=== PATIENT | male | born 1965 | race African-American/Black ===

== ENCOUNTER 2016-08-19 11:49 | Inpatient (IN) | payer OTHER ==
[2016-08-19 11:56] VITALS: BMI 21.7
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
[2016-08-19] MEDS ORDERED: hydrOXYzine PAMOATE 50 MG CAPSULE (FP) PO PRN (13:46)
[2016-08-19] MEDS ORDERED: guaiFENesin/D-METHORPHAN HB 10 ML UNIT-DOSE CUPS PO PRN (13:46)
[2016-08-19] MEDS ORDERED: chlordiazePOXIDE HCL 25 MG CAPSULE PO PRN (13:46)
[2016-08-19] MEDS ORDERED: MAGNESIUM HYDROX 2400MG/30ML ORAL SUSPENSION 30 ML CUP PO PRN (13:46)
[2016-08-19] MEDS ORDERED: MENTHOL/PHENOL 1 EACH UD MM PRN (13:46)
[2016-08-19] MEDS ORDERED: LOPERAMIDE HCL 2 MG CAPSULE PO PRN (13:46)
[2016-08-19] MEDS ORDERED: MAG HYDROX/AL HYDROX/SIMETH 30 ML UNIT-DOSE CUP PO PRN (13:46)
[2016-08-19] MEDS ORDERED: MAGNESIUM CITRATE 300 ML BOTTLE PO PRN (13:46)
[2016-08-19] MEDS ORDERED: ACETAMINOPHEN 325 MG TABLET (FP) PO PRN (13:46)
[2016-08-19] MEDS ORDERED: P-EPHED 60MG/TRIPROLIDI 2.5MG TABLET PO PRN (13:46)
[2016-08-19] MEDS ORDERED: chlordiazePOXIDE HCL 25 MG CAPSULE PO ONE (14:08)
[2016-08-19] MEDS: chlordiazePOXIDE HCL 25 MG CAPSULE PO SCH ×2 (17:09→22:03)
[2016-08-19 19:03] LABS: URINE APPEARANCE CLEAR; URINE BILIRUBIN NEGATIVE (NEGATIVE); URINE BLOOD NEGATIVE (NEGATIVE); URINE COLOR YELLOW; URINE GLUCOSE (UA) NEGATIVE (NEGATIVE); URINE KETONE NEGATIVE (NEGATIVE); URINE NITRITE NEGATIVE (NEGATIVE); URINE PROTEIN NEGATIVE (NEGATIVE); URINE UROBILINOGEN NEGATIVE E.U./dl (0.2-1.0)
[2016-08-19 19:39] LABS: URINE LEUK ESTERASE 3+ (NEGATIVE)
[2016-08-19 20:44] LABS: URINE MUCUS RARE; URINE RBC 2 /hpf (0-3); URINE WBC 17 /hpf (3-5)
[2016-08-19] MEDS: THIAMINE HCL 100 MG TABLET (FP) PO SCH (22:02)
[2016-08-19] MEDS: diphenhydrAMINE HCL 50 MG CAPSULE PO PRN (22:03)
[2016-08-20] MEDS: chlordiazePOXIDE HCL 25 MG CAPSULE PO SCH ×4 (05:59→22:04)
[2016-08-20 10:38] LABS: MCH 29.3 pg (25.7-33.7); MCHC 33.2 g/dl (32.0-35.9); MEAN CELL VOLUME 88.4 fl (80-96); MEAN PLT VOLUME 7.9 fl (7.5-11.1); PLATELET COUNT 320 K/MM3 (134-434); RDW 14.8 % (11.9-15.9); WHITE BLOOD COUNT 4.9 K/mm3 (4.0-10.0)
[2016-08-20] MEDS: PRENATAL VITAMINS W/ FOLIC ACID TABLET (FP) PO SCH (10:55)
[2016-08-20] MEDS: NICOTINE 21 MG/24 HOURS TOPICAL PATCH TD SCH (10:55)
[2016-08-20 11:27] LABS: ALBUMIN 3.8 g/dl (3.4-5.0); ALK PHOS 103 U/L (45-117); ANION GAP 10 (8-16); BILIRUBIN,TOTAL 0.9 mg/dL (0.2-1.0); CALCIUM 8.3 mg/dL (8.5-10.1); CO2 28 mmol/L (21-32); GLUCOSE,RANDOM 132 mg/dL (74-106); SGOT/AST 21 U/L (15-37); SGPT/ALT 20 U/L (12-78); TOT PROT 6.9 g/dl (6.4-8.2)
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
--- NOTE | 2016-08-20 15:35 | EKG ---
Test Reason : Blood Pressure : / mmHG Vent. Rate : 079 BPM Atrial Rate : 079 BPM P-R Int : 170 ms QRS Dur : 082 ms QT Int : 384 ms P-R-T Axes : 065 010 023 degrees QTc Int : 440 ms NORMAL SINUS RHYTHM POSSIBLE LEFT ATRIAL ENLARGEMENT LEFT VENTRICULAR HYPERTROPHY CANNOT RULE OUT SEPTAL INFARCT , AGE UNDETERMINED ABNORMAL ECG NO PREVIOUS ECGS AVAILABLE Confirmed by ERNESTO BUTLER MD ([id number]) on 08/20/2016 3:35:09 PM Referred By: Juliocesar Marin Confirmed By:ERNESTO BUTLER MD
--- NOTE | 2016-08-20 16:13 | PN ---
S CIWA - CIWA Score Nausea/Vomitin Muscle Tremors: 4-Moderate,w/Arms Extend Anxiety: 4-Mod. Anxious/Guarded Agitation: 4-Moderately Restless Paroxysmal Sweats: 3 Orientation: 0-Oriented Tacttile Disturbances: 1-Very Mild Itch/Numbness Auditory Disturbances: 0-None Visual Disturbances: 0-None Headache: 1-Very Mild CIWA-Ar Total Score: 20 BHS Progress Note (SOAP) Subjective: nausea, sweats, interrupted sleep, anxeity, tremors Objective: 08/20/16 16:12 Vital Signs - 8 hr 08/20/16 08/20/16 09:39 13:37 Temperature 96.7 F L 96.5 F L Pulse Rate 84 87 Respiratory 18 18 Rate Blood Pressure 111/72 105/78 Laboratory Tests 08/19/16 08/20/16 08/20/16 14:00 06:15 06:15 WBC 4.9 RBC 5.03 Hgb 14.7 Hct 44.5 MCV 88.4 MCHC 33.2 RDW 14.8 Plt Count 320 MPV 7.9 Sodium 137 Potassium 3.9 Chloride 99 Carbon Dioxide 28 Anion Gap 10 BUN 9 Creatinine 1.0 Creat Clearance w eGFR > 60 Random Glucose 132 H Calcium 8.3 L Total Bilirubin 0.9 AST 21 ALT 20 Alkaline Phosphatase 103 Total Protein 6.9 Albumin 3.8 Urine Color Yellow Urine Appearance Clear Urine pH 6.0 D Ur Specific [place] 1.011 Urine Protein Negative Urine Glucose (UA) Negative Urine Ketones Negative Urine Blood Negative Urine Nitrite Negative Urine Bilirubin Negative Urine Urobilinogen Negative Ur Leukocyte Esterase 3+ H Urine RBC 2 Urine WBC 17 Ur Epithelial Cells Rare Urine Mucus Rare RPR Titer 08/20/16 06:15 WBC RBC Hgb Hct MCV MCHC RDW Plt Count MPV Sodium Potassium Chloride Carbon Dioxide Anion Gap BUN Creatinine Creat Clearance w eGFR Random Glucose Calcium Total Bilirubin AST ALT Alkaline Phosphatase Total Protein Albumin Urine Color Urine Appearance Urine pH Ur Specific [place] Urine Protein Urine Glucose (UA) Urine Ketones Urine Blood Urine Nitrite Urine Bilirubin Urine Urobilinogen Ur Leukocyte Esterase Urine RBC Urine WBC Ur Epithelial Cells Urine Mucus RPR Titer Nonreactive Assessment: 08/20/16 16:13 withdrawal sx Plan: cont detox, encourage fluids
[2016-08-20] MEDS: IBUPROFEN 400 MG TABLET (FP) PO PRN (17:15)
[2016-08-20] MEDS ORDERED: ALBUTEROL SO4 6.7 GM HFA INHALER IH PRN (19:16)
[2016-08-20] MEDS ORDERED: ALBUTEROL SO4 2.5/IPRATROPIUM 0.5 INH SOL 3 ML VIAL.NEB. NEB PRN (19:16)
--- NOTE | 2016-08-20 19:18 | PN ---
BHS Progress Note Note: HISTORY OF ASTHMA VENTOLIN PRN + DUONEB PRN CONTINUE DETOX
[2016-08-20] MEDS: QUEtiapine FUMARATE 100 MG TABLET (FP) PO SCH (22:03)
[2016-08-20] MEDS: THIAMINE HCL 100 MG TABLET (FP) PO SCH (22:03)
[2016-08-20] MEDS: diphenhydrAMINE HCL 50 MG CAPSULE PO PRN (22:04)
[2016-08-21] MEDS: chlordiazePOXIDE HCL 25 MG CAPSULE PO SCH ×2 (05:57→10:19)
--- NOTE | 2016-08-21 10:13 | PN ---
S CIWA - CIWA Score Nausea/Vomitin Muscle Tremors: 3 Anxiety: 2 Agitation: 2 Paroxysmal Sweats: 3 Orientation: 0-Oriented Tacttile Disturbances: 1-Very Mild Itch/Numbness Auditory Disturbances: 0-None Visual Disturbances: 0-None Headache: 2-Mild CIWA-Ar Total Score: 15 S Progress Note (SOAP) Subjective: shakes, sweats,abdominal cramps & headache Objective: 08/21/16 10:11 Vital Signs - 8 hr 08/21/16 08/21/16 03:30 06:24 Temperature 98 F Pulse Rate 82 Respiratory 18 18 Rate Blood Pressure 100/60 Laboratory Last Values WBC 4.9 K/mm3 (4.0-10.0) 08/20/16 06:15 RBC 5.03 M/mm3 (4.00-5.60) 08/20/16 06:15 Hgb 14.7 GM/dL (11.7-16.9) 08/20/16 06:15 Hct 44.5 % (35.4-49) 08/20/16 06:15 MCV 88.4 fl (80-96) 08/20/16 06:15 MCHC 33.2 g/dl (32.0-35.9) 08/20/16 06:15 RDW 14.8 % (11.9-15.9) 08/20/16 06:15 Plt Count 320 K/MM3 (134-434) 08/20/16 06:15 MPV 7.9 fl (7.5-11.1) 08/20/16 06:15 Sodium 137 mmol/L (136-145) 08/20/16 06:15 Potassium 3.9 mmol/L (3.5-5.1) 08/20/16 06:15 Chloride 99 mmol/L (98-107) 08/20/16 06:15 Carbon Dioxide 28 mmol/L (21-32) 08/20/16 06:15 Anion Gap 10 (8-16) 08/20/16 06:15 BUN 9 mg/dL (7-18) 08/20/16 06:15 Creatinine 1.0 mg/dL (0.7-1.3) 08/20/16 06:15 Creat Clearance w eGFR > 60 (>60) 08/20/16 06:15 Random Glucose 132 mg/dL (74-106) H 08/20/16 06:15 Calcium 8.3 mg/dL (8.5-10.1) L 08/20/16 06:15 Total Bilirubin 0.9 mg/dL (0.2-1.0) 08/20/16 06:15 AST 21 U/L (15-37) 08/20/16 06:15 ALT 20 U/L (12-78) 08/20/16 06:15 Alkaline Phosphatase 103 U/L (45-117) 08/20/16 06:15 Total Protein 6.9 g/dl (6.4-8.2) 08/20/16 06:15 Albumin 3.8 g/dl (3.4-5.0) 08/20/16 06:15 Urine Color Yellow 08/19/16 14:00 Urine Appearance Clear 08/19/16 14:00 Urine pH 6.0 (5.0-8.0) D 08/19/16 14:00 Ur Specific [place] 1.011 (1.001-1.035) 08/19/16 14:00 Urine Protein Negative (NEGATIVE) 08/19/16 14:00 Urine Glucose (UA) Negative (NEGATIVE) 08/19/16 14:00 Urine Ketones Negative (NEGATIVE) 08/19/16 14:00 Urine Blood Negative (NEGATIVE) 08/19/16 14:00 Urine Nitrite Negative (NEGATIVE) 08/19/16 14:00 Urine Bilirubin Negative (NEGATIVE) 08/19/16 14:00 Urine Urobilinogen Negative E.U./dl (0.2-1.0) 08/19/16 14:00 Ur Leukocyte Esterase 3+ (NEGATIVE) H 08/19/16 14:00 Urine RBC 2 /hpf (0-3) 08/19/16 14:00 Urine WBC 17 /hpf (3-5) 08/19/16 14:00 Ur Epithelial Cells Rare /hpf (FEW) 08/19/16 14:00 Urine Mucus Rare 08/19/16 14:00 RPR Titer Nonreactive (NONREACTIVE) 08/20/16 06:15 Labs noted Assessment: 08/21/16 10:12 withdrawal sx Plan: continue detox
[2016-08-21] MEDS: PRENATAL VITAMINS W/ FOLIC ACID TABLET (FP) PO SCH (10:19)
[2016-08-21] MEDS: NICOTINE 21 MG/24 HOURS TOPICAL PATCH TD SCH (10:19)
[2016-08-21] MEDS: chlordiazePOXIDE 5 MG CAPSULE PO SCH ×2 (17:21→22:33)
[2016-08-21] MEDS: QUEtiapine FUMARATE 100 MG TABLET (FP) PO SCH (22:33)
[2016-08-21] MEDS: diphenhydrAMINE HCL 50 MG CAPSULE PO PRN (22:36)
[2016-08-21] MEDS: IBUPROFEN 400 MG TABLET (FP) PO PRN (22:36)
[2016-08-21] MEDS: THIAMINE HCL 100 MG TABLET (FP) PO SCH (22:41)
[2016-08-22] MEDS: chlordiazePOXIDE 5 MG CAPSULE PO SCH ×2 (06:23→10:27)
[2016-08-22] MEDS: NICOTINE 21 MG/24 HOURS TOPICAL PATCH TD SCH (10:27)
[2016-08-22] MEDS: PRENATAL VITAMINS W/ FOLIC ACID TABLET (FP) PO SCH (10:27)
--- NOTE | 2016-08-22 12:25 | PN ---
BHS Progress Note (SOAP) Subjective: Sweating, anxious, restless Objective: 08/22/16 12:21 Last Vital Signs Temp Pulse Resp BP Pulse Ox 96.3 F L 93 H 18 119/80 08/22/16 11:27 08/22/16 11:27 08/22/16 11:27 08/22/16 11:27 Laboratory Tests 08/19/16 08/20/16 08/20/16 14:00 06:15 06:15 WBC 4.9 RBC 5.03 Hgb 14.7 Hct 44.5 MCV 88.4 MCHC 33.2 RDW 14.8 Plt Count 320 MPV 7.9 Sodium 137 Potassium 3.9 Chloride 99 Carbon Dioxide 28 Anion Gap 10 BUN 9 Creatinine 1.0 Creat Clearance w eGFR > 60 Random Glucose 132 H Calcium 8.3 L Total Bilirubin 0.9 AST 21 ALT 20 Alkaline Phosphatase 103 Total Protein 6.9 Albumin 3.8 Urine Color Yellow Urine Appearance Clear Urine pH 6.0 D Ur Specific [place] 1.011 Urine Protein Negative Urine Glucose (UA) Negative Urine Ketones Negative Urine Blood Negative Urine Nitrite Negative Urine Bilirubin Negative Urine Urobilinogen Negative Ur Leukocyte Esterase 3+ H Urine RBC 2 Urine WBC 17 Ur Epithelial Cells Rare Urine Mucus Rare RPR Titer 08/20/16 06:15 WBC RBC Hgb Hct MCV MCHC RDW Plt Count MPV Sodium Potassium Chloride Carbon Dioxide Anion Gap BUN Creatinine Creat Clearance w eGFR Random Glucose Calcium Total Bilirubin AST ALT Alkaline Phosphatase Total Protein Albumin Urine Color Urine Appearance Urine pH Ur Specific [place] Urine Protein Urine Glucose (UA) Urine Ketones Urine Blood Urine Nitrite Urine Bilirubin Urine Urobilinogen Ur Leukocyte Esterase Urine RBC Urine WBC Ur Epithelial Cells Urine Mucus RPR Titer Nonreactive Labs noted: abnormal UA; serum glucose 132 Assessment: 08/22/16 12:24 Withdrawal symptoms Noted with abnormal UA and hyperglycemia Plan: Continue detox Abnormal UA: encouraged to drink lots of water, repeat UA Hyperglycemia: monitor
[2016-08-22 15:25] LABS: URINE APPEARANCE CLEAR; URINE BILIRUBIN NEGATIVE (NEGATIVE); URINE BLOOD NEGATIVE (NEGATIVE); URINE COLOR LTYELLOW; URINE GLUCOSE (UA) NEGATIVE (NEGATIVE); URINE KETONE NEGATIVE (NEGATIVE); URINE LEUK ESTERASE NEGATIVE (NEGATIVE); URINE NITRITE NEGATIVE (NEGATIVE); URINE PROTEIN NEGATIVE (NEGATIVE); URINE UROBILINOGEN NEGATIVE E.U./dl (0.2-1.0)
[2016-08-22] MEDS: chlordiazePOXIDE HCL 10 MG CAPSULE PO SCH ×2 (17:32→22:16)
[2016-08-22] MEDS: THIAMINE HCL 100 MG TABLET (FP) PO SCH (22:16)
[2016-08-22] MEDS: QUEtiapine FUMARATE 100 MG TABLET (FP) PO SCH (22:16)
[2016-08-22] MEDS: diphenhydrAMINE HCL 50 MG CAPSULE PO PRN (22:17)
[2016-08-22] MEDS: IBUPROFEN 400 MG TABLET (FP) PO PRN (22:17)
[2016-08-23] MEDS: diphenhydrAMINE HCL 50 MG CAPSULE PO PRN (00:42)
[2016-08-23] MEDS: chlordiazePOXIDE HCL 10 MG CAPSULE PO SCH (05:33)
[2016-08-23] MEDS: IBUPROFEN 400 MG TABLET (FP) PO PRN (05:34)
[2016-08-23 06:11] VITALS: BP 110/69; PULSE 79; TEMP 96.6
--- NOTE | 2016-08-23 09:02 | DS ---
[facility] Detox Discharge Summary Admission Date: 08/19/16 Discharge Date: 08/23/16 - History Present History: Alcohol Dependence, Cocaine Dependence Pertinent Past History: asthma, PTSD, anxiety, depression and insomnia - Physical Exam Results Vital Signs: Vital Signs Temperature 96.6 F L 08/23/16 06:10 Pulse Rate 79 08/23/16 06:10 Respiratory Rate 18 08/23/16 06:10 Blood Pressure 110/69 08/23/16 06:10 O2 Sat by Pulse Oximetry (%) Pertinent Admission Physical Exam Findings: withdrawal sx - Treatment Hospital Course: Detox Protocol Followed, Detoxed Safely, Responded well, Discharged Condition Good, Rehab Referral Accepted - Medication Discharge Medications: Ambulatory Orders Albuterol Sulfate Inhaler - [Ventolin HFA Inhaler -] 2 puff PO PRN PRN 08/20/16 Quetiapine Fumarate [Seroquel -] 400 mg PO HS 08/20/16 - Diagnosis (1) Drug-induced mood disorder Status: Acute (2) PTSD (post-traumatic stress disorder) Status: Acute (3) Alcohol dependence with uncomplicated withdrawal Status: Chronic (4) Asthma Status: Chronic Qualifiers: Asthma severity: mild intermittent Asthma complication type: uncomplicated Qualified Code(s): J45.20 - Mild intermittent asthma, uncomplicated (5) Chronic low back pain Status: Chronic Qualifiers: Back pain laterality: bilateral (6) Cocaine dependence, uncomplicated Status: Chronic (7) GERD (gastroesophageal reflux disease) Status: Chronic Qualifiers: Esophagitis presence: without esophagitis Qualified Code(s): K21.9 - Gastro-esophageal reflux disease without esophagitis (8) HIV (human immunodeficiency virus infection) Status: Chronic (9) Insomnia Status: Chronic (10) Nicotine dependence Status: Chronic Qualifiers: Nicotine product type: cigarettes Substance use status: uncomplicated Qualified Code(s): F17.210 - Nicotine dependence, cigarettes, uncomplicated - AMA Did Patient Leave Against Medical Advice: No
== END 2016-08-23 08:37 | disposition home or self-care (01) | DRG 774 ==
LOC: YASAS 11:49 → Y3N 14:07
PROVIDERS: ADMIT Internal Medicine; ATTEND Internal Medicine
PROC: HZ2ZZZZ Detoxification Services for Substance Abuse Treatment (ICD-10-PCS; principal; 2016-08-19)
DX: F10.230 Alcohol dependence with withdrawal, uncomplicated (principal); F14.20 Cocaine dependence, uncomplicated; F17.210 Nicotine dependence, cigarettes, uncomplicated; F43.10 Post-traumatic stress disorder, unspecified; F19.24 Other psychoactive substance dependence with psychoactive substance-induced mood disorder; J45.20 Mild intermittent asthma, uncomplicated; M54.5 Low back pain; G89.29 Other chronic pain; K21.9 Gastro-esophageal reflux disease without esophagitis; Z21 Asymptomatic human immunodeficiency virus [HIV] infection status; G47.00 Insomnia, unspecified; R82.90 Unspecified abnormal findings in urine; R73.9 Hyperglycemia, unspecified; Z96.651 Presence of right artificial knee joint; Z59.0 Homelessness
CPT/HCPCS: 36415; 80053; 81003; 81015; 85027; 86593; 93005; 93010

== ENCOUNTER 2016-09-02 15:00 | Inpatient (IN) | payer OTHER ==
[2016-09-02 17:10] VITALS: BMI 21.4
--- NOTE | 2016-09-02 19:15 | HP ---
Admission ROS [facility] Chief Complaint: i want to go to rehab Allergies/Adverse Reactions: Allergies Allergy/AdvReac Type Severity Reaction Status Date / Time No Known Allergies Allergy Verified 09/02/16 17:58 History of Present Illness: 51 years old male with long history of alcohol nicotine dependence, has asthma arthritis depression is admitted to rehab Exam Limitations: No Limitations - Ebola screening Have you traveled outside of the country in the last 21 days: No ([place]) Have you had contact with anyone from an Ebola affected area: No Have you been sick,other than usual withdrawal symptoms: No Do you have a fever: No - Review of Systems Constitutional: Loss of Appetite, Unexplained wgt Loss EENT: reports: Other (needed eye glasses) Respiratory: reports: No Symptoms reported Cardiac: reports: Palpitations GI: reports: Poor Fluid Intake : reports: No Symptoms Reported Musculoskeletal: reports: Back Pain, Joint Pain, Neck Pain Integumentary: reports: Rash (right great toe) Neuro: reports: No Symptoms reported Endocrine: reports: No Symptoms Reported Hematology: reports: No Symptoms Reported Psychiatric: reports: Judgement Intact, Orientated x3, Depressed Other Systems: Reviewed and Negative Patient History - Patient Medical History Hx Anemia: No Hx Asthma: Yes (Pt is on MDI) Hx Chronic Obstructive Pulmonary Disease (COPD): No Hx Cancer: No Hx Cardiac Disorders: No Hx Congestive Heart Failure: No Hx Hypertension: No Hx Hypercholesterolemia: No Hx Pacemaker: No HX Cerebrovascular Accident: No Hx Seizures: No Hx Dementia: No Hx Diabetes: No Hx Gastrointestinal Disorders: No Hx Liver Disease: No Hx Genitourinary Disorders: No Hx Sexually Transmitted Disorders: No Hx Renal Disease (ESRD): No Hx Thyroid Disease: No Hx Human Immunodeficiency Virus (HIV): Yes (since 1982/undetectable. ) Hx Hepatitis C: No (negative) Hx Depression: Yes Hx Suicide Attempt: No (denies) Hx Bipolar Disorder: No Hx Schizophrenia: No - Patient Surgical History Past Surgical History: Yes Hx Neurologic Surgery: No Hx Cataract Extraction: No Hx Cardiac Surgery: No Hx Lung Surgery: No Hx Breast Surgery: No Hx Breast Biopsy: No Hx Abdominal Surgery: No Hx Appendectomy: No Hx Cholecystectomy: No Hx Genitourinary Surgery: No Hx Orthopedic Surgery: Yes (total knee replacement right in 2004) Anesthesia Reaction: No - PPD History Previous Implant?: Yes Documented Results: Negative w/proof Implanted On Prior R Admission?: Yes Date: 08/21/16 Results: 0 mm PPD to be Administered?: No - Smoking Cessation Smoking history: Current every day smoker Have you smoked in the past 12 months: Yes Aproximately how many cigarettes per day: 20 Cigars Per Day: 0 Hx Chewing Tobacco Use: No Initiated information on smoking cessation: Yes 'Breaking Loose' booklet given: 09/02/16 - Substance & Tx. History Hx Alcohol Use: Yes Hx Substance Use: Yes Substance Use Type: Alcohol, Cocaine Hx Substance Use Treatment: Yes - Substances Abused Alcohol Route: Oral Frequency: Daily Amount used: 2 pints volka Age of first use: 7 Date of Last Use: 08/29/16 Family Disease History - Family Disease History Family Disease History: Other: Father (alcohol,), Mother (alcohol) Admission Physical Exam S - Vital Signs Vital Signs: Vital Signs - 24 hr 09/02/16 17:09 Temperature 98.2 F Pulse Rate 94 H Respiratory 20 Rate Blood Pressure 117/70 - Physical General Appearance: Yes: No Apparent Distress, Appropriately Dressed, Thin HEENTM: Yes: Hearing grossly Normal, Normal ENT Inspection, Normocephalic, Normal Voice Respiratory: Yes: Chest Non-Tender, Lungs Clear, Normal Breath Sounds, No Respiratory Distress, No Accessory Muscle Use Neck: Yes: Supple, Trachea in good position Breast: Yes: Breasts Symetrical Cardiology: Yes: Regular Rhythm, Regular Rate, S1, S2 Abdominal: Yes: Non Tender, Soft Genitourinary: Yes: Within Normal Limits Back: Yes: Normal Inspection Musculoskeletal: Yes: full range of Motion, Gait Steady Extremities: Yes: Normal Inspection, Normal Range of Motion, Non-Tender Neurological: Yes: Fully Oriented, Alert, Motor Strength 5/5, Normal Response, Depressed Affect Integumentary: Yes: Warm Lymphatic: Yes: Within Normal Limits - Diagnostic (1) Alcohol dependence with uncomplicated withdrawal Current Visit: Yes Status: Acute (2) Asthma Current Visit: Yes Status: Acute Qualifiers: Asthma severity: mild intermittent Asthma complication type: uncomplicated Qualified Code(s): J45.20 - Mild intermittent asthma, uncomplicated Comment: mild copd (3) GERD (gastroesophageal reflux disease) Current Visit: Yes Status: Acute Qualifiers: Esophagitis presence: without esophagitis Qualified Code(s): K21.9 - Gastro-esophageal reflux disease without esophagitis (4) HIV (human immunodeficiency virus infection) Current Visit: Yes Status: Chronic Comment: not taking any medication, pt states its undetecable (5) Nicotine dependence Current Visit: Yes Status: Acute Qualifiers: Nicotine product type: cigarettes Substance use status: in withdrawal Qualified Code(s): F17.213 - Nicotine dependence, cigarettes, with withdrawal (6) Skin abrasion Current Visit: Yes Status: Acute Comment: left 2nd toe (7) Arthritis Current Visit: Yes Status: Acute Comment: naproxen Cleared for Admission [facility] - Detox or Rehab [facility] Level of Care: Observation Bed Claeared for Rehab Admission: Yes [facility] Breath Alcohol Content Breath Alcohol Content: 0
[2016-09-02] MEDS ORDERED: MAGNESIUM HYDROX 2400MG/30ML ORAL SUSPENSION 30 ML CUP PO PRN (19:16)
[2016-09-02] MEDS ORDERED: MAG HYDROX/AL HYDROX/SIMETH 30 ML UNIT-DOSE CUP PO PRN (19:16)
[2016-09-02] MEDS ORDERED: ACETAMINOPHEN 325 MG TABLET (FP) PO PRN (19:16)
[2016-09-02] MEDS ORDERED: hydrOXYzine PAMOATE 50 MG CAPSULE (FP) PO PRN (19:16)
[2016-09-02] MEDS ORDERED: IBUPROFEN 400 MG TABLET (FP) PO PRN (19:16)
[2016-09-02] MEDS ORDERED: NICOTINE POLACRILEX 2 MG GUM BC PRN (19:16)
[2016-09-02] MEDS ORDERED: guaiFENesin/D-METHORPHAN HB 10 ML UNIT-DOSE CUPS PO PRN (19:16)
[2016-09-02] MEDS ORDERED: P-EPHED 60MG/TRIPROLIDI 2.5MG TABLET PO PRN (19:16)
[2016-09-02] MEDS ORDERED: MAGNESIUM CITRATE 300 ML BOTTLE PO PRN (19:16)
[2016-09-02] MEDS ORDERED: MENTHOL/PHENOL 1 EACH UD MM PRN (19:16)
[2016-09-02] MEDS ORDERED: LOPERAMIDE HCL 2 MG CAPSULE PO PRN (19:16)
[2016-09-02] MEDS ORDERED: ALBUTEROL SO4 6.7 GM HFA INHALER IH PRN (19:19)
[2016-09-02] MEDS ORDERED: COLLOIDAL OATMEAL 1 BAR EACH TP PRN (19:20)
[2016-09-02] MEDS ORDERED: ALBUTEROL SO4 2.5/IPRATROPIUM 0.5 INH SOL 3 ML VIAL.NEB. NEB PRN (19:20)
[2016-09-02] MEDS: BUDESONIDE/FORMETEROL FUMARATE 80/4.5 mcg INHALER IH SCH (21:46)
[2016-09-02] MEDS: MINERAL OIL/PETROLAT/WATER TOPICAL CREAM 113 GM JAR TP SCH (21:46)
[2016-09-02] MEDS: BACITRACIN 15 GM TUBE TOPICAL OINTMENT TP SCH (21:46)
[2016-09-02] MEDS: THIAMINE HCL 100 MG TABLET (FP) PO SCH (21:47)
[2016-09-02] MEDS: diphenhydrAMINE HCL 50 MG CAPSULE PO PRN (21:47)
[2016-09-02] MEDS: RANITIDINE HCL 150 MG TABLET (FP) PO SCH (21:47)
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
[2016-09-03 09:16] LABS: MCH 28.8 pg (25.7-33.7); MCHC 32.3 g/dl (32.0-35.9); MEAN CELL VOLUME 89.1 fl (80-96); MEAN PLT VOLUME 7.4 fl (7.5-11.1); PLATELET COUNT 299 K/MM3 (134-434); RDW 15.9 % (11.9-15.9); WHITE BLOOD COUNT 5.7 K/mm3 (4.0-10.0)
[2016-09-03 09:20] LABS: ALBUMIN 3.2 g/dl (3.4-5.0); ANION GAP 9 (8-16); CALCIUM 8.4 mg/dL (8.5-10.1); CO2 31 mmol/L (21-32); CREATININE 0.8 mg/dL (0.7-1.3); GLUCOSE,RANDOM 76 mg/dL (74-106); SGOT/AST 25 U/L (15-37); SGPT/ALT 19 U/L (12-78)
[2016-09-03 09:22] LABS: ALK PHOS 135 U/L (45-117); BILIRUBIN,TOTAL 0.4 mg/dL (0.2-1.0); TOT PROT 6.3 g/dl (6.4-8.2)
[2016-09-03] MEDS: BUDESONIDE/FORMETEROL FUMARATE 80/4.5 mcg INHALER IH SCH ×2 (10:30→21:46)
[2016-09-03] MEDS: RANITIDINE HCL 150 MG TABLET (FP) PO SCH ×2 (10:30→21:44)
[2016-09-03] MEDS: PRENATAL VITAMINS W/ FOLIC ACID TABLET (FP) PO SCH (10:30)
[2016-09-03] MEDS: BACITRACIN 15 GM TUBE TOPICAL OINTMENT TP SCH ×2 (10:31→21:46)
[2016-09-03] MEDS: NICOTINE 21 MG/24 HOURS TOPICAL PATCH TD SCH (10:31)
--- NOTE | 2016-09-03 10:46 | EKG ---
Test Reason : Blood Pressure : / mmHG Vent. Rate : 084 BPM Atrial Rate : 084 BPM P-R Int : 170 ms QRS Dur : 078 ms QT Int : 396 ms P-R-T Axes : 060 -14 027 degrees QTc Int : 467 ms NORMAL SINUS RHYTHM POSSIBLE LEFT ATRIAL ENLARGEMENT LEFT VENTRICULAR HYPERTROPHY ANTEROSEPTAL INFARCT (CITED ON OR BEFORE 19-AUG-2016) ABNORMAL ECG Confirmed by ERNESTO BUTLER MD ([id number]) on 09/03/2016 10:46:31 AM Referred By: Cristian Nichole Confirmed By:ERNESTO BUTLER MD
[2016-09-03] MEDS: diphenhydrAMINE HCL 50 MG CAPSULE PO PRN (21:44)
[2016-09-03] MEDS: THIAMINE HCL 100 MG TABLET (FP) PO SCH (21:44)
[2016-09-03] MEDS: QUEtiapine FUMARATE 400 MG TABLET PO SCH (21:44)
[2016-09-03] MEDS: MINERAL OIL/PETROLAT/WATER TOPICAL CREAM 113 GM JAR TP SCH (21:46)
[2016-09-04] MEDS: PRENATAL VITAMINS W/ FOLIC ACID TABLET (FP) PO SCH (10:22)
[2016-09-04] MEDS: RANITIDINE HCL 150 MG TABLET (FP) PO SCH ×2 (10:22→21:13)
[2016-09-04] MEDS: BUDESONIDE/FORMETEROL FUMARATE 80/4.5 mcg INHALER IH SCH ×2 (10:23→21:13)
[2016-09-04] MEDS: NICOTINE 21 MG/24 HOURS TOPICAL PATCH TD SCH (10:23)
[2016-09-04] MEDS: NAPROXEN 500 MG TABLET (FP) PO PRN (10:24)
[2016-09-04] MEDS: BACITRACIN 15 GM TUBE TOPICAL OINTMENT TP SCH ×2 (15:03→21:14)
[2016-09-04 20:31] LABS: URINE APPEARANCE CLEAR; URINE BILIRUBIN NEGATIVE (NEGATIVE); URINE BLOOD NEGATIVE (NEGATIVE); URINE COLOR LTYELLOW; URINE GLUCOSE (UA) NEGATIVE (NEGATIVE); URINE KETONE NEGATIVE (NEGATIVE); URINE LEUK ESTERASE NEGATIVE (NEGATIVE); URINE NITRITE NEGATIVE (NEGATIVE); URINE PROTEIN NEGATIVE (NEGATIVE); URINE UROBILINOGEN NEGATIVE E.U./dl (0.2-1.0)
[2016-09-04] MEDS: diphenhydrAMINE HCL 50 MG CAPSULE PO PRN (21:13)
[2016-09-04] MEDS: THIAMINE HCL 100 MG TABLET (FP) PO SCH (21:13)
[2016-09-04] MEDS: QUEtiapine FUMARATE 400 MG TABLET PO SCH (21:13)
[2016-09-04] MEDS: MINERAL OIL/PETROLAT/WATER TOPICAL CREAM 113 GM JAR TP SCH (21:14)
[2016-09-05] MEDS: BUDESONIDE/FORMETEROL FUMARATE 80/4.5 mcg INHALER IH SCH ×2 (10:24→21:40)
[2016-09-05] MEDS: PRENATAL VITAMINS W/ FOLIC ACID TABLET (FP) PO SCH (10:24)
[2016-09-05] MEDS: BACITRACIN 15 GM TUBE TOPICAL OINTMENT TP SCH ×2 (10:24→21:38)
[2016-09-05] MEDS: NICOTINE 21 MG/24 HOURS TOPICAL PATCH TD SCH (10:24)
[2016-09-05] MEDS: RANITIDINE HCL 150 MG TABLET (FP) PO SCH ×2 (10:24→21:38)
[2016-09-05] MEDS: diphenhydrAMINE HCL 50 MG CAPSULE PO PRN (21:38)
[2016-09-05] MEDS: THIAMINE HCL 100 MG TABLET (FP) PO SCH (21:38)
[2016-09-05] MEDS: QUEtiapine FUMARATE 400 MG TABLET PO SCH (21:38)
[2016-09-05] MEDS: MINERAL OIL/PETROLAT/WATER TOPICAL CREAM 113 GM JAR TP SCH (21:40)
[2016-09-06] MEDS: PRENATAL VITAMINS W/ FOLIC ACID TABLET (FP) PO SCH (10:11)
[2016-09-06] MEDS: NAPROXEN 500 MG TABLET (FP) PO PRN (10:11)
[2016-09-06] MEDS: RANITIDINE HCL 150 MG TABLET (FP) PO SCH ×2 (10:11→21:45)
[2016-09-06] MEDS: BUDESONIDE/FORMETEROL FUMARATE 80/4.5 mcg INHALER IH SCH ×2 (10:11→21:45)
[2016-09-06] MEDS: BACITRACIN 15 GM TUBE TOPICAL OINTMENT TP SCH ×2 (10:12→21:45)
[2016-09-06] MEDS: NICOTINE 21 MG/24 HOURS TOPICAL PATCH TD SCH (10:12)
[2016-09-06] MEDS: QUEtiapine FUMARATE 400 MG TABLET PO SCH (21:44)
[2016-09-06] MEDS: THIAMINE HCL 100 MG TABLET (FP) PO SCH (21:44)
[2016-09-06] MEDS: MINERAL OIL/PETROLAT/WATER TOPICAL CREAM 113 GM JAR TP SCH (21:45)
[2016-09-07] MEDS: PRENATAL VITAMINS W/ FOLIC ACID TABLET (FP) PO SCH (10:15)
[2016-09-07] MEDS: RANITIDINE HCL 150 MG TABLET (FP) PO SCH ×2 (10:15→21:28)
[2016-09-07] MEDS: BUDESONIDE/FORMETEROL FUMARATE 80/4.5 mcg INHALER IH SCH ×2 (10:16→21:27)
[2016-09-07] MEDS: BACITRACIN 15 GM TUBE TOPICAL OINTMENT TP SCH ×2 (10:35→23:31)
[2016-09-07] MEDS: NICOTINE 21 MG/24 HOURS TOPICAL PATCH TD SCH (10:35)
[2016-09-07] MEDS: NAPROXEN 500 MG TABLET (FP) PO PRN (21:28)
[2016-09-07] MEDS: THIAMINE HCL 100 MG TABLET (FP) PO SCH (21:28)
[2016-09-07] MEDS: QUEtiapine FUMARATE 400 MG TABLET PO SCH (21:28)
[2016-09-07] MEDS: MINERAL OIL/PETROLAT/WATER TOPICAL CREAM 113 GM JAR TP SCH (23:31)
[2016-09-08 07:45] VITALS: BP 96/66; PULSE 88; TEMP 98.1
[2016-09-08] MEDS: RANITIDINE HCL 150 MG TABLET (FP) PO SCH (10:24)
[2016-09-08] MEDS: PRENATAL VITAMINS W/ FOLIC ACID TABLET (FP) PO SCH (10:24)
[2016-09-08] MEDS: NICOTINE 21 MG/24 HOURS TOPICAL PATCH TD SCH (10:24)
[2016-09-08] MEDS: BACITRACIN 15 GM TUBE TOPICAL OINTMENT TP SCH (10:24)
[2016-09-08] MEDS: BUDESONIDE/FORMETEROL FUMARATE 80/4.5 mcg INHALER IH SCH (10:24)
--- NOTE | 2016-09-08 10:32 | PN ---
Psychiatric Progress Note Vital Signs: Vital Signs Period Temp Pulse Resp BP Sys/Uribe Pulse Ox Last 24 Hr 98.1 F 88 18-18 96/66 Date of Session: 09/08/16 Chief Complaint:: AMA Psychiatrist Discharge Note HPI: Patient addressing Alcohol Dependence comorbid with Nicotine Dependence and Posttraumatic Stress Disorder Current Medications: Active Medications Generic Name Dose Route Start Last Admin Trade Name Freq PRN Reason Stop Dose Admin Acetaminophen 650 mg 09/02/16 19:16 09/05/16 21:39 Tylenol - PO 650 mg Q4H PRN Administration PAIN Al Hydroxide/Mg Hydroxide 30 ml 09/02/16 19:16 09/04/16 21:14 Mylanta Oral Suspension - PO 30 ml Q6H PRN Administration DYSPEPSIA Albuterol Sulfate 2 puff 09/02/16 19:19 Ventolin Hfa Inhaler - IH Q4H PRN SHORT OF BREATH/WHEEZING Bacitracin 1 applic 09/02/16 22:00 09/08/16 10:24 Bacitracin - TP Not Given BID PER Budesonide/Formoterol Fumarate 2 puff 09/02/16 22:00 09/08/16 10:24 Symbicort 80/4.5mcg - IH 2 puff BID PER Administration Colloidal Oatmeal 1 applic 09/02/16 19:20 09/02/16 21:48 Aveeno Soap - TP 1 applic DAILY PRN Administration HYGEINE Diphenhydramine HCl 50 mg 09/02/16 19:16 09/05/16 21:38 Benadryl - PO 50 mg HSMR1 PRN Administration INSOMNIA Eucalyptus/Menthol/Phenol/Sorbitol 1 each 09/02/16 19:16 Cepastat Lozenge - MM Q4H PRN SORE THROAT Guaifenesin 10 ml 09/02/16 19:16 Robitussin Dm - PO Q6H PRN COUGH Hydroxyzine Pamoate 50 mg 09/02/16 19:16 Vistaril - PO Q4H PRN AGITATION Loperamide HCl 4 mg 09/02/16 19:16 Imodium - PO Q6H PRN DIARRHEA Magnesium Citrate 300 ml 09/02/16 19:16 Citroma - PO Q48H PRN CONSTIPATION Magnesium Hydroxide 30 ml 09/02/16 19:16 Milk Of Magnesia - PO DAILY PRN CONSTIPATION Multi-Ingredient Lotion 1 applic 09/02/16 22:00 09/07/16 23:31 Eucerin (Small Jar) - TP Not Given HS PER Naproxen 500 mg 09/02/16 19:32 09/07/16 21:28 Naprosyn - PO 500 mg Q12H PRN Administration BACK PAIN Nicotine 21 mg 09/03/16 10:00 09/08/16 10:24 Nicoderm Patch - TD Not Given DAILY PER Nicotine Polacrilex 2 mg 09/02/16 19:16 Nicorette Gum - BC Q2H PRN NICOTINE REPLACEMENT RX Multivit/Folic Acid/Iron 1 tab 09/03/16 10:00 09/08/16 10:24 Vitamins (Sjr) - PO 1 tab DAILY PER Administration Pseudoephedrine/Triprolidine 1 combo 09/02/16 19:16 Actifed - PO TID PRN NASAL CONGESTION Quetiapine Fumarate 400 mg 09/03/16 22:00 09/07/16 21:28 Seroquel - PO 400 mg HS PER Administration Ranitidine HCl 150 mg 09/02/16 22:00 09/08/16 10:24 Zantac - PO 150 mg BID PER Administration Thiamine HCl 100 mg 09/02/16 22:00 09/07/16 21:28 Vitamin B1 - PO 100 mg HS PER Administration Current Side Effect: No Lab tests ordered: Yes Lab tests reviewed: Yes Provider note:: Patient requests to leave against medical advice citing annoying pain from a toothache. Claims that he needs to see a dentist today. He is not willing to have medication for pain(vivious lidocaine) offerred by the doctor and see the dentist tomorrow. Patient was encouraged to stay and complete the program but he was determined to leave against medical advice. He was taking Seroquel 400 mg po HS for his psychiatric issues. Script for 30 days supply of that medication is electronically transmitted to [facility] at [address] [place] [address]. He is stable for discharge today AMA Total face to face time:: 25 Mental Status Exam - Mental Status Exam Alert and Oriented to: Time, Place, Person Cognitive Function: Fair Patient Appearance: Well Groomed Mood: Hopeful, Euthymic Affect: Appropriate Patient Behavior: Cooperative Speech Pattern: Clear Voice Loudness: Normal Thought Process: Intact Thought Disorder: Not Present Hallucinations: Denies Suicidal Ideation: Denies Homicidal Ideation: Denies Insight/Judgement: Poor Sleep: Fair Appetite: Good Muscle strength/Tone: Normal Gait/Station: Normal Psychiatric Treatment Plan - Problem List (1) Alcohol dependence with uncomplicated withdrawal Current Visit: Yes (2) Nicotine dependence Current Visit: Yes Qualifiers: Nicotine product type: cigarettes Substance use status: in withdrawal Qualified Code(s): F17.213 - Nicotine dependence, cigarettes, with withdrawal (3) PTSD (post-traumatic stress disorder) Current Visit: No (4) Arthritis Current Visit: Yes Comment: naproxen (5) Asthma Current Visit: Yes Qualifiers: Asthma severity: mild intermittent Asthma complication type: uncomplicated Qualified Code(s): J45.20 - Mild intermittent asthma, uncomplicated Comment: mild copd (6) GERD (gastroesophageal reflux disease) Current Visit: Yes Qualifiers: Esophagitis presence: without esophagitis Qualified Code(s): K21.9 - Gastro-esophageal reflux disease without esophagitis (7) HIV (human immunodeficiency virus infection) Current Visit: Yes Comment: not taking any medication, pt states its undetecable (8) Chronic low back pain Current Visit: No Qualifiers: Back pain laterality: bilateral Initial treatment plan: Patient is leaving [place]
== END 2016-09-08 10:35 | disposition left against medical advice (07) | DRG 770 ==
LOC: YASAS 15:00 → Y3W 18:26
PROVIDERS: ADMIT Psychiatry & Neurology Psychiatry; ATTEND Psychiatry & Neurology Psychiatry
PROC: HZ42ZZZ Group Counseling for Substance Abuse Treatment, Cognitive-Behavioral (ICD-10-PCS; principal; 2016-09-08)
DX: F10.230 Alcohol dependence with withdrawal, uncomplicated (principal); F17.213 Nicotine dependence, cigarettes, with withdrawal; F43.10 Post-traumatic stress disorder, unspecified; Z21 Asymptomatic human immunodeficiency virus [HIV] infection status; J45.20 Mild intermittent asthma, uncomplicated; K21.9 Gastro-esophageal reflux disease without esophagitis; M12.9 Arthropathy, unspecified; M54.5 Low back pain; G89.29 Other chronic pain; Z59.0 Homelessness
CPT/HCPCS: 36415; 80053; 81003; 85027; 86593; 93005; 93010

== ENCOUNTER 2016-11-16 13:02 | Inpatient (IN) | payer OTHER ==
[2016-11-16 14:44] VITALS: BMI 21.4
--- NOTE | 2016-11-16 15:17 | HP ---
CIWA Score - CIWA Score Nausea/Vomitin Muscle Tremors: 3 Anxiety: 3 Agitation: 3 Paroxysmal Sweats: 2 Orientation: 0-Oriented Tacttile Disturbances: 2-Mild Itch/Numbness/Burn Auditory Disturbances: 2-Mild Harshness/Frighten Visual Disturbances: 2-Mild Sensitivity Headache: 2-Mild CIWA-Ar Total Score: 22 Admission ROS [facility] - HPI Chief Complaint: I NEED HELP TO STOP DRINKING ALCOHOL AND COCAINE Allergies/Adverse Reactions: Allergies Allergy/AdvReac Type Severity Reaction Status Date / Time No Known Allergies Allergy Verified 11/16/16 15:10 History of Present Illness: THIS 51 YEARS OLD MALE WITH ALCOHOL AND COCAINE DEPENDENCE,WITHDRAWAL SYMPTOM, LAST DETOX 08/17 [facility] ANXIETY AND DEPRESSION ASTHMA GERD HIV SINCE 1982 NICOTINE DEPENDENCE LONGEST PERIOD OF SOBRIETY Exam Limitations: No Limitations - Ebola screening Have you traveled outside of the country in the last 21 days: No Have you had contact with anyone from an Ebola affected area: No Have you been sick,other than usual withdrawal symptoms: No Do you have a fever: No - Review of Systems Constitutional: Loss of Appetite, Night Sweats, Changes in sleep, Weakness, Unintentional Wgt. Loss EENT: reports: Nose Congestion Respiratory: reports: No Symptoms reported, Other (ASTHMA) Cardiac: reports: No Symptoms Reported GI: reports: Nausea, Poor Appetite, Vomiting, Abdominal cramping : reports: No Symptoms Reported Musculoskeletal: reports: Back Pain, Muscle Pain Integumentary: reports: Dryness Neuro: reports: Headache, Tremors Endocrine: reports: No Symptoms Reported, See HPI, Excessive Sweating, Flushing Hematology: reports: No Symptoms Reported, Other (HIV) Psychiatric: reports: Anxious, Depressed Patient History - Patient Medical History Hx Anemia: No Hx Asthma: Yes (ON ALBUTEROL INHALER) Hx Chronic Obstructive Pulmonary Disease (COPD): No Hx Cancer: No Hx Cardiac Disorders: No Hx Congestive Heart Failure: No Hx Hypertension: No Hx Hypercholesterolemia: No Hx Pacemaker: No HX Cerebrovascular Accident: No Hx Seizures: No Hx Dementia: No Hx Diabetes: No Hx Gastrointestinal Disorders: No Hx Liver Disease: No Hx Genitourinary Disorders: No Hx Sexually Transmitted Disorders: No Hx Renal Disease (ESRD): No Hx Thyroid Disease: No Hx Human Immunodeficiency Virus (HIV): Yes (since 1982/undetectable. ) Hx Hepatitis C: No (negative) Hx Depression: Yes (ANXIETY) Hx Suicide Attempt: No Hx Bipolar Disorder: No Hx Schizophrenia: No Other Medical History: NO SUICIDALN HOMICIDAL - Patient Surgical History Past Surgical History: Yes Hx Neurologic Surgery: No Hx Cataract Extraction: No Hx Cardiac Surgery: No Hx Lung Surgery: No Hx Breast Surgery: No Hx Breast Biopsy: No Hx Abdominal Surgery: No Hx Appendectomy: No Hx Cholecystectomy: No Hx Genitourinary Surgery: No Hx Section: No Hx Orthopedic Surgery: Yes (total knee replacement LEFT in 2004) Anesthesia Reaction: No - PPD History Previous Implant?: Yes Date: 08/21/16 Results: 0 mm PPD to be Administered?: No - Smoking Cessation Smoking history: Current every day smoker Have you smoked in the past 12 months: Yes Aproximately how many cigarettes per day: 20 Cigars Per Day: 0 Hx Chewing Tobacco Use: No Initiated information on smoking cessation: Yes 'Breaking Loose' booklet given: 11/16/16 - Substance & Tx. History Hx Alcohol Use: Yes Hx Substance Use: Yes Substance Use Type: Alcohol, Cocaine Hx Substance Use Treatment: Yes (08/17 [facility]) Family Disease History - Family Disease History Family Disease History: Other: Father (alcohol,), Mother (alcohol) Admission Physical Exam S - Vital Signs Vital Signs: Vital Signs - 24 hr 11/16/16 14:42 Temperature 97.8 F Pulse Rate 79 Respiratory 20 Rate Blood Pressure 118/69 - Physical General Appearance: Yes: Moderate Distress, Tremorous, Irritable, Sweating, Anxious HEENTM: Yes: Normal ENT Inspection, DOMINGO, Other (DENATL PROBLEM ONLY ONE TOOTH UPPER) Respiratory: Yes: Lungs Clear, Normal Breath Sounds, No Respiratory Distress Neck: Yes: Within Normal Limits Breast: Yes: Within Normal Limits Cardiology: Yes: Within Normal Limits, Regular Rhythm, Regular Rate, S1, S2 Abdominal: Yes: Within Normal Limits, Normal Bowel Sounds, Non Tender, Flat, Soft Genitourinary: Yes: Within Normal Limits Back: Yes: Muscle Spasm Musculoskeletal: Yes: Within Normal Limits, full range of Motion, Back pain Extremities: Yes: Normal Inspection, Normal Range of Motion, Tremors Neurological: Yes: 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 NML intact, Fully Oriented, Alert, Motor Strength 5/5 Integumentary: Yes: Dry Lymphatic: Yes: Within Normal Limits - Diagnostic (1) Alcohol dependence with uncomplicated withdrawal Current Visit: No Status: Acute (2) Arthritis Current Visit: No Status: Acute Comment: naproxen (3) Asthma Current Visit: No Status: Acute Qualifiers: Asthma severity: mild intermittent Asthma complication type: uncomplicated Qualified Code(s): J45.20 - Mild intermittent asthma, uncomplicated Comment: mild copd (4) GERD (gastroesophageal reflux disease) Current Visit: No Status: Acute Qualifiers: Esophagitis presence: without esophagitis Qualified Code(s): K21.9 - Gastro-esophageal reflux disease without esophagitis (5) Nicotine dependence Current Visit: No Status: Acute Qualifiers: Nicotine product type: cigarettes Substance use status: in withdrawal Qualified Code(s): F17.213 - Nicotine dependence, cigarettes, with withdrawal (6) PTSD (post-traumatic stress disorder) Current Visit: No Status: Acute (7) Chronic low back pain Current Visit: No Status: Chronic Qualifiers: Back pain laterality: bilateral (8) Cocaine dependence, uncomplicated Current Visit: No Status: Chronic (9) HIV (human immunodeficiency virus infection) Current Visit: No Status: Chronic Comment: not taking any medication, pt states its undetecable (10) Insomnia Current Visit: No Status: Chronic (11) Weight loss Current Visit: Yes Status: Acute (12) History of dental problems Current Visit: Yes Status: Acute Cleared for Admission [facility] - Detox or Rehab S Level of Care: Medically Managed Detox Regimen/Protocol: Librium S Breath Alcohol Content Breath Alcohol Content: 0 Urine Drug Screen - Results Drug Screen Negative: No Urine Drug Screen Results: FELIZ-Cocaine, BZO-Benzodiazepines
[2016-11-16] MEDS ORDERED: guaiFENesin/D-METHORPHAN HB 10 ML UNIT-DOSE CUPS PO PRN (15:27)
[2016-11-16] MEDS ORDERED: NICOTINE POLACRILEX 2 MG GUM BC PRN (15:27)
[2016-11-16] MEDS ORDERED: MAGNESIUM HYDROX 2400MG/30ML ORAL SUSPENSION 30 ML CUP PO PRN (15:27)
[2016-11-16] MEDS ORDERED: diphenhydrAMINE HCL 50 MG CAPSULE PO PRN (15:27)
[2016-11-16] MEDS ORDERED: MENTHOL/PHENOL 1 EACH UD MM PRN (15:27)
[2016-11-16] MEDS ORDERED: LOPERAMIDE HCL 2 MG CAPSULE PO PRN (15:27)
[2016-11-16] MEDS ORDERED: MAGNESIUM CITRATE 300 ML BOTTLE PO PRN (15:27)
[2016-11-16] MEDS ORDERED: hydrOXYzine PAMOATE 25 MG CAPSULE (FP) PO PRN (15:27)
[2016-11-16] MEDS ORDERED: P-EPHED 60MG/TRIPROLIDI 2.5MG TABLET PO PRN (15:27)
[2016-11-16] MEDS ORDERED: ACETAMINOPHEN 325 MG TABLET (FP) PO PRN (15:27)
[2016-11-16] MEDS ORDERED: chlordiazePOXIDE HCL 25 MG CAPSULE PO PRN (15:27)
[2016-11-16] MEDS ORDERED: ALBUTEROL SO4 6.7 GM HFA INHALER IH PRN (15:32)
[2016-11-16] MEDS ORDERED: chlordiazePOXIDE HCL 25 MG CAPSULE PO ONE (15:34)
[2016-11-16] MEDS: NICOTINE 21 MG/24 HOURS TOPICAL PATCH TD SCH (18:46)
[2016-11-16] MEDS: chlordiazePOXIDE HCL 25 MG CAPSULE PO SCH ×2 (18:46→22:21)
[2016-11-16 19:51] LABS: URINE APPEARANCE CLEAR; URINE BILIRUBIN NEGATIVE (NEGATIVE); URINE BLOOD NEGATIVE (NEGATIVE); URINE COLOR YELLOW; URINE GLUCOSE (UA) 2+ (NEGATIVE); URINE KETONE TRACE (NEGATIVE); URINE LEUK ESTERASE NEGATIVE (NEGATIVE); URINE NITRITE NEGATIVE (NEGATIVE); URINE PROTEIN NEGATIVE (NEGATIVE); URINE UROBILINOGEN NEGATIVE E.U./dl (0.2-1.0)
[2016-11-16] MEDS: BUDESONIDE/FORMETEROL FUMARATE 80/4.5 mcg INHALER IH SCH (22:21)
[2016-11-16] MEDS: THIAMINE HCL 100 MG TABLET (FP) PO SCH (22:21)
[2016-11-17] MEDS: chlordiazePOXIDE HCL 25 MG CAPSULE PO SCH ×4 (05:56→22:24)
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
[2016-11-17] MEDS: PRENATAL VITAMINS W/ FOLIC ACID TABLET (FP) PO SCH (10:22)
[2016-11-17] MEDS: BUDESONIDE/FORMETEROL FUMARATE 80/4.5 mcg INHALER IH SCH ×2 (10:24→22:24)
[2016-11-17] MEDS: NICOTINE 21 MG/24 HOURS TOPICAL PATCH TD SCH (10:24)
[2016-11-17] MEDS: IBUPROFEN 400 MG TABLET (FP) PO PRN (10:25)
[2016-11-17 10:58] LABS: MCH 29.2 pg (25.7-33.7); MCHC 33.6 g/dl (32.0-35.9); MEAN CELL VOLUME 86.8 fl (80-96); MEAN PLT VOLUME 7.9 fl (7.5-11.1); PLATELET COUNT 269 K/MM3 (134-434); RDW 15.4 % (11.9-15.9); WHITE BLOOD COUNT 4.7 K/mm3 (4.0-10.0)
[2016-11-17 11:10] LABS: ALBUMIN 3.8 g/dl (3.4-5.0); ALK PHOS 97 U/L (45-117); ANION GAP 6 (8-16); BILIRUBIN,TOTAL 1.2 mg/dL (0.2-1.0); CALCIUM 8.7 mg/dL (8.5-10.1); CO2 31 mmol/L (21-32); COCKROFT - GAULT 102.08; CREATININE 0.8 mg/dL (0.7-1.3); GLUCOSE,RANDOM 115 mg/dL (74-106); SGOT/AST 29 U/L (15-37); SGPT/ALT 26 U/L (12-78); TOT PROT 7.3 g/dl (6.4-8.2)
--- NOTE | 2016-11-17 13:13 | EKG ---
Test Reason : Blood Pressure : / mmHG Vent. Rate : 080 BPM Atrial Rate : 080 BPM P-R Int : 162 ms QRS Dur : 084 ms QT Int : 364 ms P-R-T Axes : 074 020 028 degrees QTc Int : 419 ms NORMAL SINUS RHYTHM POSSIBLE LEFT ATRIAL ENLARGEMENT LEFT VENTRICULAR HYPERTROPHY CANNOT RULE OUT SEPTAL INFARCT (CITED ON OR BEFORE 19-AUG-2016) ABNORMAL ECG WHEN COMPARED WITH ECG OF 02-SEP-2016 22:55, QUESTIONABLE CHANGE IN INITIAL FORCES OF ANTEROSEPTAL LEADS ST ELEVATION NOW PRESENT IN ANTERIOR LEADS Confirmed by DONALD GARCIA MD ([id number]) on 11/17/2016 1:12:54 PM Referred By: Confirmed By:DONALD GARCIA MD
--- NOTE | 2016-11-17 15:56 | PN ---
S CIWA - CIWA Score Nausea/Vomitin-Mild Nausea/No Vomiting Muscle Tremors: 4-Moderate,w/Arms Extend Anxiety: 4-Mod. Anxious/Guarded Agitation: 3 Paroxysmal Sweats: 3 Orientation: 0-Oriented Tacttile Disturbances: 0-None Auditory Disturbances: 0-None Visual Disturbances: 0-None Headache: 0-None Present CIWA-Ar Total Score: 15 BHS Progress Note (SOAP) Subjective: Sweating,interrupted sleep,anxiety,tremors,restless. Objective: 11/17/16 15:55 Vital Signs - 8 hr 11/17/16 11/17/16 10:00 13:17 Temperature 96.6 F L 97.6 F Pulse Rate 81 86 Respiratory 18 20 Rate Blood Pressure 109/79 111/76 Laboratory Tests 11/16/16 11/17/16 11/17/16 19:00 06:00 06:00 WBC 4.7 RBC 5.12 Hgb 15.0 Hct 44.4 MCV 86.8 MCHC 33.6 RDW 15.4 Plt Count 269 MPV 7.9 Sodium 137 Potassium 3.6 Chloride 100 Carbon Dioxide 31 Anion Gap 6 L BUN 10 Creatinine 0.8 Creat Clearance w eGFR > 60 Random Glucose 115 H D Calcium 8.7 Total Bilirubin 1.2 H D AST 29 ALT 26 D Alkaline Phosphatase 97 D Total Protein 7.3 Albumin 3.8 Urine Color Yellow Urine Appearance Clear Urine pH 5.0 D Ur Specific [place] 1.024 Urine Protein Negative Urine Glucose (UA) 2+ H Urine Ketones Trace H Urine Blood Negative Urine Nitrite Negative Urine Bilirubin Negative Urine Urobilinogen Negative Ur Leukocyte Esterase Negative RPR Titer 11/17/16 06:00 WBC RBC Hgb Hct MCV MCHC RDW Plt Count MPV Sodium Potassium Chloride Carbon Dioxide Anion Gap BUN Creatinine Creat Clearance w eGFR Random Glucose Calcium Total Bilirubin AST ALT Alkaline Phosphatase Total Protein Albumin Urine Color Urine Appearance Urine pH Ur Specific [place] Urine Protein Urine Glucose (UA) Urine Ketones Urine Blood Urine Nitrite Urine Bilirubin Urine Urobilinogen Ur Leukocyte Esterase RPR Titer Nonreactive labs noted Assessment: 11/17/16 15:55 Withdrawal sx. Plan: Continue detox
[2016-11-17] MEDS: MAG HYDROX/AL HYDROX/SIMETH 30 ML UNIT-DOSE CUP PO PRN (18:12)
[2016-11-17] MEDS: QUEtiapine FUMARATE 200 MG TABLET PO SCH (22:24)
[2016-11-17] MEDS: THIAMINE HCL 100 MG TABLET (FP) PO SCH (22:24)
[2016-11-18] MEDS: chlordiazePOXIDE HCL 25 MG CAPSULE PO SCH ×2 (06:03→10:33)
[2016-11-18] MEDS: NICOTINE 21 MG/24 HOURS TOPICAL PATCH TD SCH (10:31)
[2016-11-18] MEDS: PRENATAL VITAMINS W/ FOLIC ACID TABLET (FP) PO SCH (10:32)
[2016-11-18] MEDS: BUDESONIDE/FORMETEROL FUMARATE 80/4.5 mcg INHALER IH SCH ×2 (10:33→22:29)
[2016-11-18] MEDS: IBUPROFEN 400 MG TABLET (FP) PO PRN (10:34)
--- NOTE | 2016-11-18 12:26 | PN ---
[facility] CIWA - CIWA Score Nausea/Vomitin-No Nausea/No Vomiting Muscle Tremors: 4-Moderate,w/Arms Extend Anxiety: 2 Agitation: 2 Paroxysmal Sweats: 3 Orientation: 1-Uncertain about Date Tacttile Disturbances: 2-Mild Itch/Numbness/Burn Auditory Disturbances: 0-None Visual Disturbances: 0-None Headache: 3-Moderate CIWA-Ar Total Score: 17 S Progress Note (SOAP) Subjective: Interrupted sleep, Fatigue, Sweating, H/A, Tremors. Objective: PT. A & O X 2 (DISORIENTED ABOUT DAY/ DATE). 11/18/16 12:24 Vital Signs Temperature 95.3 F L 11/18/16 09:51 Pulse Rate 83 11/18/16 09:51 Respiratory Rate 20 11/18/16 09:51 Blood Pressure 118/84 11/18/16 09:51 O2 Sat by Pulse Oximetry (%) Laboratory Last Values WBC 4.7 K/mm3 (4.0-10.0) 11/17/16 06:00 RBC 5.12 M/mm3 (4.00-5.60) 11/17/16 06:00 Hgb 15.0 GM/dL (11.7-16.9) 11/17/16 06:00 Hct 44.4 % (35.4-49) 11/17/16 06:00 MCV 86.8 fl (80-96) 11/17/16 06:00 MCHC 33.6 g/dl (32.0-35.9) 11/17/16 06:00 RDW 15.4 % (11.9-15.9) 11/17/16 06:00 Plt Count 269 K/MM3 (134-434) 11/17/16 06:00 MPV 7.9 fl (7.5-11.1) 11/17/16 06:00 Sodium 137 mmol/L (136-145) 11/17/16 06:00 Potassium 3.6 mmol/L (3.5-5.1) 11/17/16 06:00 Chloride 100 mmol/L (98-107) 11/17/16 06:00 Carbon Dioxide 31 mmol/L (21-32) 11/17/16 06:00 Anion Gap 6 (8-16) L 11/17/16 06:00 BUN 10 mg/dL (7-18) 11/17/16 06:00 Creatinine 0.8 mg/dL (0.7-1.3) 11/17/16 06:00 Creat Clearance w eGFR > 60 (>60) 11/17/16 06:00 Random Glucose 115 mg/dL (74-106) H D 11/17/16 06:00 Calcium 8.7 mg/dL (8.5-10.1) 11/17/16 06:00 Total Bilirubin 1.2 mg/dL (0.2-1.0) H D 11/17/16 06:00 AST 29 U/L (15-37) 11/17/16 06:00 ALT 26 U/L (12-78) D 11/17/16 06:00 Alkaline Phosphatase 97 U/L (45-117) D 11/17/16 06:00 Total Protein 7.3 g/dl (6.4-8.2) 11/17/16 06:00 Albumin 3.8 g/dl (3.4-5.0) 11/17/16 06:00 Urine Color Yellow 11/16/16 19:00 Urine Appearance Clear 11/16/16 19:00 Urine pH 5.0 (5.0-8.0) D 11/16/16 19:00 Ur Specific [place] 1.024 (1.001-1.035) 11/16/16 19:00 Urine Protein Negative (NEGATIVE) 11/16/16 19:00 Urine Glucose (UA) 2+ (NEGATIVE) H 11/16/16 19:00 Urine Ketones Trace (NEGATIVE) H 11/16/16 19:00 Urine Blood Negative (NEGATIVE) 11/16/16 19:00 Urine Nitrite Negative (NEGATIVE) 11/16/16 19:00 Urine Bilirubin Negative (NEGATIVE) 11/16/16 19:00 Urine Urobilinogen Negative E.U./dl (0.2-1.0) 11/16/16 19:00 Ur Leukocyte Esterase Negative (NEGATIVE) 11/16/16 19:00 RPR Titer Nonreactive (NONREACTIVE) 11/17/16 06:00 LABS NOTED. Assessment: 11/18/16 12:26 WITHDRAWAL SYMPTOMS. Plan: CONTINUE DETOX. ADVISED PATIENT TO FOLLOW-UP WITH [facility] / REHAB MEDICAL PROVIDER AFTER DISCHARGE FROM DETOX FOR GENERAL MEDICAL ASSESSMENT AND FOR ABNORMAL ADMISSION LAB VALUES.
[2016-11-18] MEDS: DOCUSATE SODIUM 100 MG CAPSULE (FP) PO SCH ×2 (12:57→22:30)
[2016-11-18] MEDS: chlordiazePOXIDE 5 MG CAPSULE PO SCH ×2 (17:39→22:31)
[2016-11-18] MEDS: THIAMINE HCL 100 MG TABLET (FP) PO SCH (22:29)
[2016-11-18] MEDS: QUEtiapine FUMARATE 200 MG TABLET PO SCH (22:30)
[2016-11-18] MEDS: MAG HYDROX/AL HYDROX/SIMETH 30 ML UNIT-DOSE CUP PO PRN (22:30)
[2016-11-19] MEDS: chlordiazePOXIDE 5 MG CAPSULE PO SCH ×2 (05:51→10:25)
[2016-11-19] MEDS: PRENATAL VITAMINS W/ FOLIC ACID TABLET (FP) PO SCH (10:25)
[2016-11-19] MEDS: NICOTINE 21 MG/24 HOURS TOPICAL PATCH TD SCH (10:25)
[2016-11-19] MEDS: DOCUSATE SODIUM 100 MG CAPSULE (FP) PO SCH ×2 (10:25→22:28)
[2016-11-19] MEDS: BUDESONIDE/FORMETEROL FUMARATE 80/4.5 mcg INHALER IH SCH ×2 (10:26→22:27)
--- NOTE | 2016-11-19 11:27 | PN ---
[facility] Progress Note (SOAP) Subjective: nausea, sweats, interrupted sleep, anxiety, tremors Objective: 11/19/16 11:25 Vital Signs - 8 hr 11/19/16 11/19/16 11/19/16 03:30 06:28 09:49 Temperature 96.3 F L 95.4 F L Pulse Rate 76 87 Respiratory 18 16 18 Rate Blood Pressure 118/81 118/83 Laboratory Tests 11/16/16 11/17/16 11/17/16 19:00 06:00 06:00 WBC 4.7 RBC 5.12 Hgb 15.0 Hct 44.4 MCV 86.8 MCHC 33.6 RDW 15.4 Plt Count 269 MPV 7.9 Sodium 137 Potassium 3.6 Chloride 100 Carbon Dioxide 31 Anion Gap 6 L BUN 10 Creatinine 0.8 Creat Clearance w eGFR > 60 Random Glucose 115 H D Calcium 8.7 Total Bilirubin 1.2 H D AST 29 ALT 26 D Alkaline Phosphatase 97 D Total Protein 7.3 Albumin 3.8 Urine Color Yellow Urine Appearance Clear Urine pH 5.0 D Ur Specific [place] 1.024 Urine Protein Negative Urine Glucose (UA) 2+ H Urine Ketones Trace H Urine Blood Negative Urine Nitrite Negative Urine Bilirubin Negative Urine Urobilinogen Negative Ur Leukocyte Esterase Negative RPR Titer 11/17/16 06:00 WBC RBC Hgb Hct MCV MCHC RDW Plt Count MPV Sodium Potassium Chloride Carbon Dioxide Anion Gap BUN Creatinine Creat Clearance w eGFR Random Glucose Calcium Total Bilirubin AST ALT Alkaline Phosphatase Total Protein Albumin Urine Color Urine Appearance Urine pH Ur Specific [place] Urine Protein Urine Glucose (UA) Urine Ketones Urine Blood Urine Nitrite Urine Bilirubin Urine Urobilinogen Ur Leukocyte Esterase RPR Titer Nonreactive Assessment: 11/19/16 11:25 withdrawal sx Plan: cont detox, fluids, encourage ambualtion
[2016-11-19] MEDS: chlordiazePOXIDE HCL 10 MG CAPSULE PO SCH ×2 (17:35→22:27)
[2016-11-19] MEDS: MAG HYDROX/AL HYDROX/SIMETH 30 ML UNIT-DOSE CUP PO PRN (19:45)
[2016-11-19] MEDS: THIAMINE HCL 100 MG TABLET (FP) PO SCH (22:26)
[2016-11-19] MEDS: QUEtiapine FUMARATE 200 MG TABLET PO SCH (22:27)
[2016-11-20] MEDS: chlordiazePOXIDE HCL 10 MG CAPSULE PO SCH ×2 (05:31→10:28)
[2016-11-20 09:38] VITALS: BP 112/81; PULSE 87; TEMP 98.4
--- NOTE | 2016-11-20 10:14 | DS ---
[facility] Detox Discharge Summary Admission Date: 11/16/16 Discharge Date: 11/20/16 - History Present History: Alcohol Dependence, Cocaine Dependence Pertinent Past History: Asthma, HIV+, GERD, chronic low back pain, OA, LTKR, - Physical Exam Results Vital Signs: Vital Signs Temperature 98.4 F 11/20/16 09:37 Pulse Rate 87 11/20/16 09:37 Respiratory Rate 18 11/20/16 09:37 Blood Pressure 112/81 11/20/16 09:37 O2 Sat by Pulse Oximetry (%) Pertinent Admission Physical Exam Findings: Withdrawal sx Laboratory Last Values WBC 4.7 K/mm3 (4.0-10.0) 11/17/16 06:00 RBC 5.12 M/mm3 (4.00-5.60) 11/17/16 06:00 Hgb 15.0 GM/dL (11.7-16.9) 11/17/16 06:00 Hct 44.4 % (35.4-49) 11/17/16 06:00 MCV 86.8 fl (80-96) 11/17/16 06:00 MCHC 33.6 g/dl (32.0-35.9) 11/17/16 06:00 RDW 15.4 % (11.9-15.9) 11/17/16 06:00 Plt Count 269 K/MM3 (134-434) 11/17/16 06:00 MPV 7.9 fl (7.5-11.1) 11/17/16 06:00 Sodium 137 mmol/L (136-145) 11/17/16 06:00 Potassium 3.6 mmol/L (3.5-5.1) 11/17/16 06:00 Chloride 100 mmol/L (98-107) 11/17/16 06:00 Carbon Dioxide 31 mmol/L (21-32) 11/17/16 06:00 Anion Gap 6 (8-16) L 11/17/16 06:00 BUN 10 mg/dL (7-18) 11/17/16 06:00 Creatinine 0.8 mg/dL (0.7-1.3) 11/17/16 06:00 Creat Clearance w eGFR > 60 (>60) 11/17/16 06:00 Random Glucose 115 mg/dL (74-106) H D 11/17/16 06:00 Calcium 8.7 mg/dL (8.5-10.1) 11/17/16 06:00 Total Bilirubin 1.2 mg/dL (0.2-1.0) H D 11/17/16 06:00 AST 29 U/L (15-37) 11/17/16 06:00 ALT 26 U/L (12-78) D 11/17/16 06:00 Alkaline Phosphatase 97 U/L (45-117) D 11/17/16 06:00 Total Protein 7.3 g/dl (6.4-8.2) 11/17/16 06:00 Albumin 3.8 g/dl (3.4-5.0) 11/17/16 06:00 Urine Color Yellow 11/16/16 19:00 Urine Appearance Clear 11/16/16 19:00 Urine pH 5.0 (5.0-8.0) D 11/16/16 19:00 Ur Specific [place] 1.024 (1.001-1.035) 11/16/16 19:00 Urine Protein Negative (NEGATIVE) 11/16/16 19:00 Urine Glucose (UA) 2+ (NEGATIVE) H 11/16/16 19:00 Urine Ketones Trace (NEGATIVE) H 11/16/16 19:00 Urine Blood Negative (NEGATIVE) 11/16/16 19:00 Urine Nitrite Negative (NEGATIVE) 11/16/16 19:00 Urine Bilirubin Negative (NEGATIVE) 11/16/16 19:00 Urine Urobilinogen Negative E.U./dl (0.2-1.0) 11/16/16 19:00 Ur Leukocyte Esterase Negative (NEGATIVE) 11/16/16 19:00 RPR Titer Nonreactive (NONREACTIVE) 11/17/16 06:00 labs noted - Treatment Hospital Course: Detox Protocol Followed, Detoxed Safely, Responded well, Discharged Condition Good - Medication Discharge Medications: Ambulatory Orders Albuterol Sulfate Inhaler - [Ventolin HFA Inhaler -] 2 puff IH Q4H PRN #1 inhaler 09/08/16 Budesonide/Formeterol Fumarate [SYMBICORT 80/4.5mcg -] 2 puff IH BID #1 inhaler 09/08/16 Quetiapine Fumarate [Seroquel -] 400 mg PO HS #30 tablet 09/08/16 Quetiapine Fumarate [Seroquel] 300 mg PO HS #30 tablet 11/17/16 - Diagnosis (1) Alcohol dependence with uncomplicated withdrawal Current Visit: Yes Status: Acute (2) Cocaine dependence, uncomplicated Current Visit: Yes Status: Acute (3) Drug-induced mood disorder Current Visit: Yes Status: Acute (4) Nicotine dependence Current Visit: Yes Status: Acute Qualifiers: Nicotine product type: cigarettes Substance use status: in withdrawal Qualified Code(s): F17.213 - Nicotine dependence, cigarettes, with withdrawal (5) Arthritis Current Visit: Yes Status: Chronic (6) Chronic low back pain Current Visit: Yes Status: Chronic Qualifiers: Back pain laterality: bilateral (7) GERD (gastroesophageal reflux disease) Current Visit: Yes Status: Chronic Qualifiers: Esophagitis presence: without esophagitis Qualified Code(s): K21.9 - Gastro-esophageal reflux disease without esophagitis (8) HIV (human immunodeficiency virus infection) Current Visit: Yes Status: Chronic (9) PTSD (post-traumatic stress disorder) Current Visit: Yes Status: Chronic - AMA Did Patient Leave Against Medical Advice: No
[2016-11-20] MEDS: NICOTINE 21 MG/24 HOURS TOPICAL PATCH TD SCH (10:27)
[2016-11-20] MEDS: DOCUSATE SODIUM 100 MG CAPSULE (FP) PO SCH (10:28)
[2016-11-20] MEDS: BUDESONIDE/FORMETEROL FUMARATE 80/4.5 mcg INHALER IH SCH (10:28)
[2016-11-20] MEDS: PRENATAL VITAMINS W/ FOLIC ACID TABLET (FP) PO SCH (10:28)
== END 2016-11-20 10:57 | disposition other institution (70) | DRG 774 ==
LOC: YASAS 13:02 → Y3N 15:30
PROVIDERS: ADMIT Internal Medicine; ATTEND Internal Medicine
PROC: HZ2ZZZZ Detoxification Services for Substance Abuse Treatment (ICD-10-PCS; principal; 2016-11-20)
DX: F10.230 Alcohol dependence with withdrawal, uncomplicated (principal); F14.20 Cocaine dependence, uncomplicated; F17.210 Nicotine dependence, cigarettes, uncomplicated; F19.24 Other psychoactive substance dependence with psychoactive substance-induced mood disorder; F43.10 Post-traumatic stress disorder, unspecified; G47.00 Insomnia, unspecified; Z21 Asymptomatic human immunodeficiency virus [HIV] infection status; M12.9 Arthropathy, unspecified; M54.5 Low back pain; K21.9 Gastro-esophageal reflux disease without esophagitis; J45.20 Mild intermittent asthma, uncomplicated; Z59.0 Homelessness
CPT/HCPCS: 36415; 80053; 81003; 85027; 86593; 93005; 93010

== ENCOUNTER 2016-11-20 11:17 | Inpatient (IN) | payer OTHER ==
[2016-11-20 11:40] VITALS: BMI 24.0
[2016-11-20] MEDS ORDERED: guaiFENesin/D-METHORPHAN HB 10 ML UNIT-DOSE CUPS PO PRN (13:16)
[2016-11-20] MEDS ORDERED: MENTHOL/PHENOL 1 EACH UD MM PRN (13:16)
[2016-11-20] MEDS ORDERED: MAGNESIUM CITRATE 300 ML BOTTLE PO PRN (13:16)
[2016-11-20] MEDS ORDERED: hydrOXYzine PAMOATE 50 MG CAPSULE (FP) PO PRN (13:16)
[2016-11-20] MEDS ORDERED: ACETAMINOPHEN 325 MG TABLET (FP) PO PRN (13:16)
[2016-11-20] MEDS ORDERED: MAGNESIUM HYDROX 2400MG/30ML ORAL SUSPENSION 30 ML CUP PO PRN (13:16)
[2016-11-20] MEDS ORDERED: LOPERAMIDE HCL 2 MG CAPSULE PO PRN (13:16)
[2016-11-20] MEDS ORDERED: P-EPHED 60MG/TRIPROLIDI 2.5MG TABLET PO PRN (13:16)
[2016-11-20] MEDS ORDERED: NICOTINE POLACRILEX 2 MG GUM BUC PRN (13:16)
[2016-11-20] MEDS ORDERED: ALBUTEROL SO4 6.7 GM HFA INHALER IH PRN (13:20)
[2016-11-20] MEDS: NICOTINE 21 MG/24 HOURS TOPICAL PATCH TD SCH (15:07)
[2016-11-20] MEDS: MAG HYDROX/AL HYDROX/SIMETH 30 ML UNIT-DOSE CUP PO PRN (19:23)
[2016-11-20] MEDS: QUEtiapine FUMARATE 100 MG TABLET (FP) PO SCH (21:07)
[2016-11-20] MEDS: THIAMINE HCL 100 MG TABLET (FP) PO SCH (21:07)
[2016-11-20] MEDS: BUDESONIDE/FORMETEROL FUMARATE 80/4.5 mcg INHALER IH SCH (21:08)
[2016-11-20] MEDS: DOCUSATE SODIUM 100 MG CAPSULE (FP) PO SCH (21:08)
[2016-11-21] MEDS ORDERED: PT OWN MED DRAWER 7, Y5N ONE (08:49)
--- NOTE | 2016-11-21 09:22 | HP ---
[facility] Rehab Assess/Revision - Admission History Admitted to Rehab from: [facility] Date of Admission to Rehab: 11/20/16 - Vital signs Vital Signs: Vital Signs Period Temp Pulse Resp BP Sys/Uribe Pulse Ox Last 24 Hr 97.8 F-98.2 F 85-92 16-20 114-118/73-83 - Findings Detox History & Physical reviewed: Yes Concur with findings: Yes
[2016-11-21] MEDS: PRENATAL VITAMINS W/ FOLIC ACID TABLET (FP) PO SCH (09:55)
[2016-11-21] MEDS: DOCUSATE SODIUM 100 MG CAPSULE (FP) PO SCH ×2 (09:55→21:34)
[2016-11-21] MEDS: BUDESONIDE/FORMETEROL FUMARATE 80/4.5 mcg INHALER IH SCH ×2 (09:56→21:34)
[2016-11-21] MEDS: NICOTINE 21 MG/24 HOURS TOPICAL PATCH TD SCH (09:56)
[2016-11-21] MEDS: QUEtiapine FUMARATE 100 MG TABLET (FP) PO SCH (21:33)
[2016-11-21] MEDS: THIAMINE HCL 100 MG TABLET (FP) PO SCH (21:33)
[2016-11-21] MEDS: IBUPROFEN 400 MG TABLET (FP) PO PRN (21:35)
[2016-11-21] MEDS: MAG HYDROX/AL HYDROX/SIMETH 30 ML UNIT-DOSE CUP PO PRN (21:58)
[2016-11-21] MEDS: PANTOPRAZOLE 40 MG TABLET (FP) PO SCH (22:25)
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
[2016-11-22] MEDS: NICOTINE 21 MG/24 HOURS TOPICAL PATCH TD SCH (10:19)
[2016-11-22] MEDS: PRENATAL VITAMINS W/ FOLIC ACID TABLET (FP) PO SCH (10:19)
[2016-11-22] MEDS: DOCUSATE SODIUM 100 MG CAPSULE (FP) PO SCH ×2 (10:19→21:16)
[2016-11-22] MEDS: PANTOPRAZOLE 40 MG TABLET (FP) PO SCH (10:19)
[2016-11-22] MEDS: BUDESONIDE/FORMETEROL FUMARATE 80/4.5 mcg INHALER IH SCH ×2 (10:20→21:16)
[2016-11-22] MEDS: THIAMINE HCL 100 MG TABLET (FP) PO SCH (21:16)
[2016-11-22] MEDS: QUEtiapine FUMARATE 400 MG TABLET PO SCH (21:16)
[2016-11-23] MEDS: PRENATAL VITAMINS W/ FOLIC ACID TABLET (FP) PO SCH (10:12)
[2016-11-23] MEDS: IBUPROFEN 400 MG TABLET (FP) PO PRN (10:13)
[2016-11-23] MEDS: DOCUSATE SODIUM 100 MG CAPSULE (FP) PO SCH ×2 (10:13→21:46)
[2016-11-23] MEDS: PANTOPRAZOLE 40 MG TABLET (FP) PO SCH (10:13)
[2016-11-23] MEDS: NICOTINE 21 MG/24 HOURS TOPICAL PATCH TD SCH (10:14)
[2016-11-23] MEDS: BUDESONIDE/FORMETEROL FUMARATE 80/4.5 mcg INHALER IH SCH ×2 (10:15→21:46)
[2016-11-23] MEDS: QUEtiapine FUMARATE 400 MG TABLET PO SCH (21:45)
[2016-11-23] MEDS: THIAMINE HCL 100 MG TABLET (FP) PO SCH (21:45)
[2016-11-23] MEDS ORDERED: PT OWN MED DRAWER 7, Y5N ONE (21:46)
[2016-11-24] MEDS ORDERED: PT OWN MED DRAWER 7, Y5N ONE (08:58)
[2016-11-24] MEDS: PANTOPRAZOLE 40 MG TABLET (FP) PO SCH (10:04)
[2016-11-24] MEDS: IBUPROFEN 400 MG TABLET (FP) PO PRN (10:04)
[2016-11-24] MEDS: DOCUSATE SODIUM 100 MG CAPSULE (FP) PO SCH ×2 (10:04→21:29)
[2016-11-24] MEDS: PRENATAL VITAMINS W/ FOLIC ACID TABLET (FP) PO SCH (10:04)
[2016-11-24] MEDS: BUDESONIDE/FORMETEROL FUMARATE 80/4.5 mcg INHALER IH SCH ×2 (10:06→21:31)
[2016-11-24] MEDS: NICOTINE 21 MG/24 HOURS TOPICAL PATCH TD SCH (10:06)
[2016-11-24] MEDS: THIAMINE HCL 100 MG TABLET (FP) PO SCH (21:29)
[2016-11-24] MEDS: QUEtiapine FUMARATE 400 MG TABLET PO SCH (21:29)
[2016-11-24] MEDS: METHYL SALICYLATE/MENTHOL OINT 30 GM TUBE TP SCH (21:30)
[2016-11-25] MEDS: NICOTINE 21 MG/24 HOURS TOPICAL PATCH TD SCH (10:17)
[2016-11-25] MEDS: PRENATAL VITAMINS W/ FOLIC ACID TABLET (FP) PO SCH (10:17)
[2016-11-25] MEDS: PANTOPRAZOLE 40 MG TABLET (FP) PO SCH (10:17)
[2016-11-25] MEDS: METHYL SALICYLATE/MENTHOL OINT 30 GM TUBE TP SCH ×2 (10:17→23:17)
[2016-11-25] MEDS: DOCUSATE SODIUM 100 MG CAPSULE (FP) PO SCH ×2 (10:17→21:19)
[2016-11-25] MEDS: BUDESONIDE/FORMETEROL FUMARATE 80/4.5 mcg INHALER IH SCH ×2 (10:17→23:17)
[2016-11-25] MEDS ORDERED: PT OWN MED DRAWER 7, Y5N ONE (21:19)
[2016-11-25] MEDS: QUEtiapine FUMARATE 400 MG TABLET PO SCH (21:19)
[2016-11-25] MEDS: THIAMINE HCL 100 MG TABLET (FP) PO SCH (21:19)
[2016-11-25] MEDS: diphenhydrAMINE HCL 50 MG CAPSULE PO PRN (21:19)
[2016-11-26] MEDS ORDERED: PT OWN MED DRAWER 7, Y5N ONE ×2 (09:12→11:13)
[2016-11-26] MEDS: PRENATAL VITAMINS W/ FOLIC ACID TABLET (FP) PO SCH (10:13)
[2016-11-26] MEDS: PANTOPRAZOLE 40 MG TABLET (FP) PO SCH (10:14)
[2016-11-26] MEDS: NICOTINE 21 MG/24 HOURS TOPICAL PATCH TD SCH (10:14)
[2016-11-26] MEDS: DOCUSATE SODIUM 100 MG CAPSULE (FP) PO SCH ×2 (10:14→21:25)
[2016-11-26] MEDS: FLUTICASONE PROP 0.05% 16 GM NASAL SPRAY NS SCH ×2 (10:25→21:25)
[2016-11-26] MEDS: BUDESONIDE/FORMETEROL FUMARATE 80/4.5 mcg INHALER IH SCH ×2 (10:55→21:25)
[2016-11-26] MEDS: METHYL SALICYLATE/MENTHOL OINT 30 GM TUBE TP SCH ×2 (10:55→21:25)
[2016-11-26] MEDS: THIAMINE HCL 100 MG TABLET (FP) PO SCH (21:25)
[2016-11-26] MEDS: QUEtiapine FUMARATE 400 MG TABLET PO SCH (21:25)
[2016-11-26] MEDS: diphenhydrAMINE HCL 50 MG CAPSULE PO PRN (21:25)
[2016-11-27] MEDS ORDERED: PT OWN MED DRAWER 7, Y5N ONE (08:36)
[2016-11-27] MEDS: PRENATAL VITAMINS W/ FOLIC ACID TABLET (FP) PO SCH (10:16)
[2016-11-27] MEDS: PANTOPRAZOLE 40 MG TABLET (FP) PO SCH (10:16)
[2016-11-27] MEDS: DOCUSATE SODIUM 100 MG CAPSULE (FP) PO SCH ×2 (10:16→21:31)
[2016-11-27] MEDS: FLUTICASONE PROP 0.05% 16 GM NASAL SPRAY NS SCH ×2 (10:17→21:32)
[2016-11-27] MEDS: NICOTINE 21 MG/24 HOURS TOPICAL PATCH TD SCH (10:17)
[2016-11-27] MEDS: METHYL SALICYLATE/MENTHOL OINT 30 GM TUBE TP SCH ×2 (10:18→21:52)
[2016-11-27] MEDS: BUDESONIDE/FORMETEROL FUMARATE 80/4.5 mcg INHALER IH SCH ×2 (10:19→21:32)
[2016-11-27] MEDS: diphenhydrAMINE HCL 50 MG CAPSULE PO PRN (21:31)
[2016-11-27] MEDS: THIAMINE HCL 100 MG TABLET (FP) PO SCH (21:31)
[2016-11-27] MEDS: QUEtiapine FUMARATE 400 MG TABLET PO SCH (21:31)
[2016-11-28] MEDS ORDERED: PT OWN MED DRAWER 7, Y5N ONE (08:42)
[2016-11-28] MEDS: DOCUSATE SODIUM 100 MG CAPSULE (FP) PO SCH ×2 (10:22→21:23)
[2016-11-28] MEDS: PRENATAL VITAMINS W/ FOLIC ACID TABLET (FP) PO SCH (10:22)
[2016-11-28] MEDS: PANTOPRAZOLE 40 MG TABLET (FP) PO SCH (10:22)
[2016-11-28] MEDS: IBUPROFEN 400 MG TABLET (FP) PO PRN (10:23)
[2016-11-28] MEDS: NICOTINE 21 MG/24 HOURS TOPICAL PATCH TD SCH (10:24)
[2016-11-28] MEDS: BUDESONIDE/FORMETEROL FUMARATE 80/4.5 mcg INHALER IH SCH ×2 (10:25→21:24)
[2016-11-28] MEDS: METHYL SALICYLATE/MENTHOL OINT 30 GM TUBE TP SCH ×2 (10:25→21:23)
[2016-11-28] MEDS: FLUTICASONE PROP 0.05% 16 GM NASAL SPRAY NS SCH ×2 (10:25→21:23)
[2016-11-28] MEDS: THIAMINE HCL 100 MG TABLET (FP) PO SCH (21:23)
[2016-11-28] MEDS: QUEtiapine FUMARATE 400 MG TABLET PO SCH (21:23)
[2016-11-28] MEDS: diphenhydrAMINE HCL 50 MG CAPSULE PO PRN (21:23)
--- NOTE | 2016-11-29 06:50 | PN ---
Psychiatric Progress Note Vital Signs: Vital Signs Period Temp Pulse Resp BP Sys/Uribe Pulse Ox Last 24 Hr 17-18 Date of Session: 11/29/16 Chief Complaint:: Discharge Note HPI: Patient addressing Alcohol and Cocaine Dependence comorbid with Nicotine Dependence, Bipolar Disorder and Posttraumatic Stress Disorder ROS: Arthritis, chronic low back pain, GERD, HIV were medically managed Current Medications: Active Medications Generic Name Dose Route Start Last Admin Trade Name Freq PRN Reason Stop Dose Admin Acetaminophen 650 mg 11/20/16 13:16 Tylenol - PO Q4H PRN FEVER OR PAIN Al Hydroxide/Mg Hydroxide 30 ml 11/20/16 13:16 11/21/16 21:58 Mylanta Oral Suspension - PO 30 ml Q6H PRN Administration DYSPEPSIA Albuterol Sulfate 0 puff 11/20/16 13:20 Ventolin Hfa Inhaler - IH Q4H PRN SHORT OF BREATH/WHEEZING Budesonide/Formoterol Fumarate 2 puff 11/20/16 22:00 11/28/16 21:24 Symbicort 80/4.5mcg - IH Not Given BID PER Diphenhydramine HCl 50 mg 11/20/16 22:00 11/28/16 21:23 Benadryl - PO 50 mg HSMR1 PRN Administration FOR ITCHING Docusate Sodium 100 mg 11/20/16 22:00 11/28/16 21:23 Colace - PO 100 mg BID PER Administration Eucalyptus/Menthol/Phenol/Sorbitol 1 each 11/20/16 13:16 Cepastat Lozenge - MM Q4H PRN SORE THROAT Fluticasone Propionate 1 spray 11/26/16 12:00 11/28/16 21:23 Flonase - NS 1 spray BID PER Administration Guaifenesin 10 ml 11/20/16 13:16 Robitussin Dm - PO Q6H PRN COUGH Hydroxyzine Pamoate 50 mg 11/20/16 13:16 Vistaril - PO Q4H PRN AGITATION Ibuprofen 400 mg 11/20/16 13:16 11/28/16 10:23 Motrin - PO 400 mg Q6H PRN Administration PAIN Loperamide HCl 4 mg 11/20/16 13:16 Imodium - PO Q6H PRN DIARRHEA Magnesium Hydroxide 30 ml 11/20/16 13:16 Milk Of Magnesia - PO DAILY PRN CONSTIPATION Methyl Salicylate 1 applic 11/24/16 22:00 11/28/16 21:23 Jerry-Dewey - TP 1 applic BID PER Administration Nicotine 21 mg 11/20/16 13:30 11/28/16 10:24 Nicoderm Patch - TD 21 mg DAILY PER Administration Nicotine Polacrilex 2 mg 11/20/16 13:16 Nicorette Gum - BUC Q2H PRN NICOTINE REPLACEMENT RX Pantoprazole Sodium 40 mg 11/21/16 22:00 11/28/16 10:22 Protonix - PO 40 mg DAILY PER Administration Multivit/Folic Acid/Iron 1 tab 11/21/16 10:00 11/28/16 10:22 Vitamins (Sjr) - PO 1 tab DAILY PER Administration Pseudoephedrine/Triprolidine 1 combo 11/20/16 13:16 Actifed - PO TID PRN NASAL CONGESTION Quetiapine Fumarate 400 mg 11/22/16 22:00 11/28/16 21:23 Seroquel - PO 400 mg HS PER Administration Thiamine HCl 100 mg 11/20/16 22:00 11/28/16 21:23 Vitamin B1 - PO 100 mg HS PER Administration Current Side Effect: No Lab tests ordered: Yes Lab tests reviewed: Yes Provider note:: Patient has completed this program today. He has met his treatment goals and will continue to address his issues in outpatient treatment at [facility] in [place], [place]. Told expert medical writer that from his participation in this program, hari learned how to stay away from People, Places and Things.He responded well to Seroquel 400 mg po HS. Script for that medication is electronically transmitted to [facility] at [address] [place] [address]. He is stable for discharge today Mental Status Exam - Mental Status Exam Alert and Oriented to: Time, Place, Person Cognitive Function: Fair Patient Appearance: Well Groomed Mood: Hopeful, Euthymic Affect: Appropriate Patient Behavior: Cooperative Speech Pattern: Clear Voice Loudness: Normal, Limited Variation Thought Disorder: Not Present Hallucinations: Denies Suicidal Ideation: Denies Homicidal Ideation: Denies Insight/Judgement: Fair Sleep: Fair Appetite: Good Muscle strength/Tone: Normal Gait/Station: Normal Psychiatric Treatment Plan - Problem List (1) Alcohol dependence with uncomplicated withdrawal Current Visit: No (2) Cocaine dependence, uncomplicated Current Visit: No (3) Nicotine dependence Current Visit: No Qualifiers: Nicotine product type: cigarettes Substance use status: in withdrawal Qualified Code(s): F17.213 - Nicotine dependence, cigarettes, with withdrawal (4) Bipolar II disorder Current Visit: Yes (5) PTSD (post-traumatic stress disorder) Current Visit: No (6) Arthritis Current Visit: No Comment: naproxen (7) Asthma Current Visit: No Qualifiers: Asthma severity: mild intermittent Asthma complication type: uncomplicated Qualified Code(s): J45.20 - Mild intermittent asthma, uncomplicated Comment: mild copd (8) Chronic low back pain Current Visit: No Qualifiers: Back pain laterality: bilateral (9) GERD (gastroesophageal reflux disease) Current Visit: No Qualifiers: Esophagitis presence: without esophagitis Qualified Code(s): K21.9 - Gastro-esophageal reflux disease without esophagitis (10) HIV (human immunodeficiency virus infection) Current Visit: No Comment: not taking any medication, pt states its undetecable Initial treatment plan: Patient is discharged today and referred to [facility] in [place], [place] for outpatient treatment
[2016-11-29 07:10] VITALS: BP 116/76; PULSE 81; TEMP 98.5
== END 2016-11-29 08:11 | disposition home or self-care (01) | DRG 772 ==
LOC: YASAS 11:17 → Y3W 11:18
PROVIDERS: ADMIT Psychiatry & Neurology Psychiatry; ATTEND Psychiatry & Neurology Psychiatry
PROC: HZ42ZZZ Group Counseling for Substance Abuse Treatment, Cognitive-Behavioral (ICD-10-PCS; principal; 2016-11-29)
DX: F10.230 Alcohol dependence with withdrawal, uncomplicated (principal); F14.20 Cocaine dependence, uncomplicated; F17.213 Nicotine dependence, cigarettes, with withdrawal; F31.81 Bipolar II disorder; F43.10 Post-traumatic stress disorder, unspecified; J45.20 Mild intermittent asthma, uncomplicated; M12.9 Arthropathy, unspecified; M54.5 Low back pain; G89.29 Other chronic pain; K21.9 Gastro-esophageal reflux disease without esophagitis; Z21 Asymptomatic human immunodeficiency virus [HIV] infection status; Z59.0 Homelessness

== ENCOUNTER 2017-03-22 11:23 | Inpatient (IN) | payer OTHER ==
[2017-03-22 12:34] VITALS: BMI 21.7
--- NOTE | 2017-03-22 16:29 | HP ---
CIWA Score - CIWA Score Nausea/Vomitin Muscle Tremors: 3 Anxiety: 3 Agitation: 3 Paroxysmal Sweats: 1-Minimal Palms Moist Orientation: 0-Oriented Tacttile Disturbances: 2-Mild Itch/Numbness/Burn Auditory Disturbances: 2-Mild Harshness/Frighten Visual Disturbances: 1-Very Mild Sensitivity Headache: 2-Mild CIWA-Ar Total Score: 20 Admission ROS BHS - HPI Chief Complaint: i need help to stop drinking alcohol and cocaine Allergies/Adverse Reactions: Allergies Allergy/AdvReac Type Severity Reaction Status Date / Time No Known Allergies Allergy Verified 03/22/17 16:21 History of Present Illness: this 52 years old male with alcohol and cocaine dependence,seeking detox,last treatment 11/16/16 to 11/20/16 syncope alcohol related hiv since 1982 no med nicotine dependence insomnia longest period of sobriety 1 year Exam Limitations: No Limitations - Ebola screening Have you traveled outside of the country in the last 21 days: No Have you had contact with anyone from an Ebola affected area: No Have you been sick,other than usual withdrawal symptoms: No Do you have a fever: No - Review of Systems Constitutional: Loss of Appetite, Malaise, Night Sweats, Changes in sleep, Weakness, Unintentional Wgt. Loss EENT: reports: Nose Congestion Cardiac: reports: No Symptoms Reported GI: reports: Diarrhea, Nausea, Vomiting, Abdominal cramping : reports: No Symptoms Reported Musculoskeletal: reports: Back Pain, Muscle Pain Integumentary: reports: Dryness Neuro: reports: Headache, Tremors, Weakness Endocrine: reports: No Symptoms Reported Hematology: reports: No Symptoms Reported Psychiatric: reports: No Sypmtoms Reported (insomnia), Judgement Intact, Mood/ Affect Appropiate Patient History - Patient Medical History Hx Anemia: No Hx Asthma: Yes (on albutrol inhaler) Hx Chronic Obstructive Pulmonary Disease (COPD): No Hx Cancer: No Hx Cardiac Disorders: No Hx Congestive Heart Failure: No Hx Hypertension: No Hx Hypercholesterolemia: No Hx Pacemaker: No HX Cerebrovascular Accident: No Hx Seizures: No Hx Dementia: No Hx Diabetes: No Hx Gastrointestinal Disorders: No Hx Liver Disease: No Hx Genitourinary Disorders: No Hx Sexually Transmitted Disorders: No Hx Renal Disease (ESRD): No Hx Thyroid Disease: No Hx Human Immunodeficiency Virus (HIV): Yes (since 1982/undetectable. ) Hx Hepatitis C: No (negative) Hx Depression: Yes (insomnia) Hx Suicide Attempt: No Hx Bipolar Disorder: No Hx Schizophrenia: No Other Medical History: no suicidal,no homicidal - Patient Surgical History Past Surgical History: Yes Hx Neurologic Surgery: No Hx Cataract Extraction: No Hx Cardiac Surgery: No Hx Lung Surgery: No Hx Breast Surgery: No Hx Breast Biopsy: No Hx Abdominal Surgery: No Hx Appendectomy: No Hx Cholecystectomy: No Hx Genitourinary Surgery: No Hx Section: No Hx Orthopedic Surgery: Yes (total knee replacement LEFT in 2004) Anesthesia Reaction: No - PPD History Previous Implant?: Yes Documented Results: Negative w/proof Implanted On Prior [facility] Admission?: Yes Date: 08/21/16 Results: 0 mm PPD to be Administered?: No - Smoking Cessation Smoking history: Current every day smoker Have you smoked in the past 12 months: Yes Aproximately how many cigarettes per day: 10 Cigars Per Day: 0 Hx Chewing Tobacco Use: No Initiated information on smoking cessation: Yes 'Breaking Loose' booklet given: 03/22/17 - Substance & Tx. History Hx Alcohol Use: Yes Hx Substance Use: Yes Substance Use Type: Alcohol, Cocaine Hx Substance Use Treatment: Yes ([facility] 11/16/16 to 11/20/16) - Substances Abused Crack Route: Smoking Frequency: 3-6 times per week Amount used: $75 Age of first use: 10 Date of Last Use: 03/20/17 Alcohol-beer Route: Oral Frequency: Daily Amount used: 4-5 (24 oz.) Age of first use: 7 Date of Last Use: 03/21/17 Family Disease History - Family Disease History Family Disease History: Other: Father (alcohol,), Mother (alcohol) Admission Physical Exam S - Vital Signs Vital Signs: Vital Signs - 24 hr 03/22/17 12:31 Temperature 97.9 F Pulse Rate 75 Respiratory 15 Rate Blood Pressure 120/81 - Physical General Appearance: Yes: Moderate Distress, Tremorous, Irritable, Sweating, Anxious HEENTM: Yes: Normal ENT Inspection, DOMINGO, Pharynx Normal Respiratory: Yes: Lungs Clear, Normal Breath Sounds, No Respiratory Distress Neck: Yes: Within Normal Limits, Supple, Trachea in good position Breast: Yes: Within Normal Limits Cardiology: Yes: Regular Rhythm, Regular Rate, S1, S2 Abdominal: Yes: Normal Bowel Sounds, Non Tender, Flat, Soft Genitourinary: Yes: Within Normal Limits Back: Yes: Muscle Spasm Musculoskeletal: Yes: Back pain, Muscle Pain Extremities: Yes: Normal Range of Motion, Tremors, Other (s/p left knee replcament) Neurological: Yes: spike maker II-XII NML intact, Fully Oriented, Alert, Motor Strength 5/5 Integumentary: Yes: Dry, Rash Lymphatic: Yes: Within Normal Limits - Diagnostic (1) Alcohol dependence with uncomplicated withdrawal Current Visit: Yes Status: Acute (2) Cocaine dependence, uncomplicated Current Visit: Yes Status: Acute (3) Nicotine dependence Current Visit: Yes Status: Acute Qualifiers: Nicotine product type: cigarettes Substance use status: in withdrawal Qualified Code(s): F17.213 - Nicotine dependence, cigarettes, with withdrawal (4) Weight loss Current Visit: No Status: Acute (5) Arthritis Current Visit: Yes Status: Chronic Comment: naproxen (6) Asthma Current Visit: Yes Status: Chronic Qualifiers: Asthma severity: mild intermittent Asthma complication type: uncomplicated Qualified Code(s): J45.20 - Mild intermittent asthma, uncomplicated Comment: mild copd (7) Chronic low back pain Current Visit: Yes Status: Chronic Qualifiers: Back pain laterality: bilateral (8) GERD (gastroesophageal reflux disease) Current Visit: Yes Status: Chronic Qualifiers: Esophagitis presence: without esophagitis Qualified Code(s): K21.9 - Gastro-esophageal reflux disease without esophagitis (9) HIV (human immunodeficiency virus infection) Current Visit: Yes Status: Chronic Comment: not taking any medication, pt states its undetecable (10) Insomnia Current Visit: Yes Status: Chronic (11) PTSD (post-traumatic stress disorder) Current Visit: No Status: Chronic (12) Contact dermatitis Current Visit: Yes Status: Acute Cleared for Admission S - Detox or Rehab [facility] Level of Care: Medically Managed Detox Regimen/Protocol: Librium [facility] Breath Alcohol Content Breath Alcohol Content: 0 Urine Drug Screen - Results Drug Screen Negative: No Urine Drug Screen Results: FELIZ-Cocaine
[2017-03-22] MEDS ORDERED: MAG HYDROX/AL HYDROX/SIMETH 30 ML UNIT-DOSE CUP PO PRN (16:39)
[2017-03-22] MEDS ORDERED: guaiFENesin/D-METHORPHAN HB 10 ML UNIT-DOSE CUPS PO PRN (16:39)
[2017-03-22] MEDS ORDERED: chlordiazePOXIDE HCL 25 MG CAPSULE PO PRN (16:39)
[2017-03-22] MEDS ORDERED: P-EPHED 60MG/TRIPROLIDI 2.5MG TABLET PO PRN (16:39)
[2017-03-22] MEDS ORDERED: MAGNESIUM HYDROX 2400MG/30ML ORAL SUSPENSION 30 ML CUP PO PRN (16:39)
[2017-03-22] MEDS ORDERED: MENTHOL/PHENOL 1 EACH UD MM PRN (16:39)
[2017-03-22] MEDS ORDERED: LOPERAMIDE HCL 2 MG CAPSULE PO PRN (16:39)
[2017-03-22] MEDS ORDERED: chlordiazePOXIDE HCL 25 MG CAPSULE PO ONE ×2 (16:39→20:30)
[2017-03-22] MEDS ORDERED: hydrOXYzine PAMOATE 50 MG CAPSULE (FP) PO PRN (16:39)
[2017-03-22] MEDS ORDERED: MAGNESIUM CITRATE 300 ML BOTTLE PO PRN (16:39)
[2017-03-22] MEDS ORDERED: diphenhydrAMINE HCL 50 MG CAPSULE PO PRN (16:39)
[2017-03-22] MEDS ORDERED: IBUPROFEN 400 MG TABLET (FP) PO PRN (16:39)
[2017-03-22] MEDS ORDERED: ACETAMINOPHEN 325 MG TABLET (FP) PO PRN (16:39)
[2017-03-22] MEDS ORDERED: ALBUTEROL SO4 6.7 GM HFA INHALER IH PRN (16:43)
[2017-03-22] MEDS: NICOTINE 21 MG/24 HOURS TOPICAL PATCH TD SCH (20:38)
[2017-03-22] MEDS: THIAMINE HCL 100 MG TABLET (FP) PO SCH (22:30)
[2017-03-22] MEDS: BUDESONIDE/FORMETEROL FUMARATE 80/4.5 mcg INHALER IH SCH (22:31)
[2017-03-22] MEDS: chlordiazePOXIDE HCL 25 MG CAPSULE PO SCH (22:31)
[2017-03-23] MEDS: chlordiazePOXIDE HCL 25 MG CAPSULE PO SCH ×4 (05:55→22:38)
[2017-03-23 10:14] LABS: MCH 29.4 pg (25.7-33.7); MCHC 32.7 g/dl (32.0-35.9); MEAN CELL VOLUME 89.8 fl (80-96); MEAN PLT VOLUME 7.2 fl (7.5-11.1); PLATELET COUNT 275 K/MM3 (134-434); RDW 15.5 % (11.9-15.9); WHITE BLOOD COUNT 4.8 K/mm3 (4.0-10.0)
[2017-03-23 10:31] LABS: ALBUMIN 3.1 g/dl (3.4-5.0); ANION GAP 9 (8-16); CALCIUM 8.1 mg/dL (8.5-10.1); CO2 28 mmol/L (21-32); CREATININE 0.9 mg/dL (0.7-1.3); GLUCOSE,RANDOM 138 mg/dL (74-106); SGOT/AST 15 U/L (15-37); SGPT/ALT 17 U/L (12-78)
[2017-03-23 10:33] LABS: ALK PHOS 110 U/L (45-117); BILIRUBIN,TOTAL 0.5 mg/dL (0.2-1.0); TOT PROT 5.8 g/dl (6.4-8.2)
[2017-03-23] MEDS: PRENATAL VITAMINS W/ FOLIC ACID TABLET (FP) PO SCH (10:45)
[2017-03-23] MEDS: NICOTINE 21 MG/24 HOURS TOPICAL PATCH TD SCH (10:46)
[2017-03-23] MEDS: PANTOPRAZOLE 40 MG TABLET (FP) PO SCH (10:46)
[2017-03-23] MEDS: BUDESONIDE/FORMETEROL FUMARATE 80/4.5 mcg INHALER IH SCH ×2 (10:47→22:39)
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
--- NOTE | 2017-03-23 12:13 | PN ---
[facility] CIWA - CIWA Score Nausea/Vomitin-Mild Nausea/No Vomiting Muscle Tremors: 2 Anxiety: 4-Mod. Anxious/Guarded Agitation: 2 Paroxysmal Sweats: 3 Orientation: 2-Disoriented Date<2 days Tacttile Disturbances: 2-Mild Itch/Numbness/Burn Auditory Disturbances: 1-Very Mild Visual Disturbances: 0-None Headache: 0-None Present CIWA-Ar Total Score: 17 BHS Progress Note (SOAP) Subjective: Fatigue, Anxious, Sweating, Interrupted sleep. Objective: PT. A & O X 2 (DISORIENTED ABOUT DAY / DATE). NO ACUTE DISTRESS. 03/23/17 12:10 Vital Signs Temperature 97 F L 03/23/17 09:22 Pulse Rate 76 03/23/17 09:22 Respiratory Rate 16 03/23/17 09:22 Blood Pressure 105/75 03/23/17 09:22 O2 Sat by Pulse Oximetry (%) Laboratory Tests 03/23/17 03/23/17 07:00 07:00 WBC 4.8 RBC 4.91 Hgb 14.4 Hct 44.1 MCV 89.8 MCH 29.4 MCHC 32.7 RDW 15.5 Plt Count 275 MPV 7.2 L Sodium 140 Potassium 3.2 L Chloride 103 Carbon Dioxide 28 Anion Gap 9 BUN 6 L D Creatinine 0.9 Creat Clearance w eGFR > 60 Random Glucose 138 H Calcium 8.1 L Total Bilirubin 0.5 D AST 15 D ALT 17 D Alkaline Phosphatase 110 Total Protein 5.8 L D Albumin 3.1 L LABS NOTED. ADMISSION RPR AND UA RESULTS PENDING. 03/23/17 12:12 Assessment: 03/23/17 12:10 WITHDRAWAL SYMPTOMS. Plan: CONTINUE DETOX. K, 20 MEQ PO X1 NOW, THEN 20 MEQ PO BID AFTER. BGM ACBK FOR ELEVATED ADMISSION RANDOM GLUCOSE LEVEL.
--- NOTE | 2017-03-23 12:57 | EKG ---
Test Reason : Blood Pressure : / mmHG Vent. Rate : 072 BPM Atrial Rate : 072 BPM P-R Int : 192 ms QRS Dur : 086 ms QT Int : 372 ms P-R-T Axes : 061 002 021 degrees QTc Int : 407 ms SINUS RHYTHM WITH OCCASIONAL PREMATURE VENTRICULAR COMPLEXES NONSPECIFIC ST AND T WAVE ABNORMALITY ABNORMAL ECG WHEN COMPARED WITH ECG OF 16-NOV-2016 17:53, PREMATURE VENTRICULAR COMPLEXES ARE NOW PRESENT Confirmed by RADHA TALAMANTES, DONALD ([id number]) on 03/23/2017 12:57:32 PM Referred By: Confirmed By:DONALD GARCIA MD
[2017-03-23] MEDS ORDERED: POTASSIUM CHLORIDE TABS 20 MEQ TABLET.ER (FP) PO ONE (13:00)
[2017-03-23] MEDS: POTASSIUM CHLORIDE TABS 20 MEQ TABLET.ER (FP) PO SCH (17:40)
[2017-03-23] MEDS: THIAMINE HCL 100 MG TABLET (FP) PO SCH (22:38)
[2017-03-23] MEDS: QUEtiapine FUMARATE 100 MG TABLET (FP) PO SCH (22:39)
[2017-03-24] MEDS: chlordiazePOXIDE HCL 25 MG CAPSULE PO SCH ×3 (05:51→17:08)
[2017-03-24] MEDS: PANTOPRAZOLE 40 MG TABLET (FP) PO SCH (10:45)
[2017-03-24] MEDS: PRENATAL VITAMINS W/ FOLIC ACID TABLET (FP) PO SCH (10:45)
[2017-03-24] MEDS: POTASSIUM CHLORIDE TABS 20 MEQ TABLET.ER (FP) PO SCH ×2 (10:46→17:09)
[2017-03-24] MEDS: BUDESONIDE/FORMETEROL FUMARATE 80/4.5 mcg INHALER IH SCH ×2 (10:46→22:47)
[2017-03-24] MEDS: NICOTINE 21 MG/24 HOURS TOPICAL PATCH TD SCH (10:46)
--- NOTE | 2017-03-24 11:53 | PN ---
S CIWA - CIWA Score Nausea/Vomitin-Mild Nausea/No Vomiting Muscle Tremors: 4-Moderate,w/Arms Extend Anxiety: 3 Agitation: 2 Paroxysmal Sweats: 3 Orientation: 0-Oriented Tacttile Disturbances: 2-Mild Itch/Numbness/Burn Auditory Disturbances: 0-None Visual Disturbances: 0-None Headache: 0-None Present CIWA-Ar Total Score: 15 BHS Progress Note (SOAP) Subjective: Sweating, Tremors, Fatigue. Objective: PT. A & O X 3, OBSERVED AMBULATING ON UNIT. NO ACUTE DISTRESS. 03/24/17 11:51 Vital Signs Temperature 96.8 F L 03/24/17 10:27 Pulse Rate 85 03/24/17 10:27 Respiratory Rate 18 03/24/17 10:27 Blood Pressure 105/76 03/24/17 10:27 O2 Sat by Pulse Oximetry (%) Laboratory Tests 03/23/17 03/23/17 03/24/17 07:00 07:00 06:32 WBC 4.8 RBC 4.91 Hgb 14.4 Hct 44.1 MCV 89.8 MCH 29.4 MCHC 32.7 RDW 15.5 Plt Count 275 MPV 7.2 L Sodium 140 Potassium 3.2 L Chloride 103 Carbon Dioxide 28 Anion Gap 9 BUN 6 L D Creatinine 0.9 Creat Clearance w eGFR > 60 POC Glucometer 108 Random Glucose 138 H Calcium 8.1 L Total Bilirubin 0.5 D AST 15 D ALT 17 D Alkaline Phosphatase 110 Total Protein 5.8 L D Albumin 3.1 L LABS NOTED. RPR RESULT PENDING. 03/24/17 11:53 Assessment: 03/24/17 11:52 WITHDRAWAL SYMPTOMS. Plan: CONTINUE DETOX.
[2017-03-24] MEDS: QUEtiapine FUMARATE 100 MG TABLET (FP) PO SCH (22:41)
[2017-03-24] MEDS: THIAMINE HCL 100 MG TABLET (FP) PO SCH (22:41)
[2017-03-24] MEDS: chlordiazePOXIDE 5 MG CAPSULE PO SCH (22:41)
[2017-03-24 23:04] LABS: URINE APPEARANCE CLEAR; URINE BILIRUBIN NEGATIVE (NEGATIVE); URINE BLOOD NEGATIVE (NEGATIVE); URINE COLOR STRAW; URINE GLUCOSE (UA) NEGATIVE (NEGATIVE); URINE KETONE NEGATIVE (NEGATIVE); URINE LEUK ESTERASE NEGATIVE (NEGATIVE); URINE NITRITE NEGATIVE (NEGATIVE); URINE PROTEIN NEGATIVE (NEGATIVE); URINE UROBILINOGEN NEGATIVE mg/dL (0.2-1.0)
[2017-03-25] MEDS: chlordiazePOXIDE 5 MG CAPSULE PO SCH ×3 (05:46→17:43)
[2017-03-25] MEDS: PRENATAL VITAMINS W/ FOLIC ACID TABLET (FP) PO SCH (10:53)
[2017-03-25] MEDS: PANTOPRAZOLE 40 MG TABLET (FP) PO SCH (10:53)
[2017-03-25] MEDS: POTASSIUM CHLORIDE TABS 20 MEQ TABLET.ER (FP) PO SCH ×2 (10:53→18:40)
[2017-03-25] MEDS: NICOTINE 21 MG/24 HOURS TOPICAL PATCH TD SCH (10:54)
[2017-03-25] MEDS: BUDESONIDE/FORMETEROL FUMARATE 80/4.5 mcg INHALER IH SCH ×2 (10:54→22:42)
--- NOTE | 2017-03-25 12:37 | PN ---
BHS Progress Note (SOAP) Subjective: interrupted sleep, sweats, left knee pain Objective: 03/25/17 12:35 Vital Signs Temperature 99 F 03/25/17 06:17 Pulse Rate 96 H 03/25/17 10:31 Respiratory Rate 20 03/25/17 10:31 Blood Pressure 112/80 03/25/17 10:31 O2 Sat by Pulse Oximetry (%) Laboratory Tests 03/23/17 03/23/17 03/23/17 07:00 07:00 07:00 WBC 4.8 RBC 4.91 Hgb 14.4 Hct 44.1 MCV 89.8 MCH 29.4 MCHC 32.7 RDW 15.5 Plt Count 275 MPV 7.2 L Sodium 140 Potassium 3.2 L Chloride 103 Carbon Dioxide 28 Anion Gap 9 BUN 6 L D Creatinine 0.9 Creat Clearance w eGFR > 60 POC Glucometer Random Glucose 138 H Calcium 8.1 L Total Bilirubin 0.5 D AST 15 D ALT 17 D Alkaline Phosphatase 110 Total Protein 5.8 L D Albumin 3.1 L Urine Color Urine Appearance Urine pH Ur Specific Souris Urine Protein Urine Glucose (UA) Urine Ketones Urine Blood Urine Nitrite Urine Bilirubin Urine Urobilinogen Ur Leukocyte Esterase RPR Titer Nonreactive 03/24/17 03/24/17 06:32 19:30 WBC RBC Hgb Hct MCV MCH MCHC RDW Plt Count MPV Sodium Potassium Chloride Carbon Dioxide Anion Gap BUN Creatinine Creat Clearance w eGFR POC Glucometer 108 Random Glucose Calcium Total Bilirubin AST ALT Alkaline Phosphatase Total Protein Albumin Urine Color Straw Urine Appearance Clear Urine pH 6.0 Ur Specific [place] 1.015 Urine Protein Negative Urine Glucose (UA) Negative Urine Ketones Negative Urine Blood Negative Urine Nitrite Negative Urine Bilirubin Negative Urine Urobilinogen Negative Ur Leukocyte Esterase Negative RPR Titer pt aox3 lying in bed in nad uses a cane for ambulation Assessment: 03/25/17 12:36 withdrawal sx's left knee pains Plan: cont. detox increase fluids lidocaine patch
[2017-03-25] MEDS ORDERED: LIDOCAINE 5% TOPICAL PATCH TP ONE (14:15)
[2017-03-25] MEDS ORDERED: LIDOCAINE PATCH REMOVAL MC SCH ×2 (22:00)
[2017-03-25] MEDS: chlordiazePOXIDE HCL 10 MG CAPSULE PO SCH (22:41)
[2017-03-25] MEDS: QUEtiapine FUMARATE 100 MG TABLET (FP) PO SCH (22:42)
[2017-03-25] MEDS: THIAMINE HCL 100 MG TABLET (FP) PO SCH (22:43)
[2017-03-26] MEDS: chlordiazePOXIDE HCL 10 MG CAPSULE PO SCH (06:11)
[2017-03-26 09:58] VITALS: BP 141/88; PULSE 99; TEMP 97.7
[2017-03-26] MEDS ORDERED: LIDOCAINE 5% TOPICAL PATCH TP SCH (10:00)
--- NOTE | 2017-03-27 13:19 | DS ---
[facility] Detox Discharge Summary Admission Date: 03/22/17 Discharge Date: 03/26/17 - History Present History: Alcohol Dependence, Cocaine Dependence Additional Comments: PATIENT GOING TO [facility]. PATIENT ADVISED TO FOLLOW-UP THERE FOR AFTERCARE PER DISCHARGE ARRANGEMENT. PATIENT WAS DISCHARGED FROM UNIT IN STABLE MEDICAL CONDITION. Pertinent Past History: Asthma, HIV, Insomnia, Arthritis, GERD, Chronic Low Back Pain, Depression. - Physical Exam Results Vital Signs: Vital Signs Temperature 97.7 F 03/26/17 09:57 Pulse Rate 99 H 03/26/17 09:57 Respiratory Rate 18 03/26/17 09:57 Blood Pressure 141/88 03/26/17 09:57 O2 Sat by Pulse Oximetry (%) Pertinent Admission Physical Exam Findings: WITHDRAWAL SYMPTOMS. Laboratory Tests 03/23/17 03/23/17 03/23/17 07:00 07:00 07:00 WBC 4.8 RBC 4.91 Hgb 14.4 Hct 44.1 MCV 89.8 MCH 29.4 MCHC 32.7 RDW 15.5 Plt Count 275 MPV 7.2 L Sodium 140 Potassium 3.2 L Chloride 103 Carbon Dioxide 28 Anion Gap 9 BUN 6 L D Creatinine 0.9 Creat Clearance w eGFR > 60 POC Glucometer Random Glucose 138 H Calcium 8.1 L Total Bilirubin 0.5 D AST 15 D ALT 17 D Alkaline Phosphatase 110 Total Protein 5.8 L D Albumin 3.1 L Urine Color Urine Appearance Urine pH Ur Specific [place] Urine Protein Urine Glucose (UA) Urine Ketones Urine Blood Urine Nitrite Urine Bilirubin Urine Urobilinogen Ur Leukocyte Esterase RPR Titer Nonreactive 03/24/17 03/24/17 06:32 19:30 WBC RBC Hgb Hct MCV MCH MCHC RDW Plt Count MPV Sodium Potassium Chloride Carbon Dioxide Anion Gap BUN Creatinine Creat Clearance w eGFR POC Glucometer 108 Random Glucose Calcium Total Bilirubin AST ALT Alkaline Phosphatase Total Protein Albumin Urine Color Straw Urine Appearance Clear Urine pH 6.0 Ur Specific [place] 1.015 Urine Protein Negative Urine Glucose (UA) Negative Urine Ketones Negative Urine Blood Negative Urine Nitrite Negative Urine Bilirubin Negative Urine Urobilinogen Negative Ur Leukocyte Esterase Negative RPR Titer LABS NOTED. - Treatment Hospital Course: Detox Protocol Followed, Detoxed Safely, Responded well, Discharged Condition Good, Rehab Referral Accepted Patient has Accepted a Rehab Referral to: [facility]. - Medication Discharge Medications: Ambulatory Orders Budesonide/Formeterol Fumarate [SYMBICORT 80/4.5mcg -] 2 puff IH BID #1 inhaler 09/08/16 Pantoprazole Sodium [Protonix -] 40 mg PO DAILY #30 tab 11/29/16 Albuterol Sulfate Inhaler - [Ventolin HFA Inhaler -] 2 puff IH Q4H PRN 03/22/17 Albuterol Sulfate Inhaler - [Ventolin Hfa Inhaler -] 2 inh PO Q4H 03/22/17 Quetiapine Fumarate [Seroquel] 100 mg PO HS 03/22/17 Quetiapine Fumarate [Seroquel] 100 mg PO HS #30 tablet 03/23/17 - Diagnosis (1) Alcohol dependence with uncomplicated withdrawal Status: Acute (2) Cocaine dependence, uncomplicated Status: Acute (3) Drug-induced mood disorder Status: Acute (4) Nicotine dependence Status: Chronic Qualifiers: Nicotine product type: cigarettes Substance use status: in withdrawal Qualified Code(s): F17.213 - Nicotine dependence, cigarettes, with withdrawal (5) Arthritis Status: Chronic (6) Asthma Status: Chronic Qualifiers: Asthma severity: mild intermittent Asthma complication type: uncomplicated Qualified Code(s): J45.20 - Mild intermittent asthma, uncomplicated (7) Chronic low back pain Status: Chronic Qualifiers: Back pain laterality: bilateral Sciatica presence: unspecified whether sciatica present Qualified Code(s): M54.5 - Low back pain; G89.29 - Other chronic pain (8) GERD (gastroesophageal reflux disease) Status: Chronic Qualifiers: Esophagitis presence: without esophagitis Qualified Code(s): K21.9 - Gastro-esophageal reflux disease without esophagitis (9) HIV (human immunodeficiency virus infection) Status: Chronic (10) Insomnia Status: Chronic Qualifiers: Insomnia type: unspecified Qualified Code(s): G47.00 - Insomnia, unspecified (11) PTSD (post-traumatic stress disorder) Status: Chronic - AMA Did Patient Leave Against Medical Advice: No
== END 2017-03-26 10:13 | disposition home or self-care (01) | DRG 772 ==
LOC: YASAS 11:23 → Y3N 19:04
PROVIDERS: ADMIT Internal Medicine; ATTEND Internal Medicine
PROC: HZ2ZZZZ Detoxification Services for Substance Abuse Treatment (ICD-10-PCS; principal; 2017-03-26)
PROC: HZ5 Substance Abuse Treatment, Individual Psychotherapy (ICD-10-PCS; 2017-03-26)
DX: F10.230 Alcohol dependence with withdrawal, uncomplicated (principal); F14.20 Cocaine dependence, uncomplicated; F17.213 Nicotine dependence, cigarettes, with withdrawal; F19.24 Other psychoactive substance dependence with psychoactive substance-induced mood disorder; F43.10 Post-traumatic stress disorder, unspecified; G47.00 Insomnia, unspecified; J45.20 Mild intermittent asthma, uncomplicated; K21.9 Gastro-esophageal reflux disease without esophagitis; M12.9 Arthropathy, unspecified; M54.5 Low back pain; G89.29 Other chronic pain; Z59.0 Homelessness
CPT/HCPCS: 36415; 80053; 81003; 85027; 86593; 93005; 93010

== ENCOUNTER 2017-06-15 18:54 | Inpatient (IN) | payer OTHER ==
[2017-06-15 19:56] VITALS: BMI 22.9
--- NOTE | 2017-06-15 20:54 | HP ---
CIWA Score - CIWA Score Nausea/Vomitin Muscle Tremors: 3 Anxiety: 3 Agitation: 3 Paroxysmal Sweats: 2 Orientation: 0-Oriented Tacttile Disturbances: 2-Mild Itch/Numbness/Burn Auditory Disturbances: 2-Mild Harshness/Frighten Visual Disturbances: 1-Very Mild Sensitivity Headache: 2-Mild CIWA-Ar Total Score: 21 Admission ROS BHS - HPI Chief Complaint: i am here,needed help to stop drinking alcohol and cocaine Allergies/Adverse Reactions: Allergies Allergy/AdvReac Type Severity Reaction Status Date / Time No Known Allergies Allergy Verified 03/22/17 16:21 History of Present Illness: this 52 years old male with alcohol and cocaine dependence,seeking detox,last treatment 03/22/17 to 03/26/17 nicotine dependence insomnia arthritis both knees ambulating with cane longest period of sobriety 4 years - Ebola screening Have you traveled outside of the country in the last 21 days: No Have you had contact with anyone from an Ebola affected area: No Have you been sick,other than usual withdrawal symptoms: No - Review of Systems Constitutional: Loss of Appetite, Malaise, Night Sweats, Changes in sleep, Weakness, Unintentional Wgt. Loss EENT: reports: Nose Congestion Respiratory: reports: No Symptoms reported Cardiac: reports: Palpitations GI: reports: Diarrhea, Nausea, Vomiting : reports: No Symptoms Reported Musculoskeletal: reports: Back Pain, Joint Pain, Muscle Pain Integumentary: reports: Dryness Neuro: reports: Headache, Tremors Endocrine: reports: No Symptoms Reported Hematology: reports: No Symptoms Reported Psychiatric: reports: No Sypmtoms Reported, Judgement Intact, Mood/Affect Appropiate, Orientated x3 (insomnia) Patient History - Patient Medical History Hx Anemia: No Hx Asthma: Yes (on albutrol inhaler) Hx Chronic Obstructive Pulmonary Disease (COPD): No Hx Cancer: No Hx Cardiac Disorders: No Hx Congestive Heart Failure: No Hx Hypertension: No Hx Hypercholesterolemia: No Hx Pacemaker: No HX Cerebrovascular Accident: No Hx Seizures: No Hx Dementia: No Hx Diabetes: No Hx Gastrointestinal Disorders: No Hx Liver Disease: No Hx Genitourinary Disorders: No Hx Sexually Transmitted Disorders: No Hx Renal Disease (ESRD): No Hx Thyroid Disease: No Hx Human Immunodeficiency Virus (HIV): Yes (since 1982/undetectable. ) Hx Hepatitis C: No (negative) Hx Depression: Yes (insomnia) Hx Suicide Attempt: No Hx Bipolar Disorder: No Hx Schizophrenia: No Other Medical History: no suicidal,no homicidal - Patient Surgical History Past Surgical History: Yes Hx Neurologic Surgery: No Hx Cataract Extraction: No Hx Cardiac Surgery: No Hx Lung Surgery: No Hx Breast Surgery: No Hx Breast Biopsy: No Hx Abdominal Surgery: No Hx Appendectomy: No Hx Cholecystectomy: No Hx Genitourinary Surgery: No Hx Section: No Hx Orthopedic Surgery: Yes (total knee replacement LEFT in 2004) Anesthesia Reaction: No - PPD History Previous Implant?: Yes Documented Results: Negative w/proof Date: 08/21/16 Results: 0 mm PPD to be Administered?: No - Smoking Cessation Smoking history: Current every day smoker Have you smoked in the past 12 months: Yes Aproximately how many cigarettes per day: 4 Cigars Per Day: 0 Hx Chewing Tobacco Use: No Initiated information on smoking cessation: Yes 'Breaking Loose' booklet given: 06/15/17 - Substance & Tx. History Hx Alcohol Use: Yes Hx Substance Use: Yes Substance Use Type: Alcohol, Cocaine Hx Substance Use Treatment: Yes ([facility] 03/22/17 to 03/26/17) - Substances Abused Alcohol Route: Oral Frequency: Daily Amount used: 3 pints of vodka/4 of 24 ozs of beer Age of first use: 7 Date of Last Use: 06/15/17 Cocaine Route: Smoking Frequency: Daily Amount used: 60$ Age of first use: 7 Date of Last Use: 06/14/17 Family Disease History - Family Disease History Family Disease History: Other: Father (alcohol,), Mother (alcohol) Admission Physical Exam S - Vital Signs Vital Signs: Vital Signs - 24 hr 06/15/17 19:54 Temperature 97.7 F Pulse Rate 70 Respiratory 18 Rate Blood Pressure 127/78 - Physical General Appearance: Yes: Moderate Distress, Tremorous, Irritable, Sweating, Anxious HEENTM: Yes: Normal ENT Inspection, DOMINGO, Pharynx Normal Respiratory: Yes: Lungs Clear, Normal Breath Sounds, No Respiratory Distress Neck: Yes: Supple, Trachea in good position, Thyroid tenderness Breast: Yes: Within Normal Limits Cardiology: Yes: Within Normal Limits, Regular Rhythm, Regular Rate, S1, S2 Abdominal: Yes: Within Normal Limits, Normal Bowel Sounds, Non Tender, Flat, Soft Genitourinary: Yes: Within Normal Limits Back: Yes: Normal Inspection, Muscle Spasm Musculoskeletal: Yes: Back pain, Muscle Pain Extremities: Yes: Tremors Neurological: Yes: client services associate II-XII NML intact, Fully Oriented, Alert, Motor Strength 5/5 Integumentary: Yes: Dry Lymphatic: Yes: Within Normal Limits - Diagnostic (1) Alcohol dependence with uncomplicated withdrawal Current Visit: No Status: Acute (2) Cocaine dependence, uncomplicated Current Visit: No Status: Acute (3) Weight loss Current Visit: No Status: Acute (4) Arthritis Current Visit: No Status: Chronic Comment: naproxen (5) Asthma Current Visit: No Status: Chronic Qualifiers: Asthma severity: mild intermittent Asthma complication type: uncomplicated Qualified Code(s): J45.20 - Mild intermittent asthma, uncomplicated Comment: mild copd (6) Chronic low back pain Current Visit: No Status: Chronic Qualifiers: Back pain laterality: bilateral Sciatica presence: unspecified whether sciatica present Qualified Code(s): M54.5 - Low back pain (7) GERD (gastroesophageal reflux disease) Current Visit: No Status: Chronic Qualifiers: Esophagitis presence: without esophagitis Qualified Code(s): K21.9 - Gastro -esophageal reflux disease without esophagitis (8) HIV (human immunodeficiency virus infection) Current Visit: No Status: Chronic Comment: not taking any medication, pt states its undetecable (9) Insomnia Current Visit: No Status: Chronic Qualifiers: Insomnia type: unspecified Qualified Code(s): G47.00 - Insomnia, unspecified (10) Nicotine dependence Current Visit: No Status: Chronic Qualifiers: Nicotine product type: cigarettes Substance use status: in withdrawal Qualified Code(s): F17.213 - Nicotine dependence, cigarettes, with withdrawal (11) PTSD (post-traumatic stress disorder) Current Visit: No Status: Chronic (12) Use of cane as ambulatory aid Current Visit: Yes Status: Acute Cleared for Admission S - Detox or Rehab [facility] Level of Care: Medically Managed Detox Regimen/Protocol: Librium S Breath Alcohol Content Breath Alcohol Content: 0 Urine Drug Screen - Results Drug Screen Negative: No Urine Drug Screen Results: FELIZ-Cocaine
[2017-06-15] MEDS ORDERED: chlordiazePOXIDE HCL 25 MG CAPSULE PO PRN (21:03)
[2017-06-15] MEDS ORDERED: chlordiazePOXIDE HCL 25 MG CAPSULE PO ONE (21:03)
[2017-06-15] MEDS ORDERED: ACETAMINOPHEN 325 MG TABLET (FP) PO PRN (21:03)
[2017-06-15] MEDS ORDERED: MENTHOL/PHENOL 1 EACH UD MM PRN (21:03)
[2017-06-15] MEDS ORDERED: MAGNESIUM CITRATE 300 ML BOTTLE PO PRN (21:03)
[2017-06-15] MEDS ORDERED: guaiFENesin/D-METHORPHAN HB 10 ML UNIT-DOSE CUPS PO PRN (21:03)
[2017-06-15] MEDS ORDERED: LOPERAMIDE HCL 2 MG CAPSULE PO PRN (21:03)
[2017-06-15] MEDS ORDERED: P-EPHED 60MG/TRIPROLIDI 2.5MG TABLET PO PRN (21:03)
[2017-06-15] MEDS ORDERED: MAGNESIUM HYDROX 2400MG/30ML ORAL SUSPENSION 30 ML CUP PO PRN (21:03)
[2017-06-15] MEDS ORDERED: MAG HYDROX/AL HYDROX/SIMETH 30 ML UNIT-DOSE CUP PO PRN (21:03)
[2017-06-15] MEDS ORDERED: ALBUTEROL SO4 18 GM HFA INHALER IH PRN (21:06)
[2017-06-15] MEDS: BUDESONIDE/FORMETEROL FUMARATE 80/4.5 mcg INHALER IH SCH (23:55)
[2017-06-15] MEDS: chlordiazePOXIDE HCL 25 MG CAPSULE PO SCH (23:56)
[2017-06-15] MEDS: THIAMINE HCL 100 MG TABLET (FP) PO SCH (23:57)
[2017-06-15] MEDS: hydrOXYzine PAMOATE 25 MG CAPSULE (FP) PO PRN (23:58)
[2017-06-16] MEDS: chlordiazePOXIDE HCL 25 MG CAPSULE PO SCH ×4 (05:57→22:03)
[2017-06-16 10:24] LABS: MCH 28.1 pg (25.7-33.7); MCHC 32.2 g/dl (32.0-35.9); MEAN CELL VOLUME 87.2 fl (80-96); MEAN PLT VOLUME 7.3 fl (7.5-11.1); PLATELET COUNT 292 K/MM3 (134-434); RDW 16.4 % (11.9-15.9)
[2017-06-16] MEDS: PRENATAL VITAMINS W/ FOLIC ACID TABLET (FP) PO SCH (10:25)
[2017-06-16] MEDS: PANTOPRAZOLE 40 MG TABLET (FP) PO SCH (10:25)
[2017-06-16] MEDS: BUDESONIDE/FORMETEROL FUMARATE 80/4.5 mcg INHALER IH SCH ×2 (10:25→22:04)
[2017-06-16 11:09] LABS: ALBUMIN 2.9 g/dl (3.4-5.0); ALK PHOS 112 U/L (45-117); ANION GAP 13 (8-16); BILIRUBIN,TOTAL 0.3 mg/dL (0.2-1.0); CALCIUM 7.9 mg/dL (8.5-10.1); CO2 26 mmol/L (21-32); CREATININE 0.8 mg/dL (0.7-1.3); GLUCOSE,RANDOM 107 mg/dL (74-106); SGOT/AST 14 U/L (15-37); SGPT/ALT 16 U/L (12-78)
--- NOTE | 2017-06-16 12:38 | EKG ---
Test Reason : Blood Pressure : / mmHG Vent. Rate : 085 BPM Atrial Rate : 085 BPM P-R Int : 166 ms QRS Dur : 072 ms QT Int : 380 ms P-R-T Axes : 057 -01 037 degrees QTc Int : 452 ms NORMAL SINUS RHYTHM POSSIBLE LEFT ATRIAL ENLARGEMENT SEPTAL INFARCT , AGE UNDETERMINED ABNORMAL ECG WHEN COMPARED WITH ECG OF 22-MAR-2017 19:53, PREMATURE VENTRICULAR COMPLEXES ARE NO LONGER PRESENT Confirmed by JOSHUA TALAMANTES, YODIT ([id number]) on 06/16/2017 12:38:25 PM Referred By: Confirmed By:YODIT LEWIS MD
--- NOTE | 2017-06-16 13:31 | CONSULT ---
[facility] Psychiatric Consult - Data Date of interview: 06/16/17 Admission source: [facility] Identifying data: This is 52 years old male ambulating with cane, with psychiatric hbospitalization history , intoxicated with: Alcohol, Cocaine and Nicotine Substance Abuse History: - Smoking Cessation. Smoking history: Current every day smoker. Have you smoked in the past 12 months: Yes. Aproximately how many cigarettes per day: 4. Cigars Per Day: 0. Hx Chewing Tobacco Use: No. Initiated information on smoking cessation: Yes. 'Breaking Loose' booklet given : 06/15/17. - Substance & Tx. History. Hx Alcohol Use: Yes. Hx Substance Use : Yes. Substance Use Type: Alcohol, Cocaine. Hx Substance Use Treatment: Yes ( [facility] 03/22/17 to 03/26/17). - Substances Abused. Alcohol. Route: Oral. Frequency: Daily. Amount used: 3 pints of vodka/4 of 24 ozs of beer. Age of first use: 7. Date of Last Use: 06/15/17. Cocaine. Route: Smoking. Frequency: Daily. Amount used: 60$. Age of first use: 7. Date of Last Use: Medical History: GERD, LBP, Weight loss, Arthritis history, HIV, Asthma, ambulates with cane Psychiatric History: Florian camarena history of PTSD, history of psychiatric admission on more then 10 years ago, reports taking prior to admission: Seroquel 100mg po qhs Physical/Sexual Abuse/Trauma History: Unclear Additional Comment: Seroquel 100mg po qhs Mental Status Exam - Mental Status Exam Alert and Oriented to: Person Cognitive Function: Fair Patient Appearance: Unkempt Mood: Sad Affect: Flat Patient Behavior: Sedated Speech Pattern: Delayed Voice Loudness: Mildly Soft/Quiet Thought Process: Circumstantial Thought Disorder: Being Controlled Hallucinations: Denies Suicidal Ideation: Denies Homicidal Ideation: Denies Insight/Judgement: Fair Sleep: Difficulty falling asleep Appetite: Weight loss Muscle strength/Tone: Clonus Gait/Station: Deferred Additional Comments: Seroquel 100mg po qhs Psychiatric Findings - Problem List ([place] 1, 2,3) (1) Alcohol dependence with uncomplicated withdrawal Current Visit: No Status: Acute (2) Bipolar II disorder Current Visit: No Status: Acute (3) Cocaine dependence, uncomplicated Current Visit: No Status: Acute (4) Drug-induced mood disorder Current Visit: No Status: Acute (5) Chronic low back pain Current Visit: No Status: Chronic Qualifiers: Back pain laterality: bilateral Sciatica presence: unspecified whether sciatica present Qualified Code(s): M54.5 - Low back pain (6) GERD (gastroesophageal reflux disease) Current Visit: No Status: Chronic Qualifiers: Esophagitis presence: without esophagitis Qualified Code(s): K21.9 - Gastro -esophageal reflux disease without esophagitis (7) Nicotine dependence Current Visit: No Status: Chronic Qualifiers: Nicotine product type: cigarettes Substance use status: in withdrawal Qualified Code(s): F17.213 - Nicotine dependence, cigarettes, with withdrawal (8) PTSD (post-traumatic stress disorder) Current Visit: No Status: Chronic - Initial Treatment Plan Initial Treatment Plan: Seroquel 100mg po qhs
[2017-06-16] MEDS ORDERED: POTASSIUM CHLORIDE TABS 20 MEQ TABLET.ER (FP) PO ONE (18:58)
--- NOTE | 2017-06-16 19:00 | PN ---
[facility] CIWA - CIWA Score Nausea/Vomitin-No Nausea/No Vomiting Muscle Tremors: 3 Anxiety: 3 Agitation: 2 Paroxysmal Sweats: 3 Orientation: 0-Oriented Tacttile Disturbances: 3-Moderate Itch/Numb/Burn Auditory Disturbances: 0-None Visual Disturbances: 2-Mild Sensitivity Headache: 0-None Present CIWA-Ar Total Score: 16 BHS Progress Note (SOAP) Subjective: Constipation, tremors, Interrupted Sleep, Sweating. Objective: PT. A & O X 3. NO ACUTE DISTRESS. 06/16/17 18:57 Vital Signs Temperature 98.2 F 06/16/17 17:10 Pulse Rate 85 06/16/17 17:10 Respiratory Rate 18 06/16/17 17:10 Blood Pressure 99/60 06/16/17 17:10 O2 Sat by Pulse Oximetry (%) Laboratory Tests 06/16/17 06/16/17 06/16/17 04:00 04:00 04:00 WBC 5.0 RBC 5.30 Hgb 14.9 Hct 46.2 MCV 87.2 MCH 28.1 MCHC 32.2 RDW 16.4 H Plt Count 292 MPV 7.3 L Sodium 142 Potassium 3.4 L Chloride 103 Carbon Dioxide 26 Anion Gap 13 BUN 9 D Creatinine 0.8 Creat Clearance w eGFR > 60 Random Glucose 107 H D Calcium 7.9 L Total Bilirubin 0.3 D AST 14 L ALT 16 Alkaline Phosphatase 112 Total Protein 6.0 L Albumin 2.9 L RPR Titer Nonreactive LABS NOTED. UA RESULTS PENDING. 06/16/17 18:59 Assessment: 06/16/17 18:57 WITHDRAWAL SYMPTOMS. Plan: CONTINUE DETOX. K-DUR, 20 MEQ PO X1 NOW, THEN 20 MEQ PO BID AFTER. INCREASE DAILY PO FLUID INTAKE.
[2017-06-16] MEDS: QUEtiapine FUMARATE 100 MG TABLET (FP) PO SCH (22:03)
[2017-06-16] MEDS: THIAMINE HCL 100 MG TABLET (FP) PO SCH (22:03)
[2017-06-17] MEDS: chlordiazePOXIDE HCL 25 MG CAPSULE PO SCH ×3 (05:42→17:15)
[2017-06-17] MEDS: POTASSIUM CHLORIDE TABS 20 MEQ TABLET.ER (FP) PO SCH ×2 (10:43→17:15)
[2017-06-17] MEDS: BUDESONIDE/FORMETEROL FUMARATE 80/4.5 mcg INHALER IH SCH ×2 (10:43→22:08)
[2017-06-17] MEDS: PANTOPRAZOLE 40 MG TABLET (FP) PO SCH (10:43)
[2017-06-17] MEDS: IBUPROFEN 400 MG TABLET (FP) PO PRN ×2 (10:43→17:17)
[2017-06-17] MEDS: PRENATAL VITAMINS W/ FOLIC ACID TABLET (FP) PO SCH (10:43)
--- NOTE | 2017-06-17 15:14 | PN ---
[facility] CIWA - CIWA Score Nausea/Vomitin-No Nausea/No Vomiting Muscle Tremors: 3 Anxiety: 4-Mod. Anxious/Guarded Agitation: 2 Paroxysmal Sweats: 3 Orientation: 2-Disoriented Date<2 days Tacttile Disturbances: 2-Mild Itch/Numbness/Burn Auditory Disturbances: 1-Very Mild Visual Disturbances: 0-None Headache: 0-None Present CIWA-Ar Total Score: 17 BHS Progress Note (SOAP) Subjective: Interrupted Sleep, Tremors, Sweating. Objective: PT. A & O X 2 (UNCERTAIN ABOUT DAY / DATE). PT. OBSERVED AMBULATING ON UNIT. NO ACUTE DISTRESS. 06/17/17 15:10 Vital Signs Temperature 97.2 F L 06/17/17 10:31 Pulse Rate 86 06/17/17 10:31 Respiratory Rate 18 06/17/17 10:31 Blood Pressure 115/73 06/17/17 10:31 O2 Sat by Pulse Oximetry (%) Laboratory Tests 06/16/17 06/16/17 06/16/17 04:00 04:00 04:00 WBC 5.0 RBC 5.30 Hgb 14.9 Hct 46.2 MCV 87.2 MCH 28.1 MCHC 32.2 RDW 16.4 H Plt Count 292 MPV 7.3 L Sodium 142 Potassium 3.4 L Chloride 103 Carbon Dioxide 26 Anion Gap 13 BUN 9 D Creatinine 0.8 Creat Clearance w eGFR > 60 Random Glucose 107 H D Calcium 7.9 L Total Bilirubin 0.3 D AST 14 L ALT 16 Alkaline Phosphatase 112 Total Protein 6.0 L Albumin 2.9 L RPR Titer Nonreactive LABS NOTED. UA RESULTS PENDING. 06/17/17 15:13 Assessment: 06/17/17 15:12 WITHDRAWAL SYMPTOMS. Plan: CONTINUE DETOX.
[2017-06-17] MEDS: QUEtiapine FUMARATE 100 MG TABLET (FP) PO SCH (22:06)
[2017-06-17] MEDS: chlordiazePOXIDE 5 MG CAPSULE PO SCH (22:06)
[2017-06-17] MEDS: THIAMINE HCL 100 MG TABLET (FP) PO SCH (22:06)
[2017-06-18] MEDS: chlordiazePOXIDE 5 MG CAPSULE PO SCH ×3 (05:24→17:18)
[2017-06-18] MEDS: PANTOPRAZOLE 40 MG TABLET (FP) PO SCH (10:29)
[2017-06-18] MEDS: POTASSIUM CHLORIDE TABS 20 MEQ TABLET.ER (FP) PO SCH ×2 (10:29→17:19)
[2017-06-18] MEDS: PRENATAL VITAMINS W/ FOLIC ACID TABLET (FP) PO SCH (10:30)
[2017-06-18 10:32] LABS: URINE APPEARANCE CLEAR; URINE BILIRUBIN NEGATIVE (NEGATIVE); URINE BLOOD NEGATIVE (NEGATIVE); URINE COLOR STRAW; URINE GLUCOSE (UA) NEGATIVE (NEGATIVE); URINE KETONE NEGATIVE (NEGATIVE); URINE NITRITE NEGATIVE (NEGATIVE); URINE PROTEIN NEGATIVE (NEGATIVE); URINE UROBILINOGEN NEGATIVE mg/dL (0.2-1.0)
[2017-06-18] MEDS: IBUPROFEN 400 MG TABLET (FP) PO PRN (10:32)
[2017-06-18] MEDS: hydrOXYzine PAMOATE 25 MG CAPSULE (FP) PO PRN ×2 (10:34→22:17)
[2017-06-18] MEDS: BUDESONIDE/FORMETEROL FUMARATE 80/4.5 mcg INHALER IH SCH ×2 (11:18→22:17)
--- NOTE | 2017-06-18 13:29 | PN ---
BHS Progress Note (SOAP) Subjective: Anxious, Sweating. Objective: PT. A & O X 3, OBSERVED AMBULATING ON UNIT. NO ACUTE DISTRESS. 06/18/17 13:27 Vital Signs Temperature 97.7 F 06/18/17 06:36 Pulse Rate 94 H 06/18/17 09:20 Respiratory Rate 18 06/18/17 09:20 Blood Pressure 125/84 06/18/17 09:20 O2 Sat by Pulse Oximetry (%) Laboratory Tests 06/16/17 06/16/17 06/16/17 04:00 04:00 04:00 WBC 5.0 RBC 5.30 Hgb 14.9 Hct 46.2 MCV 87.2 MCH 28.1 MCHC 32.2 RDW 16.4 H Plt Count 292 MPV 7.3 L Sodium 142 Potassium 3.4 L Chloride 103 Carbon Dioxide 26 Anion Gap 13 BUN 9 D Creatinine 0.8 Creat Clearance w eGFR > 60 Random Glucose 107 H D Calcium 7.9 L Total Bilirubin 0.3 D AST 14 L ALT 16 Alkaline Phosphatase 112 Total Protein 6.0 L Albumin 2.9 L Urine Color Urine Appearance Urine pH Ur Specific [place] Urine Protein Urine Glucose (UA) Urine Ketones Urine Blood Urine Nitrite Urine Bilirubin Urine Urobilinogen RPR Titer Nonreactive 06/18/17 07:40 WBC RBC Hgb Hct MCV MCH MCHC RDW Plt Count MPV Sodium Potassium Chloride Carbon Dioxide Anion Gap BUN Creatinine Creat Clearance w eGFR Random Glucose Calcium Total Bilirubin AST ALT Alkaline Phosphatase Total Protein Albumin Urine Color Straw Urine Appearance Clear Urine pH 5.0 Ur Specific [place] 1.009 Urine Protein Negative Urine Glucose (UA) Negative Urine Ketones Negative Urine Blood Negative Urine Nitrite Negative Urine Bilirubin Negative Urine Urobilinogen Negative RPR Titer LABS NOTED. Assessment: 06/18/17 13:27 WITHDRAWAL SYMPTOMS. Plan: CONTINUE DETOX. INCREASE DAILY PO FLUID INTAKE.
[2017-06-18 16:54] LABS: URINE LEUK ESTERASE Negative (NEGATIVE)
[2017-06-18] MEDS: chlordiazePOXIDE HCL 10 MG CAPSULE PO SCH (22:16)
[2017-06-18] MEDS: QUEtiapine FUMARATE 100 MG TABLET (FP) PO SCH (22:16)
[2017-06-18] MEDS: THIAMINE HCL 100 MG TABLET (FP) PO SCH (22:16)
[2017-06-19] MEDS: chlordiazePOXIDE HCL 10 MG CAPSULE PO SCH (05:42)
[2017-06-19 06:49] VITALS: BP 119/79; PULSE 103; TEMP 96.7
--- NOTE | 2017-06-19 17:10 | DS ---
[facility] Detox Discharge Summary Admission Date: 06/15/17 Discharge Date: 06/19/17 - History Present History: Alcohol Dependence, Cocaine Dependence Pertinent Past History: Asthma GERD HIV - Physical Exam Results Vital Signs: Vital Signs Temperature 96.7 F L 06/19/17 06:48 Pulse Rate 103 H 06/19/17 06:48 Respiratory Rate 18 06/19/17 06:48 Blood Pressure 119/79 06/19/17 06:48 O2 Sat by Pulse Oximetry (%) Pertinent Admission Physical Exam Findings: Withdrawal symptoms Laboratory Tests 06/16/17 06/16/17 06/16/17 04:00 04:00 04:00 WBC 5.0 RBC 5.30 Hgb 14.9 Hct 46.2 MCV 87.2 MCH 28.1 MCHC 32.2 RDW 16.4 H Plt Count 292 MPV 7.3 L Sodium 142 Potassium 3.4 L Chloride 103 Carbon Dioxide 26 Anion Gap 13 BUN 9 D Creatinine 0.8 Creat Clearance w eGFR > 60 Random Glucose 107 H D Calcium 7.9 L Total Bilirubin 0.3 D AST 14 L ALT 16 Alkaline Phosphatase 112 Total Protein 6.0 L Albumin 2.9 L Urine Color Urine Appearance Urine pH Ur Specific [place] Urine Protein Urine Glucose (UA) Urine Ketones Urine Blood Urine Nitrite Urine Bilirubin Urine Urobilinogen Ur Leukocyte Esterase RPR Titer Nonreactive 06/18/17 07:40 WBC RBC Hgb Hct MCV MCH MCHC RDW Plt Count MPV Sodium Potassium Chloride Carbon Dioxide Anion Gap BUN Creatinine Creat Clearance w eGFR Random Glucose Calcium Total Bilirubin AST ALT Alkaline Phosphatase Total Protein Albumin Urine Color Straw Urine Appearance Clear Urine pH 5.0 Ur Specific [place] 1.009 Urine Protein Negative Urine Glucose (UA) Negative Urine Ketones Negative Urine Blood Negative Urine Nitrite Negative Urine Bilirubin Negative Urine Urobilinogen Negative Ur Leukocyte Esterase Negative RPR Titer Labs noted: K 3.4 (replenished) - Treatment Hospital Course: Detox Protocol Followed, Detoxed Safely, Responded well, Discharged Condition Good - Medication Discharge Medications: Ambulatory Orders Quetiapine Fumarate [Seroquel] 100 mg PO HS #30 tablet 06/16/17 Albuterol Sulfate Inhaler - [Ventolin Hfa Inhaler -] 2 inh PO Q4H #1 inhaler Budesonide/Formeterol Fumarate [SYMBICORT 80/4.5mcg -] 2 puff IH BID #1 inhaler 06/18/17 Pantoprazole Sodium [Protonix -] 40 mg PO DAILY #30 tab 06/18/17 - Diagnosis (1) Alcohol dependence with uncomplicated withdrawal Status: Acute (2) Cocaine dependence, uncomplicated Status: Chronic (3) Hypokalemia Status: Acute (4) Asthma Status: Chronic Qualifiers: Asthma severity: mild intermittent Asthma complication type: uncomplicated Qualified Code(s): J45.20 - Mild intermittent asthma, uncomplicated (5) Chronic low back pain Status: Chronic Qualifiers: Back pain laterality: bilateral Sciatica presence: unspecified whether sciatica present Qualified Code(s): M54.5 - Low back pain (6) GERD (gastroesophageal reflux disease) Status: Chronic Qualifiers: Esophagitis presence: without esophagitis Qualified Code(s): K21.9 - Gastro -esophageal reflux disease without esophagitis (7) HIV (human immunodeficiency virus infection) Status: Chronic (8) Insomnia Status: Chronic Qualifiers: Insomnia type: unspecified Qualified Code(s): G47.00 - Insomnia, unspecified (9) Nicotine dependence Status: Chronic Qualifiers: Nicotine product type: cigarettes Substance use status: in withdrawal Qualified Code(s): F17.213 - Nicotine dependence, cigarettes, with withdrawal (10) PTSD (post-traumatic stress disorder) Status: Chronic - AMA Did Patient Leave Against Medical Advice: No (F/U with PCP within 1 week)
== END 2017-06-19 09:18 | disposition home or self-care (01) | DRG 774 ==
LOC: YASAS 18:54 → Y3N 21:02
PROVIDERS: ADMIT Internal Medicine; ATTEND Internal Medicine
PROC: HZ2ZZZZ Detoxification Services for Substance Abuse Treatment (ICD-10-PCS; principal; 2017-06-15)
DX: F10.230 Alcohol dependence with withdrawal, uncomplicated (principal); F14.20 Cocaine dependence, uncomplicated; F17.213 Nicotine dependence, cigarettes, with withdrawal; F31.9 Bipolar disorder, unspecified; F43.10 Post-traumatic stress disorder, unspecified; F19.24 Other psychoactive substance dependence with psychoactive substance-induced mood disorder; E87.6 Hypokalemia; G47.00 Insomnia, unspecified; K21.9 Gastro-esophageal reflux disease without esophagitis; J45.20 Mild intermittent asthma, uncomplicated; M54.5 Low back pain; G89.29 Other chronic pain; Z21 Asymptomatic human immunodeficiency virus [HIV] infection status; Z59.0 Homelessness
CPT/HCPCS: 36415; 80053; 81003; 85027; 86593; 93005; 93010

== ENCOUNTER 2017-08-02 11:38 | Inpatient (IN) | payer OTHER ==
[2017-08-02 13:08] VITALS: BMI 21.1
--- NOTE | 2017-08-02 14:12 | HP ---
Admission [facility] Chief Complaint: i am here for rehab from alcohol crack Allergies/Adverse Reactions: Allergies Allergy/AdvReac Type Severity Reaction Status Date / Time No Known Allergies Allergy Verified 06/15/17 23:27 History of Present Illness: this 52 years old male with alcohol and crack dependence,seeking rehab,last detox [facility] 06/15/17 to 06/19/17 asthma longest period of sobriety 2 years nicotine dependence Exam Limitations: No Limitations - Ebola screening Have you traveled outside of the country in the last 21 days: No Have you had contact with anyone from an Ebola affected area: No Have you been sick,other than usual withdrawal symptoms: No Do you have a fever: No - Review of Systems Constitutional: No Symptoms Reported EENT: reports: No Symptoms Reported Respiratory: reports: No Symptoms reported, Other (hisotry of asthma) Cardiac: reports: No Symptoms Reported GI: reports: No Symptoms Reported : reports: No Symptoms Reported Musculoskeletal: reports: No Symptoms Reported, Other (arthritis both knees) Integumentary: reports: No Symptoms Reported Neuro: reports: No Symptoms reported Endocrine: reports: No Symptoms Reported Hematology: reports: No Symptoms Reported Psychiatric: reports: other (insomnia) Patient History - Patient Medical History Hx Anemia: No Hx Asthma: Yes Hx Chronic Obstructive Pulmonary Disease (COPD): No Hx Cancer: No Hx Cardiac Disorders: No Hx Congestive Heart Failure: No Hx Hypertension: No Hx Hypercholesterolemia: No Hx Pacemaker: No HX Cerebrovascular Accident: No Hx Seizures: No Hx Dementia: No Hx Diabetes: No Hx Gastrointestinal Disorders: No Hx Liver Disease: No Hx Genitourinary Disorders: No Hx Sexually Transmitted Disorders: No Hx Renal Disease (ESRD): No Hx Thyroid Disease: No Hx Human Immunodeficiency Virus (HIV): Yes (since 1982/undetectable. ) Hx Hepatitis C: No (negative) Hx Depression: No Hx Suicide Attempt: No Hx Bipolar Disorder: No Hx Schizophrenia: No Other Medical History: insomnia,no suicidal,no homicidal - Patient Surgical History Past Surgical History: Yes Hx Neurologic Surgery: No Hx Cataract Extraction: No Hx Cardiac Surgery: No Hx Lung Surgery: No Hx Breast Surgery: No Hx Breast Biopsy: No Hx Abdominal Surgery: No Hx Appendectomy: No Hx Cholecystectomy: No Hx Genitourinary Surgery: No Hx Section: No Hx Orthopedic Surgery: Yes (total knee replacement LEFT in 2004) Anesthesia Reaction: No - PPD History Previous Implant?: Yes Documented Results: Negative w/proof Implanted On Prior [facility] Admission?: Yes Date: 08/21/16 Results: 0 mm PPD to be Administered?: Yes - Smoking Cessation Smoking history: Current every day smoker Have you smoked in the past 12 months: Yes Aproximately how many cigarettes per day: 4 Cigars Per Day: 0 Hx Chewing Tobacco Use: No Initiated information on smoking cessation: Yes 'Breaking Loose' booklet given: 08/02/17 - Substance & Tx. History Hx Alcohol Use: Yes Hx Substance Use: Yes Substance Use Type: Alcohol, Cocaine Hx Substance Use Treatment: Yes ([facility] 07/17) - Substances Abused Cocaine Route: Smoking Frequency: Daily Amount used: $100 Age of first use: 10 Date of Last Use: 07/26/17 Alcohol Route: Oral Frequency: Daily Amount used: 4-5 SIX PACKS BEER Age of first use: 8 Date of Last Use: 07/28/17 Family Disease History - Family Disease History Family Disease History: Other: Father (alcohol,), Mother (alcohol) Admission Physical Exam [facility] - Vital Signs Vital Signs: Vital Signs - 24 hr 08/02/17 13:06 Temperature 96.1 F L Pulse Rate 77 Respiratory 18 Rate Blood Pressure 113/70 - Physical General Appearance: Yes: Within Normal Limits HEENTM: Yes: Within Normal Limits, DOMINGO, Pharynx Normal Respiratory: Yes: Lungs Clear, Normal Breath Sounds, No Respiratory Distress Neck: Yes: Within Normal Limits, Supple, Trachea in good position Breast: Yes: Within Normal Limits Cardiology: Yes: Within Normal Limits, Regular Rhythm, Regular Rate, S1, S2 Abdominal: Yes: Within Normal Limits, Normal Bowel Sounds, Non Tender, Soft Genitourinary: Yes: Within Normal Limits Back: Yes: Normal Inspection Musculoskeletal: Yes: full range of Motion, Muscle Pain Extremities: Yes: Within Normal Limits, Normal Capillary Refill, Normal Inspection, Other (s/p left knee replacement) Neurological: Yes: 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 NML intact, Fully Oriented, Alert, Motor Strength 5/5 Integumentary: Yes: Within Normal Limits Lymphatic: Yes: Within Normal Limits - Diagnostic (1) Alcohol dependence Current Visit: Yes Status: Acute (2) Cocaine dependence Current Visit: Yes Status: Acute (3) Asthma Current Visit: Yes Status: Acute (4) Use of cane as ambulatory aid Current Visit: No Status: Acute (5) HIV (human immunodeficiency virus infection) Current Visit: No Status: Chronic Comment: not taking any medication, pt states its undetecable (6) PTSD (post-traumatic stress disorder) Current Visit: No Status: Chronic (7) Nicotine dependence Current Visit: No Status: Chronic Qualifiers: Nicotine product type: cigarettes Substance use status: in withdrawal Qualified Code(s): F17.213 - Nicotine dependence, cigarettes, with withdrawal (8) History of left knee replacement Current Visit: Yes Status: Acute Cleared for Admission S - Detox or Rehab Claeared for Rehab Admission: Yes [facility] Breath Alcohol Content Breath Alcohol Content: 0 Urine Drug Screen - Results Drug Screen Negative: No Urine Drug Screen Results: FELIZ-Cocaine, BZO-Benzodiazepines Inpatient Rehab Admission - Initial Determination Are CD services needed?: Yes Free of communicable disease: Yes Not in need of hospitalization: Yes - Rehab Admission Criteria Previous failed treatment: Yes Poor recovery environment: Yes Comorbidities: Yes Lacks judgement: No Patient is meeting Inpatient Rehab admission criteria:: Yes
[2017-08-02] MEDS ORDERED: ACETAMINOPHEN 325 MG TABLET (FP) PO PRN (14:35)
[2017-08-02] MEDS ORDERED: MAGNESIUM HYDROX 2400MG/30ML ORAL SUSPENSION 30 ML CUP PO PRN (14:35)
[2017-08-02] MEDS ORDERED: MAGNESIUM CITRATE 300 ML BOTTLE PO PRN (14:35)
[2017-08-02] MEDS ORDERED: NICOTINE POLACRILEX 2 MG GUM BC PRN (14:35)
[2017-08-02] MEDS ORDERED: MENTHOL/PHENOL 1 EACH UD MM PRN (14:35)
[2017-08-02] MEDS ORDERED: LOPERAMIDE HCL 2 MG CAPSULE PO PRN (14:35)
[2017-08-02] MEDS ORDERED: P-EPHED 60MG/TRIPROLIDI 2.5MG TABLET PO PRN (14:35)
[2017-08-02] MEDS: hydrOXYzine PAMOATE 25 MG CAPSULE (FP) PO PRN (21:07)
[2017-08-02] MEDS: THIAMINE HCL 100 MG TABLET (FP) PO SCH (21:07)
[2017-08-02 22:07] LABS: HEMATOCRIT 46.5 % (35.4-49); HEMOGLOBIN 15.2 GM/dL (11.7-16.9); MCH 28.4 pg (25.7-33.7); MCHC 32.7 g/dl (32.0-35.9); MEAN CELL VOLUME 86.9 fl (80-96); MEAN PLT VOLUME 7.4 fl (7.5-11.1); PLATELET COUNT 376 K/MM3 (134-434); RBC 5.35 M/mm3 (4.00-5.60); RDW 17.5 % (11.9-15.9); WHITE BLOOD COUNT 6.3 K/mm3 (4.0-10.0)
[2017-08-02 22:26] LABS: ALBUMIN 3.4 g/dl (3.4-5.0); ANION GAP 10 (8-16); BILIRUBIN,TOTAL 0.4 mg/dL (0.2-1.0); BLOOD UREA NITROGEN 7 mg/dL (7-18); CHLORIDE 103 mmol/L (98-107); CO2 29 mmol/L (21-32); CREATININE 0.8 mg/dL (0.7-1.3); GLUCOSE,RANDOM 88 mg/dL (74-106); POTASSIUM 4.3 mmol/L (3.5-5.1); SGOT/AST 24 U/L (15-37); SGPT/ALT 24 U/L (12-78); SODIUM 142 mmol/L (136-145)
[2017-08-02 22:27] LABS: ALK PHOS 153 U/L (45-117); TOT PROT 7.1 g/dl (6.4-8.2)
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
[2017-08-03] MEDS: NICOTINE 14 MG/24 HOURS TOPICAL PATCH TD SCH (09:30)
[2017-08-03] MEDS: PRENATAL VITAMINS W/ FOLIC ACID TABLET (FP) PO SCH (09:30)
[2017-08-03] MEDS: guaiFENesin/D-METHORPHAN HB 10 ML UNIT-DOSE CUPS PO PRN (09:32)
--- NOTE | 2017-08-03 09:46 | EKG ---
Test Reason : Blood Pressure : / mmHG Vent. Rate : 080 BPM Atrial Rate : 080 BPM P-R Int : 172 ms QRS Dur : 082 ms QT Int : 364 ms P-R-T Axes : 070 -03 014 degrees QTc Int : 419 ms NORMAL SINUS RHYTHM POSSIBLE LEFT ATRIAL ENLARGEMENT LEFT VENTRICULAR HYPERTROPHY CANNOT RULE OUT SEPTAL INFARCT (CITED ON OR BEFORE 16-JUN-2017) ABNORMAL ECG Confirmed by MD King, Lewis ([id number]) on 08/03/2017 9:46:08 AM Referred By: Confirmed By:Lewsi Malik MD
[2017-08-03] MEDS ORDERED: PT OWN MED DRAWER 7, Y5N ONE (14:49)
[2017-08-03] MEDS: hydrOXYzine PAMOATE 25 MG CAPSULE (FP) PO PRN (21:30)
[2017-08-03] MEDS: THIAMINE HCL 100 MG TABLET (FP) PO SCH (21:30)
[2017-08-03] MEDS: QUEtiapine FUMARATE 400 MG TABLET PO SCH (21:30)
[2017-08-04] MEDS: PRENATAL VITAMINS W/ FOLIC ACID TABLET (FP) PO SCH (09:49)
[2017-08-04] MEDS: NICOTINE 14 MG/24 HOURS TOPICAL PATCH TD SCH (09:49)
[2017-08-04 12:11] LABS: URINE APPEARANCE CLEAR; URINE BILIRUBIN NEGATIVE (NEGATIVE); URINE BLOOD NEGATIVE (NEGATIVE); URINE COLOR STRAW; URINE GLUCOSE (UA) NEGATIVE (NEGATIVE); URINE KETONE NEGATIVE (NEGATIVE); URINE LEUK ESTERASE NEGATIVE (NEGATIVE); URINE NITRITE NEGATIVE (NEGATIVE); URINE PROTEIN NEGATIVE (NEGATIVE); URINE UROBILINOGEN NEGATIVE mg/dL (0.2-1.0)
[2017-08-04] MEDS: QUEtiapine FUMARATE 400 MG TABLET PO SCH (21:37)
[2017-08-04] MEDS: THIAMINE HCL 100 MG TABLET (FP) PO SCH (21:37)
[2017-08-04] MEDS: IBUPROFEN 400 MG TABLET (FP) PO PRN (21:38)
[2017-08-05] MEDS: PRENATAL VITAMINS W/ FOLIC ACID TABLET (FP) PO SCH (10:23)
[2017-08-05] MEDS: NICOTINE 14 MG/24 HOURS TOPICAL PATCH TD SCH (10:24)
[2017-08-05] MEDS: QUEtiapine FUMARATE 400 MG TABLET PO SCH (21:04)
[2017-08-05] MEDS: guaiFENesin/D-METHORPHAN HB 10 ML UNIT-DOSE CUPS PO PRN (21:04)
[2017-08-05] MEDS: THIAMINE HCL 100 MG TABLET (FP) PO SCH (21:04)
[2017-08-05] MEDS: hydrOXYzine PAMOATE 25 MG CAPSULE (FP) PO PRN (21:04)
[2017-08-05] MEDS: MAG HYDROX/AL HYDROX/SIMETH 30 ML UNIT-DOSE CUP PO PRN (21:48)
[2017-08-06] MEDS: PRENATAL VITAMINS W/ FOLIC ACID TABLET (FP) PO SCH (09:35)
[2017-08-06] MEDS: MAG HYDROX/AL HYDROX/SIMETH 30 ML UNIT-DOSE CUP PO PRN (09:35)
[2017-08-06] MEDS: NICOTINE 14 MG/24 HOURS TOPICAL PATCH TD SCH (09:36)
[2017-08-06] MEDS: QUEtiapine FUMARATE 400 MG TABLET PO SCH (21:17)
[2017-08-06] MEDS: THIAMINE HCL 100 MG TABLET (FP) PO SCH (21:17)
[2017-08-06] MEDS: hydrOXYzine PAMOATE 25 MG CAPSULE (FP) PO PRN (21:18)
[2017-08-07] MEDS: NICOTINE 14 MG/24 HOURS TOPICAL PATCH TD SCH (11:25)
[2017-08-07] MEDS: PRENATAL VITAMINS W/ FOLIC ACID TABLET (FP) PO SCH (11:25)
[2017-08-07] MEDS: hydrOXYzine PAMOATE 25 MG CAPSULE (FP) PO PRN (21:22)
[2017-08-07] MEDS: THIAMINE HCL 100 MG TABLET (FP) PO SCH (21:22)
[2017-08-07] MEDS: guaiFENesin/D-METHORPHAN HB 10 ML UNIT-DOSE CUPS PO PRN (21:23)
[2017-08-07] MEDS: MAG HYDROX/AL HYDROX/SIMETH 30 ML UNIT-DOSE CUP PO PRN (21:24)
[2017-08-07] MEDS: QUEtiapine FUMARATE 400 MG TABLET PO SCH (21:24)
[2017-08-08] MEDS: NICOTINE 14 MG/24 HOURS TOPICAL PATCH TD SCH (09:46)
[2017-08-08] MEDS: PRENATAL VITAMINS W/ FOLIC ACID TABLET (FP) PO SCH (09:46)
[2017-08-08] MEDS: FLUTICASONE PROP 0.05% 16 GM NASAL SPRAY NS SCH (16:30)
[2017-08-08] MEDS: hydrOXYzine PAMOATE 25 MG CAPSULE (FP) PO PRN (21:20)
[2017-08-08] MEDS: THIAMINE HCL 100 MG TABLET (FP) PO SCH (21:20)
[2017-08-08] MEDS: IBUPROFEN 400 MG TABLET (FP) PO PRN (21:21)
[2017-08-08] MEDS: guaiFENesin/D-METHORPHAN HB 10 ML UNIT-DOSE CUPS PO PRN (21:22)
[2017-08-08] MEDS: QUEtiapine FUMARATE 400 MG TABLET PO SCH (21:22)
[2017-08-09] MEDS: PRENATAL VITAMINS W/ FOLIC ACID TABLET (FP) PO SCH (09:45)
[2017-08-09] MEDS: FLUTICASONE PROP 0.05% 16 GM NASAL SPRAY NS SCH (09:45)
[2017-08-09] MEDS: NICOTINE 14 MG/24 HOURS TOPICAL PATCH TD SCH (09:46)
[2017-08-09] MEDS: QUEtiapine FUMARATE 400 MG TABLET PO SCH (21:41)
[2017-08-09] MEDS: THIAMINE HCL 100 MG TABLET (FP) PO SCH (21:41)
[2017-08-09] MEDS: IBUPROFEN 400 MG TABLET (FP) PO PRN (21:43)
[2017-08-09] MEDS: guaiFENesin/D-METHORPHAN HB 10 ML UNIT-DOSE CUPS PO PRN (21:44)
[2017-08-09] MEDS: MAG HYDROX/AL HYDROX/SIMETH 30 ML UNIT-DOSE CUP PO PRN (21:44)
[2017-08-10] MEDS: PRENATAL VITAMINS W/ FOLIC ACID TABLET (FP) PO SCH (09:13)
[2017-08-10] MEDS: FLUTICASONE PROP 0.05% 16 GM NASAL SPRAY NS SCH (09:13)
[2017-08-10] MEDS: NICOTINE 14 MG/24 HOURS TOPICAL PATCH TD SCH (09:13)
[2017-08-10] MEDS: THIAMINE HCL 100 MG TABLET (FP) PO SCH (21:26)
[2017-08-10] MEDS: QUEtiapine FUMARATE 400 MG TABLET PO SCH (21:26)
[2017-08-10] MEDS: hydrOXYzine PAMOATE 25 MG CAPSULE (FP) PO PRN (21:26)
[2017-08-11] MEDS: NICOTINE 14 MG/24 HOURS TOPICAL PATCH TD SCH (10:19)
[2017-08-11] MEDS: FLUTICASONE PROP 0.05% 16 GM NASAL SPRAY NS SCH (10:19)
[2017-08-11] MEDS: PRENATAL VITAMINS W/ FOLIC ACID TABLET (FP) PO SCH (10:20)
[2017-08-11] MEDS: THIAMINE HCL 100 MG TABLET (FP) PO SCH (21:23)
[2017-08-11] MEDS: QUEtiapine FUMARATE 400 MG TABLET PO SCH (21:23)
[2017-08-11] MEDS: ALBUTEROL SO4 18 GM HFA INHALER IH PRN (21:24)
[2017-08-12] MEDS: PRENATAL VITAMINS W/ FOLIC ACID TABLET (FP) PO SCH (09:17)
[2017-08-12] MEDS: FLUTICASONE PROP 0.05% 16 GM NASAL SPRAY NS SCH (09:18)
[2017-08-12] MEDS: NICOTINE 14 MG/24 HOURS TOPICAL PATCH TD SCH (09:18)
[2017-08-12] MEDS: THIAMINE HCL 100 MG TABLET (FP) PO SCH (21:17)
[2017-08-12] MEDS: hydrOXYzine PAMOATE 25 MG CAPSULE (FP) PO PRN (21:17)
[2017-08-12] MEDS: QUEtiapine FUMARATE 400 MG TABLET PO SCH (21:18)
[2017-08-13] MEDS: PRENATAL VITAMINS W/ FOLIC ACID TABLET (FP) PO SCH (10:55)
[2017-08-13] MEDS: NICOTINE 14 MG/24 HOURS TOPICAL PATCH TD SCH (10:55)
[2017-08-13] MEDS: FLUTICASONE PROP 0.05% 16 GM NASAL SPRAY NS SCH (10:55)
[2017-08-13] MEDS: hydrOXYzine PAMOATE 25 MG CAPSULE (FP) PO PRN (21:07)
[2017-08-13] MEDS: THIAMINE HCL 100 MG TABLET (FP) PO SCH (21:07)
[2017-08-13] MEDS: QUEtiapine FUMARATE 400 MG TABLET PO SCH (21:08)
[2017-08-13] MEDS: ALBUTEROL SO4 18 GM HFA INHALER IH PRN (21:09)
[2017-08-13] MEDS ORDERED: PT OWN MED DRAWER 7, Y5N ONE (21:09)
[2017-08-14] MEDS: FLUTICASONE PROP 0.05% 16 GM NASAL SPRAY NS SCH (11:45)
[2017-08-14] MEDS: PRENATAL VITAMINS W/ FOLIC ACID TABLET (FP) PO SCH (11:46)
[2017-08-14] MEDS: NICOTINE 14 MG/24 HOURS TOPICAL PATCH TD SCH (11:46)
[2017-08-14] MEDS: THIAMINE HCL 100 MG TABLET (FP) PO SCH (21:41)
[2017-08-14] MEDS: QUEtiapine FUMARATE 400 MG TABLET PO SCH (21:41)
[2017-08-15] MEDS: FLUTICASONE PROP 0.05% 16 GM NASAL SPRAY NS SCH (09:58)
[2017-08-15] MEDS: PRENATAL VITAMINS W/ FOLIC ACID TABLET (FP) PO SCH (09:58)
[2017-08-15] MEDS: NICOTINE 14 MG/24 HOURS TOPICAL PATCH TD SCH (09:58)
[2017-08-16] MEDS: NICOTINE 14 MG/24 HOURS TOPICAL PATCH TD SCH (10:33)
[2017-08-16] MEDS: PRENATAL VITAMINS W/ FOLIC ACID TABLET (FP) PO SCH (10:33)
[2017-08-16] MEDS: FLUTICASONE PROP 0.05% 16 GM NASAL SPRAY NS SCH (10:33)
[2017-08-16] MEDS: QUEtiapine FUMARATE 400 MG TABLET PO SCH ×2 (16:53→21:56)
[2017-08-16] MEDS: THIAMINE HCL 100 MG TABLET (FP) PO SCH ×2 (16:53→21:56)
[2017-08-16] MEDS: hydrOXYzine PAMOATE 25 MG CAPSULE (FP) PO PRN (21:56)
[2017-08-16] MEDS: MAG HYDROX/AL HYDROX/SIMETH 30 ML UNIT-DOSE CUP PO PRN (21:58)
[2017-08-17] MEDS: NICOTINE 14 MG/24 HOURS TOPICAL PATCH TD SCH (10:30)
[2017-08-17] MEDS: PRENATAL VITAMINS W/ FOLIC ACID TABLET (FP) PO SCH (10:30)
[2017-08-17] MEDS: FLUTICASONE PROP 0.05% 16 GM NASAL SPRAY NS SCH (10:30)
[2017-08-17] MEDS: hydrOXYzine PAMOATE 25 MG CAPSULE (FP) PO PRN (21:58)
[2017-08-17] MEDS: THIAMINE HCL 100 MG TABLET (FP) PO SCH (21:58)
[2017-08-17] MEDS: QUEtiapine FUMARATE 400 MG TABLET PO SCH (21:59)
[2017-08-18] MEDS: FLUTICASONE PROP 0.05% 16 GM NASAL SPRAY NS SCH (10:14)
[2017-08-18] MEDS: NICOTINE 14 MG/24 HOURS TOPICAL PATCH TD SCH (10:14)
[2017-08-18] MEDS: PRENATAL VITAMINS W/ FOLIC ACID TABLET (FP) PO SCH (10:14)
[2017-08-18] MEDS: THIAMINE HCL 100 MG TABLET (FP) PO SCH (21:41)
[2017-08-18] MEDS: QUEtiapine FUMARATE 400 MG TABLET PO SCH (21:41)
[2017-08-19] MEDS: NICOTINE 14 MG/24 HOURS TOPICAL PATCH TD SCH (09:40)
[2017-08-19] MEDS: FLUTICASONE PROP 0.05% 16 GM NASAL SPRAY NS SCH (09:40)
[2017-08-19] MEDS: PRENATAL VITAMINS W/ FOLIC ACID TABLET (FP) PO SCH (09:41)
[2017-08-19] MEDS: QUEtiapine FUMARATE 400 MG TABLET PO SCH (21:46)
[2017-08-19] MEDS: THIAMINE HCL 100 MG TABLET (FP) PO SCH (21:46)
[2017-08-20] MEDS: NICOTINE 14 MG/24 HOURS TOPICAL PATCH TD SCH (10:59)
[2017-08-20] MEDS: FLUTICASONE PROP 0.05% 16 GM NASAL SPRAY NS SCH (10:59)
[2017-08-20] MEDS: PRENATAL VITAMINS W/ FOLIC ACID TABLET (FP) PO SCH (10:59)
[2017-08-20] MEDS: THIAMINE HCL 100 MG TABLET (FP) PO SCH (21:26)
[2017-08-20] MEDS: hydrOXYzine PAMOATE 25 MG CAPSULE (FP) PO PRN (21:26)
[2017-08-20] MEDS: QUEtiapine FUMARATE 400 MG TABLET PO SCH (21:27)
[2017-08-21] MEDS: FLUTICASONE PROP 0.05% 16 GM NASAL SPRAY NS SCH (10:57)
[2017-08-21] MEDS: NICOTINE 14 MG/24 HOURS TOPICAL PATCH TD SCH (10:57)
[2017-08-21] MEDS: PRENATAL VITAMINS W/ FOLIC ACID TABLET (FP) PO SCH (10:58)
[2017-08-21] MEDS: hydrOXYzine PAMOATE 25 MG CAPSULE (FP) PO PRN (21:35)
[2017-08-21] MEDS: THIAMINE HCL 100 MG TABLET (FP) PO SCH (21:35)
[2017-08-21] MEDS: QUEtiapine FUMARATE 400 MG TABLET PO SCH (21:36)
[2017-08-22 06:44] VITALS: BP 111/76; PULSE 97; TEMP 98.3
[2017-08-22] MEDS: PRENATAL VITAMINS W/ FOLIC ACID TABLET (FP) PO SCH (10:06)
[2017-08-22] MEDS: FLUTICASONE PROP 0.05% 16 GM NASAL SPRAY NS SCH (10:06)
[2017-08-22] MEDS: NICOTINE 14 MG/24 HOURS TOPICAL PATCH TD SCH (10:06)
--- NOTE | 2017-08-22 13:34 | PN ---
Psychiatric Progress Note Vital Signs: Vital Signs Period Temp Pulse Resp BP Sys/Uribe Pulse Ox Last 24 Hr 98.3 F 97 20-20 111/76 Date of Session: 08/22/17 Chief Complaint:: Discharge Note HPI: Patient addressing Alcohol and Cocaine Dependence comorbid with Nicotine Dependence, Bipolar Disorder and Posttraumatic Stress Disorder ROS: Asthma, HIV, GERD Current Medications: Active Medications Generic Name Dose Route Start Last Admin Trade Name Freq PRN Reason Stop Dose Admin Acetaminophen 650 mg 08/02/17 14:35 Tylenol - PO Q4H PRN PAIN Al Hydroxide/Mg Hydroxide 30 ml 08/02/17 14:35 08/16/17 21:58 Mylanta Oral Suspension - PO 30 ml Q6H PRN Administration DYSPEPSIA Albuterol Sulfate 2 puff 08/02/17 14:38 08/13/17 21:09 Ventolin Hfa Inhaler - IH 2 puff Q4H PRN Administration SHORT OF BREATH/WHEEZING Eucalyptus/Menthol/Phenol/Sorbitol 1 each 08/02/17 14:35 Cepastat Lozenge - MM Q4H PRN SORE THROAT Fluticasone Propionate 2 spray 08/08/17 16:30 08/22/17 10:06 Flonase - NS Not Given DAILY PER Guaifenesin 10 ml 08/02/17 14:35 08/09/17 21:44 Robitussin Dm - PO 10 ml Q6H PRN Administration COUGH Hydroxyzine Pamoate 25 mg 08/02/17 14:35 08/21/17 21:35 Vistaril - PO 25 mg Q4H PRN Administration AGITATION Ibuprofen 400 mg 08/02/17 14:35 08/09/17 21:43 Motrin - PO 400 mg Q6H PRN Administration SEVERE PAIN Loperamide HCl 4 mg 08/02/17 14:35 Imodium - PO Q6H PRN DIARRHEA Magnesium Citrate 300 ml 08/02/17 14:35 Citroma - PO Q48H PRN CONSTIPATION Magnesium Hydroxide 30 ml 08/02/17 14:35 Milk Of Magnesia - PO DAILY PRN CONSTIPATION Nicotine 14 mg 08/03/17 10:00 08/22/17 10:06 Nicoderm Patch - TD Not Given DAILY PER Nicotine Polacrilex 2 mg 08/02/17 14:35 Nicorette Gum - BC Q2H PRN NICOTINE REPLACEMENT RX Multivit/Folic Acid/Iron 1 tab 08/03/17 10:00 08/22/17 10:06 Vitamins ([facility]) - PO Not Given DAILY PER Pseudoephedrine/Triprolidine 1 combo 08/02/17 14:35 Actifed - PO TID PRN NASAL CONGESTION Quetiapine Fumarate 400 mg 08/03/17 22:00 08/21/17 21:36 Seroquel - PO 400 mg HS PER Administration Thiamine HCl 100 mg 08/02/17 22:00 08/21/17 21:35 Vitamin B1 - PO 100 mg HS PER Administration Current Side Effect: No Lab tests ordered: Yes Lab tests reviewed: Yes Provider note:: Patient has completed this program today. He has met his treatment goals and will continue to address his issues in outpatient treatment at [facility]. 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 He responded well to Seroquel 40 mg po HS. Scripts for 30 days supply of medication is electronically transmitted to [facility]. He is stable for discharge today Total face to face time:: 35 Mental Status Exam - Mental Status Exam Alert and Oriented to: Time, Place, Person Cognitive Function: Fair Patient Appearance: Well Groomed Mood: Hopeful, Euthymic Affect: Appropriate Patient Behavior: Cooperative Speech Pattern: Clear Voice Loudness: Normal Thought Process: Intact, Goal Oriented Thought Disorder: Not Present Hallucinations: Denies Suicidal Ideation: Denies Homicidal Ideation: Denies Insight/Judgement: Fair Sleep: Fair Appetite: Good Muscle strength/Tone: Normal Gait/Station: Normal Psychiatric Treatment Plan - Problem List (1) Alcohol dependence Current Visit: Yes (2) Cocaine dependence Current Visit: Yes (3) Nicotine dependence Current Visit: No Qualifiers: Nicotine product type: cigarettes Substance use status: in withdrawal Qualified Code(s): F17.213 - Nicotine dependence, cigarettes, with withdrawal (4) Bipolar II disorder Current Visit: No (5) PTSD (post-traumatic stress disorder) Current Visit: No (6) Asthma Current Visit: Yes (7) GERD (gastroesophageal reflux disease) Current Visit: No Qualifiers: Esophagitis presence: without esophagitis Qualified Code(s): K21.9 - Gastro -esophageal reflux disease without esophagitis (8) HIV (human immunodeficiency virus infection) Current Visit: No Comment: not taking any medication, pt states its undetecable Initial treatment plan: Patient is discharged today and referred to [facility] for outpatient treatment
== END 2017-08-22 14:10 | disposition home or self-care (01) | DRG 772 ==
LOC: YASAS 11:38 → Y3W 16:32
PROVIDERS: ADMIT Psychiatry & Neurology Psychiatry; ATTEND Psychiatry & Neurology Psychiatry
PROC: HZ42ZZZ Group Counseling for Substance Abuse Treatment, Cognitive-Behavioral (ICD-10-PCS; principal; 2017-08-02)
DX: F10.20 Alcohol dependence, uncomplicated (principal); F14.20 Cocaine dependence, uncomplicated; F17.213 Nicotine dependence, cigarettes, with withdrawal; F31.81 Bipolar II disorder; F43.10 Post-traumatic stress disorder, unspecified; J45.909 Unspecified asthma, uncomplicated; K21.9 Gastro-esophageal reflux disease without esophagitis; Z21 Asymptomatic human immunodeficiency virus [HIV] infection status; M13.862 Other specified arthritis, left knee; M13.861 Other specified arthritis, right knee; R26.2 Difficulty in walking, not elsewhere classified; Z99.89 Dependence on other enabling machines and devices; Z96.652 Presence of left artificial knee joint; Z59.0 Homelessness
CPT/HCPCS: 36415; 80053; 81003; 85027; 86593; 93005; 93010

== ENCOUNTER 2017-11-02 12:06 | Inpatient (IN) | payer OTHER ==
[2017-11-02 13:09] VITALS: BMI 21.5
--- NOTE | 2017-11-02 16:22 | HP ---
CIWA Score - CIWA Score Nausea/Vomitin-Mild Nausea/No Vomiting Muscle Tremors: 2 Anxiety: 1-Mildly Anxious Agitation: 2 Paroxysmal Sweats: 2 Orientation: 1-Uncertain about Date Tacttile Disturbances: 2-Mild Itch/Numbness/Burn Auditory Disturbances: 0-None Visual Disturbances: 0-None Headache: 2-Mild CIWA-Ar Total Score: 13 Admission ROS [facility] - HPI Chief Complaint: WITHDRAWAL SYMPTOMS Allergies/Adverse Reactions: Allergies Allergy/AdvReac Type Severity Reaction Status Date / Time No Known Allergies Allergy Verified 06/15/17 23:27 History of Present Illness: 52 Y.O. MAN WITH AN EXTENSIVE HISTORY OF ALCOHOL AND COCAINE DEPENDENCE IS HERE FOR DETOX. HE WAS LAST HERE FOR DETOX IN 06/2017. LONGEST PERIOD CLEAN HAS BEEN 1 YEAR. - Ebola screening Have you traveled outside of the country in the last 21 days: No Have you had contact with anyone from an Ebola affected area: No Have you been sick,other than usual withdrawal symptoms: No Do you have a fever: No - Review of Systems Constitutional: Chills, Loss of Appetite, Night Sweats, Unintentional Wgt. Loss EENT: reports: Tearing, Nose Congestion Respiratory: reports: No Symptoms reported Cardiac: reports: No Symptoms Reported GI: reports: No Symptoms Reported : reports: No Symptoms Reported Musculoskeletal: reports: Back Pain Integumentary: reports: No Symptoms Reported Neuro: reports: Headache Endocrine: reports: No Symptoms Reported Hematology: reports: No Symptoms Reported Psychiatric: reports: Mood/Affect Appropiate, Depressed Other Systems: Reviewed and Negative Patient History - Patient Medical History Hx Anemia: No Hx Asthma: No Hx Chronic Obstructive Pulmonary Disease (COPD): No Hx Cancer: No Hx Cardiac Disorders: No Hx Congestive Heart Failure: No Hx Hypertension: No Hx Hypercholesterolemia: No Hx Pacemaker: No HX Cerebrovascular Accident: No Hx Seizures: No Hx Dementia: No Hx Diabetes: No Hx Gastrointestinal Disorders: No Hx Liver Disease: No Hx Genitourinary Disorders: No Hx Sexually Transmitted Disorders: No Hx Renal Disease (ESRD): No Hx Thyroid Disease: No Hx Human Immunodeficiency Virus (HIV): Yes (since 1982/undetectable. ) Hx Hepatitis C: No (negative) Hx Depression: Yes Hx Suicide Attempt: No Hx Bipolar Disorder: No Hx Schizophrenia: No - Patient Surgical History Past Surgical History: Yes Hx Neurologic Surgery: No Hx Cataract Extraction: No Hx Cardiac Surgery: No Hx Lung Surgery: No Hx Breast Surgery: No Hx Breast Biopsy: No Hx Abdominal Surgery: No Hx Appendectomy: No Hx Cholecystectomy: No Hx Genitourinary Surgery: No Hx Section: No Hx Orthopedic Surgery: Yes (total knee replacement LEFT in 2004) Anesthesia Reaction: No - PPD History Previous Implant?: Yes Documented Results: Negative w/proof Date: 08/05/17 Results: 0 mm PPD to be Administered?: No - Reproductive History Patient is a Female of Child Bearing Age (11 -55 yrs old): No - Smoking Cessation Smoking history: Current every day smoker Have you smoked in the past 12 months: Yes Aproximately how many cigarettes per day: 10 Cigars Per Day: 0 Hx Chewing Tobacco Use: No Initiated information on smoking cessation: Yes 'Breaking Loose' booklet given: 11/02/17 - Substance & Tx. History Hx Alcohol Use: Yes Hx Substance Use: Yes Substance Use Type: Alcohol, Cocaine Hx Substance Use Treatment: Yes (DETOX:06/2017 REHAB: 08/2017) - Substances Abused ALCOHOL Route: Oral Frequency: Daily Amount used: 2-3 pints of voldka and 3 40 oz of beer Age of first use: 7 Date of Last Use: 11/02/17 Crack Route: Smoking Frequency: 1-2 times per week Amount used: 10 vials Age of first use: 11 Date of Last Use: 10/31/17 Family Disease History - Family Disease History Family Disease History: Other: Father (alcohol,), Mother (alcohol) Admission Physical Exam [facility] - Vital Signs Vital Signs: Vital Signs - 24 hr 11/02/17 13:07 Temperature 98.2 F Pulse Rate 85 Respiratory 18 Rate Blood Pressure 117/69 - Physical General Appearance: Yes: Disheveled, Anxious HEENTM: Yes: Hearing grossly Normal, Normocephalic, Normal Voice Respiratory: Yes: Chest Non-Tender, Lungs Clear, Normal Breath Sounds, No Respiratory Distress, No Accessory Muscle Use Neck: Yes: No masses,lesions,Nodules, Trachea in good position Breast: Yes: Breast Exam Deferred Cardiology: Yes: Regular Rhythm, Regular Rate Abdominal: Yes: Non Tender, Flat, Soft Genitourinary: Yes: Other (NO COMPLAINTS REPORTED) Back: Yes: Normal Inspection Musculoskeletal: Yes: full range of Motion, Gait Steady, Pelvis Stable Extremities: Yes: Normal Capillary Refill, Normal Inspection, Normal Range of Motion, Non-Tender Neurological: Yes: Alert, Motor Strength 5/5, Normal Mood/Affect, Normal Response Integumentary: Yes: Normal Color, Dry, Warm Lymphatic: Yes: Within Normal Limits - Diagnostic (1) Alcohol dependence with uncomplicated withdrawal Current Visit: Yes Status: Chronic (2) Cocaine dependence Current Visit: Yes Status: Chronic (3) Use of cane as ambulatory aid Current Visit: Yes Status: Chronic (4) Arthritis Current Visit: Yes Status: Chronic Comment: naproxen (5) HIV (human immunodeficiency virus infection) Current Visit: Yes Status: Chronic Comment: not taking any medication, pt states its undetecable (6) Nicotine dependence Current Visit: Yes Status: Chronic Qualifiers: Nicotine product type: cigarettes Substance use status: in withdrawal Qualified Code(s): F17.213 - Nicotine dependence, cigarettes, with withdrawal Cleared for Admission [facility] - Detox or Rehab [facility] Level of Care: Medically Managed Detox Regimen/Protocol: Librium S Breath Alcohol Content Breath Alcohol Content: 0.041 Urine Drug Screen - Results Drug Screen Negative: No Urine Drug Screen Results: FELIZ-Cocaine, BZO-Benzodiazepines
[2017-11-02] MEDS ORDERED: chlordiazePOXIDE HCL 25 MG CAPSULE PO PRN (16:28)
[2017-11-02] MEDS ORDERED: LOPERAMIDE HCL 2 MG CAPSULE PO PRN (16:28)
[2017-11-02] MEDS ORDERED: P-EPHED 60MG/TRIPROLIDI 2.5MG TABLET PO PRN (16:28)
[2017-11-02] MEDS ORDERED: MAGNESIUM HYDROX 2400MG/30ML ORAL SUSPENSION 30 ML CUP PO PRN (16:28)
[2017-11-02] MEDS ORDERED: ACETAMINOPHEN 325 MG TABLET (FP) PO PRN (16:28)
[2017-11-02] MEDS ORDERED: MAGNESIUM CITRATE 300 ML BOTTLE PO PRN (16:28)
[2017-11-02] MEDS ORDERED: IBUPROFEN 400 MG TABLET (FP) PO PRN (16:28)
[2017-11-02] MEDS ORDERED: guaiFENesin/D-METHORPHAN HB 10 ML UNIT-DOSE CUPS PO PRN (16:28)
[2017-11-02] MEDS ORDERED: MENTHOL/PHENOL 1 EACH UD MM PRN (16:28)
[2017-11-02] MEDS ORDERED: hydrOXYzine PAMOATE 50 MG CAPSULE (FP) PO PRN (16:28)
[2017-11-02] MEDS ORDERED: chlordiazePOXIDE HCL 25 MG CAPSULE PO ONE (16:28)
[2017-11-02] MEDS ORDERED: MAG HYDROX/AL HYDROX/SIMETH 30 ML UNIT-DOSE CUP PO PRN (16:28)
[2017-11-02] MEDS ORDERED: MELATONIN 5 MG TABLETS PO PRN (22:00)
[2017-11-02] MEDS: chlordiazePOXIDE HCL 25 MG CAPSULE PO SCH (22:21)
[2017-11-02] MEDS: THIAMINE HCL 100 MG TABLET (FP) PO SCH (22:21)
[2017-11-02 22:48] LABS: URINE APPEARANCE CLEAR; URINE BILIRUBIN NEGATIVE (<2.0 mg/dL); URINE BLOOD NEGATIVE (NEGATIVE); URINE COLOR YELLOW; URINE GLUCOSE (UA) NEGATIVE (NEGATIVE); URINE KETONE NEGATIVE (NEGATIVE); URINE LEUK ESTERASE NEGATIVE (NEGATIVE); URINE NITRITE NEGATIVE (NEGATIVE); URINE PROTEIN NEGATIVE (NEGATIVE); URINE UROBILINOGEN NEGATIVE mg/dL (0.2-1.0)
[2017-11-03] MEDS: chlordiazePOXIDE HCL 25 MG CAPSULE PO SCH ×4 (05:36→22:28)
[2017-11-03] MEDS: NICOTINE 21 MG/24 HOURS TOPICAL PATCH TD SCH (10:16)
[2017-11-03] MEDS: PRENATAL VITAMINS W/ FOLIC ACID TABLET (FP) PO SCH (10:16)
[2017-11-03 10:17] LABS: HEMATOCRIT 40.8 % (35.4-49); HEMOGLOBIN 13.6 GM/dL (11.7-16.9); MCH 29.3 pg (25.7-33.7); MCHC 33.3 g/dl (32.0-35.9); MEAN PLT VOLUME 7.3 fl (7.5-11.1); PLATELET COUNT 329 K/MM3 (134-434); RBC 4.64 M/mm3 (4.00-5.60); RDW 16.4 % (11.9-15.9); WHITE BLOOD COUNT 4.4 K/mm3 (4.0-10.0)
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
[2017-11-03 10:57] LABS: CHLORIDE 105 mmol/L (98-107); POTASSIUM 3.8 mmol/L (3.5-5.1); SODIUM 141 mmol/L (136-145)
[2017-11-03 11:08] LABS: ALK PHOS 117 U/L (45-117); ANION GAP 6 (8-16); BLOOD UREA NITROGEN 7 mg/dL (7-18); CALCIUM 8.2 mg/dL (8.5-10.1); CO2 30 mmol/L (21-32); CREATININE 0.7 mg/dL (0.7-1.3); GLUCOSE,RANDOM 89 mg/dL (74-106); SGOT/AST 15 U/L (15-37); SGPT/ALT 15 U/L (12-78)
--- NOTE | 2017-11-03 11:08 | EKG ---
Test Reason : Blood Pressure : / mmHG Vent. Rate : 084 BPM Atrial Rate : 084 BPM P-R Int : 170 ms QRS Dur : 076 ms QT Int : 372 ms P-R-T Axes : 062 009 057 degrees QTc Int : 439 ms NORMAL SINUS RHYTHM POSSIBLE LEFT ATRIAL ENLARGEMENT NONSPECIFIC T WAVE ABNORMALITY ABNORMAL ECG WHEN COMPARED WITH ECG OF 02-AUG-2017 22:15, MINIMAL CRITERIA FOR SEPTAL INFARCT ARE NO LONGER PRESENT Confirmed by JOSHUA TALAMANTES, YODIT ([id number]) on 11/03/2017 11:08:13 AM Referred By: Confirmed By:YODIT LEWIS MD
[2017-11-03 11:15] LABS: BILIRUBIN,TOTAL < 0.1 mg/dL (0.2-1.0)
--- NOTE | 2017-11-03 17:33 | PN ---
S CIWA - CIWA Score Nausea/Vomitin-No Nausea/No Vomiting Muscle Tremors: 3 Anxiety: 4-Mod. Anxious/Guarded Agitation: 2 Paroxysmal Sweats: 3 Orientation: 0-Oriented Tacttile Disturbances: 2-Mild Itch/Numbness/Burn Auditory Disturbances: 0-None Visual Disturbances: 2-Mild Sensitivity Headache: 0-None Present CIWA-Ar Total Score: 16 BHS Progress Note (SOAP) Subjective: Sweating, Body Aches, Tremors, Interrupted Sleep. Objective: PATIENT A & O X 3, OBSERVED AMBULATING ON UNIT. NO ACUTE DISTRESS. 11/03/17 17:34 Vital Signs Temperature 98.2 F 11/03/17 14:56 Pulse Rate 87 11/03/17 14:56 Respiratory Rate 18 11/03/17 14:56 Blood Pressure 104/72 11/03/17 14:56 O2 Sat by Pulse Oximetry (%) Laboratory Tests 11/02/17 11/03/17 11/03/17 22:30 07:00 07:00 WBC 4.4 D RBC 4.64 Hgb 13.6 D Hct 40.8 MCV 88.0 MCH 29.3 MCHC 33.3 RDW 16.4 H Plt Count 329 MPV 7.3 L Sodium 141 Potassium 3.8 Chloride 105 Carbon Dioxide 30 Anion Gap 6 L BUN 7 Creatinine 0.7 Creat Clearance w eGFR > 60 Random Glucose 89 Calcium 8.2 L Total Bilirubin < 0.1 L D AST 15 D ALT 15 D Alkaline Phosphatase 117 D Total Protein 6.0 L Albumin 3.0 L Urine Color Yellow Urine Appearance Clear Urine pH 6.0 Ur Specific [place] 1.016 Urine Protein Negative Urine Glucose (UA) Negative Urine Ketones Negative Urine Blood Negative Urine Nitrite Negative Urine Bilirubin Negative Urine Urobilinogen Negative Ur Leukocyte Esterase Negative RPR Titer 11/03/17 07:00 WBC RBC Hgb Hct MCV MCH MCHC RDW Plt Count MPV Sodium Potassium Chloride Carbon Dioxide Anion Gap BUN Creatinine Creat Clearance w eGFR Random Glucose Calcium Total Bilirubin AST ALT Alkaline Phosphatase Total Protein Albumin Urine Color Urine Appearance Urine pH Ur Specific [place] Urine Protein Urine Glucose (UA) Urine Ketones Urine Blood Urine Nitrite Urine Bilirubin Urine Urobilinogen Ur Leukocyte Esterase RPR Titer Nonreactive LABS NOTED. Assessment: 11/03/17 17:34 WITHDRAWAL SYMPTOMS. Plan: CONTINUE DETOX.
[2017-11-03] MEDS ORDERED: QUEtiapine FUMARATE 100 MG TABLET (FP) PO SCH (22:00)
[2017-11-03] MEDS: THIAMINE HCL 100 MG TABLET (FP) PO SCH (22:27)
[2017-11-04] MEDS: chlordiazePOXIDE HCL 25 MG CAPSULE PO SCH ×3 (06:37→17:17)
[2017-11-04] MEDS: NICOTINE 21 MG/24 HOURS TOPICAL PATCH TD SCH (10:08)
[2017-11-04] MEDS: PRENATAL VITAMINS W/ FOLIC ACID TABLET (FP) PO SCH (10:08)
--- NOTE | 2017-11-04 10:27 | PN ---
S CIWA - CIWA Score Nausea/Vomitin-No Nausea/No Vomiting Muscle Tremors: 3 Anxiety: 3 Agitation: 0-Normal Activity Paroxysmal Sweats: 3 Orientation: 0-Oriented Tacttile Disturbances: 2-Mild Itch/Numbness/Burn Auditory Disturbances: 0-None Visual Disturbances: 2-Mild Sensitivity Headache: 0-None Present CIWA-Ar Total Score: 13 BHS Progress Note (SOAP) Subjective: Sweating, Tremors, Body Aches, Anxious. Objective: PATIENT A & O X 3. NO ACUTE DISTRESS. 11/04/17 10:32 Vital Signs Temperature 97.4 F L 11/04/17 09:14 Pulse Rate 86 11/04/17 09:14 Respiratory Rate 20 11/04/17 09:14 Blood Pressure 105/65 11/04/17 09:14 O2 Sat by Pulse Oximetry (%) Laboratory Tests 11/02/17 11/03/17 11/03/17 22:30 07:00 07:00 WBC 4.4 D RBC 4.64 Hgb 13.6 D Hct 40.8 MCV 88.0 MCH 29.3 MCHC 33.3 RDW 16.4 H Plt Count 329 MPV 7.3 L Sodium 141 Potassium 3.8 Chloride 105 Carbon Dioxide 30 Anion Gap 6 L BUN 7 Creatinine 0.7 Creat Clearance w eGFR > 60 Random Glucose 89 Calcium 8.2 L Total Bilirubin < 0.1 L D AST 15 D ALT 15 D Alkaline Phosphatase 117 D Total Protein 6.0 L Albumin 3.0 L Urine Color Yellow Urine Appearance Clear Urine pH 6.0 Ur Specific [place] 1.016 Urine Protein Negative Urine Glucose (UA) Negative Urine Ketones Negative Urine Blood Negative Urine Nitrite Negative Urine Bilirubin Negative Urine Urobilinogen Negative Ur Leukocyte Esterase Negative RPR Titer 11/03/17 07:00 WBC RBC Hgb Hct MCV MCH MCHC RDW Plt Count MPV Sodium Potassium Chloride Carbon Dioxide Anion Gap BUN Creatinine Creat Clearance w eGFR Random Glucose Calcium Total Bilirubin AST ALT Alkaline Phosphatase Total Protein Albumin Urine Color Urine Appearance Urine pH Ur Specific [place] Urine Protein Urine Glucose (UA) Urine Ketones Urine Blood Urine Nitrite Urine Bilirubin Urine Urobilinogen Ur Leukocyte Esterase RPR Titer Nonreactive LABS NOTED. Assessment: 11/04/17 10:33 WITHDRAWAL SYMPTOMS. Plan: CONTINUE DETOX.
--- NOTE | 2017-11-04 17:32 | PN ---
[facility] Progress Note Note: Psychiatric nurse practitioner: Termite Inspector spoke to patient bedside concerning an increase in his seroquel dose. Pt. reports taking seroquel 400mg qhs. Pharmacy claims reviewed. Stated he last took seroquel 400mg qhs approximately one week ago. Pt. able to tolerate seroquel 100mg last night. Pt. denies feeling oversedated. Pt. requesting an increase in seroquel. Seroquel 200mg to be ordered tonight.
[2017-11-04] MEDS: QUEtiapine FUMARATE 200 MG TABLET PO SCH (22:26)
[2017-11-04] MEDS: THIAMINE HCL 100 MG TABLET (FP) PO SCH (22:26)
[2017-11-04] MEDS: chlordiazePOXIDE 5 MG CAPSULE PO SCH (22:27)
[2017-11-05] MEDS: chlordiazePOXIDE 5 MG CAPSULE PO SCH ×3 (06:22→17:54)
[2017-11-05] MEDS: PRENATAL VITAMINS W/ FOLIC ACID TABLET (FP) PO SCH (10:13)
[2017-11-05] MEDS: NICOTINE 21 MG/24 HOURS TOPICAL PATCH TD SCH (10:14)
[2017-11-05] MEDS: PANTOPRAZOLE 20 MG TABLET (FP) PO SCH (12:34)
--- NOTE | 2017-11-05 15:14 | PN ---
BHS Progress Note (SOAP) Subjective: Fatigue, Sweating, Body Aches. Objective: PATIENT A & O X 3, OBSERVED AMBULATING ON UNIT. NO ACUTE DISTRESS. 11/05/17 15:15 Vital Signs Temperature 98.5 F 11/05/17 13:04 Pulse Rate 94 H 11/05/17 13:04 Respiratory Rate 20 11/05/17 13:04 Blood Pressure 99/64 11/05/17 13:04 O2 Sat by Pulse Oximetry (%) Laboratory Tests 11/02/17 11/03/17 11/03/17 22:30 07:00 07:00 WBC 4.4 D RBC 4.64 Hgb 13.6 D Hct 40.8 MCV 88.0 MCH 29.3 MCHC 33.3 RDW 16.4 H Plt Count 329 MPV 7.3 L Sodium 141 Potassium 3.8 Chloride 105 Carbon Dioxide 30 Anion Gap 6 L BUN 7 Creatinine 0.7 Creat Clearance w eGFR > 60 Random Glucose 89 Calcium 8.2 L Total Bilirubin < 0.1 L D AST 15 D ALT 15 D Alkaline Phosphatase 117 D Total Protein 6.0 L Albumin 3.0 L Urine Color Yellow Urine Appearance Clear Urine pH 6.0 Ur Specific [place] 1.016 Urine Protein Negative Urine Glucose (UA) Negative Urine Ketones Negative Urine Blood Negative Urine Nitrite Negative Urine Bilirubin Negative Urine Urobilinogen Negative Ur Leukocyte Esterase Negative RPR Titer 11/03/17 07:00 WBC RBC Hgb Hct MCV MCH MCHC RDW Plt Count MPV Sodium Potassium Chloride Carbon Dioxide Anion Gap BUN Creatinine Creat Clearance w eGFR Random Glucose Calcium Total Bilirubin AST ALT Alkaline Phosphatase Total Protein Albumin Urine Color Urine Appearance Urine pH Ur Specific [place] Urine Protein Urine Glucose (UA) Urine Ketones Urine Blood Urine Nitrite Urine Bilirubin Urine Urobilinogen Ur Leukocyte Esterase RPR Titer Nonreactive LABS NOTED. Assessment: 11/05/17 15:15 WITHDRAWAL SYMPTOMS. Plan: CONTINUE DETOX. INCREASE DAILY PO FLUID INTAKE.
[2017-11-05] MEDS: THIAMINE HCL 100 MG TABLET (FP) PO SCH (22:17)
[2017-11-05] MEDS: QUEtiapine FUMARATE 200 MG TABLET PO SCH (22:17)
[2017-11-05] MEDS: chlordiazePOXIDE HCL 10 MG CAPSULE PO SCH (22:17)
[2017-11-06 06:20] VITALS: BP 123/82; PULSE 104; TEMP 97.1
[2017-11-06] MEDS: chlordiazePOXIDE HCL 10 MG CAPSULE PO SCH ×2 (06:55→10:03)
[2017-11-06] MEDS: PRENATAL VITAMINS W/ FOLIC ACID TABLET (FP) PO SCH (09:31)
[2017-11-06] MEDS: NICOTINE 21 MG/24 HOURS TOPICAL PATCH TD SCH (09:31)
[2017-11-06] MEDS: PANTOPRAZOLE 20 MG TABLET (FP) PO SCH (09:31)
--- NOTE | 2017-11-06 11:53 | DS ---
[facility] Detox Discharge Summary Admission Date: 11/02/17 Discharge Date: 11/06/17 - History Present History: Alcohol Dependence, Cocaine Dependence Pertinent Past History: Arthritis HIV - Physical Exam Results Vital Signs: Vital Signs Temperature 97.1 F L 11/06/17 06:19 Pulse Rate 104 H 11/06/17 06:19 Respiratory Rate 18 11/06/17 06:19 Blood Pressure 123/82 11/06/17 06:19 O2 Sat by Pulse Oximetry (%) Pertinent Admission Physical Exam Findings: Withdrawal symptoms Laboratory Tests 11/02/17 11/03/17 11/03/17 22:30 07:00 07:00 WBC 4.4 D RBC 4.64 Hgb 13.6 D Hct 40.8 MCV 88.0 MCH 29.3 MCHC 33.3 RDW 16.4 H Plt Count 329 MPV 7.3 L Sodium 141 Potassium 3.8 Chloride 105 Carbon Dioxide 30 Anion Gap 6 L BUN 7 Creatinine 0.7 Creat Clearance w eGFR > 60 Random Glucose 89 Calcium 8.2 L Total Bilirubin < 0.1 L D AST 15 D ALT 15 D Alkaline Phosphatase 117 D Total Protein 6.0 L Albumin 3.0 L Urine Color Yellow Urine Appearance Clear Urine pH 6.0 Ur Specific [place] 1.016 Urine Protein Negative Urine Glucose (UA) Negative Urine Ketones Negative Urine Blood Negative Urine Nitrite Negative Urine Bilirubin Negative Urine Urobilinogen Negative Ur Leukocyte Esterase Negative RPR Titer 11/03/17 07:00 WBC RBC Hgb Hct MCV MCH MCHC RDW Plt Count MPV Sodium Potassium Chloride Carbon Dioxide Anion Gap BUN Creatinine Creat Clearance w eGFR Random Glucose Calcium Total Bilirubin AST ALT Alkaline Phosphatase Total Protein Albumin Urine Color Urine Appearance Urine pH Ur Specific [place] Urine Protein Urine Glucose (UA) Urine Ketones Urine Blood Urine Nitrite Urine Bilirubin Urine Urobilinogen Ur Leukocyte Esterase RPR Titer Nonreactive Labs reviewed - Treatment Hospital Course: Detox Protocol Followed, Detoxed Safely, Responded well, Discharged Condition Good - Medication Discharge Medications: Ambulatory Orders Quetiapine Fumarate [Seroquel -] 400 mg PO HS #30 tablet 08/22/17 Albuterol Sulfate Inhaler - [Ventolin Hfa Inhaler -] 2 inh PO Q4H PRN #1 inhaler 11/05/17 Pantoprazole Sodium [Protonix -] 20 mg PO DAILY #30 tablet.ec 11/05/17 Quetiapine Fumarate [Seroquel -] 200 mg PO HS #30 tab 11/05/17 - Diagnosis (1) Alcohol dependence with uncomplicated withdrawal Current Visit: Yes Status: Acute (2) Cocaine dependence Current Visit: Yes Status: Chronic Qualifiers: Substance use status: uncomplicated Qualified Code(s): F14.20 - Cocaine dependence, uncomplicated (3) Arthritis Current Visit: Yes Status: Chronic (4) HIV (human immunodeficiency virus infection) Current Visit: Yes Status: Chronic (5) Nicotine dependence Current Visit: Yes Status: Chronic Qualifiers: Nicotine product type: cigarettes Substance use status: in withdrawal Qualified Code(s): F17.213 - Nicotine dependence, cigarettes, with withdrawal - AMA Did Patient Leave Against Medical Advice: No (Follow up with your PCP within 1- 2 weeks)
== END 2017-11-06 10:07 | disposition home or self-care (01) | DRG 774 ==
LOC: YASAS 12:06 → Y3N 17:02
PROVIDERS: ADMIT Internal Medicine; ATTEND Internal Medicine
PROC: HZ2ZZZZ Detoxification Services for Substance Abuse Treatment (ICD-10-PCS; principal; 2017-11-02)
DX: F10.230 Alcohol dependence with withdrawal, uncomplicated (principal); F14.20 Cocaine dependence, uncomplicated; F17.210 Nicotine dependence, cigarettes, uncomplicated; F19.24 Other psychoactive substance dependence with psychoactive substance-induced mood disorder; F31.81 Bipolar II disorder; F43.10 Post-traumatic stress disorder, unspecified; Z21 Asymptomatic human immunodeficiency virus [HIV] infection status; M12.9 Arthropathy, unspecified; Z59.0 Homelessness
CPT/HCPCS: 36415; 80053; 81003; 85027; 86593; 93005; 93010

== ENCOUNTER 2018-01-19 11:29 | Inpatient (IN) | payer OTHER ==
[2018-01-19 12:56] VITALS: BMI 22.6
--- NOTE | 2018-01-19 14:11 | HP ---
CIWA Score - CIWA Score Nausea/Vomitin-Mild Nausea/No Vomiting Muscle Tremors: 4-Moderate,w/Arms Extend Anxiety: 4-Mod. Anxious/Guarded Agitation: 4-Moderately Restless Paroxysmal Sweats: 1-Minimal Palms Moist Orientation: 0-Oriented Tacttile Disturbances: 1-Very Mild Itch/Numbness Auditory Disturbances: 0-None Visual Disturbances: 0-None Headache: 0-None Present CIWA-Ar Total Score: 15 Admission ROS S - HPI Chief Complaint: alcohol withdrawal sx Allergies/Adverse Reactions: Allergies Allergy/AdvReac Type Severity Reaction Status Date / Time No Known Allergies Allergy Verified 01/19/18 12:42 History of Present Illness: 53 years old male with long history of alcohol nicotine dependence has hiv gerd arthritis of both knees ambulate with canes dry skin and depression is admitted to detox Exam Limitations: No Limitations - Ebola screening Have you traveled outside of the country in the last 21 days: No Have you had contact with anyone from an Ebola affected area: No Have you been sick,other than usual withdrawal symptoms: No Do you have a fever: No - Review of Systems Constitutional: Loss of Appetite, Changes in sleep, Unintentional Wgt. Loss, Unexplained wgt Loss EENT: reports: Dental Problems (multiple teeth missing) Respiratory: reports: SOB with Exertion Cardiac: reports: No Symptoms Reported GI: reports: Nausea, Poor Appetite, Poor Fluid Intake, Indigestion, Abdominal cramping : reports: No Symptoms Reported Musculoskeletal: reports: Back Pain, Joint Pain, Muscle Pain, Neck Pain Integumentary: reports: No Symptoms Reported Neuro: reports: Tremors Endocrine: reports: No Symptoms Reported Hematology: reports: No Symptoms Reported Psychiatric: reports: Judgement Intact, Orientated x3, Anxious, Depressed Other Systems: Reviewed and Negative Patient History - Patient Medical History Hx Anemia: No Hx Asthma: Yes Hx Chronic Obstructive Pulmonary Disease (COPD): No Hx Cancer: No Hx Cardiac Disorders: No Hx Congestive Heart Failure: No Hx Hypertension: No Hx Hypercholesterolemia: No Hx Pacemaker: No HX Cerebrovascular Accident: No Hx Seizures: No Hx Dementia: No Hx Diabetes: No Hx Gastrointestinal Disorders: Yes (acid reflux) Hx Liver Disease: No Hx Genitourinary Disorders: No Hx Sexually Transmitted Disorders: No Hx Renal Disease (ESRD): No Hx Thyroid Disease: No Hx Human Immunodeficiency Virus (HIV): Yes (since 1983/undetectable. ) Hx Hepatitis C: No (negative) Hx Depression: Yes Hx Suicide Attempt: No Hx Bipolar Disorder: No Hx Schizophrenia: No - Patient Surgical History Past Surgical History: Yes Hx Neurologic Surgery: No Hx Cataract Extraction: No Hx Cardiac Surgery: No Hx Lung Surgery: No Hx Breast Surgery: No Hx Breast Biopsy: No Hx Abdominal Surgery: No Hx Appendectomy: No Hx Cholecystectomy: No Hx Genitourinary Surgery: No Hx Orthopedic Surgery: Yes (total knee replacement left in 2004) Anesthesia Reaction: No - PPD History Previous Implant?: Yes Documented Results: Negative w/proof Implanted On Prior R Admission?: Yes Date: 08/05/17 Results: 0 mm PPD to be Administered?: No - Smoking Cessation Smoking history: Current every day smoker Have you smoked in the past 12 months: Yes Aproximately how many cigarettes per day: 20 Cigars Per Day: 0 Hx Chewing Tobacco Use: No Initiated information on smoking cessation: Yes 'Breaking Loose' booklet given: 01/19/18 - Substance & Tx. History Hx Alcohol Use: Yes Hx Substance Use: Yes Substance Use Type: Alcohol, Cocaine, Tranquilizers Hx Substance Use Treatment: Yes (09/2017) - Substances Abused Crack Route: Smoking Frequency: Daily Amount used: $70 Age of first use: 10 Date of Last Use: 01/18/18 Alcohol-vodka Route: Oral Frequency: Daily Amount used: 3 pts. Age of first use: 7 Date of Last Use: 01/19/18 Family Disease History - Family Disease History Family Disease History: Diabetes: Mother (alcohol, ), Other: Father ( alcohol,), Mother Admission Physical Exam S - Vital Signs Vital Signs: Vital Signs - 24 hr 01/19/18 12:53 Temperature 97.5 F L Pulse Rate 71 Respiratory 18 Rate Blood Pressure 119/79 - Physical General Appearance: Yes: Appropriately Dressed, Mild Distress, Thin, Tremorous, Irritable, Sweating, Anxious HEENTM: Yes: Hearing grossly Normal, Normocephalic, Normal Voice Respiratory: Yes: Chest Non-Tender, No Respiratory Distress, No Accessory Muscle Use, Wheezing Neck: Yes: Supple, Trachea in good position Breast: Yes: Breasts Symetrical, No Discharge Cardiology: Yes: Regular Rhythm, Regular Rate, S1, S2 Abdominal: Yes: Non Tender, Flat, Soft Genitourinary: Yes: Within Normal Limits Back: Yes: Normal Inspection Musculoskeletal: Yes: full range of Motion, Gait Steady, Back pain, Muscle Pain Extremities: Yes: Normal Inspection, Non-Tender, Tremors Neurological: Yes: Fully Oriented, Alert, Normal Response, Depressed Affect Integumentary: Yes: Warm Lymphatic: Yes: Within Normal Limits - Diagnostic (1) Contact dermatitis Current Visit: Yes Status: Chronic Qualifiers: Contact dermatitis type: irritant Contact dermatitis trigger: unspecified trigger Qualified Code(s): L24.9 - Irritant contact dermatitis, unspecified cause (2) Weight loss Current Visit: Yes Status: Acute (3) Arthritis Current Visit: Yes Status: Chronic Comment: naproxen (4) Asthma Current Visit: Yes Status: Chronic Qualifiers: Asthma severity: mild Asthma persistence: intermittent Asthma complication type: with status asthmaticus Qualified Code(s): J45.22 - Mild intermittent asthma with status asthmaticus Comment: mild copd (5) Bipolar II disorder Current Visit: Yes Status: Suspected Comment: History. (6) GERD (gastroesophageal reflux disease) Current Visit: Yes Status: Chronic Qualifiers: Esophagitis presence: without esophagitis Qualified Code(s): K21.9 - Gastro -esophageal reflux disease without esophagitis (7) HIV (human immunodeficiency virus infection) Current Visit: Yes Status: Chronic Comment: not taking any medication, pt states its undetecable (8) Nicotine dependence Current Visit: Yes Status: Acute Qualifiers: Nicotine product type: cigarettes Substance use status: in withdrawal Qualified Code(s): F17.213 - Nicotine dependence, cigarettes, with withdrawal (9) Use of cane as ambulatory aid Current Visit: Yes Status: Chronic (10) Chronic 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
[2018-01-19] MEDS ORDERED: LOPERAMIDE HCL 2 MG CAPSULE PO PRN (14:15)
[2018-01-19] MEDS ORDERED: ACETAMINOPHEN 325 MG TABLET (FP) PO PRN (14:15)
[2018-01-19] MEDS ORDERED: MAGNESIUM CITRATE 300 ML BOTTLE PO PRN (14:15)
[2018-01-19] MEDS ORDERED: MENTHOL/PHENOL 1 EACH UD MM PRN (14:15)
[2018-01-19] MEDS ORDERED: NICOTINE POLACRILEX 4 MG GUM BUC PRN (14:15)
[2018-01-19] MEDS ORDERED: P-EPHED 60MG/TRIPROLIDI 2.5MG TABLET PO PRN (14:15)
[2018-01-19] MEDS ORDERED: MAG HYDROX/AL HYDROX/SIMETH 30 ML UNIT-DOSE CUP PO PRN (14:15)
[2018-01-19] MEDS ORDERED: MAGNESIUM HYDROX 2400MG/30ML ORAL SUSPENSION 30 ML CUP PO PRN (14:15)
[2018-01-19] MEDS ORDERED: guaiFENesin/D-METHORPHAN HB 10 ML UNIT-DOSE CUPS PO PRN (14:15)
[2018-01-19] MEDS ORDERED: chlordiazePOXIDE HCL 25 MG CAPSULE PO PRN (14:15)
[2018-01-19] MEDS ORDERED: ALBUTEROL SO4 18 GM HFA INHALER IH PRN (14:16)
[2018-01-19] MEDS: NICOTINE 21 MG/24 HOURS TOPICAL PATCH TD SCH (15:22)
[2018-01-19] MEDS: chlordiazePOXIDE HCL 25 MG CAPSULE PO SCH ×2 (16:58→22:29)
[2018-01-19] MEDS ORDERED: MELATONIN 5 MG TABLETS PO PRN (22:00)
[2018-01-19] MEDS: RANITIDINE HCL 150 MG TABLET (FP) PO SCH (22:29)
[2018-01-19] MEDS: THIAMINE HCL 100 MG TABLET (FP) PO SCH (22:29)
[2018-01-19] MEDS: MINERAL OIL/PETROLAT/WATER TOPICAL CREAM 113 GM JAR TP SCH (22:30)
[2018-01-19 23:19] LABS: URINE APPEARANCE TURBID; URINE BILIRUBIN NEGATIVE (<2.0 mg/dL); URINE COLOR AMBER; URINE GLUCOSE (UA) NEGATIVE (NEGATIVE); URINE KETONE NEGATIVE (NEGATIVE); URINE NITRITE NEGATIVE (NEGATIVE); URINE PROTEIN NEGATIVE (NEGATIVE)
[2018-01-19 23:25] LABS: URINE LEUK ESTERASE 2+ (NEGATIVE)
[2018-01-19 23:29] LABS: EPI CELLS RARE /HPF (FEW); URINE BACTERIA RARE /hpf (NONE SEEN); URINE HYALINE CAST 3 /lpf; URINE MUCUS MANY
[2018-01-20] MEDS: chlordiazePOXIDE HCL 25 MG CAPSULE PO SCH ×4 (05:16→22:11)
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
--- NOTE | 2018-01-20 09:06 | EKG ---
Test Reason : Blood Pressure : / mmHG Vent. Rate : 075 BPM Atrial Rate : 075 BPM P-R Int : 178 ms QRS Dur : 084 ms QT Int : 386 ms P-R-T Axes : 074 001 011 degrees QTc Int : 431 ms NORMAL SINUS RHYTHM POSSIBLE LEFT ATRIAL ENLARGEMENT LEFT VENTRICULAR HYPERTROPHY CANNOT RULE OUT ANTEROSEPTAL INFARCT , AGE UNDETERMINED ABNORMAL ECG Confirmed by ERNESTO BUTLER MD ([id number]) on 01/20/2018 9:06:38 AM Referred By: Confirmed By:ERNESTO BUTLER MD
[2018-01-20 09:44] LABS: HEMATOCRIT 45.5 % (35.4-49); HEMOGLOBIN 15.1 GM/dL (11.7-16.9); MCH 29.6 pg (25.7-33.7); MCHC 33.3 g/dl (32.0-35.9); MEAN PLT VOLUME 7.9 fl (7.5-11.1); PLATELET COUNT 283 K/MM3 (134-434); RBC 5.11 M/mm3 (4.00-5.60); RDW 14.8 % (11.9-15.9); WHITE BLOOD COUNT 4.7 K/mm3 (4.0-10.0)
[2018-01-20 10:57] LABS: CHLORIDE 106 mmol/L (98-107); POTASSIUM 3.8 mmol/L (3.5-5.1); SODIUM 141 mmol/L (136-145)
[2018-01-20] MEDS: NICOTINE 21 MG/24 HOURS TOPICAL PATCH TD SCH (10:57)
[2018-01-20] MEDS: PRENATAL VITAMINS W/ FOLIC ACID TABLET (FP) PO SCH (10:57)
[2018-01-20] MEDS: RANITIDINE HCL 150 MG TABLET (FP) PO SCH ×2 (10:57→22:11)
[2018-01-20 11:11] LABS: ALBUMIN 3.6 g/dl (3.4-5.0); ALK PHOS 91 U/L (45-117); ANION GAP 9 (8-16); BILIRUBIN,TOTAL 0.8 mg/dL (0.2-1.0); BLOOD UREA NITROGEN 6 mg/dL (7-18); CALCIUM 8.3 mg/dL (8.5-10.1); CO2 26 mmol/L (21-32); CREATININE 0.9 mg/dL (0.7-1.3); GLUCOSE,RANDOM 108 mg/dL (74-106); SGOT/AST 23 U/L (15-37); SGPT/ALT 19 U/L (12-78); TOT PROT 6.9 g/dl (6.4-8.2)
--- NOTE | 2018-01-20 16:17 | PN ---
[facility] CIWA - CIWA Score Nausea/Vomitin-No Nausea/No Vomiting Muscle Tremors: 2 Anxiety: 4-Mod. Anxious/Guarded Agitation: 4-Moderately Restless Paroxysmal Sweats: 3 Orientation: 0-Oriented Tacttile Disturbances: 0-None Auditory Disturbances: 1-Very Mild Visual Disturbances: 2-Mild Sensitivity Headache: 0-None Present CIWA-Ar Total Score: 16 BHS Progress Note (SOAP) Subjective: Interrupted Sleep, Tremors, Sweating, Body Aches. Objective: PATIENT A & O X 3, OBSERVED AMBULATING ON UNIT. NO ACUTE DISTRESS. 01/20/18 16:15 Vital Signs Temperature 98.1 F 01/20/18 13:38 Pulse Rate 78 01/20/18 13:38 Respiratory Rate 18 01/20/18 13:38 Blood Pressure 138/90 01/20/18 13:38 O2 Sat by Pulse Oximetry (%) Laboratory Tests 01/19/18 01/20/18 01/20/18 23:10 05:50 05:50 WBC 4.7 RBC 5.11 Hgb 15.1 D Hct 45.5 MCV 89.0 MCH 29.6 MCHC 33.3 RDW 14.8 Plt Count 283 MPV 7.9 Sodium 141 Potassium 3.8 Chloride 106 Carbon Dioxide 26 Anion Gap 9 BUN 6 L Creatinine 0.9 D Creat Clearance w eGFR > 60 Random Glucose 108 H D Calcium 8.3 L Total Bilirubin 0.8 D AST 23 D ALT 19 D Alkaline Phosphatase 91 D Total Protein 6.9 Albumin 3.6 Urine Color [place] Urine Appearance Turbid Urine pH 6.0 Ur Specific [place] 1.016 Urine Protein Negative Urine Glucose (UA) Negative Urine Ketones Negative Urine Blood 1+ H Urine Nitrite Negative Urine Bilirubin Negative Urine Urobilinogen 2.0 Ur Leukocyte Esterase 2+ H Urine WBC (Auto) 31 Urine RBC (Auto) 5 Ur Epithelial Cells Rare Urine Bacteria Rare Hyaline Casts 3 Urine Mucus Many LABS NOTED. Assessment: 01/20/18 16:15 WITHDRAWAL SYMPTOMS. Plan: CONTINUE DETOX. REPEAT UA ALONG WITH URINE C + S FOR ADMISSION UA ABNORMALITIES. INCREASE DAILY PO FLUID INTAKE.
[2018-01-20] MEDS: THIAMINE HCL 100 MG TABLET (FP) PO SCH (22:10)
[2018-01-20] MEDS: QUEtiapine FUMARATE 200 MG TABLET PO SCH (22:11)
[2018-01-20] MEDS: MINERAL OIL/PETROLAT/WATER TOPICAL CREAM 113 GM JAR TP SCH (22:12)
[2018-01-21] MEDS: chlordiazePOXIDE HCL 25 MG CAPSULE PO SCH ×2 (05:42→10:43)
[2018-01-21] MEDS: PRENATAL VITAMINS W/ FOLIC ACID TABLET (FP) PO SCH (10:43)
[2018-01-21] MEDS: RANITIDINE HCL 150 MG TABLET (FP) PO SCH ×2 (10:43→22:10)
[2018-01-21] MEDS: NICOTINE 21 MG/24 HOURS TOPICAL PATCH TD SCH (10:43)
--- NOTE | 2018-01-21 16:18 | PN ---
[facility] CIWA - CIWA Score Nausea/Vomitin-No Nausea/No Vomiting Muscle Tremors: None Anxiety: 3 Agitation: 0-Normal Activity Paroxysmal Sweats: 3 Orientation: 0-Oriented Tacttile Disturbances: 2-Mild Itch/Numbness/Burn Auditory Disturbances: 2-Mild Harshness/Frighten Visual Disturbances: 2-Mild Sensitivity Headache: 0-None Present CIWA-Ar Total Score: 12 S Progress Note (SOAP) Subjective: Interrupted Sleep, Sweating, Body Aches. Objective: PATIENT A & O X 3, OBSERVED AMBULATING ON UNIT. NO ACUTE DISTRESS. 01/21/18 16:17 Vital Signs Temperature 99.4 F 01/21/18 09:39 Pulse Rate 82 01/21/18 09:39 Respiratory Rate 18 01/21/18 09:39 Blood Pressure 95/64 01/21/18 09:39 O2 Sat by Pulse Oximetry (%) Laboratory Tests 01/19/18 01/20/18 01/20/18 23:10 05:50 05:50 WBC 4.7 RBC 5.11 Hgb 15.1 D Hct 45.5 MCV 89.0 MCH 29.6 MCHC 33.3 RDW 14.8 Plt Count 283 MPV 7.9 Sodium 141 Potassium 3.8 Chloride 106 Carbon Dioxide 26 Anion Gap 9 BUN 6 L Creatinine 0.9 D Creat Clearance w eGFR > 60 Random Glucose 108 H D Calcium 8.3 L Total Bilirubin 0.8 D AST 23 D ALT 19 D Alkaline Phosphatase 91 D Total Protein 6.9 Albumin 3.6 Urine Color [place] Urine Appearance Turbid Urine pH 6.0 Ur Specific [place] 1.016 Urine Protein Negative Urine Glucose (UA) Negative Urine Ketones Negative Urine Blood 1+ H Urine Nitrite Negative Urine Bilirubin Negative Urine Urobilinogen 2.0 Ur Leukocyte Esterase 2+ H Urine WBC (Auto) 31 Urine RBC (Auto) 5 Ur Epithelial Cells Rare Urine Bacteria Rare Hyaline Casts 3 Urine Mucus Many RPR Titer 01/20/18 05:50 WBC RBC Hgb Hct MCV MCH MCHC RDW Plt Count MPV Sodium Potassium Chloride Carbon Dioxide Anion Gap BUN Creatinine Creat Clearance w eGFR Random Glucose Calcium Total Bilirubin AST ALT Alkaline Phosphatase Total Protein Albumin Urine Color Urine Appearance Urine pH Ur Specific [place] Urine Protein Urine Glucose (UA) Urine Ketones Urine Blood Urine Nitrite Urine Bilirubin Urine Urobilinogen Ur Leukocyte Esterase Urine WBC (Auto) Urine RBC (Auto) Ur Epithelial Cells Urine Bacteria Hyaline Casts Urine Mucus RPR Titer Nonreactive LABS NOTED. RESULTS OF REPEAT UA PENDING. 01/21/18 16:18 Assessment: 01/21/18 16:17 WITHDRAWAL SYMPTOMS. Plan: CONTINUE DETOX. INCREASE DAILY PO FLUID INTAKE.
[2018-01-21] MEDS: chlordiazePOXIDE 5 MG CAPSULE PO SCH ×2 (19:09→22:10)
[2018-01-21] MEDS: QUEtiapine FUMARATE 200 MG TABLET PO SCH (22:10)
[2018-01-21] MEDS: THIAMINE HCL 100 MG TABLET (FP) PO SCH (22:10)
[2018-01-21] MEDS: MINERAL OIL/PETROLAT/WATER TOPICAL CREAM 113 GM JAR TP SCH (22:12)
[2018-01-22] MEDS: chlordiazePOXIDE 5 MG CAPSULE PO SCH ×2 (05:51→10:31)
[2018-01-22] MEDS: NICOTINE 21 MG/24 HOURS TOPICAL PATCH TD SCH (10:31)
[2018-01-22] MEDS: RANITIDINE HCL 150 MG TABLET (FP) PO SCH (10:31)
[2018-01-22] MEDS: PRENATAL VITAMINS W/ FOLIC ACID TABLET (FP) PO SCH (10:31)
--- NOTE | 2018-01-22 12:16 | PN ---
[facility] Progress Note (SOAP) Subjective: ANXIETY,SWEATS,FATIGUE. Objective: 01/22/18 12:14 Vital Signs 01/22/18 01/22/18 06:10 10:33 Temperature 97.6 F 97.8 F Pulse Rate 82 74 Respiratory 18 18 Rate Blood Pressure 117/76 112/76 Laboratory Tests 01/19/18 01/20/18 01/20/18 23:10 05:50 05:50 WBC 4.7 RBC 5.11 Hgb 15.1 D Hct 45.5 MCV 89.0 MCH 29.6 MCHC 33.3 RDW 14.8 Plt Count 283 MPV 7.9 Sodium 141 Potassium 3.8 Chloride 106 Carbon Dioxide 26 Anion Gap 9 BUN 6 L Creatinine 0.9 D Creat Clearance w eGFR > 60 Random Glucose 108 H D Calcium 8.3 L Total Bilirubin 0.8 D AST 23 D ALT 19 D Alkaline Phosphatase 91 D Total Protein 6.9 Albumin 3.6 Urine Color [place] Urine Appearance Turbid Urine pH 6.0 Ur Specific [place] 1.016 Urine Protein Negative Urine Glucose (UA) Negative Urine Ketones Negative Urine Blood 1+ H Urine Nitrite Negative Urine Bilirubin Negative Urine Urobilinogen 2.0 Ur Leukocyte Esterase 2+ H Urine WBC (Auto) 31 Urine RBC (Auto) 5 Ur Epithelial Cells Rare Urine Bacteria Rare Hyaline Casts 3 Urine Mucus Many RPR Titer 01/20/18 05:50 WBC RBC Hgb Hct MCV MCH MCHC RDW Plt Count MPV Sodium Potassium Chloride Carbon Dioxide Anion Gap BUN Creatinine Creat Clearance w eGFR Random Glucose Calcium Total Bilirubin AST ALT Alkaline Phosphatase Total Protein Albumin Urine Color Urine Appearance Urine pH Ur Specific [place] Urine Protein Urine Glucose (UA) Urine Ketones Urine Blood Urine Nitrite Urine Bilirubin Urine Urobilinogen Ur Leukocyte Esterase Urine WBC (Auto) Urine RBC (Auto) Ur Epithelial Cells Urine Bacteria Hyaline Casts Urine Mucus RPR Titer Nonreactive Assessment: 01/22/18 12:15 WITHDRAWAL SX Plan: CONTINUE DETOX
[2018-01-22 14:31] VITALS: TEMP 98.4
[2018-01-22] MEDS ORDERED: chlordiazePOXIDE HCL 10 MG CAPSULE PO SCH (17:00)
[2018-01-22 18:37] VITALS: BP 106/74; PULSE 83
[2018-01-22 19:01] LABS: URINE APPEARANCE CLEAR; URINE BILIRUBIN NEGATIVE (<2.0 mg/dL); URINE COLOR LTYELLOW; URINE GLUCOSE (UA) NEGATIVE (NEGATIVE); URINE KETONE NEGATIVE (NEGATIVE); URINE LEUK ESTERASE NEGATIVE (NEGATIVE); URINE NITRITE NEGATIVE (NEGATIVE); URINE PROTEIN NEGATIVE (NEGATIVE); URINE UROBILINOGEN NEGATIVE mg/dL (0.2-1.0)
--- NOTE | 2018-01-22 20:16 | DS ---
[facility] Detox Discharge Summary Admission Date: 01/19/18 Discharge Date: 01/22/18 - History Present History: Alcohol Dependence, Cocaine Dependence Additional Comments: DETOX COMPLETED. - Physical Exam Results Vital Signs: Vital Signs Temperature 98.4 F 01/22/18 18:36 Pulse Rate 83 01/22/18 18:36 Respiratory Rate 18 01/22/18 18:36 Blood Pressure 106/74 01/22/18 18:36 O2 Sat by Pulse Oximetry (%) - Treatment Hospital Course: Detox Protocol Followed, Detoxed Safely, Responded well, Discharged Condition Good - Medication Discharge Medications: Ambulatory Orders Albuterol Sulfate Inhaler - [Ventolin Hfa Inhaler -] 2 inh PO Q4H PRN #1 inhaler 11/05/17 Pantoprazole Sodium [Protonix -] 20 mg PO DAILY #30 tablet.ec 11/05/17 Quetiapine Fumarate [Seroquel -] 200 mg PO HS #30 tab 11/05/17 - Diagnosis (1) Alcohol dependence with uncomplicated withdrawal Current Visit: Yes Status: Acute (2) Nicotine dependence Current Visit: Yes Status: Acute Qualifiers: Nicotine product type: cigarettes Substance use status: in withdrawal Qualified Code(s): F17.213 - Nicotine dependence, cigarettes, with withdrawal (3) Asthma Current Visit: Yes Status: Chronic Qualifiers: Asthma severity: mild Asthma persistence: intermittent Asthma complication type: with status asthmaticus Qualified Code(s): J45.22 - Mild intermittent asthma with status asthmaticus (4) Chronic 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 Current Visit: Yes Status: Chronic (5) Weight loss Current Visit: Yes Status: Acute (6) Chronic low back pain Current Visit: Yes Status: Chronic Qualifiers: Back pain laterality: bilateral Sciatica presence: unspecified whether sciatica present Qualified Code(s): M54.5 - Low back pain; G89.29 - Other chronic pain (7) Cocaine dependence, uncomplicated Current Visit: Yes Status: Acute (8) Contact dermatitis Current Visit: Yes Status: Chronic Qualifiers: Contact dermatitis type: irritant Contact dermatitis trigger: unspecified trigger Qualified Code(s): L24.9 - Irritant contact dermatitis, unspecified cause (9) GERD (gastroesophageal reflux disease) Current Visit: Yes Status: Chronic Qualifiers: Esophagitis presence: without esophagitis Qualified Code(s): K21.9 - Gastro -esophageal reflux disease without esophagitis (10) HIV (human immunodeficiency virus infection) Current Visit: Yes Status: Chronic (11) Use of cane as ambulatory aid Current Visit: Yes Status: Chronic - AMA Did Patient Leave Against Medical Advice: No
== END 2018-01-22 20:40 | disposition home or self-care (01) | DRG 774 ==
LOC: YASAS 11:29 → Y3N 13:59
PROVIDERS: ADMIT Family Medicine Addiction Medicine; ATTEND Family Medicine Addiction Medicine
PROC: HZ2ZZZZ Detoxification Services for Substance Abuse Treatment (ICD-10-PCS; principal; 2018-01-19)
DX: F10.230 Alcohol dependence with withdrawal, uncomplicated (principal); F14.20 Cocaine dependence, uncomplicated; F17.213 Nicotine dependence, cigarettes, with withdrawal; F31.81 Bipolar II disorder; F43.10 Post-traumatic stress disorder, unspecified; Z21 Asymptomatic human immunodeficiency virus [HIV] infection status; J45.22 Mild intermittent asthma with status asthmaticus; M25.562 Pain in left knee; M54.5 Low back pain; G89.29 Other chronic pain; L24.9 Irritant contact dermatitis, unspecified cause; K21.9 Gastro-esophageal reflux disease without esophagitis; M19.90 Unspecified osteoarthritis, unspecified site; R26.2 Difficulty in walking, not elsewhere classified; Z99.89 Dependence on other enabling machines and devices; Z96.652 Presence of left artificial knee joint; Z87.898 Personal history of other specified conditions; Z59.0 Homelessness
CPT/HCPCS: 36415; 80053; 81003; 81015; 85027; 86593; 87086; 93005; 93010

== ENCOUNTER 2018-02-20 10:27 | Inpatient (IN) | payer OTHER ==
[2018-02-20 11:18] VITALS: BMI 21.5
--- NOTE | 2018-02-20 12:00 | HP ---
CIWA Score - CIWA Score Nausea/Vomitin-No Nausea/No Vomiting Muscle Tremors: 2 Anxiety: 2 Agitation: 3 Paroxysmal Sweats: 2 Orientation: 0-Oriented Tacttile Disturbances: 3-Moderate Itch/Numb/Burn Auditory Disturbances: 0-None Visual Disturbances: 0-None Headache: 0-None Present CIWA-Ar Total Score: 12 Admission ROS S - [facility] Chief Complaint: ETOH WITHDRAWAL SYMPTOMS. Allergies/Adverse Reactions: Allergies Allergy/AdvReac Type Severity Reaction Status Date / Time No Known Allergies Allergy Verified 02/20/18 11:20 History of Present Illness: PATIENT PRESENTS WITH ETOH WITHDRAWAL SYMPTOMS. PATIENT STARTED DRINKING AT AGE 1. DRINKS UP TO 4-5 PINTS OF LIQUOR AND 12 BEERS DAILY. SMOKES 100 DOLLARS WORTH OF CRACK WEEKLY AND ONE BAG OF WEED WEEKLY. LAST DRINK WAS 3 AM THIS MORNING AND CRACK/MARIJUANA USE LAST NIGHT. DENIES HX OF SEIZURES. PMH INCLUDES HIV (NO TREATMENT), ASTHMA AND INSOMNIA. NO SI/HI AND SUICIDE ATTEMPTS. Exam Limitations: No Limitations - Ebola screening Have you traveled outside of the country in the last 21 days: No (N) Have you had contact with anyone from an Ebola affected area: No Have you been sick,other than usual withdrawal symptoms: No Do you have a fever: No - Review of Systems Constitutional: Chills, Night Sweats, Changes in sleep EENT: reports: Tearing Respiratory: reports: No Symptoms reported Cardiac: reports: No Symptoms Reported GI: reports: Poor Appetite, Poor Fluid Intake : reports: No Symptoms Reported Musculoskeletal: reports: No Symptoms Reported Integumentary: reports: Sweating Neuro: reports: Numbness, Tingling, Tremors Endocrine: reports: No Symptoms Reported Hematology: reports: No Symptoms Reported Psychiatric: reports: Orientated x3, Anxious, Depressed Patient History - Patient Medical History Hx Anemia: No Hx Asthma: Yes Hx Chronic Obstructive Pulmonary Disease (COPD): No Hx Cancer: No Hx Cardiac Disorders: No Hx Congestive Heart Failure: No Hx Hypertension: No Hx Hypercholesterolemia: No Hx Pacemaker: No HX Cerebrovascular Accident: No Hx Seizures: No Hx Dementia: No Hx Diabetes: No Hx Gastrointestinal Disorders: Yes (acid reflux) Hx Liver Disease: No Hx Genitourinary Disorders: No Hx Sexually Transmitted Disorders: No Hx Renal Disease (ESRD): No Hx Thyroid Disease: No Hx Human Immunodeficiency Virus (HIV): Yes (since 1982/undetectable. ) Hx Hepatitis C: No (negative) Hx Depression: No Hx Suicide Attempt: No Hx Bipolar Disorder: No Hx Schizophrenia: No - Patient Surgical History Past Surgical History: Yes Hx Neurologic Surgery: No Hx Cataract Extraction: No Hx Cardiac Surgery: No Hx Lung Surgery: No Hx Breast Surgery: No Hx Breast Biopsy: No Hx Abdominal Surgery: No Hx Appendectomy: No Hx Cholecystectomy: No Hx Genitourinary Surgery: No Hx Orthopedic Surgery: Yes (total knee replacement left in 2004) Anesthesia Reaction: No - PPD History Previous Implant?: Yes Documented Results: Negative w/proof Implanted On Prior R Admission?: Yes Date: 08/05/17 Results: 0 mm PPD to be Administered?: No - Smoking Cessation Smoking history: Current every day smoker Have you smoked in the past 12 months: Yes Aproximately how many cigarettes per day: 20 Cigars Per Day: 0 Hx Chewing Tobacco Use: No Initiated information on smoking cessation: Yes 'Breaking Loose' booklet given: 02/20/18 - Substance & Tx. History Hx Alcohol Use: Yes Hx Substance Use: Yes Substance Use Type: Alcohol, Cocaine, Marijuana Hx Substance Use Treatment: Yes - Substances Abused Crack Route: Smoking Frequency: 1-2 times per week Amount used: $100 Age of first use: 11 Date of Last Use: 02/19/18 Alcohol-vodka/beer Route: Oral Frequency: Daily Amount used: 2-3 pts./3-4 6 pks. Age of first use: 7 Date of Last Use: 02/20/18 Family Disease History - Family Disease History Family Disease History: Diabetes: Mother (alcohol, ), Other: Father ( alcohol,), Mother Admission Physical Exam [facility] - Vital Signs Vital Signs: Vital Signs - 24 hr 02/20/18 11:17 Temperature 97.2 F L Pulse Rate 67 Respiratory 18 Rate Blood Pressure 123/75 - Physical General Appearance: Yes: Disheveled, Thin, Tremorous, Sweating, Anxious HEENTM: Yes: EOMI, Hearing grossly Normal, Normocephalic, Normal Voice, DOMINGO, Pharynx Normal Respiratory: Yes: Chest Non-Tender, Lungs Clear, Normal Breath Sounds, No Respiratory Distress, No Accessory Muscle Use Neck: Yes: No masses,lesions,Nodules, Supple Breast: Yes: Breast Exam Deferred Cardiology: Yes: Regular Rhythm, Regular Rate, S1, S2 Abdominal: Yes: Normal Bowel Sounds, Non Tender, Soft Genitourinary: Yes: Within Normal Limits Back: Yes: Normal Inspection Musculoskeletal: Yes: full range of Motion, Gait Steady Extremities: Yes: Normal Inspection, Normal Range of Motion, Non-Tender, Tremors Neurological: Yes: 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 NML intact, Fully Oriented, Alert, Motor Strength 5/5, Normal Response, Depressed Affect Integumentary: Yes: Normal Color, Warm, Moist Lymphatic: Yes: Within Normal Limits - Diagnostic (1) Alcohol dependence with uncomplicated withdrawal Current Visit: Yes Status: Acute (2) Cocaine dependence, uncomplicated Current Visit: Yes Status: Chronic (3) History of left knee replacement Current Visit: Yes Status: Chronic (4) Nicotine dependence Current Visit: Yes Status: Acute Qualifiers: Nicotine product type: cigarettes Substance use status: in withdrawal Qualified Code(s): F17.213 - Nicotine dependence, cigarettes, with withdrawal (5) Asthma Current Visit: Yes Status: Chronic Qualifiers: Asthma severity: mild Asthma persistence: intermittent Asthma complication type: with status asthmaticus Qualified Code(s): J45.22 - Mild intermittent asthma with status asthmaticus Comment: mild copd (6) GERD (gastroesophageal reflux disease) Current Visit: Yes Status: Chronic Qualifiers: Esophagitis presence: without esophagitis Qualified Code(s): K21.9 - Gastro -esophageal reflux disease without esophagitis (7) HIV (human immunodeficiency virus infection) Current Visit: Yes Status: Chronic Comment: not taking any medication, pt states its undetecable (8) Insomnia Current Visit: Yes Status: Chronic Qualifiers: Insomnia type: unspecified Qualified Code(s): G47.00 - Insomnia, unspecified Cleared for Admission S - Detox or Rehab [facility] Level of Care: Medically Managed Detox Regimen/Protocol: Librium [facility] Breath Alcohol Content Breath Alcohol Content: 0 Urine Drug Screen - Results Drug Screen Negative: No Urine Drug Screen Results: FELIZ-Cocaine, BZO-Benzodiazepines
[2018-02-20] MEDS ORDERED: LOPERAMIDE HCL 2 MG CAPSULE PO PRN (12:04)
[2018-02-20] MEDS ORDERED: guaiFENesin/D-METHORPHAN HB 10 ML UNIT-DOSE CUPS PO PRN (12:04)
[2018-02-20] MEDS ORDERED: hydrOXYzine PAMOATE 50 MG CAPSULE (FP) PO PRN (12:04)
[2018-02-20] MEDS ORDERED: MAGNESIUM HYDROX 2400MG/30ML ORAL SUSPENSION 30 ML CUP PO PRN (12:04)
[2018-02-20] MEDS ORDERED: IBUPROFEN 400 MG TABLET (FP) PO PRN (12:04)
[2018-02-20] MEDS ORDERED: ACETAMINOPHEN 325 MG TABLET (FP) PO PRN (12:04)
[2018-02-20] MEDS ORDERED: MAGNESIUM CITRATE 300 ML BOTTLE PO PRN (12:04)
[2018-02-20] MEDS ORDERED: MAG HYDROX/AL HYDROX/SIMETH 30 ML UNIT-DOSE CUP PO PRN (12:04)
[2018-02-20] MEDS ORDERED: P-EPHED 60MG/TRIPROLIDI 2.5MG TABLET PO PRN (12:04)
[2018-02-20] MEDS ORDERED: NICOTINE POLACRILEX 2 MG GUM BUC PRN (12:04)
[2018-02-20] MEDS ORDERED: MENTHOL/PHENOL 1 EACH UD MM PRN (12:04)
[2018-02-20] MEDS ORDERED: ALBUTEROL SO4 8 GM HFA INHALER IH PRN (12:05)
--- NOTE | 2018-02-20 14:27 | CONSULT ---
[facility] Psychiatric Consult - Data Date of interview: 02/20/18 Admission source: [facility] Identifying data: This is 53 years old male, , father of five, living with sister's family, unemployed , on SSI, with PTSD, with no psychiatric hospitalization history, with history of Alcohol, Cocaine, Nicotine dependece, is here reporting withdrawal synptoms and seeking for detox. Substance Abuse History: Smoking history: Current every day smoker. Have you smoked in the past 12 months: Yes. Aproximately how many cigarettes per day: 20. Cigars Per Day: 0. Hx Chewing Tobacco Use: No. Initiated information on smoking cessation: Yes. 'Breaking Loose' booklet given: 02/20/18. - Substance & Tx. History. Hx Alcohol Use: Yes. Hx Substance Use: Yes. Substance Use Type : Alcohol, Cocaine, Marijuana. Hx Substance Use Treatment: Yes. - Substances Abused. Crack. Route: Smoking. Frequency: 1-2 times per week. Amount used : $100. Age of first use: 11. Date of Last Use: 02/19/18. Alcohol-vodka/ beer. Route: Oral. Frequency: Daily. Amount used: 2-3 pts./3-4 6 pks. Age of first use: 7. Date of Last Use: 02/20/18 Medical History: Left Knee replacement s/p, Asthma, GERD, HIV+ Psychiatric History: Patient reports history of depression and anxiety, reports taking prior to admission : Seroquel 400mg po qhs due to depression and severe insomnia. Denies suicidal,. hopmicidal hiustory Physical/Sexual Abuse/Trauma History: Denies Additional Comment: Seroquel 400mg po qhs Mental Status Exam - Mental Status Exam Alert and Oriented to: Person Cognitive Function: Fair Patient Appearance: Unkempt Mood: Anxious Affect: Constricted Patient Behavior: Cooperative Speech Pattern: Appropriate Voice Loudness: Normal Thought Process: Circumstantial, Goal Oriented Thought Disorder: Being Controlled Hallucinations: Denies Suicidal Ideation: Denies Homicidal Ideation: Denies Insight/Judgement: Fair Sleep: Difficulty falling asleep Appetite: Weight loss Muscle strength/Tone: Moderate Hypotonicity Gait/Station: Shuffling Additional Comments: Seroquel 400mg po qhs Psychiatric Findings - Problem List ([place] 1, 2,3) (1) Alcohol dependence with uncomplicated withdrawal Current Visit: Yes Status: Acute (2) Nicotine dependence Current Visit: Yes Status: Acute Qualifiers: Nicotine product type: cigarettes Substance use status: in withdrawal Qualified Code(s): F17.213 - Nicotine dependence, cigarettes, with withdrawal (3) Asthma Current Visit: Yes Status: Chronic Qualifiers: Asthma severity: mild Asthma persistence: intermittent Asthma complication type: with status asthmaticus Qualified Code(s): J45.22 - Mild intermittent asthma with status asthmaticus Comment: mild copd (4) Cocaine dependence, uncomplicated Current Visit: Yes Status: Chronic (5) GERD (gastroesophageal reflux disease) Current Visit: Yes Status: Chronic Qualifiers: Esophagitis presence: without esophagitis Qualified Code(s): K21.9 - Gastro -esophageal reflux disease without esophagitis (6) HIV (human immunodeficiency virus infection) Current Visit: Yes Status: Chronic Comment: not taking any medication, pt states its undetecable (7) Bipolar II disorder Current Visit: No Status: Chronic Comment: History. (8) Chronic low back pain Current Visit: No Status: Chronic Qualifiers: Back pain laterality: bilateral Sciatica presence: unspecified whether sciatica present Qualified Code(s): M54.5 - Low back pain; G89.29 - Other chronic pain (9) Cocaine dependence Current Visit: No Status: Chronic Qualifiers: Substance use status: uncomplicated Qualified Code(s): F14.20 - Cocaine dependence, uncomplicated (10) PTSD (post-traumatic stress disorder) Current Visit: No Status: Chronic (11) Use of cane as ambulatory aid Current Visit: No Status: Chronic - Initial Treatment Plan Initial Treatment Plan: Seroquel 400mg po qhs
[2018-02-20 15:01] LABS: ALBUMIN 3.9 g/dl (3.4-5.0); ANION GAP 4 (8-16); BLOOD UREA NITROGEN 8 mg/dL (7-18); CALCIUM 9.1 mg/dL (8.5-10.1); CHLORIDE 102 mmol/L (98-107); CO2 33 mmol/L (21-32); GLUCOSE,RANDOM 81 mg/dL (74-106); POTASSIUM 4.3 mmol/L (3.5-5.1); SODIUM 139 mmol/L (136-145)
[2018-02-20 15:05] LABS: ALK PHOS 98 U/L (45-117); BILIRUBIN,TOTAL 0.6 mg/dL (0.2-1.0); CREATININE 0.9 mg/dL (0.7-1.3); SGOT/AST 28 U/L (15-37); SGPT/ALT 23 U/L (12-78); TOT PROT 7.2 g/dl (6.4-8.2)
[2018-02-20 15:09] LABS: HEMATOCRIT 47.6 % (35.4-49); HEMOGLOBIN 15.9 GM/dL (11.7-16.9); MCH 29.6 pg (25.7-33.7); MCHC 33.4 g/dl (32.0-35.9); MEAN CELL VOLUME 88.7 fl (80-96); PLATELET COUNT 277 K/MM3 (134-434); RBC 5.37 M/mm3 (4.00-5.60); RDW 15.4 % (11.9-15.9); WHITE BLOOD COUNT 5.6 K/mm3 (4.0-10.0)
[2018-02-20] MEDS: chlordiazePOXIDE HCL 25 MG CAPSULE PO PRN (15:27)
[2018-02-20] MEDS: chlordiazePOXIDE HCL 25 MG CAPSULE PO SCH ×2 (17:16→22:27)
[2018-02-20 17:36] LABS: URINE APPEARANCE CLEAR; URINE BILIRUBIN NEGATIVE (<2.0 mg/dL); URINE COLOR LTYELLOW; URINE GLUCOSE (UA) NEGATIVE (NEGATIVE); URINE KETONE NEGATIVE (NEGATIVE); URINE LEUK ESTERASE NEGATIVE (NEGATIVE); URINE NITRITE NEGATIVE (NEGATIVE); URINE PROTEIN NEGATIVE (NEGATIVE); URINE UROBILINOGEN NEGATIVE mg/dL (0.2-1.0)
[2018-02-20 17:42] LABS: URINE MUCUS RARE
[2018-02-20] MEDS ORDERED: MELATONIN 5 MG TABLETS PO PRN (22:00)
[2018-02-20] MEDS: THIAMINE HCL 100 MG TABLET (FP) PO SCH (22:27)
[2018-02-21] MEDS: chlordiazePOXIDE HCL 25 MG CAPSULE PO SCH ×4 (05:55→22:13)
[2018-02-21] MEDS: PRENATAL VITAMINS W/ FOLIC ACID TABLET (FP) PO SCH (10:58)
[2018-02-21] MEDS: NICOTINE 21 MG/24 HOURS TOPICAL PATCH TD SCH (10:59)
--- NOTE | 2018-02-21 11:30 | PN ---
S CIWA - CIWA Score Nausea/Vomitin Muscle Tremors: 3 Anxiety: 3 Agitation: 3 Paroxysmal Sweats: 1-Minimal Palms Moist Orientation: 0-Oriented Tacttile Disturbances: 1-Very Mild Itch/Numbness Auditory Disturbances: 1-Very Mild Visual Disturbances: 0-None Headache: 2-Mild CIWA-Ar Total Score: 17 S Progress Note (SOAP) Subjective: alert,irritable,anxious,interrupted sleep,tremor Objective: 02/21/18 11:27 Vital Signs Temperature 97.4 F L 02/21/18 09:12 Pulse Rate 77 02/21/18 09:12 Respiratory Rate 18 02/21/18 09:12 Blood Pressure 103/56 02/21/18 09:12 O2 Sat by Pulse Oximetry (%) ekg nsr st in v3 qt/qtcis 350/393 no chest pain,no sob,no dizziness Laboratory Last Values WBC 5.6 K/mm3 (4.0-10.0) 02/20/18 11:00 RBC 5.37 M/mm3 (4.00-5.60) 02/20/18 11:00 Hgb 15.9 GM/dL (11.7-16.9) 02/20/18 11:00 Hct 47.6 % (35.4-49) 02/20/18 11:00 MCV 88.7 fl (80-96) 02/20/18 11:00 MCH 29.6 pg (25.7-33.7) 02/20/18 11:00 MCHC 33.4 g/dl (32.0-35.9) 02/20/18 11:00 RDW 15.4 % (11.9-15.9) 02/20/18 11:00 Plt Count 277 K/MM3 (134-434) 02/20/18 11:00 MPV 8.0 fl (7.5-11.1) 02/20/18 11:00 Sodium 139 mmol/L (136-145) 02/20/18 11:00 Potassium 4.3 mmol/L (3.5-5.1) 02/20/18 11:00 Chloride 102 mmol/L (98-107) 02/20/18 11:00 Carbon Dioxide 33 mmol/L (21-32) H D 02/20/18 11:00 Anion Gap 4 (8-16) L 02/20/18 11:00 BUN 8 mg/dL (7-18) 02/20/18 11:00 Creatinine 0.9 mg/dL (0.7-1.3) 02/20/18 11:00 Creat Clearance w eGFR > 60 (>60) 02/20/18 11:00 Random Glucose 81 mg/dL (74-106) D 02/20/18 11:00 Calcium 9.1 mg/dL (8.5-10.1) 02/20/18 11:00 Total Bilirubin 0.6 mg/dL (0.2-1.0) 02/20/18 11:00 AST 28 U/L (15-37) D 02/20/18 11:00 ALT 23 U/L (12-78) D 02/20/18 11:00 Alkaline Phosphatase 98 U/L (45-117) 02/20/18 11:00 Total Protein 7.2 g/dl (6.4-8.2) 02/20/18 11:00 Albumin 3.9 g/dl (3.4-5.0) 02/20/18 11:00 Urine Color Ltyellow 02/20/18 15:58 Urine Appearance Clear 02/20/18 15:58 Urine pH 6.0 (5.0-8.0) 02/20/18 15:58 Ur Specific [place] 1.010 (1.001-1.035) 02/20/18 15:58 Urine Protein Negative (NEGATIVE) 02/20/18 15:58 Urine Glucose (UA) Negative (NEGATIVE) 02/20/18 15:58 Urine Ketones Negative (NEGATIVE) 02/20/18 15:58 Urine Blood 2+ (NEGATIVE) H 02/20/18 15:58 Urine Nitrite Negative (NEGATIVE) 02/20/18 15:58 Urine Bilirubin Negative (<2.0 mg/dL) 02/20/18 15:58 Urine Urobilinogen Negative mg/dL (0.2-1.0) 02/20/18 15:58 Ur Leukocyte Esterase Negative (NEGATIVE) 02/20/18 15:58 Urine WBC (Auto) <1 /hpf (3-5) 02/20/18 15:58 Urine RBC (Auto) 7 /hpf (0-3) 02/20/18 15:58 Urine Mucus Rare 02/20/18 15:58 RPR Titer Nonreactive (NONREACTIVE) 02/20/18 11:00 Assessment: 02/21/18 11:29 withdrawal symptom Plan: continue detox
--- NOTE | 2018-02-21 13:58 | EKG ---
Test Reason : Blood Pressure : / mmHG Vent. Rate : 076 BPM Atrial Rate : 076 BPM P-R Int : 178 ms QRS Dur : 078 ms QT Int : 350 ms P-R-T Axes : 067 013 038 degrees QTc Int : 393 ms NORMAL SINUS RHYTHM POSSIBLE LEFT ATRIAL ENLARGEMENT ANTEROSEPTAL INFARCT (CITED ON OR BEFORE 16-JUN-2017) ABNORMAL ECG WHEN COMPARED WITH ECG OF 19-JAN-2018 15:04, QUESTIONABLE CHANGE IN INITIAL FORCES OF ANTERIOR LEADS Confirmed by Cooper Hudson MD ([id number]) on 02/21/2018 1:57:38 PM Referred By: Confirmed By:Cooper Hudson MD
[2018-02-21] MEDS: chlordiazePOXIDE HCL 25 MG CAPSULE PO PRN (15:47)
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
[2018-02-21] MEDS ORDERED: QUEtiapine FUMARATE 200 MG TABLET PO SCH (22:00)
[2018-02-21] MEDS: THIAMINE HCL 100 MG TABLET (FP) PO SCH (22:10)
[2018-02-22] MEDS: chlordiazePOXIDE HCL 25 MG CAPSULE PO SCH ×2 (06:44→11:19)
--- NOTE | 2018-02-22 09:57 | PN ---
Psychiatric Progress Note Vital Signs: Vital Signs Period Temp Pulse Resp BP Sys/Uribe Pulse Ox Last 24 Hr 97.9 F-98.4 F 78-96 18-20 109-138/63-80 Date of Session: 02/22/18 Chief Complaint:: Insomnia HPI: Patient asking to restart preadmission Seroquel 300mg po qhs for insomnia, reports not sleeping well since admission Current Medications: Active Medications Generic Name Dose Route Start Last Admin Trade Name Freq PRN Reason Stop Dose Admin Acetaminophen 650 mg 02/20/18 12:04 Tylenol - PO Q4H PRN FEVER Al Hydroxide/Mg Hydroxide 30 ml 02/20/18 12:04 02/20/18 15:29 Mylanta Oral Suspension - PO 30 ml Q6H PRN Administration DYSPEPSIA Albuterol Sulfate 2 puff 02/20/18 12:05 Ventolin Hfa Inhaler - IH Q4H PRN SHORT OF BREATH/WHEEZING Chlordiazepoxide HCl 25 mg 02/21/18 17:00 02/22/18 06:44 Librium - PO 02/22/18 11:01 Not Given [id number] PER Chlordiazepoxide HCl 15 mg 02/22/18 17:00 Librium - PO 02/23/18 11:01 [id number] PER Chlordiazepoxide HCl 25 mg 02/20/18 12:07 02/21/18 15:47 Librium - PO 02/23/18 12:06 25 mg Q4H PRN Administration WITHDRAWAL(CONT SUBST) Chlordiazepoxide HCl 10 mg 02/23/18 17:00 Librium - PO 02/24/18 11:01 [id number] PER Eucalyptus/Menthol/Phenol/Sorbitol 1 each 02/20/18 12:04 Cepastat Lozenge - MM Q4H PRN SORE THROAT Guaifenesin 10 ml 02/20/18 12:04 Robitussin Dm - PO Q6H PRN COUGH Hydroxyzine Pamoate 50 mg 02/20/18 12:04 Vistaril - PO Q4H PRN AGITATION Ibuprofen 400 mg 02/20/18 12:04 Motrin - PO Q6H PRN PAIN LEVEL 4-6 Loperamide HCl 4 mg 02/20/18 12:04 Imodium - PO Q6H PRN DIARRHEA Magnesium Citrate 300 ml 02/20/18 12:04 Citroma - PO Q48H PRN CONSTIPATION Magnesium Hydroxide 30 ml 02/20/18 12:04 Milk Of Magnesia - PO DAILY PRN CONSTIPATION Melatonin 5 mg 02/20/18 22:00 02/20/18 22:29 Melatonin PO 5 mg HS PRN Administration INSOMNIA Nicotine 21 mg 02/21/18 10:00 02/21/18 10:59 Nicoderm Patch - TD 21 mg DAILY PER Administration Nicotine Polacrilex 2 mg 02/20/18 12:04 Nicorette Gum - BUC Q2H PRN NICOTINE REPLACEMENT RX Multivit/Folic Acid/Iron 1 tab 02/21/18 10:00 02/21/18 10:58 Vitamins (Sjr) - PO 1 tab DAILY PER Administration Pseudoephedrine/Triprolidine 1 combo 02/20/18 12:04 Actifed - PO TID PRN NASAL CONGESTION Quetiapine Fumarate 300 mg 02/22/18 22:00 Seroquel - PO HS PER Thiamine HCl 100 mg 02/20/18 22:00 02/21/18 22:10 Vitamin B1 - PO 100 mg HS PER Administration Medication(s) Change(s): Seroquel 300mg po qhs Mental Status Exam - Mental Status Exam Alert and Oriented to: Person Cognitive Function: Fair Patient Appearance: Unkempt Mood: Anxious Affect: Mood Congruent Patient Behavior: Cooperative Speech Pattern: Appropriate Voice Loudness: Mildly Soft/Quiet Thought Process: Goal Oriented Thought Disorder: Being Controlled Hallucinations: Denies Suicidal Ideation: Denies Homicidal Ideation: Denies Insight/Judgement: Fair Sleep: Difficulty falling asleep Appetite: Weight gain Muscle strength/Tone: Normal Gait/Station: Shuffling Additional Comments: Seroquel 300mg po qhs Psychiatric Treatment Plan - Problem List (1) Alcohol dependence with uncomplicated withdrawal Current Visit: Yes (2) Nicotine dependence Current Visit: Yes Qualifiers: Nicotine product type: cigarettes Substance use status: in withdrawal Qualified Code(s): F17.213 - Nicotine dependence, cigarettes, with withdrawal (3) Asthma Current Visit: Yes Qualifiers: Asthma severity: mild Asthma persistence: intermittent Asthma complication type: with status asthmaticus Qualified Code(s): J45.22 - Mild intermittent asthma with status asthmaticus Comment: mild copd (4) Cocaine dependence, uncomplicated Current Visit: Yes (5) GERD (gastroesophageal reflux disease) Current Visit: Yes Qualifiers: Esophagitis presence: without esophagitis Qualified Code(s): K21.9 - Gastro -esophageal reflux disease without esophagitis (6) HIV (human immunodeficiency virus infection) Current Visit: Yes Comment: not taking any medication, pt states its undetecable (7) Bipolar II disorder Current Visit: No Comment: History. (8) Chronic low back pain Current Visit: No Qualifiers: Back pain laterality: bilateral Sciatica presence: unspecified whether sciatica present Qualified Code(s): M54.5 - Low back pain; G89.29 - Other chronic pain (9) Cocaine dependence Current Visit: No Qualifiers: Substance use status: uncomplicated Qualified Code(s): F14.20 - Cocaine dependence, uncomplicated (10) PTSD (post-traumatic stress disorder) Current Visit: Yes (11) Use of cane as ambulatory aid Current Visit: No Initial treatment plan: Seroquel 300mg po qhs
[2018-02-22] MEDS: PRENATAL VITAMINS W/ FOLIC ACID TABLET (FP) PO SCH (11:19)
[2018-02-22] MEDS: NICOTINE 21 MG/24 HOURS TOPICAL PATCH TD SCH (11:19)
[2018-02-22] MEDS ORDERED: HYDROCORTISONE 1% TOPICAL CREAM 30 GM TUBE TP PRN (11:57)
--- NOTE | 2018-02-22 12:34 | PN ---
S CIWA - CIWA Score Nausea/Vomitin Muscle Tremors: 3 Anxiety: 3 Agitation: 2 Paroxysmal Sweats: 1-Minimal Palms Moist Orientation: 0-Oriented Tacttile Disturbances: 1-Very Mild Itch/Numbness Auditory Disturbances: 1-Very Mild Visual Disturbances: 0-None Headache: 2-Mild CIWA-Ar Total Score: 16 S Progress Note (SOAP) Subjective: alert,irritable,anxious,interrupted sleep,tremor Objective: 02/22/18 12:33 Vital Signs Temperature 97.7 F 02/22/18 11:34 Pulse Rate 90 02/22/18 11:34 Respiratory Rate 16 02/22/18 11:34 Blood Pressure 106/74 02/22/18 11:34 O2 Sat by Pulse Oximetry (%) Laboratory Last Values WBC 5.6 K/mm3 (4.0-10.0) 02/20/18 11:00 RBC 5.37 M/mm3 (4.00-5.60) 02/20/18 11:00 Hgb 15.9 GM/dL (11.7-16.9) 02/20/18 11:00 Hct 47.6 % (35.4-49) 02/20/18 11:00 MCV 88.7 fl (80-96) 02/20/18 11:00 MCH 29.6 pg (25.7-33.7) 02/20/18 11:00 MCHC 33.4 g/dl (32.0-35.9) 02/20/18 11:00 RDW 15.4 % (11.9-15.9) 02/20/18 11:00 Plt Count 277 K/MM3 (134-434) 02/20/18 11:00 MPV 8.0 fl (7.5-11.1) 02/20/18 11:00 Sodium 139 mmol/L (136-145) 02/20/18 11:00 Potassium 4.3 mmol/L (3.5-5.1) 02/20/18 11:00 Chloride 102 mmol/L (98-107) 02/20/18 11:00 Carbon Dioxide 33 mmol/L (21-32) H D 02/20/18 11:00 Anion Gap 4 (8-16) L 02/20/18 11:00 BUN 8 mg/dL (7-18) 02/20/18 11:00 Creatinine 0.9 mg/dL (0.7-1.3) 02/20/18 11:00 Creat Clearance w eGFR > 60 (>60) 02/20/18 11:00 Random Glucose 81 mg/dL (74-106) D 02/20/18 11:00 Calcium 9.1 mg/dL (8.5-10.1) 02/20/18 11:00 Total Bilirubin 0.6 mg/dL (0.2-1.0) 02/20/18 11:00 AST 28 U/L (15-37) D 02/20/18 11:00 ALT 23 U/L (12-78) D 02/20/18 11:00 Alkaline Phosphatase 98 U/L (45-117) 02/20/18 11:00 Total Protein 7.2 g/dl (6.4-8.2) 02/20/18 11:00 Albumin 3.9 g/dl (3.4-5.0) 02/20/18 11:00 Urine Color Ltyellow 02/20/18 15:58 Urine Appearance Clear 02/20/18 15:58 Urine pH 6.0 (5.0-8.0) 02/20/18 15:58 Ur Specific [place] 1.010 (1.001-1.035) 02/20/18 15:58 Urine Protein Negative (NEGATIVE) 02/20/18 15:58 Urine Glucose (UA) Negative (NEGATIVE) 02/20/18 15:58 Urine Ketones Negative (NEGATIVE) 02/20/18 15:58 Urine Blood 2+ (NEGATIVE) H 02/20/18 15:58 Urine Nitrite Negative (NEGATIVE) 02/20/18 15:58 Urine Bilirubin Negative (<2.0 mg/dL) 02/20/18 15:58 Urine Urobilinogen Negative mg/dL (0.2-1.0) 02/20/18 15:58 Ur Leukocyte Esterase Negative (NEGATIVE) 02/20/18 15:58 Urine WBC (Auto) <1 /hpf (3-5) 02/20/18 15:58 Urine RBC (Auto) 7 /hpf (0-3) 02/20/18 15:58 Urine Mucus Rare 02/20/18 15:58 RPR Titer Nonreactive (NONREACTIVE) 02/20/18 11:00 Assessment: 02/22/18 12:33 withdrawal symptom Plan: continue detox
[2018-02-22] MEDS: chlordiazePOXIDE 5 MG CAPSULE PO SCH ×2 (17:56→23:49)
[2018-02-22] MEDS ORDERED: QUEtiapine FUMARATE 300 MG TABLET PO SCH (22:00)
[2018-02-22] MEDS: THIAMINE HCL 100 MG TABLET (FP) PO SCH (23:49)
[2018-02-23] MEDS: chlordiazePOXIDE 5 MG CAPSULE PO SCH ×2 (07:03→10:17)
[2018-02-23] MEDS: NICOTINE 21 MG/24 HOURS TOPICAL PATCH TD SCH (10:17)
[2018-02-23] MEDS: PRENATAL VITAMINS W/ FOLIC ACID TABLET (FP) PO SCH (10:17)
--- NOTE | 2018-02-23 10:46 | PN ---
BHS Progress Note (SOAP) Subjective: alert,no complaint Objective: 02/23/18 10:45 Vital Signs Temperature 98 F 02/23/18 10:09 Pulse Rate 82 02/23/18 10:09 Respiratory Rate 18 02/23/18 10:09 Blood Pressure 111/66 02/23/18 10:09 O2 Sat by Pulse Oximetry (%) Assessment: 02/23/18 10:45 patient is stable for discharge today Plan: discharge [facility]
--- NOTE | 2018-02-23 10:47 | DS ---
[facility] Detox Discharge Summary Admission Date: 02/20/18 Discharge Date: 02/23/18 - History Present History: Alcohol Dependence, Cocaine Dependence Additional Comments: patient is stable to go to [facility] Pertinent Past History: asthma nicotine dependence gerd history of left knee replacement hiv - Physical Exam Results Vital Signs: Vital Signs Temperature 98 F 02/23/18 10:09 Pulse Rate 82 02/23/18 10:09 Respiratory Rate 18 02/23/18 10:09 Blood Pressure 111/66 02/23/18 10:09 O2 Sat by Pulse Oximetry (%) Pertinent Admission Physical Exam Findings: withdrawal signs and symptom Vital Signs Temperature 98 F 02/23/18 10:09 Pulse Rate 82 02/23/18 10:09 Respiratory Rate 18 02/23/18 10:09 Blood Pressure 111/66 02/23/18 10:09 O2 Sat by Pulse Oximetry (%) Laboratory Last Values WBC 5.6 K/mm3 (4.0-10.0) 02/20/18 11:00 RBC 5.37 M/mm3 (4.00-5.60) 02/20/18 11:00 Hgb 15.9 GM/dL (11.7-16.9) 02/20/18 11:00 Hct 47.6 % (35.4-49) 02/20/18 11:00 MCV 88.7 fl (80-96) 02/20/18 11:00 MCH 29.6 pg (25.7-33.7) 02/20/18 11:00 MCHC 33.4 g/dl (32.0-35.9) 02/20/18 11:00 RDW 15.4 % (11.9-15.9) 02/20/18 11:00 Plt Count 277 K/MM3 (134-434) 02/20/18 11:00 MPV 8.0 fl (7.5-11.1) 02/20/18 11:00 Sodium 139 mmol/L (136-145) 02/20/18 11:00 Potassium 4.3 mmol/L (3.5-5.1) 02/20/18 11:00 Chloride 102 mmol/L (98-107) 02/20/18 11:00 Carbon Dioxide 33 mmol/L (21-32) H D 02/20/18 11:00 Anion Gap 4 (8-16) L 02/20/18 11:00 BUN 8 mg/dL (7-18) 02/20/18 11:00 Creatinine 0.9 mg/dL (0.7-1.3) 02/20/18 11:00 Creat Clearance w eGFR > 60 (>60) 02/20/18 11:00 Random Glucose 81 mg/dL (74-106) D 02/20/18 11:00 Calcium 9.1 mg/dL (8.5-10.1) 02/20/18 11:00 Total Bilirubin 0.6 mg/dL (0.2-1.0) 02/20/18 11:00 AST 28 U/L (15-37) D 02/20/18 11:00 ALT 23 U/L (12-78) D 02/20/18 11:00 Alkaline Phosphatase 98 U/L (45-117) 02/20/18 11:00 Total Protein 7.2 g/dl (6.4-8.2) 02/20/18 11:00 Albumin 3.9 g/dl (3.4-5.0) 02/20/18 11:00 Urine Color Ltyellow 02/20/18 15:58 Urine Appearance Clear 02/20/18 15:58 Urine pH 6.0 (5.0-8.0) 02/20/18 15:58 Ur Specific [place] 1.010 (1.001-1.035) 02/20/18 15:58 Urine Protein Negative (NEGATIVE) 02/20/18 15:58 Urine Glucose (UA) Negative (NEGATIVE) 02/20/18 15:58 Urine Ketones Negative (NEGATIVE) 02/20/18 15:58 Urine Blood 2+ (NEGATIVE) H 02/20/18 15:58 Urine Nitrite Negative (NEGATIVE) 02/20/18 15:58 Urine Bilirubin Negative (<2.0 mg/dL) 02/20/18 15:58 Urine Urobilinogen Negative mg/dL (0.2-1.0) 02/20/18 15:58 Ur Leukocyte Esterase Negative (NEGATIVE) 02/20/18 15:58 Urine WBC (Auto) <1 /hpf (3-5) 02/20/18 15:58 Urine RBC (Auto) 7 /hpf (0-3) 02/20/18 15:58 Urine Mucus Rare 02/20/18 15:58 RPR Titer Nonreactive (NONREACTIVE) 02/20/18 11:00 - Treatment Hospital Course: Detox Protocol Followed, Detoxed Safely, Responded well, Discharged Condition Good, Rehab Referral Accepted Patient has Accepted a Re[facility] Referral [facility]: [facility] - Medication Discharge Medications: Ambulatory Orders Albuterol Sulfate Inhaler - [Ventolin Hfa Inhaler -] 2 inh PO Q4H PRN #1 inhaler 11/05/17 Pantoprazole Sodium [Protonix -] 20 mg PO DAILY #30 tablet.ec 11/05/17 Quetiapine Fumarate [Seroquel -] 200 mg PO HS #30 tab 11/05/17 Quetiapine Fumarate [Seroquel -] 300 mg PO HS #30 tablet 02/22/18 - Diagnosis (1) Alcohol dependence with uncomplicated withdrawal Current Visit: Yes Status: Acute (2) Nicotine dependence Current Visit: Yes Status: Acute Qualifiers: Nicotine product type: cigarettes Substance use status: in withdrawal Qualified Code(s): F17.213 - Nicotine dependence, cigarettes, with withdrawal (3) Asthma Current Visit: Yes Status: Chronic Qualifiers: Asthma severity: mild Asthma persistence: intermittent Asthma complication type: with status asthmaticus Qualified Code(s): J45.22 - Mild intermittent asthma with status asthmaticus (4) Cocaine dependence, uncomplicated Current Visit: Yes Status: Chronic (5) GERD (gastroesophageal reflux disease) Current Visit: Yes Status: Chronic Qualifiers: Esophagitis presence: without esophagitis Qualified Code(s): K21.9 - Gastro -esophageal reflux disease without esophagitis (6) History of left knee replacement Current Visit: Yes Status: Chronic (7) HIV (human immunodeficiency virus infection) Current Visit: Yes Status: Chronic - AMA Did Patient Leave Against Medical Advice: No
[2018-02-23 14:38] VITALS: PULSE 89
[2018-02-23] MEDS ORDERED: chlordiazePOXIDE HCL 10 MG CAPSULE PO SCH (17:00)
[2018-02-23 17:37] VITALS: BP 116/61; TEMP 99.3
== END 2018-02-23 17:55 | disposition other institution (70) | DRG 774 ==
LOC: YASAS 10:27 → Y6N 13:56
PROVIDERS: ADMIT Surgery; ATTEND Surgery
PROC: HZ2ZZZZ Detoxification Services for Substance Abuse Treatment (ICD-10-PCS; principal; 2018-02-20)
DX: F10.230 Alcohol dependence with withdrawal, uncomplicated (principal); F14.20 Cocaine dependence, uncomplicated; F17.213 Nicotine dependence, cigarettes, with withdrawal; F43.10 Post-traumatic stress disorder, unspecified; F39 Unspecified mood [affective] disorder; Z21 Asymptomatic human immunodeficiency virus [HIV] infection status; J45.22 Mild intermittent asthma with status asthmaticus; K21.9 Gastro-esophageal reflux disease without esophagitis; M54.5 Low back pain; G89.29 Other chronic pain; R26.89 Other abnormalities of gait and mobility; Z99.89 Dependence on other enabling machines and devices; Z96.652 Presence of left artificial knee joint; Z86.59 Personal history of other mental and behavioral disorders; Z59.0 Homelessness
CPT/HCPCS: 36415; 80053; 81003; 81015; 85027; 86593; 93005; 93010

== ENCOUNTER 2018-04-10 11:01 | Inpatient (IN) | payer OTHER ==
[2018-04-10 11:39] VITALS: BMI 23.2
--- NOTE | 2018-04-10 15:52 | HP ---
CIWA Score - CIWA Score Nausea/Vomitin-No Nausea/No Vomiting Muscle Tremors: 4-Moderate,w/Arms Extend Anxiety: 5 Agitation: 3 Paroxysmal Sweats: 1-Minimal Palms Moist Orientation: 0-Oriented Tacttile Disturbances: 0-None Auditory Disturbances: 0-None Visual Disturbances: 0-None Headache: 0-None Present CIWA-Ar Total Score: 13 Admission ROS BHS - HPI Chief Complaint: ALCOHOL WITHDRAWAL SX Allergies/Adverse Reactions: Allergies Allergy/AdvReac Type Severity Reaction Status Date / Time No Known Allergies Allergy Verified 04/10/18 12:19 History of Present Illness: 53 Y/O AA/MALE WITH A HX OF ALCOHOL,CRACK AND MARIJUANA DEPENDENCE SEEKING DETOX [place] Exam Limitations: No Limitations - Ebola screening Have you traveled outside of the country in the last 21 days: No Have you had contact with anyone from an Ebola affected area: No Have you been sick,other than usual withdrawal symptoms: No Do you have a fever: No - Review of Systems Constitutional: Loss of Appetite, Changes in sleep, Unintentional Wgt. Loss EENT: reports: Blurred Vision, Dental Problems (MISSING TEETH) Respiratory: reports: Shortness of Breath (MDI), Wheezing Cardiac: reports: No Symptoms Reported GI: reports: Poor Appetite, Poor Fluid Intake : reports: No Symptoms Reported Musculoskeletal: reports: Back Pain, Joint Pain (HX ARTHRITIS), Muscle Pain Integumentary: reports: No Symptoms Reported Neuro: reports: Numbness, Tingling Endocrine: reports: No Symptoms Reported Hematology: reports: No Symptoms Reported Psychiatric: reports: Orientated x3, Anxious, Depressed Other Systems: Reviewed and Negative Patient History - Patient Medical History Hx Anemia: No Hx Asthma: Yes (MDI) Hx Chronic Obstructive Pulmonary Disease (COPD): No Hx Cancer: No Hx Cardiac Disorders: No Hx Congestive Heart Failure: No Hx Hypertension: No Hx Hypercholesterolemia: No Hx Pacemaker: No HX Cerebrovascular Accident: No Hx Seizures: No Hx Dementia: No Hx Diabetes: No Hx Gastrointestinal Disorders: Yes (acid reflux) Hx Liver Disease: No Hx Genitourinary Disorders: No Hx Sexually Transmitted Disorders: No Hx Renal Disease (ESRD): No Hx Thyroid Disease: No Hx Human Immunodeficiency Virus (HIV): Yes (since 1982/undetectable. ) Hx Hepatitis C: No (negative) Hx Depression: Yes (SEROQUEL IN THE PAST.) Hx Suicide Attempt: No (DENIES S/I) Hx Bipolar Disorder: No Hx Schizophrenia: No - Patient Surgical History Past Surgical History: Yes Hx Neurologic Surgery: No Hx Cataract Extraction: No Hx Cardiac Surgery: No Hx Lung Surgery: No Hx Breast Surgery: No Hx Breast Biopsy: No Hx Abdominal Surgery: No Hx Appendectomy: No Hx Cholecystectomy: No Hx Genitourinary Surgery: No Hx Section: No Hx Orthopedic Surgery: Yes (total knee replacement left in 2004) Anesthesia Reaction: No - PPD History Previous Implant?: Yes Documented Results: Negative w/proof Implanted On Prior [facility] Admission?: Yes Date: 08/05/17 Results: 0 mm PPD to be Administered?: No - Reproductive History Patient is a Female of Child Bearing Age (11 -55 yrs old): No (MALE) - Smoking Cessation Smoking history: Current every day smoker Have you smoked in the past 12 months: Yes Aproximately how many cigarettes per day: 20 Cigars Per Day: 0 Hx Chewing Tobacco Use: No Initiated information on smoking cessation: Yes 'Breaking Loose' booklet given: 04/10/18 - Substance & Tx. History Hx Alcohol Use: Yes Hx Substance Use: Yes Substance Use Type: Alcohol, Cocaine, Marijuana Hx Substance Use Treatment: Yes (LAST [place] AT [facility]) - Substances Abused Crack Route: Smoking Frequency: 3-6 times per week Amount used: $60 Age of first use: 15 Date of Last Use: 04/07/18 Alcohol-beer Route: Oral Frequency: Daily Amount used: 2-6 pks. Age of first use: 8 Date of Last Use: 04/10/18 Family Disease History - Family Disease History Family Disease History: Diabetes: Mother (alcohol, ), Other: Father ( alcohol,), Mother Admission Physical Exam S - Vital Signs Vital Signs: Vital Signs - 24 hr 04/10/18 11:37 Temperature 97.9 F Pulse Rate 80 Respiratory 18 Rate Blood Pressure 129/80 - Physical General Appearance: Yes: Moderate Distress, Irritable, Anxious HEENTM: Yes: EOMI, Pharynx Normal Respiratory: Yes: Chest Non-Tender, Lungs Clear, Normal Breath Sounds, No Respiratory Distress Neck: Yes: No masses,lesions,Nodules, Supple, Trachea in good position Breast: Yes: Breast Exam Deferred Cardiology: Yes: Regular Rhythm, Regular Rate, S1, S2 Abdominal: Yes: Normal Bowel Sounds, Non Tender, Flat, Soft Genitourinary: Yes: Other (N/C) Back: Yes: Within Normal Limits Musculoskeletal: Yes: full range of Motion, Gait Steady Extremities: Yes: Normal Range of Motion, Non-Tender Neurological: Yes: clinical trial manager II-XII NML intact, Fully Oriented, Alert, Motor Strength 5/5 Integumentary: Yes: Dry, Warm Lymphatic: Yes: Within Normal Limits - Diagnostic (1) Alcohol dependence with uncomplicated withdrawal Current Visit: Yes Status: Acute (2) Cannabis dependence Current Visit: Yes Status: Acute (3) Weight loss Current Visit: Yes Status: Acute (4) Arthritis Current Visit: Yes Status: Chronic Comment: naproxen (5) Asthma Current Visit: Yes Status: Chronic Qualifiers: Asthma severity: mild Asthma persistence: unspecified Asthma complication type: uncomplicated Qualified Code(s): J45.909 - Unspecified asthma, uncomplicated Comment: mild copd (6) Cocaine dependence, uncomplicated Current Visit: Yes Status: Acute (7) GERD (gastroesophageal reflux disease) Current Visit: Yes Status: Chronic Qualifiers: Esophagitis presence: esophagitis presence not specified Qualified Code(s) : K21.9 - Gastro-esophageal reflux disease without esophagitis (8) Use of cane as ambulatory aid Current Visit: Yes Status: Chronic (9) HIV (human immunodeficiency virus infection) Current Visit: Yes Status: Chronic Comment: not taking any medication, pt states its undetecable (10) Chronic 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 Current Visit: Yes Status: Chronic (11) Chronic low back pain Current Visit: Yes Status: Chronic Qualifiers: Back pain laterality: bilateral Sciatica presence: unspecified whether sciatica present Qualified Code(s): M54.5 - Low back pain; G89.29 - Other chronic pain Cleared for Admission S - Detox or Rehab [facility] Level of Care: Medically Managed Detox Regimen/Protocol: Librium [facility] Breath Alcohol Content Breath Alcohol Content: 0 Urine Drug Screen - Results Drug Screen Negative: No Urine Drug Screen Results: THC-Marijuana, FELIZ-Cocaine, BZO-Benzodiazepines
[2018-04-10] MEDS ORDERED: MAG HYDROX/AL HYDROX/SIMETH 30 ML UNIT-DOSE CUP PO PRN (16:08)
[2018-04-10] MEDS ORDERED: chlordiazePOXIDE HCL 25 MG CAPSULE PO PRN (16:08)
[2018-04-10] MEDS ORDERED: ACETAMINOPHEN 325 MG TABLET (FP) PO PRN (16:08)
[2018-04-10] MEDS ORDERED: hydrOXYzine PAMOATE 50 MG CAPSULE (FP) PO PRN (16:08)
[2018-04-10] MEDS ORDERED: MAGNESIUM CITRATE 300 ML BOTTLE PO PRN (16:08)
[2018-04-10] MEDS ORDERED: guaiFENesin/D-METHORPHAN HB 10 ML UNIT-DOSE CUPS PO PRN (16:08)
[2018-04-10] MEDS ORDERED: MENTHOL/PHENOL 1 EACH UD MM PRN (16:08)
[2018-04-10] MEDS ORDERED: P-EPHED 60MG/TRIPROLIDI 2.5MG TABLET PO PRN (16:08)
[2018-04-10] MEDS ORDERED: MAGNESIUM HYDROX 2400MG/30ML ORAL SUSPENSION 30 ML CUP PO PRN (16:08)
[2018-04-10] MEDS ORDERED: LOPERAMIDE HCL 2 MG CAPSULE PO PRN (16:08)
[2018-04-10] MEDS ORDERED: NICOTINE POLACRILEX 4 MG GUM BC PRN (16:08)
[2018-04-10] MEDS ORDERED: ALBUTEROL SO4 8 GM HFA INHALER IH PRN (16:21)
[2018-04-10] MEDS ORDERED: chlordiazePOXIDE HCL 25 MG CAPSULE ONE (17:14)
[2018-04-10] MEDS ORDERED: chlordiazePOXIDE HCL 25 MG CAPSULE PO ONE (18:00)
[2018-04-10] MEDS: NICOTINE 21 MG/24 HOURS TOPICAL PATCH TD SCH (20:12)
[2018-04-10] MEDS ORDERED: MELATONIN 5 MG TABLETS PO PRN (22:00)
[2018-04-10] MEDS: THIAMINE HCL 100 MG TABLET (FP) PO SCH (22:55)
[2018-04-10] MEDS: chlordiazePOXIDE HCL 25 MG CAPSULE PO SCH (22:55)
[2018-04-10 23:21] LABS: URINE APPEARANCE CLEAR; URINE BILIRUBIN NEGATIVE (<2.0 mg/dL); URINE COLOR YELLOW; URINE GLUCOSE (UA) NEGATIVE (NEGATIVE); URINE KETONE NEGATIVE (NEGATIVE); URINE LEUK ESTERASE NEGATIVE (NEGATIVE); URINE NITRITE NEGATIVE (NEGATIVE); URINE PROTEIN NEGATIVE (NEGATIVE); URINE UROBILINOGEN NEGATIVE mg/dL (0.2-1.0)
[2018-04-11] MEDS: chlordiazePOXIDE HCL 25 MG CAPSULE PO SCH ×4 (05:37→22:41)
[2018-04-11 10:16] LABS: HEMATOCRIT 46.8 % (35.4-49); MCH 28.7 pg (25.7-33.7); MCHC 32.1 g/dl (32.0-35.9); MEAN CELL VOLUME 89.3 fl (80-96); MEAN PLT VOLUME 7.7 fl (7.5-11.1); PLATELET COUNT 297 K/MM3 (134-434); RBC 5.24 M/mm3 (4.00-5.60); RDW 15.8 % (11.9-15.9)
[2018-04-11] MEDS: PRENATAL VITAMINS W/ FOLIC ACID TABLET (FP) PO SCH (10:41)
[2018-04-11] MEDS: NICOTINE 21 MG/24 HOURS TOPICAL PATCH TD SCH (10:41)
[2018-04-11] MEDS: IBUPROFEN 400 MG TABLET (FP) PO PRN (10:42)
[2018-04-11 11:32] LABS: CHLORIDE 103 mmol/L (98-107); POTASSIUM 4.2 mmol/L (3.5-5.1); SODIUM 140 mmol/L (136-145)
[2018-04-11 11:43] LABS: ALBUMIN 3.7 g/dl (3.4-5.0); ALK PHOS 108 U/L (45-117); ANION GAP 7 MMOL/L (8-16); BILIRUBIN,TOTAL 0.4 mg/dL (0.2-1.0); BLOOD UREA NITROGEN 10 mg/dL (7-18); CALCIUM 8.7 mg/dL (8.5-10.1); CO2 30 mmol/L (21-32); CREATININE 0.9 mg/dL (0.7-1.3); GLUCOSE,RANDOM 70 mg/dL (74-106); SGOT/AST 20 U/L (15-37); SGPT/ALT 19 U/L (12-78); TOT PROT 7.2 g/dl (6.4-8.2)
--- NOTE | 2018-04-11 12:45 | PN ---
S CIWA - CIWA Score Nausea/Vomitin-No Nausea/No Vomiting Muscle Tremors: 4-Moderate,w/Arms Extend Anxiety: 4-Mod. Anxious/Guarded Agitation: 4-Moderately Restless Paroxysmal Sweats: 1-Minimal Palms Moist Orientation: 0-Oriented Tacttile Disturbances: 0-None Auditory Disturbances: 0-None Visual Disturbances: 0-None Headache: 0-None Present CIWA-Ar Total Score: 13 BHS Progress Note (SOAP) Subjective: ANXIETY,TREMORS,SWEATS,FATIGUE. Objective: 04/11/18 12:45 Vital Signs 04/11/18 04/11/18 06:34 10:31 Temperature 97.4 F L 98.2 F Pulse Rate 76 75 Respiratory 18 18 Rate Blood Pressure 107/63 112/75 Laboratory Tests 04/10/18 04/11/18 04/11/18 23:08 06:00 06:00 WBC 4.0 RBC 5.24 Hgb 15.0 Hct 46.8 MCV 89.3 MCH 28.7 MCHC 32.1 RDW 15.8 Plt Count 297 MPV 7.7 Sodium 140 Potassium 4.2 Chloride 103 Carbon Dioxide 30 Anion Gap 7 L BUN 10 Creatinine 0.9 Creat Clearance w eGFR > 60 Random Glucose 70 L Calcium 8.7 Total Bilirubin 0.4 AST 20 D ALT 19 Alkaline Phosphatase 108 Total Protein 7.2 Albumin 3.7 Urine Color Yellow Urine Appearance Clear Urine pH 6.0 Ur Specific [place] 1.017 Urine Protein Negative Urine Glucose (UA) Negative Urine Ketones Negative Urine Blood Negative Urine Nitrite Negative Urine Bilirubin Negative Urine Urobilinogen Negative Ur Leukocyte Esterase Negative Assessment: 04/11/18 12:45 WITHDRAWAL SX Plan: CONTINUE DETOX INCREASE PO FLUIDS
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
--- NOTE | 2018-04-11 17:23 | EKG ---
Test Reason : Blood Pressure : / mmHG Vent. Rate : 075 BPM Atrial Rate : 075 BPM P-R Int : 172 ms QRS Dur : 082 ms QT Int : 364 ms P-R-T Axes : 065 006 026 degrees QTc Int : 406 ms NORMAL SINUS RHYTHM NONSPECIFIC ST AND T WAVE ABNORMALITY ABNORMAL ECG Confirmed by MD KAITLIN, CONCHA ([id number]) on 04/11/2018 5:23:27 PM Referred By: Confirmed By:CONCHA MADRIGAL MD
[2018-04-11] MEDS: QUEtiapine FUMARATE 200 MG TABLET PO SCH (22:41)
[2018-04-11] MEDS: THIAMINE HCL 100 MG TABLET (FP) PO SCH (22:41)
[2018-04-12] MEDS: chlordiazePOXIDE HCL 25 MG CAPSULE PO SCH ×3 (06:14→16:57)
[2018-04-12] MEDS: PRENATAL VITAMINS W/ FOLIC ACID TABLET (FP) PO SCH (10:36)
[2018-04-12] MEDS: NICOTINE 21 MG/24 HOURS TOPICAL PATCH TD SCH (10:37)
[2018-04-12] MEDS: IBUPROFEN 400 MG TABLET (FP) PO PRN (10:38)
--- NOTE | 2018-04-12 14:49 | PN ---
[facility] CIWA - CIWA Score Nausea/Vomitin-No Nausea/No Vomiting Muscle Tremors: 3 Anxiety: 4-Mod. Anxious/Guarded Agitation: 4-Moderately Restless Paroxysmal Sweats: No Perspiration Orientation: 0-Oriented Tacttile Disturbances: 0-None Auditory Disturbances: 0-None Visual Disturbances: 0-None Headache: 0-None Present CIWA-Ar Total Score: 11 S Progress Note (SOAP) Subjective: ANXIETY,,FATIGUE. DETOX TAPER PROCEEDING WELL. Objective: 04/12/18 14:49 Vital Signs 04/12/18 04/12/18 10:50 13:51 Temperature 98.4 F 98.6 F Pulse Rate 107 H 74 Respiratory 18 18 Rate Blood Pressure 129/88 124/76 Laboratory Tests 04/10/18 04/11/18 04/11/18 23:08 06:00 06:00 WBC 4.0 RBC 5.24 Hgb 15.0 Hct 46.8 MCV 89.3 MCH 28.7 MCHC 32.1 RDW 15.8 Plt Count 297 MPV 7.7 Sodium 140 Potassium 4.2 Chloride 103 Carbon Dioxide 30 Anion Gap 7 L BUN 10 Creatinine 0.9 Creat Clearance w eGFR > 60 Random Glucose 70 L Calcium 8.7 Total Bilirubin 0.4 AST 20 D ALT 19 Alkaline Phosphatase 108 Total Protein 7.2 Albumin 3.7 Urine Color Yellow Urine Appearance Clear Urine pH 6.0 Ur Specific Stephan 1.017 Urine Protein Negative Urine Glucose (UA) Negative Urine Ketones Negative Urine Blood Negative Urine Nitrite Negative Urine Bilirubin Negative Urine Urobilinogen Negative Ur Leukocyte Esterase Negative RPR Titer 04/11/18 06:00 WBC RBC Hgb Hct MCV MCH MCHC RDW Plt Count MPV Sodium Potassium Chloride Carbon Dioxide Anion Gap BUN Creatinine Creat Clearance w eGFR Random Glucose Calcium Total Bilirubin AST ALT Alkaline Phosphatase Total Protein Albumin Urine Color Urine Appearance Urine pH Ur Specific Stephan Urine Protein Urine Glucose (UA) Urine Ketones Urine Blood Urine Nitrite Urine Bilirubin Urine Urobilinogen Ur Leukocyte Esterase RPR Titer Nonreactive Assessment: 04/12/18 14:49 WITHDRAWAL SX Plan: CONTINUE DETOX
[2018-04-12] MEDS: chlordiazePOXIDE 5 MG CAPSULE PO SCH (22:08)
[2018-04-12] MEDS: THIAMINE HCL 100 MG TABLET (FP) PO SCH (22:08)
[2018-04-12] MEDS: QUEtiapine FUMARATE 200 MG TABLET PO SCH (22:08)
[2018-04-13] MEDS: chlordiazePOXIDE 5 MG CAPSULE PO SCH ×3 (06:04→17:37)
[2018-04-13] MEDS: PRENATAL VITAMINS W/ FOLIC ACID TABLET (FP) PO SCH (10:44)
[2018-04-13] MEDS: NICOTINE 21 MG/24 HOURS TOPICAL PATCH TD SCH (10:44)
--- NOTE | 2018-04-13 13:10 | PN ---
[facility] CIWA - CIWA Score Nausea/Vomitin-No Nausea/No Vomiting Muscle Tremors: None Anxiety: 0-No Anxiety, at Ease Agitation: 0-Normal Activity Paroxysmal Sweats: No Perspiration Orientation: 0-Oriented Tacttile Disturbances: 0-None Auditory Disturbances: 0-None Visual Disturbances: 0-None Headache: 1-Very Mild CIWA-Ar Total Score: 1 S Progress Note (SOAP) Subjective: patient states he feels okay. Has mild headache. Objective: 04/13/18 13:08 Vital Signs Temperature 97.6 F 04/13/18 10:08 Pulse Rate 86 04/13/18 10:08 Respiratory Rate 20 04/13/18 10:08 Blood Pressure 119/80 04/13/18 10:08 O2 Sat by Pulse Oximetry (%) Laboratory Tests 04/10/18 04/11/18 04/11/18 23:08 06:00 06:00 WBC 4.0 RBC 5.24 Hgb 15.0 Hct 46.8 MCV 89.3 MCH 28.7 MCHC 32.1 RDW 15.8 Plt Count 297 MPV 7.7 Sodium 140 Potassium 4.2 Chloride 103 Carbon Dioxide 30 Anion Gap 7 L BUN 10 Creatinine 0.9 Creat Clearance w eGFR > 60 Random Glucose 70 L Calcium 8.7 Total Bilirubin 0.4 AST 20 D ALT 19 Alkaline Phosphatase 108 Total Protein 7.2 Albumin 3.7 Urine Color Yellow Urine Appearance Clear Urine pH 6.0 Ur Specific [place] 1.017 Urine Protein Negative Urine Glucose (UA) Negative Urine Ketones Negative Urine Blood Negative Urine Nitrite Negative Urine Bilirubin Negative Urine Urobilinogen Negative Ur Leukocyte Esterase Negative RPR Titer 04/11/18 06:00 WBC RBC Hgb Hct MCV MCH MCHC RDW Plt Count MPV Sodium Potassium Chloride Carbon Dioxide Anion Gap BUN Creatinine Creat Clearance w eGFR Random Glucose Calcium Total Bilirubin AST ALT Alkaline Phosphatase Total Protein Albumin Urine Color Urine Appearance Urine pH Ur Specific [place] Urine Protein Urine Glucose (UA) Urine Ketones Urine Blood Urine Nitrite Urine Bilirubin Urine Urobilinogen Ur Leukocyte Esterase RPR Titer Nonreactive Assessment: 04/13/18 13:09 Withdrawal syndrome Plan: Continue detox as per protocol
[2018-04-13] MEDS: THIAMINE HCL 100 MG TABLET (FP) PO SCH (22:04)
[2018-04-13] MEDS: QUEtiapine FUMARATE 200 MG TABLET PO SCH (22:04)
[2018-04-13] MEDS: chlordiazePOXIDE HCL 10 MG CAPSULE PO SCH (22:08)
[2018-04-14 06:10] VITALS: PULSE 83
[2018-04-14] MEDS: chlordiazePOXIDE HCL 10 MG CAPSULE PO SCH ×2 (06:45→10:35)
--- NOTE | 2018-04-14 09:19 | DS ---
[facility] Detox Discharge Summary Admission Date: 04/10/18 Discharge Date: 04/14/18 - History Present History: Alcohol Dependence, Cannabis Dependence, Cocaine Dependence Additional Comments: Patient to follow up with primary care provider 1-2 weeks - Physical Exam Results Vital Signs: Vital Signs Temperature 98.3 F 04/14/18 06:09 Pulse Rate 83 04/14/18 06:09 Respiratory Rate 18 04/14/18 06:30 Blood Pressure 109/74 04/14/18 06:09 O2 Sat by Pulse Oximetry (%) - Treatment Hospital Course: Detox Protocol Followed, Detoxed Safely, Responded well, Discharged Condition Good, Rehab Referral Accepted Patient has Accepted a Rehab Referral to: [facility] - Medication Discharge Medications: Ambulatory Orders Albuterol Sulfate Inhaler - [Ventolin HFA Inhaler -] 2 inh PO Q4H PRN #1 inhaler 11/05/17 Pantoprazole Sodium [Protonix -] 20 mg PO DAILY #30 tablet.ec 11/05/17 Quetiapine Fumarate [Seroquel -] 200 mg PO HS #30 tab 11/05/17 Quetiapine Fumarate [Seroquel -] 200 mg PO HS #30 tab 04/12/18 Albuterol Sulfate Inhaler - [Ventolin HFA Inhaler -] 2 puff IH Q4H PRN #1 inhaler 04/14/18 - Diagnosis (1) Alcohol dependence with uncomplicated withdrawal Current Visit: Yes Status: Acute (2) Cannabis dependence Current Visit: Yes Status: Acute (3) Cocaine dependence Current Visit: Yes Status: Acute Qualifiers: Substance use status: uncomplicated Qualified Code(s): F14.20 - Cocaine dependence, uncomplicated (4) Cocaine dependence, uncomplicated Current Visit: Yes Status: Acute (5) Nicotine dependence Current Visit: Yes Status: Acute Qualifiers: Nicotine product type: cigarettes Substance use status: in withdrawal Qualified Code(s): F17.213 - Nicotine dependence, cigarettes, with withdrawal (6) Arthritis Current Visit: Yes Status: Chronic (7) Asthma Current Visit: Yes Status: Chronic Qualifiers: Asthma severity: mild Asthma persistence: unspecified Asthma complication type: uncomplicated Qualified Code(s): J45.909 - Unspecified asthma, uncomplicated (8) GERD (gastroesophageal reflux disease) Current Visit: Yes Status: Chronic Qualifiers: Esophagitis presence: esophagitis presence not specified Qualified Code(s) : K21.9 - Gastro-esophageal reflux disease without esophagitis (9) HIV (human immunodeficiency virus infection) Current Visit: Yes Status: Chronic (10) Use of cane as ambulatory aid Current Visit: Yes Status: Chronic (11) Asthma Current Visit: No Status: Chronic Qualifiers: Asthma severity: mild Asthma persistence: intermittent Asthma complication type: uncomplicated Qualified Code(s): J45.20 - Mild intermittent asthma, uncomplicated - AMA Did Patient Leave Against Medical Advice: No
[2018-04-14 09:58] VITALS: BP 113/74; TEMP 97.3
[2018-04-14] MEDS: NICOTINE 21 MG/24 HOURS TOPICAL PATCH TD SCH (10:35)
[2018-04-14] MEDS: PRENATAL VITAMINS W/ FOLIC ACID TABLET (FP) PO SCH (10:35)
== END 2018-04-14 12:43 | disposition home or self-care (01) | DRG 774 ==
LOC: YASAS 11:01 → Y3N 16:04
PROC: HZ2ZZZZ Detoxification Services for Substance Abuse Treatment (ICD-10-PCS; principal; 2018-04-10)
DX: F10.230 Alcohol dependence with withdrawal, uncomplicated (principal); F14.20 Cocaine dependence, uncomplicated; F12.20 Cannabis dependence, uncomplicated; F17.213 Nicotine dependence, cigarettes, with withdrawal; F31.9 Bipolar disorder, unspecified; F43.10 Post-traumatic stress disorder, unspecified; F19.24 Other psychoactive substance dependence with psychoactive substance-induced mood disorder; Z21 Asymptomatic human immunodeficiency virus [HIV] infection status; G47.00 Insomnia, unspecified; M12.9 Arthropathy, unspecified; K21.9 Gastro-esophageal reflux disease without esophagitis; R26.89 Other abnormalities of gait and mobility; Z99.89 Dependence on other enabling machines and devices; R63.4 Abnormal weight loss; Z68.23 Body mass index [BMI] 23.0-23.9, adult; Z59.0 Homelessness
CPT/HCPCS: 36415; 80053; 81003; 85027; 86593; 93005; 93010

== ENCOUNTER 2018-07-11 08:43 | Inpatient (IN) | payer OTHER ==
[2018-07-11 09:09] VITALS: BMI 23.5
--- NOTE | 2018-07-11 09:11 | HP ---
CIWA Score Nausea/Vomitin Muscle Tremors: 2 Anxiety: 2 Agitation: 2 Paroxysmal Sweats: 1-Minimal Palms Moist Orientation: 0-Oriented Tacttile Disturbances: 1-Very Mild Itch/Numbness Auditory Disturbances: 1-Very Mild Visual Disturbances: 0-None Headache: 2-Mild CIWA-Ar Total Score: 13 - Admission Criteria [facility]ASAS Guidelines: Admission for Medically Managed Detox: Requires at least one of the followin. CIWA greater than 12 2. Seizures within the past 24 hours 3. Delirium tremens within the past 24 hours 4. Hallucinations within the past 24 hours 5. Acute intervention needed for co occurring medical disorder 6. Acute intervention needed for co occurring psychiatric disorder 7. Severe withdrawal that cannot be handled at a lower level of care (continued vomiting, continued diarrhea, abnormal vital signs) requiring intravenous medication and/or fluids 8. Patient presents the following: CIWA greater than 12 Admission Criteria Met: Admission criteria met Admission ROS S - HPI Chief Complaint: i am here to stop drinking alcohol,carack and marijuana Allergies/Adverse Reactions: Allergies Allergy/AdvReac Type Severity Reaction Status Date / Time No Known Allergies Allergy Verified 07/11/18 09:15 History of Present Illness: this 53years old with alcohol,cocaine and marijuana dependence,seeking detox, withdrawal symptom,last detox 04/10/18 to 04/14/18 syncope alcohol related hiv since 1982,no med s/p left knee replacement since 2004 weight loss nicotine dependence multiple admissions in detox but keep relapsing longest period of sobriety for 1 year Exam Limitations: No Limitations - Ebola screening Have you traveled outside of the country in the last 21 days: No Have you had contact with anyone from an Ebola affected area: No Have you been sick,other than usual withdrawal symptoms: No - Review of Systems Constitutional: Loss of Appetite, Malaise, Night Sweats, Changes in sleep, Weakness, Unintentional Wgt. Loss EENT: reports: Nose Congestion Respiratory: reports: No Symptoms reported Cardiac: reports: No Symptoms Reported GI: reports: Diarrhea, Nausea, Poor Appetite, Abdominal cramping : reports: No Symptoms Reported Musculoskeletal: reports: Back Pain, Muscle Pain Integumentary: reports: Dryness Neuro: reports: Headache, Tremors Endocrine: reports: No Symptoms Reported Hematology: reports: No Symptoms Reported, Other (hv) Psychiatric: reports: No Sypmtoms Reported, Judgement Intact, Mood/Affect Appropiate, Orientated x3 Patient History - Patient Medical History Hx Anemia: No Hx Asthma: Yes (MDI) Hx Chronic Obstructive Pulmonary Disease (COPD): No Hx Cancer: No Hx Cardiac Disorders: No Hx Congestive Heart Failure: No Hx Hypertension: No Hx Hypercholesterolemia: No Hx Pacemaker: No HX Cerebrovascular Accident: No Hx Seizures: No Hx Dementia: No Hx Diabetes: No Hx Gastrointestinal Disorders: Yes (acid reflux) Hx Liver Disease: No Hx Genitourinary Disorders: No Hx Sexually Transmitted Disorders: No Hx Renal Disease (ESRD): No Hx Thyroid Disease: No Hx Human Immunodeficiency Virus (HIV): Yes (since 1982/undetectable. ) Hx Hepatitis C: No (negative) Hx Depression: Yes (SEROQUEL IN THE PAST.) Hx Suicide Attempt: No (DENIES S/I) Hx Bipolar Disorder: No Hx Schizophrenia: No Other Medical History: no sucidal,no homicidal - Patient Surgical History Past Surgical History: Yes Hx Neurologic Surgery: No Hx Cataract Extraction: No Hx Cardiac Surgery: No Hx Lung Surgery: No Hx Breast Surgery: No Hx Breast Biopsy: No Hx Abdominal Surgery: No Hx Appendectomy: No Hx Cholecystectomy: No Hx Genitourinary Surgery: No Hx Section: No Hx Orthopedic Surgery: Yes (total knee replacement left in 2004) Anesthesia Reaction: No - PPD History Previous Implant?: Yes Documented Results: Negative w/proof Implanted On Prior [facility] Admission?: No Date: 08/05/17 Results: 0 mm PPD to be Administered?: No - Smoking Cessation Smoking history: Current every day smoker Have you smoked in the past 12 months: Yes Aproximately how many cigarettes per day: 20 Cigars Per Day: 0 Hx Chewing Tobacco Use: No Initiated information on smoking cessation: Yes 'Breaking Loose' booklet given: 07/11/18 - Substance & Tx. History Hx Alcohol Use: Yes Hx Substance Use: Yes Substance Use Type: Alcohol, Cocaine, Marijuana Hx Substance Use Treatment: Yes ([facility] 04/10/18 to 04/14/18) - Substances Abused Alcohol Route: Oral Frequency: Daily Amount used: 3 pints of vodka/2 of 6 packs of 24 ozs of beer Age of first use: 7 Date of Last Use: 07/10/18 Cocaine Route: Smoking Frequency: 1-2 times per week Amount used: 60$ Age of first use: 8 Date of Last Use: 07/07/18 Marijuana/Hashish Route: Smoking Frequency: 1-2 times per week Amount used: 20$ Age of first use: 8 Date of Last Use: 07/06/18 Family Disease History - Family Disease History Family Disease History: Diabetes: Mother (alcohol, ), Other: Father ( alcohol,), Mother Admission Physical Exam S - Vital Signs Vital Signs: Vital Signs - 24 hr 07/11/18 08:57 Temperature 98.9 F Pulse Rate 81 Respiratory 20 Rate Blood Pressure 110/76 - Physical General Appearance: Yes: Moderate Distress, Tremorous, Irritable, Sweating, Anxious HEENTM: Yes: Normal ENT Inspection, DOMINGO, Pharynx Normal Respiratory: Yes: Lungs Clear, Normal Breath Sounds, No Respiratory Distress Neck: Yes: Within Normal Limits, Supple, Trachea in good position Breast: Yes: Within Normal Limits Cardiology: Yes: Within Normal Limits, Regular Rhythm, Regular Rate, S1, S2 Abdominal: Yes: Within Normal Limits, Normal Bowel Sounds, Non Tender, Soft Genitourinary: Yes: Within Normal Limits Back: Yes: Muscle Spasm Extremities: Yes: Tremors Neurological: Yes: Within Normal Limits, pickup driver II-XII NML intact, Fully Oriented, Alert, Motor Strength 5/5 Integumentary: Yes: Dry Lymphatic: Yes: Within Normal Limits - Diagnostic (1) Alcohol dependence with uncomplicated withdrawal Current Visit: Yes Status: Acute (2) Cannabis dependence Current Visit: No Status: Chronic (3) Cocaine dependence Current Visit: No Status: Chronic Qualifiers: Substance use status: uncomplicated Qualified Code(s): F14.20 - Cocaine dependence, uncomplicated (4) History of dental problems Current Visit: No Status: Acute (5) Weight loss Current Visit: No Status: Acute (6) Arthritis Current Visit: No Status: Chronic Comment: naproxen (7) Chronic 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 Current Visit: No Status: Chronic (8) Chronic low back pain Current Visit: No Status: Chronic Qualifiers: Back pain laterality: bilateral Sciatica presence: unspecified whether sciatica present Qualified Code(s): M54.5 - Low back pain; G89.29 - Other chronic pain (9) HIV (human immunodeficiency virus infection) Current Visit: No Status: Chronic Comment: not taking any medication, pt states its undetecable (10) Use of cane as ambulatory aid Current Visit: No Status: Chronic Cleared for Admission [facility] - Detox or Rehab [facility] Level of Care: Medically Managed Detox Regimen/Protocol: Librium [facility] Breath Alcohol Content Breath Alcohol Content: 0 Urine Drug Screen - Results Drug Screen Negative: Yes
[2018-07-11] MEDS ORDERED: guaiFENesin/D-METHORPHAN HB 10 ML UNIT-DOSE CUPS PO PRN (09:23)
[2018-07-11] MEDS ORDERED: chlordiazePOXIDE HCL 25 MG CAPSULE PO PRN (09:23)
[2018-07-11] MEDS ORDERED: ACETAMINOPHEN 325 MG TABLET (FP) PO PRN (09:23)
[2018-07-11] MEDS ORDERED: hydrOXYzine PAMOATE 25 MG CAPSULE (FP) PO PRN (09:23)
[2018-07-11] MEDS ORDERED: IBUPROFEN 400 MG TABLET (FP) PO PRN (09:23)
[2018-07-11] MEDS ORDERED: MENTHOL/PHENOL 1 EACH UD MM PRN (09:23)
[2018-07-11] MEDS ORDERED: LOPERAMIDE HCL 2 MG CAPSULE PO PRN (09:23)
[2018-07-11] MEDS ORDERED: MAG HYDROX/AL HYDROX/SIMETH 30 ML UNIT-DOSE CUP PO PRN (09:23)
[2018-07-11] MEDS ORDERED: MAGNESIUM CITRATE 300 ML BOTTLE PO PRN (09:23)
[2018-07-11] MEDS ORDERED: P-EPHED 60MG/TRIPROLIDI 2.5MG TABLET PO PRN (09:23)
[2018-07-11] MEDS ORDERED: MAGNESIUM HYDROX 2400MG/30ML ORAL SUSPENSION 30 ML CUP PO PRN (09:23)
[2018-07-11] MEDS ORDERED: ALBUTEROL SO4 8 GM HFA INHALER IH PRN (09:26)
[2018-07-11] MEDS: PRENATAL VITAMINS W/ FOLIC ACID TABLET (FP) PO SCH (11:22)
[2018-07-11] MEDS: PANTOPRAZOLE 20 MG TABLET (FP) PO SCH (11:22)
[2018-07-11] MEDS: NICOTINE 21 MG/24 HOURS TOPICAL PATCH TD SCH (11:22)
[2018-07-11] MEDS: chlordiazePOXIDE HCL 25 MG CAPSULE PO SCH ×3 (11:22→23:05)
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
[2018-07-11 17:50] LABS: URINE APPEARANCE CLEAR; URINE BILIRUBIN NEGATIVE (<2.0 mg/dL); URINE COLOR YELLOW; URINE GLUCOSE (UA) NEGATIVE (NEGATIVE); URINE KETONE NEGATIVE (NEGATIVE); URINE LEUK ESTERASE NEGATIVE (NEGATIVE); URINE NITRITE NEGATIVE (NEGATIVE); URINE PROTEIN NEGATIVE (NEGATIVE); URINE UROBILINOGEN NEGATIVE mg/dL (0.2-1.0)
[2018-07-11] MEDS ORDERED: MELATONIN 5 MG TABLETS PO PRN (22:00)
[2018-07-11] MEDS: QUEtiapine FUMARATE 100 MG TABLET (FP) PO SCH (23:05)
[2018-07-11] MEDS: THIAMINE HCL 100 MG TABLET (FP) PO SCH (23:05)
[2018-07-12] MEDS: chlordiazePOXIDE HCL 25 MG CAPSULE PO SCH ×4 (05:22→22:06)
[2018-07-12] MEDS: PRENATAL VITAMINS W/ FOLIC ACID TABLET (FP) PO SCH (10:27)
[2018-07-12] MEDS: PANTOPRAZOLE 20 MG TABLET (FP) PO SCH (10:28)
[2018-07-12] MEDS: NICOTINE 21 MG/24 HOURS TOPICAL PATCH TD SCH (10:28)
[2018-07-12 11:03] LABS: ALBUMIN 3.9 g/dl (3.4-5.0); ALK PHOS 95 U/L (45-117); ANION GAP 7 MMOL/L (8-16); BILIRUBIN,TOTAL 0.4 mg/dL (0.2-1); BLOOD UREA NITROGEN 6 mg/dL (7-18); CALCIUM 8.3 mg/dL (8.5-10.1); CHLORIDE 105 mmol/L (98-107); CO2 27 mmol/L (21-32); CREATININE 0.8 mg/dL (0.55-1.3); GLUCOSE,RANDOM 73 mg/dL (74-106); POTASSIUM 4.3 mmol/L (3.5-5.1); SGOT/AST 22 U/L (15-37); SGPT/ALT 20 U/L (13-61); SODIUM 138 mmol/L (136-145); TOT PROT 7.2 g/dl (6.4-8.2)
[2018-07-12 11:04] LABS: HEMATOCRIT 45.7 % (35.4-49); HEMOGLOBIN 14.7 GM/dL (11.7-16.9); MCH 28.9 pg (25.7-33.7); MCHC 32.2 g/dl (32.0-35.9); MEAN CELL VOLUME 89.5 fl (80-96); MEAN PLT VOLUME 7.8 fl (7.5-11.1); PLATELET COUNT 299 K/MM3 (134-434); RDW 14.6 % (11.9-15.9)
--- NOTE | 2018-07-12 13:43 | PN ---
[facility] CIWA - CIWA Score Nausea/Vomitin-No Nausea/No Vomiting Muscle Tremors: 3 Anxiety: 3 Agitation: 3 Paroxysmal Sweats: 2 Orientation: 0-Oriented Tacttile Disturbances: 0-None Auditory Disturbances: 0-None Visual Disturbances: 0-None Headache: 0-None Present CIWA-Ar Total Score: 11 [facility] Progress Note (SOAP) Subjective: agitation sweats body aches interrupted sleep Objective: 07/12/18 13:42 Vital Signs Temperature 98.2 F 07/12/18 13:24 Pulse Rate 90 07/12/18 13:24 Respiratory Rate 18 07/12/18 13:24 Blood Pressure 119/76 07/12/18 13:24 O2 Sat by Pulse Oximetry (%) Laboratory Tests 07/11/18 07/12/18 07/12/18 17:00 06:00 06:00 WBC 4.0 RBC 5.10 Hgb 14.7 Hct 45.7 MCV 89.5 MCH 28.9 MCHC 32.2 RDW 14.6 Plt Count 299 MPV 7.8 Sodium 138 Potassium 4.3 Chloride 105 Carbon Dioxide 27 Anion Gap 7 L BUN 6 L Creatinine 0.8 Creat Clearance w eGFR > 60 Random Glucose 73 L Calcium 8.3 L Total Bilirubin 0.4 AST 22 ALT 20 Alkaline Phosphatase 95 Total Protein 7.2 Albumin 3.9 Urine Color Yellow Urine Appearance Clear Urine pH 6.0 Ur Specific [place] 1.017 Urine Protein Negative Urine Glucose (UA) Negative Urine Ketones Negative Urine Blood Negative Urine Nitrite Negative Urine Bilirubin Negative Urine Urobilinogen Negative Ur Leukocyte Esterase Negative RPR Titer 07/12/18 06:00 WBC RBC Hgb Hct MCV MCH MCHC RDW Plt Count MPV Sodium Potassium Chloride Carbon Dioxide Anion Gap BUN Creatinine Creat Clearance w eGFR Random Glucose Calcium Total Bilirubin AST ALT Alkaline Phosphatase Total Protein Albumin Urine Color Urine Appearance Urine pH Ur Specific [place] Urine Protein Urine Glucose (UA) Urine Ketones Urine Blood Urine Nitrite Urine Bilirubin Urine Urobilinogen Ur Leukocyte Esterase RPR Titer Nonreactive aaox3 ambulating no acute distress Assessment: 07/12/18 13:42 withdrawal sx Plan: continue detox increase fluids
[2018-07-12] MEDS: THIAMINE HCL 100 MG TABLET (FP) PO SCH (22:06)
[2018-07-12] MEDS: QUEtiapine FUMARATE 100 MG TABLET (FP) PO SCH (22:06)
[2018-07-13] MEDS: chlordiazePOXIDE HCL 25 MG CAPSULE PO SCH (07:36)
[2018-07-13] MEDS: chlordiazePOXIDE 5 MG CAPSULE PO SCH ×3 (11:15→22:34)
[2018-07-13] MEDS: PANTOPRAZOLE 20 MG TABLET (FP) PO SCH (11:15)
[2018-07-13] MEDS: NICOTINE 21 MG/24 HOURS TOPICAL PATCH TD SCH (11:15)
[2018-07-13] MEDS: PRENATAL VITAMINS W/ FOLIC ACID TABLET (FP) PO SCH (11:15)
--- NOTE | 2018-07-13 13:33 | PN ---
[facility] CIWA - CIWA Score Nausea/Vomitin-No Nausea/No Vomiting Muscle Tremors: 3 Anxiety: 3 Agitation: 4-Moderately Restless Paroxysmal Sweats: 3 Orientation: 0-Oriented Tacttile Disturbances: 0-None Auditory Disturbances: 0-None Visual Disturbances: 0-None Headache: 0-None Present CIWA-Ar Total Score: 13 S Progress Note (SOAP) Subjective: irritable agitation tired sweats Objective: 07/13/18 13:32 Vital Signs Temperature 97.3 F L 07/13/18 09:18 Pulse Rate 77 07/13/18 09:18 Respiratory Rate 18 07/13/18 09:18 Blood Pressure 117/68 07/13/18 09:18 O2 Sat by Pulse Oximetry (%) Laboratory Tests 07/11/18 07/12/18 07/12/18 17:00 06:00 06:00 WBC 4.0 RBC 5.10 Hgb 14.7 Hct 45.7 MCV 89.5 MCH 28.9 MCHC 32.2 RDW 14.6 Plt Count 299 MPV 7.8 Sodium 138 Potassium 4.3 Chloride 105 Carbon Dioxide 27 Anion Gap 7 L BUN 6 L Creatinine 0.8 Creat Clearance w eGFR > 60 Random Glucose 73 L Calcium 8.3 L Total Bilirubin 0.4 AST 22 ALT 20 Alkaline Phosphatase 95 Total Protein 7.2 Albumin 3.9 Urine Color Yellow Urine Appearance Clear Urine pH 6.0 Ur Specific [place] 1.017 Urine Protein Negative Urine Glucose (UA) Negative Urine Ketones Negative Urine Blood Negative Urine Nitrite Negative Urine Bilirubin Negative Urine Urobilinogen Negative Ur Leukocyte Esterase Negative RPR Titer 07/12/18 06:00 WBC RBC Hgb Hct MCV MCH MCHC RDW Plt Count MPV Sodium Potassium Chloride Carbon Dioxide Anion Gap BUN Creatinine Creat Clearance w eGFR Random Glucose Calcium Total Bilirubin AST ALT Alkaline Phosphatase Total Protein Albumin Urine Color Urine Appearance Urine pH Ur Specific [place] Urine Protein Urine Glucose (UA) Urine Ketones Urine Blood Urine Nitrite Urine Bilirubin Urine Urobilinogen Ur Leukocyte Esterase RPR Titer Nonreactive aaox3 ambulating no acute distress Assessment: 07/13/18 13:32 withdrawal sx Plan: continue detox increase fluids
[2018-07-13] MEDS: QUEtiapine FUMARATE 100 MG TABLET (FP) PO SCH (22:34)
[2018-07-13] MEDS: THIAMINE HCL 100 MG TABLET (FP) PO SCH (22:39)
[2018-07-14] MEDS: chlordiazePOXIDE 5 MG CAPSULE PO SCH (05:56)
[2018-07-14] MEDS: chlordiazePOXIDE HCL 10 MG CAPSULE PO SCH ×3 (10:05→22:05)
[2018-07-14] MEDS: PANTOPRAZOLE 20 MG TABLET (FP) PO SCH (10:05)
[2018-07-14] MEDS: PRENATAL VITAMINS W/ FOLIC ACID TABLET (FP) PO SCH (10:05)
[2018-07-14] MEDS: NICOTINE 21 MG/24 HOURS TOPICAL PATCH TD SCH (10:05)
--- NOTE | 2018-07-14 10:09 | PN ---
[facility] Progress Note (SOAP) Subjective: feeling better anxiety Objective: 07/14/18 10:08 Vital Signs Temperature 97.1 F L 07/14/18 09:38 Pulse Rate 80 07/14/18 09:38 Respiratory Rate 18 07/14/18 09:38 Blood Pressure 119/72 07/14/18 09:38 O2 Sat by Pulse Oximetry (%) aaox3 ambulating no acute distress Assessment: 07/14/18 10:09 withdrawal sx Plan: continue detox increase fluids d/c in am
[2018-07-14] MEDS: THIAMINE HCL 100 MG TABLET (FP) PO SCH (22:05)
[2018-07-14] MEDS: QUEtiapine FUMARATE 100 MG TABLET (FP) PO SCH (22:05)
[2018-07-14 22:40] VITALS: PULSE 83; TEMP 97.7
[2018-07-15] MEDS: chlordiazePOXIDE HCL 10 MG CAPSULE PO SCH (04:57)
[2018-07-15 07:08] VITALS: BP 123/77
--- NOTE | 2018-07-15 11:24 | DS ---
[facility] Detox Discharge Summary Admission Date: 07/11/18 Discharge Date: 07/15/18 - History Additional Comments: Pt discharge home Pt had left unit prior to provider's arrival to unit Pt went home. Will do aftercare by attending AA meetings and f/u with PCP - Physical Exam Results Vital Signs: Vital Signs Temperature 97.7 F 07/14/18 22:38 Pulse Rate 83 07/15/18 07:07 Respiratory Rate 18 07/15/18 07:07 Blood Pressure 123/77 07/15/18 07:07 O2 Sat by Pulse Oximetry (%) Pertinent Admission Physical Exam Findings: Withdrawal sx - Treatment Hospital Course: Detox Protocol Followed, Detoxed Safely, Responded well, Discharged Condition Good - Medication Discharge Medications: Ambulatory Orders Albuterol Sulfate Inhaler - [Ventolin HFA Inhaler -] 2 inh PO Q4H PRN #1 inhaler 11/05/17 Pantoprazole Sodium [Protonix -] 20 mg PO DAILY #30 tablet.ec 11/05/17 Albuterol Sulfate Inhaler - [Ventolin HFA Inhaler -] 2 puff IH Q4H PRN #1 inhaler 04/14/18 Quetiapine Fumarate [Seroquel -] 400 mg PO HS 07/11/18 - Diagnosis (1) Alcohol dependence with uncomplicated withdrawal Status: Acute (2) Bipolar disorder Status: Acute (3) Cocaine dependence, uncomplicated Status: Acute (4) Drug-induced mood disorder Status: Acute (5) History of dental problems Status: Acute (6) Hypokalemia Status: Acute (7) Nicotine dependence Status: Acute Qualifiers: Nicotine product type: cigarettes Substance use status: in withdrawal Qualified Code(s): F17.213 - Nicotine dependence, cigarettes, with withdrawal (8) Substance induced mood disorder Status: Acute (9) Substance-induced sleep disorder Status: Acute (10) Weight loss Status: Acute (11) GERD (gastroesophageal reflux disease) Status: Chronic Qualifiers: Esophagitis presence: esophagitis presence not specified Qualified Code(s) : K21.9 - Gastro-esophageal reflux disease without esophagitis (12) HIV (human immunodeficiency virus infection) Status: Chronic (13) Chronic 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 Status: Chronic (14) Use of cane as ambulatory aid Status: Chronic - AMA Did Patient Leave Against Medical Advice: No
== END 2018-07-15 09:58 | disposition home or self-care (01) | DRG 774 ==
LOC: YASAS 08:43 → Y6N 09:23
PROC: HZ2ZZZZ Detoxification Services for Substance Abuse Treatment (ICD-10-PCS; principal; 2018-07-11)
DX: F10.230 Alcohol dependence with withdrawal, uncomplicated (principal); F14.20 Cocaine dependence, uncomplicated; F17.213 Nicotine dependence, cigarettes, with withdrawal; F31.9 Bipolar disorder, unspecified; F19.282 Other psychoactive substance dependence with psychoactive substance-induced sleep disorder; F19.24 Other psychoactive substance dependence with psychoactive substance-induced mood disorder; E87.6 Hypokalemia; K21.9 Gastro-esophageal reflux disease without esophagitis; Z21 Asymptomatic human immunodeficiency virus [HIV] infection status; M25.562 Pain in left knee; G89.29 Other chronic pain; R26.2 Difficulty in walking, not elsewhere classified; Z99.89 Dependence on other enabling machines and devices; Z96.652 Presence of left artificial knee joint
CPT/HCPCS: 36415; 80053; 81003; 85027; 86593

== ENCOUNTER 2018-08-11 09:30 | Inpatient (IN) | payer OTHER ==
[2018-08-11 09:48] VITALS: BMI 21.9
--- NOTE | 2018-08-11 15:50 | HP ---
CIWA Score - Admission Criteria [facility] Guidelines: Admission for Medically Managed Detox: Requires at least one of the followin. CIWA greater than 12 2. Seizures within the past 24 hours 3. Delirium tremens within the past 24 hours 4. Hallucinations within the past 24 hours 5. Acute intervention needed for co occurring medical disorder 6. Acute intervention needed for co occurring psychiatric disorder 7. Severe withdrawal that cannot be handled at a lower level of care (continued vomiting, continued diarrhea, abnormal vital signs) requiring intravenous medication and/or fluids 8. Admission ROS [facility] - HPI Chief Complaint: I am here for rehab to get my life back. Allergies/Adverse Reactions: Allergies Allergy/AdvReac Type Severity Reaction Status Date / Time No Known Allergies Allergy Verified 07/11/18 09:15 History of Present Illness: pt is a 53yr old male with a history of alcohol and cocaine dependence seeking rehab for further treatment. Pt was at our detox in 07/2018 and completed. Pt maintained sober for about a couple of weeks. Exam Limitations: No Limitations - Ebola screening Have you traveled outside of the country in the last 21 days: No Have you had contact with anyone from an Ebola affected area: No Have you been sick,other than usual withdrawal symptoms: No Do you have a fever: No - Review of Systems Constitutional: Chills, Diaphoresis, Unintentional Wgt. Loss EENT: reports: Tearing, Nose Congestion Respiratory: reports: No Symptoms reported Cardiac: reports: No Symptoms Reported GI: reports: Poor Fluid Intake, Indigestion : reports: No Symptoms Reported Musculoskeletal: reports: Back Pain, Joint Pain Integumentary: reports: [place] Neuro: reports: Headache Endocrine: reports: No Symptoms Reported Hematology: reports: No Symptoms Reported Psychiatric: reports: Judgement Intact, Mood/Affect Appropiate, Orientated x3, Agitated, Anxious Other Systems: Reviewed and Negative Patient History - Patient Medical History Hx Anemia: No Hx Asthma: Yes (MDI) Hx Chronic Obstructive Pulmonary Disease (COPD): No Hx Cancer: No Hx Cardiac Disorders: No Hx Congestive Heart Failure: No Hx Hypertension: No Hx Hypercholesterolemia: No Hx Pacemaker: No HX Cerebrovascular Accident: No Hx Seizures: No Hx Dementia: No Hx Diabetes: No Hx Gastrointestinal Disorders: Yes (acid reflux) Hx Liver Disease: No Hx Genitourinary Disorders: No Hx Sexually Transmitted Disorders: No Hx Renal Disease (ESRD): No Hx Thyroid Disease: No Hx Human Immunodeficiency Virus (HIV): Yes (since 1982/undetectable. ) Hx Hepatitis C: No (negative) Hx Depression: Yes (SEROQUEL IN THE PAST.) Hx Suicide Attempt: No (DENIES S/I) Hx Bipolar Disorder: No Hx Schizophrenia: No - Patient Surgical History Past Surgical History: Yes Hx Neurologic Surgery: No Hx Cataract Extraction: No Hx Cardiac Surgery: No Hx Lung Surgery: No Hx Breast Surgery: No Hx Breast Biopsy: No Hx Abdominal Surgery: No Hx Appendectomy: No Hx Cholecystectomy: No Hx Genitourinary Surgery: No Hx Section: No Hx Orthopedic Surgery: Yes (total knee replacement left in 2004) Anesthesia Reaction: No - PPD History Previous Implant?: Yes Documented Results: Negative w/o proof PPD to be Administered?: Yes - Reproductive History Patient is a Female of Child Bearing Age (11 -55 yrs old): No - Smoking Cessation Smoking history: Current every day smoker Have you smoked in the past 12 months: Yes Aproximately how many cigarettes per day: 20 Cigars Per Day: 0 Hx Chewing Tobacco Use: No Initiated information on smoking cessation: Yes 'Breaking Loose' booklet given: 08/11/18 - Substance & Tx. History Hx Alcohol Use: Yes Hx Substance Use: Yes Substance Use Type: Alcohol, Cocaine Hx Substance Use Treatment: Yes (07/2018 [facility]) - Substances Abused Alcohol Route: Oral Frequency: Daily Amount used: 2 pints vodka Age of first use: 12 Date of Last Use: 08/10/18 Cocaine Route: Smoking Frequency: 3-6 times per week Amount used: $60 Age of first use: 10 Date of Last Use: 08/10/18 Family Disease History - Family Disease History Family Disease History: Diabetes: Mother (alcohol, ), Other: Father ( alcohol,), Mother Admission Physical Exam [facility] - Vital Signs Vital Signs: Vital Signs - 24 hr 08/11/18 09:46 Temperature 97.6 F Pulse Rate 73 Respiratory 18 Rate Blood Pressure 112/75 - Physical General Appearance: Yes: Within Normal Limits, Tremorous, Irritable HEENTM: Yes: Normal Voice, Rhinorrhea Respiratory: Yes: Lungs Clear, Normal Breath Sounds, No Respiratory Distress Neck: Yes: No masses,lesions,Nodules Breast: Yes: Within Normal Limits Cardiology: Yes: Regular Rhythm, Regular Rate, S1, S2 Abdominal: Yes: Normal Bowel Sounds, Non Tender, Soft Genitourinary: Yes: Within Normal Limits Back: Yes: Normal Inspection Musculoskeletal: Yes: Back pain, Joint Stiffness Extremities: Yes: Normal Capillary Refill, Normal Inspection, Tremors Neurological: Yes: Fully Oriented, Alert, Normal Response Integumentary: Yes: Within Normal Limits Lymphatic: Yes: Within Normal Limits - Diagnostic (1) Alcohol dependence with uncomplicated withdrawal Current Visit: Yes Status: Chronic (2) Bipolar disorder Current Visit: No Status: Acute (3) Cocaine dependence, uncomplicated Current Visit: Yes Status: Chronic (4) History of dental problems Current Visit: No Status: Chronic (5) Insomnia Current Visit: No Status: Acute Qualifiers: (6) Nicotine dependence Current Visit: Yes Status: Chronic Qualifiers: Nicotine product type: cigarettes Substance use status: uncomplicated Qualified Code(s): F17.210 - Nicotine dependence, cigarettes, uncomplicated (7) Substance induced mood disorder Current Visit: No Status: Acute (8) Substance-induced sleep disorder Current Visit: No Status: Acute (9) Asthma Current Visit: Yes Status: Chronic Qualifiers: Asthma severity: mild Asthma complication type: uncomplicated Comment: mild copd (10) Bipolar II disorder Current Visit: No Status: Chronic Comment: History. (11) Chronic 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 Current Visit: Yes Status: Chronic (12) Chronic low back pain Current Visit: Yes Status: Chronic Qualifiers: Back pain laterality: unspecified Sciatica presence: unspecified whether sciatica present Qualified Code(s): M54.5 - Low back pain; G89.29 - Other chronic pain (13) GERD (gastroesophageal reflux disease) Current Visit: Yes Status: Chronic Qualifiers: Esophagitis presence: without esophagitis Qualified Code(s): K21.9 - Gastro -esophageal reflux disease without esophagitis (14) HIV (human immunodeficiency virus infection) Current Visit: Yes Status: Chronic Qualifiers: HIV symptom status: unspecified Qualified Code(s): B20 - Human immunodeficiency virus [HIV] disease Comment: not taking any medication, pt states its undetecable (15) PTSD (post-traumatic stress disorder) Current Visit: No Status: Chronic (16) Use of cane as ambulatory aid Current Visit: Yes Status: Chronic Cleared for Admission S - Detox or Rehab S Level of Care: Medically Managed [facility] Breath Alcohol Content Breath Alcohol Content: 0 Urine Drug Screen - Results Drug Screen Negative: No Urine Drug Screen Results: FELIZ-Cocaine, BZO-Benzodiazepines Inpatient Rehab Admission - Initial Determination Are CD services needed?: Yes Free of communicable disease: Yes Not in need of hospitalization: Yes - Rehab Admission Criteria Previous failed treatment: Yes Poor recovery environment: Yes Comorbidities: Yes Lacks judgement: Yes
[2018-08-11] MEDS ORDERED: IBUPROFEN 400 MG TABLET (FP) PO PRN (15:53)
[2018-08-11] MEDS ORDERED: ACETAMINOPHEN 325 MG TABLET (FP) PO PRN (15:53)
[2018-08-11] MEDS ORDERED: LOPERAMIDE HCL 2 MG CAPSULE PO PRN (15:53)
[2018-08-11] MEDS ORDERED: P-EPHED 60MG/TRIPROLIDI 2.5MG TABLET PO PRN (15:53)
[2018-08-11] MEDS ORDERED: MENTHOL/PHENOL 1 EACH UD MM PRN (15:53)
[2018-08-11] MEDS ORDERED: guaiFENesin/D-METHORPHAN HB 10 ML UNIT-DOSE CUPS PO PRN (15:53)
[2018-08-11] MEDS ORDERED: MAGNESIUM CITRATE 300 ML BOTTLE PO PRN (15:53)
[2018-08-11] MEDS ORDERED: NICOTINE POLACRILEX 4 MG GUM BC PRN (15:53)
[2018-08-11] MEDS ORDERED: MAGNESIUM HYDROX 2400MG/30ML ORAL SUSPENSION 30 ML CUP PO PRN (15:53)
[2018-08-11] MEDS ORDERED: ALBUTEROL SO4 8 GM HFA INHALER IH PRN (15:54)
[2018-08-11] MEDS ORDERED: [UNRECOGNIZED DRUG - OTHER] TP PRN (15:54)
[2018-08-11] MEDS ORDERED: PRILOCAINE TP PRN (15:54)
[2018-08-11] MEDS ORDERED: LIDOCAINE TP PRN (15:54)
[2018-08-11] MEDS ORDERED: TUBERCULIN PPD 5 TU/0.1ML VIAL ID ONE (20:56)
[2018-08-11] MEDS ORDERED: QUEtiapine FUMARATE 100 MG TABLET (FP) PO SCH (22:00)
[2018-08-11] MEDS: QUEtiapine FUMARATE 200 MG TABLET PO SCH (22:14)
[2018-08-11] MEDS: THIAMINE HCL 100 MG TABLET (FP) PO SCH (22:15)
[2018-08-12] MEDS: PRENATAL VITAMINS W/ FOLIC ACID TABLET (FP) PO SCH (09:29)
[2018-08-12] MEDS: PANTOPRAZOLE 20 MG TABLET (FP) PO SCH (09:29)
[2018-08-12] MEDS: NICOTINE 21 MG/24 HOURS TOPICAL PATCH TD SCH (09:30)
--- NOTE | 2018-08-12 09:37 | HP ---
Psychiatrist Admission - Data Date of interview: 08/12/18 Admission source: [facility] Identifying data: Patient is a 53 year old , without children, unemployed , homeless, and denies receiving financial assistance. This is one of multiple admissions to rehab at [facility]. Patient admitted to for alcohol and cocaine dependence. Medical History: Asthma, HIV, Acid reflux, total knee replacement left in 2004 Psychiatric History: Patient is unreliable and refusing to elaborate on his psychiatric history. Only stating that he receives outpatient psychiatric care from the [facility]. States he is prescribed seroquel 400mg. Patient is known to medical writer. The following information will be extracted from the previous encounter with Mr. Kathleen. Patient reports multiple psychiatric hospitalizations. States his most recent hospitalization was 30 years ago and is unable to recall the facilities. As per Dr. العلي note on 04/11/18 patient has prior psychiatric hospitalizations at [facility],and [facility]. Patient denies h/o suicide attempt. Physical/Sexual Abuse/Trauma History: denies. Vital Signs: Vital Signs - 24 hr 08/11/18 08/12/18 08/12/18 09:46 00:30 03:30 Temperature 97.6 F Pulse Rate 73 Respiratory 18 16 16 Rate Blood Pressure 112/75 Allergies/Adverse Reactions: Allergies Allergy/AdvReac Type Severity Reaction Status Date / Time No Known Allergies Allergy Verified 07/11/18 09:15 Date of last physical exam: 08/11/18 Concur with the findings of this exam: Yes - Substance Abuse/Tx History Hx Alcohol Use: Yes Hx Substance Use: Yes Substance Use Type: Cocaine Hx Substance Use Treatment: Yes ([facility]) Mental Status Exam - Mental Status Exam Alert and Oriented to: Time, Place, Person Cognitive Function: Good Patient Appearance: Well Groomed Mood: Irritable Affect: Mood Congruent Patient Behavior: Fatigued, Uncooperative (patient refusing to speak about his psychiatric history. ), Guarded Speech Pattern: Clear Voice Loudness: Normal Thought Process: Intact, Goal Oriented Thought Disorder: Not Present Hallucinations: Denies Suicidal Ideation: Denies Homicidal Ideation: Denies Insight/Judgement: Poor Sleep: Poorly Appetite: Fair Muscle strength/Tone: Normal Gait/Station: Normal Psychiatric Findings - Problem List ([place] 1, 2,3) (1) Alcohol dependence Current Visit: Yes Status: Acute (2) Cocaine dependence Current Visit: Yes Status: Acute (3) Substance induced mood disorder Current Visit: Yes Status: Acute (4) Mood disorder Current Visit: Yes Status: Chronic (5) Nicotine dependence Current Visit: Yes Status: Chronic Qualifiers: Nicotine product type: cigarettes Substance use status: uncomplicated Qualified Code(s): F17.210 - Nicotine dependence, cigarettes, uncomplicated - Initial Treatment Plan Initial Treatment Plan: Psychoeducation provided. Rehabilitaiton in progress. Will continue current medication of Seroquel 400mg ordered by Dr. Kellogg.
[2018-08-12 10:51] LABS: URINE APPEARANCE CLEAR; URINE BILIRUBIN NEGATIVE (<2.0 mg/dL); URINE COLOR LTYELLOW; URINE GLUCOSE (UA) NEGATIVE (NEGATIVE); URINE KETONE NEGATIVE (NEGATIVE); URINE LEUK ESTERASE NEGATIVE (NEGATIVE); URINE NITRITE NEGATIVE (NEGATIVE); URINE PROTEIN NEGATIVE (NEGATIVE); URINE UROBILINOGEN NEGATIVE mg/dL (0.2-1.0)
[2018-08-12 10:59] LABS: ALBUMIN 3.1 g/dl (3.4-5.0); ALK PHOS 106 U/L (45-117); ANION GAP 6 MMOL/L (8-16); BILIRUBIN,TOTAL 0.3 mg/dL (0.2-1); BLOOD UREA NITROGEN 9 mg/dL (7-18); CALCIUM 8.3 mg/dL (8.5-10.1); CHLORIDE 104 mmol/L (98-107); CO2 28 mmol/L (21-32); CREATININE 0.7 mg/dL (0.55-1.3); GLUCOSE,RANDOM 87 mg/dL (74-106); SGOT/AST 21 U/L (15-37); SGPT/ALT 22 U/L (13-61); SODIUM 138 mmol/L (136-145); TOT PROT 6.2 g/dl (6.4-8.2)
[2018-08-12 11:00] LABS: HEMATOCRIT 43.9 % (35.4-49); HEMOGLOBIN 14.2 GM/dL (11.7-16.9); MCH 28.1 pg (25.7-33.7); MCHC 32.4 g/dl (32.0-35.9); MEAN CELL VOLUME 86.9 fl (80-96); MEAN PLT VOLUME 7.2 fl (7.5-11.1); PLATELET COUNT 299 K/MM3 (134-434); RBC 5.05 M/mm3 (4.00-5.60); RDW 14.6 % (11.9-15.9); WHITE BLOOD COUNT 3.7 K/mm3 (4.0-10.0)
[2018-08-12] MEDS: ASCORBIC ACID 500 MG TABLET (FP) PO SCH (12:45)
[2018-08-12] MEDS: QUEtiapine FUMARATE 200 MG TABLET PO SCH (21:56)
[2018-08-12] MEDS: THIAMINE HCL 100 MG TABLET (FP) PO SCH (21:56)
[2018-08-13] MEDS: NICOTINE 21 MG/24 HOURS TOPICAL PATCH TD SCH (10:01)
[2018-08-13] MEDS: PRENATAL VITAMINS W/ FOLIC ACID TABLET (FP) PO SCH (10:01)
[2018-08-13] MEDS: ASCORBIC ACID 500 MG TABLET (FP) PO SCH (10:01)
[2018-08-13] MEDS: PANTOPRAZOLE 20 MG TABLET (FP) PO SCH (10:01)
[2018-08-13] MEDS: QUEtiapine FUMARATE 200 MG TABLET PO SCH (21:14)
[2018-08-13] MEDS: THIAMINE HCL 100 MG TABLET (FP) PO SCH (21:15)
[2018-08-14] MEDS: PRENATAL VITAMINS W/ FOLIC ACID TABLET (FP) PO SCH (13:31)
[2018-08-14] MEDS: ASCORBIC ACID 500 MG TABLET (FP) PO SCH (13:31)
[2018-08-14] MEDS: PANTOPRAZOLE 20 MG TABLET (FP) PO SCH (13:31)
[2018-08-14] MEDS: NICOTINE 21 MG/24 HOURS TOPICAL PATCH TD SCH (13:31)
[2018-08-14] MEDS: THIAMINE HCL 100 MG TABLET (FP) PO SCH (21:43)
[2018-08-14] MEDS: QUEtiapine FUMARATE 200 MG TABLET PO SCH (21:43)
[2018-08-14] MEDS: MELATONIN 5 MG TABLETS PO PRN (21:44)
--- NOTE | 2018-08-15 09:43 | PN ---
[facility] Progress Note Note: PATIENT SEEN FOR C/O NOSEBLEED. PATIENT DENIES HEADACHE, DIZZINESS AND NASAL DISCHARGE. STATES WHEN HE BLOWS HIS NOSE, HE BLEEDS. PATIENT WAS ABLE TO SHOW PROVIDER TISSUE AND STREAKS OF BLOOD NOTED ON TISSUE. PATIENT ADMITTED TO REHAB FOR COCAINE/ETOH DEPENDENCE. ALSO REQUESTED CANE FOR AMBULATION SUPPORT HE LOST HIS PREVIOUS CANE PRIOR TO ADMISSION. Vital Signs Temperature 98 F 08/15/18 06:57 Pulse Rate 76 08/15/18 06:57 Respiratory Rate 18 08/15/18 06:57 Blood Pressure 98/65 08/15/18 06:57 O2 Sat by Pulse Oximetry (%) Laboratory Tests 08/12/18 08/12/18 08/12/18 07:45 07:45 07:45 WBC 3.7 L RBC 5.05 Hgb 14.2 Hct 43.9 MCV 86.9 MCH 28.1 MCHC 32.4 RDW 14.6 Plt Count 299 MPV 7.2 L Sodium 138 Potassium 4.0 Chloride 104 Carbon Dioxide 28 Anion Gap 6 L BUN 9 Creatinine 0.7 Creat Clearance w eGFR > 60 Random Glucose 87 Calcium 8.3 L Total Bilirubin 0.3 AST 21 ALT 22 Alkaline Phosphatase 106 Total Protein 6.2 L Albumin 3.1 L Urine Color Urine Appearance Urine pH Ur Specific [place] Urine Protein Urine Glucose (UA) Urine Ketones Urine Blood Urine Nitrite Urine Bilirubin Urine Urobilinogen Ur Leukocyte Esterase RPR Titer Nonreactive 08/12/18 08:50 WBC RBC Hgb Hct MCV MCH MCHC RDW Plt Count MPV Sodium Potassium Chloride Carbon Dioxide Anion Gap BUN Creatinine Creat Clearance w eGFR Random Glucose Calcium Total Bilirubin AST ALT Alkaline Phosphatase Total Protein Albumin Urine Color [place] Urine Appearance Clear Urine pH 7.0 Ur Specific [place] 1.011 Urine Protein Negative Urine Glucose (UA) Negative Urine Ketones Negative Urine Blood Negative Urine Nitrite Negative Urine Bilirubin Negative Urine Urobilinogen Negative Ur Leukocyte Esterase Negative RPR Titer PE: ALERT AND ORIENTED X 3 AGITATED HE SAID HE DID NOT SLEEP WELL SKIN WARM AND DRY NASAL MUCOSA IRRITATED, BRIGHT PINK, NO ACTIVE BLEEDING NOTED CAR S1S2 RESP CTA BL EXT FULL ROM, AMB AD [place]OCO A/P: NOSE BLEED WILL ORDER SALINE NASAL SPRAY BID PRN CONTINUE TO MONITOR CANE FOR AMBULATION SUPPORT
[2018-08-15] MEDS: NICOTINE 21 MG/24 HOURS TOPICAL PATCH TD SCH (10:46)
[2018-08-15] MEDS: PRENATAL VITAMINS W/ FOLIC ACID TABLET (FP) PO SCH (10:51)
[2018-08-15] MEDS: ASCORBIC ACID 500 MG TABLET (FP) PO SCH (10:52)
[2018-08-15] MEDS: PANTOPRAZOLE 20 MG TABLET (FP) PO SCH (10:52)
[2018-08-15] MEDS: QUEtiapine FUMARATE 200 MG TABLET PO SCH (21:10)
[2018-08-15] MEDS: SODIUM CHLORIDE NASAL SPRAY 44 ML BOTTLE NS PRN (21:10)
[2018-08-15] MEDS: THIAMINE HCL 100 MG TABLET (FP) PO SCH (21:10)
[2018-08-16] MEDS: NICOTINE 21 MG/24 HOURS TOPICAL PATCH TD SCH (10:25)
[2018-08-16] MEDS: PANTOPRAZOLE 20 MG TABLET (FP) PO SCH (10:25)
[2018-08-16] MEDS: PRENATAL VITAMINS W/ FOLIC ACID TABLET (FP) PO SCH (10:25)
[2018-08-16] MEDS: ASCORBIC ACID 500 MG TABLET (FP) PO SCH (10:25)
[2018-08-16] MEDS: SODIUM CHLORIDE NASAL SPRAY 44 ML BOTTLE NS PRN (10:25)
[2018-08-16] MEDS: QUEtiapine FUMARATE 200 MG TABLET PO SCH (21:54)
[2018-08-16] MEDS: THIAMINE HCL 100 MG TABLET (FP) PO SCH (21:54)
[2018-08-17] MEDS: PRENATAL VITAMINS W/ FOLIC ACID TABLET (FP) PO SCH (10:57)
[2018-08-17] MEDS: NICOTINE 21 MG/24 HOURS TOPICAL PATCH TD SCH (10:57)
[2018-08-17] MEDS: PANTOPRAZOLE 20 MG TABLET (FP) PO SCH (10:57)
[2018-08-17] MEDS: ASCORBIC ACID 500 MG TABLET (FP) PO SCH (10:57)
[2018-08-17] MEDS: THIAMINE HCL 100 MG TABLET (FP) PO SCH (21:29)
[2018-08-17] MEDS: QUEtiapine FUMARATE 200 MG TABLET PO SCH (21:29)
[2018-08-17] MEDS: hydrOXYzine PAMOATE 50 MG CAPSULE (FP) PO PRN (21:30)
[2018-08-17] MEDS: MELATONIN 5 MG TABLETS PO PRN (21:30)
[2018-08-18] MEDS: ASCORBIC ACID 500 MG TABLET (FP) PO SCH (11:22)
[2018-08-18] MEDS: PANTOPRAZOLE 20 MG TABLET (FP) PO SCH (11:22)
[2018-08-18] MEDS: PRENATAL VITAMINS W/ FOLIC ACID TABLET (FP) PO SCH (11:22)
[2018-08-18] MEDS: NICOTINE 21 MG/24 HOURS TOPICAL PATCH TD SCH (11:23)
[2018-08-18] MEDS: SODIUM CHLORIDE NASAL SPRAY 44 ML BOTTLE NS PRN (16:41)
[2018-08-18] MEDS ORDERED: PT OWN MED DRAWER 7, Y5N ONE (16:42)
[2018-08-18] MEDS: THIAMINE HCL 100 MG TABLET (FP) PO SCH (21:29)
[2018-08-18] MEDS: QUEtiapine FUMARATE 200 MG TABLET PO SCH (21:29)
[2018-08-18] MEDS: MELATONIN 5 MG TABLETS PO PRN (21:30)
[2018-08-19] MEDS: ASCORBIC ACID 500 MG TABLET (FP) PO SCH (10:51)
[2018-08-19] MEDS: NICOTINE 21 MG/24 HOURS TOPICAL PATCH TD SCH (10:51)
[2018-08-19] MEDS: PANTOPRAZOLE 20 MG TABLET (FP) PO SCH (10:51)
[2018-08-19] MEDS: PRENATAL VITAMINS W/ FOLIC ACID TABLET (FP) PO SCH (10:51)
[2018-08-19] MEDS: THIAMINE HCL 100 MG TABLET (FP) PO SCH (21:29)
[2018-08-19] MEDS: MELATONIN 5 MG TABLETS PO PRN (21:29)
[2018-08-19] MEDS: QUEtiapine FUMARATE 200 MG TABLET PO SCH (21:29)
[2018-08-19] MEDS: hydrOXYzine PAMOATE 50 MG CAPSULE (FP) PO PRN (21:29)
[2018-08-19] MEDS: MAG HYDROX/AL HYDROX/SIMETH 30 ML UNIT-DOSE CUP PO PRN (21:53)
[2018-08-19] MEDS: QUEtiapine FUMARATE 400 MG TABLET PO SCH (22:17)
[2018-08-20] MEDS: PANTOPRAZOLE 20 MG TABLET (FP) PO SCH (10:30)
[2018-08-20] MEDS: ASCORBIC ACID 500 MG TABLET (FP) PO SCH (10:30)
[2018-08-20] MEDS: NICOTINE 21 MG/24 HOURS TOPICAL PATCH TD SCH (10:30)
[2018-08-20] MEDS: PRENATAL VITAMINS W/ FOLIC ACID TABLET (FP) PO SCH (10:30)
[2018-08-20] MEDS: MAG HYDROX/AL HYDROX/SIMETH 30 ML UNIT-DOSE CUP PO PRN (15:55)
[2018-08-20] MEDS: hydrOXYzine PAMOATE 50 MG CAPSULE (FP) PO PRN (21:07)
[2018-08-20] MEDS: QUEtiapine FUMARATE 400 MG TABLET PO SCH (21:07)
[2018-08-20] MEDS: THIAMINE HCL 100 MG TABLET (FP) PO SCH (21:07)
[2018-08-20] MEDS: MELATONIN 5 MG TABLETS PO PRN (21:07)
[2018-08-21] MEDS: SODIUM CHLORIDE NASAL SPRAY 44 ML BOTTLE NS PRN (10:26)
[2018-08-21] MEDS: PRENATAL VITAMINS W/ FOLIC ACID TABLET (FP) PO SCH (10:26)
[2018-08-21] MEDS: PANTOPRAZOLE 20 MG TABLET (FP) PO SCH (10:26)
[2018-08-21] MEDS: ASCORBIC ACID 500 MG TABLET (FP) PO SCH (10:26)
[2018-08-21] MEDS: NICOTINE 21 MG/24 HOURS TOPICAL PATCH TD SCH (10:26)
[2018-08-21] MEDS ORDERED: PT OWN MED DRAWER 7, Y5N ONE (10:27)
[2018-08-21] MEDS: QUEtiapine FUMARATE 400 MG TABLET PO SCH (21:29)
[2018-08-21] MEDS: THIAMINE HCL 100 MG TABLET (FP) PO SCH (21:29)
[2018-08-21] MEDS: hydrOXYzine PAMOATE 50 MG CAPSULE (FP) PO PRN (21:29)
[2018-08-21] MEDS: MELATONIN 5 MG TABLETS PO PRN (21:29)
--- NOTE | 2018-08-22 10:01 | PN ---
S Progress Note Note: PATIENT C/O DRY CRACKED FEET FROM WALKING BARE FOOT ON SHOWER FLOOR. PATIENT DENIES PAIN, ITCHING TO FEET. Vital Signs Temperature 98.2 F 08/22/18 07:04 Pulse Rate 84 08/22/18 07:04 Respiratory Rate 08/22/18 07:04 Blood Pressure 109/75 08/22/18 07:04 O2 Sat by Pulse Oximetry (%) PE: BILATERAL FEET WITH DRY, CRACKED SKIN TO PLANTAR ASPECT OF FEET. NO SWELLING, REDNESS OR LESIONS/ULCERS NOTED. A/P: DRY SKIN WILL ORDER EUCERIN CREAM TO FEET BID SHOWER SHOES PROVIDED. CONTINUE TO MONITOR.
[2018-08-22] MEDS: PRENATAL VITAMINS W/ FOLIC ACID TABLET (FP) PO SCH (10:54)
[2018-08-22] MEDS: PANTOPRAZOLE 20 MG TABLET (FP) PO SCH (10:54)
[2018-08-22] MEDS: ASCORBIC ACID 500 MG TABLET (FP) PO SCH (10:54)
[2018-08-22] MEDS: NICOTINE 21 MG/24 HOURS TOPICAL PATCH TD SCH (10:54)
[2018-08-22] MEDS: MINERAL OIL/PETROLAT/WATER TOPICAL CREAM 113 GM JAR TP SCH ×2 (10:55→22:09)
[2018-08-22] MEDS ORDERED: PT OWN MED DRAWER 7, Y5N ONE (11:04)
[2018-08-22] MEDS: THIAMINE HCL 100 MG TABLET (FP) PO SCH (22:08)
[2018-08-22] MEDS: QUEtiapine FUMARATE 400 MG TABLET PO SCH (22:08)
[2018-08-22] MEDS: MELATONIN 5 MG TABLETS PO PRN (22:08)
[2018-08-23] MEDS: PANTOPRAZOLE 20 MG TABLET (FP) PO SCH (10:30)
[2018-08-23] MEDS: PRENATAL VITAMINS W/ FOLIC ACID TABLET (FP) PO SCH (10:30)
[2018-08-23] MEDS: MINERAL OIL/PETROLAT/WATER TOPICAL CREAM 113 GM JAR TP SCH ×2 (10:30→22:56)
[2018-08-23] MEDS: NICOTINE 21 MG/24 HOURS TOPICAL PATCH TD SCH (10:30)
[2018-08-23] MEDS: ASCORBIC ACID 500 MG TABLET (FP) PO SCH (10:31)
[2018-08-23] MEDS: THIAMINE HCL 100 MG TABLET (FP) PO SCH (21:28)
[2018-08-23] MEDS: QUEtiapine FUMARATE 400 MG TABLET PO SCH (21:28)
[2018-08-23] MEDS: hydrOXYzine PAMOATE 50 MG CAPSULE (FP) PO PRN (21:28)
[2018-08-23] MEDS: MELATONIN 5 MG TABLETS PO PRN (21:28)
[2018-08-24] MEDS: PRENATAL VITAMINS W/ FOLIC ACID TABLET (FP) PO SCH (10:30)
[2018-08-24] MEDS: PANTOPRAZOLE 20 MG TABLET (FP) PO SCH (10:30)
[2018-08-24] MEDS: NICOTINE 21 MG/24 HOURS TOPICAL PATCH TD SCH (10:30)
[2018-08-24] MEDS: ASCORBIC ACID 500 MG TABLET (FP) PO SCH (10:30)
[2018-08-24] MEDS: MINERAL OIL/PETROLAT/WATER TOPICAL CREAM 113 GM JAR TP SCH ×2 (10:31→21:55)
[2018-08-24] MEDS: THIAMINE HCL 100 MG TABLET (FP) PO SCH (21:39)
[2018-08-24] MEDS: MELATONIN 5 MG TABLETS PO PRN (21:40)
[2018-08-24] MEDS: QUEtiapine FUMARATE 400 MG TABLET PO SCH (21:40)
[2018-08-24] MEDS: hydrOXYzine PAMOATE 50 MG CAPSULE (FP) PO PRN (21:40)
[2018-08-25 07:24] VITALS: BP 119/85; PULSE 83; TEMP 98
--- NOTE | 2018-08-25 10:05 | PN ---
[facility] Progress Note Note: PATIENT COMPLETED REHAB AND REPORTS HE ACCOMPLISHED ALL PERSONAL GOALS. PATIENT TO FOLLOW UP WITH [facility] FOR OUTPATIENT TREATMENT. PATIENT ENCOURAGED TO CONTINUE WITH GROUP MEETINGS TO PREVENT RELAPSE AND TO FOLLOW UP WITH PCP WITHIN ONE WEEK OF DISCHARGE. PATIENT HAS PRESCRIPTIONS FILLED 08/09/17. PATIENT SENT [employer] FOR ATHLETES FOOT. PATIENT MEDICALLY STABLE AND DENIES SI/HI. Vital Signs Temperature 98.0 F 08/25/18 07:23 Pulse Rate 83 08/25/18 07:23 Respiratory Rate 08/25/18 07:23 Blood Pressure 119/85 08/25/18 07:23 O2 Sat by Pulse Oximetry (%)
[2018-08-25] MEDS: MINERAL OIL/PETROLAT/WATER TOPICAL CREAM 113 GM JAR TP SCH (10:28)
[2018-08-25] MEDS: PRENATAL VITAMINS W/ FOLIC ACID TABLET (FP) PO SCH (10:29)
[2018-08-25] MEDS: PANTOPRAZOLE 20 MG TABLET (FP) PO SCH (10:29)
[2018-08-25] MEDS: NICOTINE 21 MG/24 HOURS TOPICAL PATCH TD SCH (10:29)
[2018-08-25] MEDS: ASCORBIC ACID 500 MG TABLET (FP) PO SCH (10:29)
== END 2018-08-25 09:00 | disposition home or self-care (01) | DRG 772 ==
LOC: YASAS 09:30 → Y3W 17:07 → Y3E 08-24 19:28 → Y3W 08-24 19:30
PROVIDERS: ADMIT Psychiatry & Neurology Psychiatry; ATTEND Psychiatry & Neurology Psychiatry
PROC: HZ42ZZZ Group Counseling for Substance Abuse Treatment, Cognitive-Behavioral (ICD-10-PCS; principal; 2018-08-11)
DX: F10.20 Alcohol dependence, uncomplicated (principal); F14.20 Cocaine dependence, uncomplicated; F17.210 Nicotine dependence, cigarettes, uncomplicated; F19.282 Other psychoactive substance dependence with psychoactive substance-induced sleep disorder; F19.24 Other psychoactive substance dependence with psychoactive substance-induced mood disorder; F39 Unspecified mood [affective] disorder; F31.9 Bipolar disorder, unspecified; Z21 Asymptomatic human immunodeficiency virus [HIV] infection status; R04.0 Epistaxis; L85.3 Xerosis cutis; K21.9 Gastro-esophageal reflux disease without esophagitis; M54.5 Low back pain; G89.29 Other chronic pain; J44.9 Chronic obstructive pulmonary disease, unspecified; J45.20 Mild intermittent asthma, uncomplicated; R26.89 Other abnormalities of gait and mobility; Z99.89 Dependence on other enabling machines and devices; Z96.652 Presence of left artificial knee joint; M25.562 Pain in left knee; Z59.0 Homelessness
CPT/HCPCS: 36415; 80053; 81003; 85027; 86593

== ENCOUNTER 2018-10-02 08:32 | Inpatient (IN) | payer OTHER ==
[2018-10-02 08:56] VITALS: BMI 22.1
--- NOTE | 2018-10-02 09:23 | HP ---
CIWA Score Nausea/Vomitin Muscle Tremors: 2 Anxiety: 2 Agitation: 2 Paroxysmal Sweats: 1-Minimal Palms Moist Orientation: 0-Oriented Tacttile Disturbances: 1-Very Mild Itch/Numbness Auditory Disturbances: 1-Very Mild Visual Disturbances: 0-None Headache: 2-Mild CIWA-Ar Total Score: 13 - Admission Criteria OASAS Guidelines: Admission for Medically Managed Detox: Requires at least one of the followin. CIWA greater than 12 2. Seizures within the past 24 hours 3. Delirium tremens within the past 24 hours 4. Hallucinations within the past 24 hours 5. Acute intervention needed for co occurring medical disorder 6. Acute intervention needed for co occurring psychiatric disorder 7. Severe withdrawal that cannot be handled at a lower level of care (continued vomiting, continued diarrhea, abnormal vital signs) requiring intravenous medication and/or fluids 8. Patient presents the following: CIWA greater than 12 Admission Criteria Met: Admission criteria met Admission ROS S - HPI Chief Complaint: i need help to stop drinking alcohol,cocaine and marijuana Allergies/Adverse Reactions: Allergies Allergy/AdvReac Type Severity Reaction Status Date / Time No Known Allergies Allergy Verified 10/02/18 11:31 History of Present Illness: this 53 years old male with alcohol,cocaine and marijuana dependence,seeking detox,withdrawal symptom, multiple admissions for detox keep relapsing last detox 07/11/18 to 07/[facility]/18 [facility]18 [facility] weight loss s/p left knee replacement in 1982,ambulation with cane arthritis low back pain asthma hiv since 1982 no med longest sobriety 1 year plan for rehab after detox Exam Limitations: No Limitations - Ebola screening Have you traveled outside of the country in the last 21 days: No Have you had contact with anyone from an Ebola affected area: No Have you been sick,other than usual withdrawal symptoms: No Do you have a fever: No - Review of Systems Constitutional: Loss of Appetite, Malaise, Night Sweats, Changes in sleep, Weakness, Unintentional Wgt. Loss EENT: reports: Tearing, Nose Congestion Respiratory: reports: No Symptoms reported, Other (asthma) Cardiac: reports: No Symptoms Reported GI: reports: Nausea, Poor Appetite, Vomiting, Abdominal cramping : reports: No Symptoms Reported Musculoskeletal: reports: Back Pain, Joint Pain, Muscle Pain, Joint Stiffness Integumentary: reports: Dryness Endocrine: reports: No Symptoms Reported Hematology: reports: No Symptoms Reported, Other (hiv) Psychiatric: reports: No Sypmtoms Reported, Judgement Intact, Mood/Affect Appropiate, Orientated x3, other Other Systems: Reviewed and Negative Patient History - Patient Medical History Hx Anemia: No Hx Asthma: Yes (MDI) Hx Chronic Obstructive Pulmonary Disease (COPD): No Hx Cancer: No Hx Cardiac Disorders: No Hx Congestive Heart Failure: No Hx Hypertension: No Hx Hypercholesterolemia: No Hx Pacemaker: No HX Cerebrovascular Accident: No Hx Seizures: No Hx Dementia: No Hx Diabetes: No Hx Gastrointestinal Disorders: Yes (acid reflux) Hx Liver Disease: No Hx Genitourinary Disorders: No Hx Sexually Transmitted Disorders: No Hx Renal Disease (ESRD): No Hx Thyroid Disease: No Hx Human Immunodeficiency Virus (HIV): Yes (since 1982/undetectable. ) Hx Hepatitis C: No (negative) Hx Depression: Yes (SEROQUEL IN THE PAST.) Hx Suicide Attempt: No (DENIES S/I) Hx Bipolar Disorder: Yes Hx Schizophrenia: No Other Medical History: no suicidal,no homicidal - Patient Surgical History Past Surgical History: Yes Hx Neurologic Surgery: No Hx Cataract Extraction: No Hx Cardiac Surgery: No Hx Lung Surgery: No Hx Breast Surgery: No Hx Breast Biopsy: No Hx Abdominal Surgery: No Hx Appendectomy: No Hx Cholecystectomy: No Hx Genitourinary Surgery: No Hx Section: No Hx Orthopedic Surgery: Yes (total knee replacement left in 2004) Anesthesia Reaction: No - PPD History Previous Implant?: Yes Documented Results: Negative w/proof Date: 08/13/18 Results: 0 mm PPD to be Administered?: No - Smoking Cessation Smoking history: Current every day smoker Have you smoked in the past 12 months: Yes Aproximately how many cigarettes per day: 20 Cigars Per Day: 0 Hx Chewing Tobacco Use: No Initiated information on smoking cessation: Yes 'Breaking Loose' booklet given: 10/02/18 - Substance & Tx. History Hx Alcohol Use: Yes Hx Substance Use: Yes Substance Use Type: Alcohol, Cocaine, Marijuana Hx Substance Use Treatment: Yes ([facility],rehab [facility] 08/[facility] to 08/25/18) - Substances Abused Alcohol Route: Oral Frequency: Daily Amount used: 2pints of vodaka/6 packs of 24 ozs of beer Age of first use: 7 Date of Last Use: 10/01/18 Cocaine Route: Smoking Frequency: 3-6 times per week Amount used: 60$ Age of first use: 8 Date of Last Use: 09/30/18 Marijuana/Hashish Route: Smoking Frequency: 3-6 times per week Amount used: 40$ Age of first use: 7 Date of Last Use: 10/01/18 Family Disease History - Family Disease History Family Disease History: Diabetes: Mother (alcohol, ), Other: Father ( alcohol,), Mother Admission Physical Exam [facility] - Vital Signs Vital Signs: Vital Signs - 24 hr 10/02/18 08:50 Temperature 97.6 F Pulse Rate 84 Respiratory 18 Rate Blood Pressure 126/81 - Physical General Appearance: Yes: Moderate Distress, Tremorous, Irritable, Sweating, Anxious HEENTM: Yes: Normal ENT Inspection, [place], Pharynx Normal Respiratory: Yes: Lungs Clear, Normal Breath Sounds, No Respiratory Distress Neck: Yes: Within Normal Limits, Supple, Trachea in good position Breast: Yes: Within Normal Limits Cardiology: Yes: Within Normal Limits, Regular Rhythm, Regular Rate, S1, S2 Abdominal: Yes: Within Normal Limits, Normal Bowel Sounds, Non Tender, Flat, Soft Genitourinary: Yes: Within Normal Limits Musculoskeletal: Yes: full range of Motion, Back pain, Muscle Pain, Other (s/p total left knee replacement) Extremities: Yes: Tremors, Other (s/p total knee replacement ambulation with cane but no cane) Neurological: Yes: 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 II-XII NML intact, Alert, Motor Strength 5/5 Integumentary: Yes: Dry Lymphatic: Yes: Within Normal Limits - Diagnostic (1) Alcohol dependence with uncomplicated withdrawal Current Visit: No Status: Chronic (2) Bipolar disorder Current Visit: No Status: Acute (3) Chronic low back pain Current Visit: No Status: Chronic Qualifiers: Back pain laterality: unspecified Sciatica presence: unspecified whether sciatica present Qualified Code(s): M54.5 - Low back pain; G89.29 - Other chronic pain (4) Cocaine dependence Current Visit: No Status: Chronic Qualifiers: Substance use status: uncomplicated Qualified Code(s): F14.20 - Cocaine dependence, uncomplicated (5) Cannabis dependence Current Visit: Yes Status: Acute (6) Insomnia Current Visit: No Status: Acute Qualifiers: (7) HIV (human immunodeficiency virus infection) Current Visit: No Status: Chronic Qualifiers: HIV symptom status: unspecified Qualified Code(s): B20 - Human immunodeficiency virus [HIV] disease Comment: not taking any medication, pt states its undetecable (8) History of dental problems Current Visit: No Status: Chronic (9) Bipolar disorder Current Visit: Yes Status: Acute (10) Chronic 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 Current Visit: No Status: Chronic (11) Dehydration Current Visit: Yes Status: Acute (12) Use of cane as ambulatory aid Current Visit: No Status: Chronic Cleared for Admission [facility] - Detox or Rehab [facility] Level of Care: Medically Managed Detox Regimen/Protocol: Librium [facility] Breath Alcohol Content Breath Alcohol Content: 0 Urine Drug Screen - Results Drug Screen Negative: No Urine Drug Screen Results: THC-Marijuana, FELIZ-Cocaine Inpatient Rehab Admission - Rehab Decision to Admit Inpatient rehab admission?: No
[2018-10-02] MEDS ORDERED: MAGNESIUM HYDROX 2400MG/30ML ORAL SUSPENSION 30 ML CUP PO PRN (09:35)
[2018-10-02] MEDS ORDERED: MAGNESIUM CITRATE 300 ML BOTTLE PO PRN (09:35)
[2018-10-02] MEDS ORDERED: ACETAMINOPHEN 325 MG TABLET (FP) PO PRN (09:35)
[2018-10-02] MEDS ORDERED: MAG HYDROX/AL HYDROX/SIMETH 30 ML UNIT-DOSE CUP PO PRN (09:35)
[2018-10-02] MEDS ORDERED: MENTHOL/PHENOL 1 EACH UD MM PRN (09:35)
[2018-10-02] MEDS ORDERED: P-EPHED 60MG/TRIPROLIDI 2.5MG TABLET PO PRN (09:35)
[2018-10-02] MEDS ORDERED: LOPERAMIDE HCL 2 MG CAPSULE PO PRN (09:35)
[2018-10-02] MEDS ORDERED: hydrOXYzine PAMOATE 25 MG CAPSULE (FP) PO PRN (09:35)
[2018-10-02] MEDS ORDERED: IBUPROFEN 400 MG TABLET (FP) PO PRN (09:35)
[2018-10-02] MEDS ORDERED: guaiFENesin/D-METHORPHAN HB 10 ML UNIT-DOSE CUPS PO PRN (09:35)
[2018-10-02] MEDS ORDERED: chlordiazePOXIDE HCL 25 MG CAPSULE PO PRN (09:35)
[2018-10-02] MEDS: NICOTINE 21 MG/24 HOURS TOPICAL PATCH TD SCH (10:35)
[2018-10-02] MEDS: chlordiazePOXIDE HCL 25 MG CAPSULE PO SCH ×3 (10:38→22:05)
[2018-10-02] MEDS: PRENATAL VITAMINS W/ FOLIC ACID TABLET (FP) PO SCH (10:47)
[2018-10-02 20:34] LABS: URINE APPEARANCE CLEAR; URINE BILIRUBIN NEGATIVE (<2.0 mg/dL); URINE COLOR AMBER; URINE GLUCOSE (UA) NEGATIVE (NEGATIVE); URINE KETONE NEGATIVE (NEGATIVE); URINE LEUK ESTERASE NEGATIVE (NEGATIVE); URINE NITRITE NEGATIVE (NEGATIVE); URINE PROTEIN NEGATIVE (NEGATIVE)
[2018-10-02] MEDS: THIAMINE HCL 100 MG TABLET (FP) PO SCH (22:05)
[2018-10-03] MEDS: chlordiazePOXIDE HCL 25 MG CAPSULE PO SCH ×4 (05:42→22:59)
[2018-10-03] MEDS: PRENATAL VITAMINS W/ FOLIC ACID TABLET (FP) PO SCH (10:04)
[2018-10-03] MEDS: NICOTINE 21 MG/24 HOURS TOPICAL PATCH TD SCH (10:06)
[2018-10-03 10:41] LABS: ALBUMIN 3.8 g/dl (3.4-5.0); ALK PHOS 98 U/L (45-117); ANION GAP 7 MMOL/L (8-16); BILIRUBIN,TOTAL 0.8 mg/dL (0.2-1); BLOOD UREA NITROGEN 9 mg/dL (7-18); CALCIUM 8.4 mg/dL (8.5-10.1); CHLORIDE 101 mmol/L (98-107); CO2 29 mmol/L (21-32); GLUCOSE,RANDOM 108 mg/dL (74-106); POTASSIUM 3.9 mmol/L (3.5-5.1); SGOT/AST 27 U/L (15-37); SGPT/ALT 18 U/L (13-61); SODIUM 136 mmol/L (136-145); TOT PROT 7.3 g/dl (6.4-8.2)
[2018-10-03 10:55] LABS: HEMATOCRIT 46.7 % (35.4-49); HEMOGLOBIN 15.9 GM/dL (11.7-16.9); MCH 29.7 pg (25.7-33.7); MCHC 33.9 g/dl (32.0-35.9); MEAN CELL VOLUME 87.5 fl (80-96); MEAN PLT VOLUME 7.9 fl (7.5-11.1); PLATELET COUNT 293 K/MM3 (134-434); RBC 5.34 M/mm3 (4.00-5.60); RDW 15.5 % (11.9-15.9); WHITE BLOOD COUNT 3.7 K/mm3 (4.0-10.0)
--- NOTE | 2018-10-03 14:38 | PN ---
[facility] CIWA - CIWA Score Nausea/Vomitin-No Nausea/No Vomiting Muscle Tremors: 3 Anxiety: 2 Agitation: 1-Slight > Activity Paroxysmal Sweats: 1-Minimal Palms Moist Orientation: 2-Disoriented Date<2 days Tacttile Disturbances: 0-None Auditory Disturbances: 0-None Visual Disturbances: 0-None Headache: 1-Very Mild CIWA-Ar Total Score: 10 S Progress Note (SOAP) Subjective: anxiety tremor trouble concentrating walking around the [address] Objective: 10/03/18 14:37 Vital Signs Temperature 97.7 F 10/03/18 14:03 Pulse Rate 68 10/03/18 14:03 Respiratory Rate 18 10/03/18 14:03 Blood Pressure 106/82 10/03/18 14:03 O2 Sat by Pulse Oximetry (%) Laboratory Last Values WBC 3.7 K/mm3 (4.0-10.0) L 10/03/18 05:50 RBC 5.34 M/mm3 (4.00-5.60) 10/03/18 05:50 Hgb 15.9 GM/dL (11.7-16.9) 10/03/18 05:50 Hct 46.7 % (35.4-49) 10/03/18 05:50 MCV 87.5 fl (80-96) 10/03/18 05:50 MCH 29.7 pg (25.7-33.7) 10/03/18 05:50 MCHC 33.9 g/dl (32.0-35.9) 10/03/18 05:50 RDW 15.5 % (11.9-15.9) 10/03/18 05:50 Plt Count 293 K/MM3 (134-434) 10/03/18 05:50 MPV 7.9 fl (7.5-11.1) 10/03/18 05:50 Sodium 136 mmol/L (136-145) 10/03/18 05:50 Potassium 3.9 mmol/L (3.5-5.1) 10/03/18 05:50 Chloride 101 mmol/L (98-107) 10/03/18 05:50 Carbon Dioxide 29 mmol/L (21-32) 10/03/18 05:50 Anion Gap 7 MMOL/L (8-16) L 10/03/18 05:50 BUN 9 mg/dL (7-18) 10/03/18 05:50 Creatinine 1.0 mg/dL (0.55-1.3) 10/03/18 05:50 Creat Clearance w eGFR > 60 (>60) 10/03/18 05:50 Random Glucose 108 mg/dL (74-106) H 10/03/18 05:50 Calcium 8.4 mg/dL (8.5-10.1) L 10/03/18 05:50 Total Bilirubin 0.8 mg/dL (0.2-1) 10/03/18 05:50 AST 27 U/L (15-37) 10/03/18 05:50 ALT 18 U/L (13-61) 10/03/18 05:50 Alkaline Phosphatase 98 U/L (45-117) 10/03/18 05:50 Total Protein 7.3 g/dl (6.4-8.2) 10/03/18 05:50 Albumin 3.8 g/dl (3.4-5.0) 10/03/18 05:50 Urine Color [place]ck[place] 10/02/18 16:00 Urine Appearance Clear 10/02/18 16:00 Urine pH 6.0 (5.0-8.0) 10/02/18 16:00 Ur Specific [place] 1.019 (1.010-1.035) 10/02/18 16:00 Urine Protein Negative (NEGATIVE) 10/02/18 16:00 Urine Glucose (UA) Negative (NEGATIVE) 10/02/18 16:00 Urine Ketones Negative (NEGATIVE) 10/02/18 16:00 Urine Blood Negative (NEGATIVE) 10/02/18 16:00 Urine Nitrite Negative (NEGATIVE) 10/02/18 16:00 Urine Bilirubin Negative (<2.0 mg/dL) 10/02/18 16:00 Urine Urobilinogen 2.0 mg/dL (0.2-1.0) 10/02/18 16:00 Ur Leukocyte Esterase Negative (NEGATIVE) 10/02/18 16:00 RPR Titer Nonreactive (NONREACTIVE) 10/03/18 05:50 lab noted Assessment: 10/03/18 14:37 withdrawal sx Plan: continue detox
[2018-10-03] MEDS: THIAMINE HCL 100 MG TABLET (FP) PO SCH (22:59)
[2018-10-03] MEDS: MELATONIN 5 MG TABLETS PO PRN (23:00)
[2018-10-04] MEDS: chlordiazePOXIDE HCL 25 MG CAPSULE PO SCH (05:23)
[2018-10-04] MEDS: chlordiazePOXIDE 5 MG CAPSULE PO SCH ×3 (10:40→22:13)
[2018-10-04] MEDS: PRENATAL VITAMINS W/ FOLIC ACID TABLET (FP) PO SCH (10:40)
[2018-10-04] MEDS: NICOTINE 21 MG/24 HOURS TOPICAL PATCH TD SCH (10:46)
--- NOTE | 2018-10-04 11:51 | PN ---
[facility] CIWA - CIWA Score Nausea/Vomitin-No Nausea/No Vomiting Muscle Tremors: 1-None Visible, but [place] Anxiety: 0-No Anxiety, at Ease Agitation: 1-Slight > Activity Paroxysmal Sweats: 1-Minimal Palms Moist Orientation: 0-Oriented Tacttile Disturbances: 0-None Auditory Disturbances: 0-None Visual Disturbances: 0-None Headache: 1-Very Mild CIWA-Ar Total Score: 4 BHS Progress Note (SOAP) Subjective: tremor sweating restlessness depressive low energy poor concentration Objective: 10/04/18 11:51 Vital Signs Temperature 97.1 F L 10/04/18 09:40 Pulse Rate 89 10/04/18 09:40 Respiratory Rate 18 10/04/18 09:40 Blood Pressure 117/78 10/04/18 09:40 O2 Sat by Pulse Oximetry (%) Laboratory Last Values WBC 3.7 K/mm3 (4.0-10.0) L 10/03/18 05:50 RBC 5.34 M/mm3 (4.00-5.60) 10/03/18 05:50 Hgb 15.9 GM/dL (11.7-16.9) 10/03/18 05:50 Hct 46.7 % (35.4-49) 10/03/18 05:50 MCV 87.5 fl (80-96) 10/03/18 05:50 MCH 29.7 pg (25.7-33.7) 10/03/18 05:50 MCHC 33.9 g/dl (32.0-35.9) 10/03/18 05:50 RDW 15.5 % (11.9-15.9) 10/03/18 05:50 Plt Count 293 K/MM3 (134-434) 10/03/18 05:50 MPV 7.9 fl (7.5-11.1) 10/03/18 05:50 Sodium 136 mmol/L (136-145) 10/03/18 05:50 Potassium 3.9 mmol/L (3.5-5.1) 10/03/18 05:50 Chloride 101 mmol/L (98-107) 10/03/18 05:50 Carbon Dioxide 29 mmol/L (21-32) 10/03/18 05:50 Anion Gap 7 MMOL/L (8-16) L 10/03/18 05:50 BUN 9 mg/dL (7-18) 10/03/18 05:50 Creatinine 1.0 mg/dL (0.55-1.3) 10/03/18 05:50 Creat Clearance w eGFR > 60 (>60) 10/03/18 05:50 Random Glucose 108 mg/dL (74-106) H 10/03/18 05:50 Calcium 8.4 mg/dL (8.5-10.1) L 10/03/18 05:50 Total Bilirubin 0.8 mg/dL (0.2-1) 10/03/18 05:50 AST 27 U/L (15-37) 10/03/18 05:50 ALT 18 U/L (13-61) 10/03/18 05:50 Alkaline Phosphatase 98 U/L (45-117) 10/03/18 05:50 Total Protein 7.3 g/dl (6.4-8.2) 10/03/18 05:50 Albumin 3.8 g/dl (3.4-5.0) 10/03/18 05:50 Urine Color [place]ck[place] 10/02/18 16:00 Urine Appearance Clear 10/02/18 16:00 Urine pH 6.0 (5.0-8.0) 10/02/18 16:00 Ur Specific [place] 1.019 (1.010-1.035) 10/02/18 16:00 Urine Protein Negative (NEGATIVE) 10/02/18 16:00 Urine Glucose (UA) Negative (NEGATIVE) 10/02/18 16:00 Urine Ketones Negative (NEGATIVE) 10/02/18 16:00 Urine Blood Negative (NEGATIVE) 10/02/18 16:00 Urine Nitrite Negative (NEGATIVE) 10/02/18 16:00 Urine Bilirubin Negative (<2.0 mg/dL) 10/02/18 16:00 Urine Urobilinogen 2.0 mg/dL (0.2-1.0) 10/02/18 16:00 Ur Leukocyte Esterase Negative (NEGATIVE) 10/02/18 16:00 RPR Titer Nonreactive (NONREACTIVE) 10/03/18 05:50 lab noted Assessment: 10/04/18 11:51 alcohol withdrawal sx 10/04/18 11:53 depression Plan: continue detox psychiatric referral
--- NOTE | 2018-10-04 14:19 | DS ---
[facility] Detox Discharge Summary Admission Date: 10/02/18 Discharge Date: 10/04/18 - History Present History: Alcohol Dependence Additional Comments: 53 years old male admitted on 10/01/18 for alcohol withdrawal stabilization feeling better after lunch and nap patient preferred chemical rehab today counselor referral to [facility] - Physical Exam Results Vital Signs: Vital Signs Temperature 97.4 F L 10/04/18 13:14 Pulse Rate 86 10/04/18 13:14 Respiratory Rate 18 10/04/18 13:14 Blood Pressure 138/82 10/04/18 13:14 O2 Sat by Pulse Oximetry (%) Pertinent Admission Physical Exam Findings: alcohol withdrawal sx Laboratory Last Values WBC 3.7 K/mm3 (4.0-10.0) L 10/03/18 05:50 RBC 5.34 M/mm3 (4.00-5.60) 10/03/18 05:50 Hgb 15.9 GM/dL (11.7-16.9) 10/03/18 05:50 Hct 46.7 % (35.4-49) 10/03/18 05:50 MCV 87.5 fl (80-96) 10/03/18 05:50 MCH 29.7 pg (25.7-33.7) 10/03/18 05:50 MCHC 33.9 g/dl (32.0-35.9) 10/03/18 05:50 RDW 15.5 % (11.9-15.9) 10/03/18 05:50 Plt Count 293 K/MM3 (134-434) 10/03/18 05:50 MPV 7.9 fl (7.5-11.1) 10/03/18 05:50 Sodium 136 mmol/L (136-145) 10/03/18 05:50 Potassium 3.9 mmol/L (3.5-5.1) 10/03/18 05:50 Chloride 101 mmol/L (98-107) 10/03/18 05:50 Carbon Dioxide 29 mmol/L (21-32) 10/03/18 05:50 Anion Gap 7 MMOL/L (8-16) L 10/03/18 05:50 BUN 9 mg/dL (7-18) 10/03/18 05:50 Creatinine 1.0 mg/dL (0.55-1.3) 10/03/18 05:50 Creat Clearance w eGFR > 60 (>60) 10/03/18 05:50 Random Glucose 108 mg/dL (74-106) H 10/03/18 05:50 Calcium 8.4 mg/dL (8.5-10.1) L 10/03/18 05:50 Total Bilirubin 0.8 mg/dL (0.2-1) 10/03/18 05:50 AST 27 U/L (15-37) 10/03/18 05:50 ALT 18 U/L (13-61) 10/03/18 05:50 Alkaline Phosphatase 98 U/L (45-117) 10/03/18 05:50 Total Protein 7.3 g/dl (6.4-8.2) 10/03/18 05:50 Albumin 3.8 g/dl (3.4-5.0) 10/03/18 05:50 Urine Color [place]ck[place] 10/02/18 16:00 Urine Appearance Clear 10/02/18 16:00 Urine pH 6.0 (5.0-8.0) 10/02/18 16:00 Ur Specific [place] 1.019 (1.010-1.035) 10/02/18 16:00 Urine Protein Negative (NEGATIVE) 10/02/18 16:00 Urine Glucose (UA) Negative (NEGATIVE) 10/02/18 16:00 Urine Ketones Negative (NEGATIVE) 10/02/18 16:00 Urine Blood Negative (NEGATIVE) 10/02/18 16:00 Urine Nitrite Negative (NEGATIVE) 10/02/18 16:00 Urine Bilirubin Negative (<2.0 mg/dL) 10/02/18 16:00 Urine Urobilinogen 2.0 mg/dL (0.2-1.0) 10/02/18 16:00 Ur Leukocyte Esterase Negative (NEGATIVE) 10/02/18 16:00 RPR Titer Nonreactive (NONREACTIVE) 10/03/18 05:50 lab noted - Treatment Hospital Course: Detox Protocol Followed, Detoxed Safely, Responded well, Discharged Condition Good, Rehab Referral Accepted - Medication Discharge Medications: Ambulatory Orders Pantoprazole Sodium [Protonix -] 20 mg PO DAILY #30 tablet.ec 11/05/17 Albuterol Sulfate Inhaler - [Ventolin HFA Inhaler -] 2 puff IH Q4H PRN #1 inhaler 04/14/18 Quetiapine Fumarate [Seroquel -] 400 mg PO HS 07/11/18 - Diagnosis (1) Substance induced mood disorder Current Visit: Yes Status: Suspected (2) Alcohol dependence with uncomplicated withdrawal Current Visit: Yes Status: Acute (3) Asthma Current Visit: Yes Status: Chronic Qualifiers: Asthma severity: mild Asthma persistence: intermittent Asthma complication type: with status asthmaticus Qualified Code(s): J45.22 - Mild intermittent asthma with status asthmaticus (4) GERD (gastroesophageal reflux disease) Current Visit: Yes Status: Chronic Qualifiers: Esophagitis presence: without esophagitis Qualified Code(s): K21.9 - Gastro -esophageal reflux disease without esophagitis (5) HIV (human immunodeficiency virus infection) Current Visit: Yes Status: Chronic Qualifiers: HIV symptom status: unspecified Qualified Code(s): B20 - Human immunodeficiency virus [HIV] disease (6) Nicotine dependence Current Visit: Yes Status: Acute Qualifiers: Nicotine product type: cigarettes Substance use status: in withdrawal Qualified Code(s): F17.213 - Nicotine dependence, cigarettes, with withdrawal (7) Use of cane as ambulatory aid Current Visit: Yes Status: Chronic - AMA Did Patient Leave Against Medical Advice: No
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
[2018-10-04] MEDS: MELATONIN 5 MG TABLETS PO PRN (21:45)
[2018-10-04] MEDS: THIAMINE HCL 100 MG TABLET (FP) PO SCH (21:45)
[2018-10-04] MEDS ORDERED: QUEtiapine FUMARATE 200 MG TABLET PO SCH (22:00)
[2018-10-05] MEDS: chlordiazePOXIDE 5 MG CAPSULE PO SCH (06:00)
--- NOTE | 2018-10-05 08:52 | DS ---
[facility] Detox Discharge Summary Admission Date: 10/02/18 Discharge Date: 10/05/18 - History Present History: Alcohol Dependence Additional Comments: 53 years old male admitted on 10/02/18 for alcohol withdrawal stabilization feeling better manageable withdrawal symptoms ambulate with cane steady gait patient preferred begin alcohol rehab today that [facility] completed Pertinent Past History: patient preferred to return to [facility] for medical and mental issues - Physical Exam Results Vital Signs: Vital Signs Temperature 97.5 F L 10/05/18 06:12 Pulse Rate 91 H 10/05/18 06:12 Respiratory Rate 18 10/05/18 06:30 Blood Pressure 117/71 10/05/18 06:12 O2 Sat by Pulse Oximetry (%) Pertinent Admission Physical Exam Findings: alcohol withdrawal sx Laboratory Last Values WBC 3.7 K/mm3 (4.0-10.0) L 10/03/18 05:50 RBC 5.34 M/mm3 (4.00-5.60) 10/03/18 05:50 Hgb 15.9 GM/dL (11.7-16.9) 10/03/18 05:50 Hct 46.7 % (35.4-49) 10/03/18 05:50 MCV 87.5 fl (80-96) 10/03/18 05:50 MCH 29.7 pg (25.7-33.7) 10/03/18 05:50 MCHC 33.9 g/dl (32.0-35.9) 10/03/18 05:50 RDW 15.5 % (11.9-15.9) 10/03/18 05:50 Plt Count 293 K/MM3 (134-434) 10/03/18 05:50 MPV 7.9 fl (7.5-11.1) 10/03/18 05:50 Sodium 136 mmol/L (136-145) 10/03/18 05:50 Potassium 3.9 mmol/L (3.5-5.1) 10/03/18 05:50 Chloride 101 mmol/L (98-107) 10/03/18 05:50 Carbon Dioxide 29 mmol/L (21-32) 10/03/18 05:50 Anion Gap 7 MMOL/L (8-16) L 10/03/18 05:50 BUN 9 mg/dL (7-18) 10/03/18 05:50 Creatinine 1.0 mg/dL (0.55-1.3) 10/03/18 05:50 Creat Clearance w eGFR > 60 (>60) 10/03/18 05:50 Random Glucose 108 mg/dL (74-106) H 10/03/18 05:50 Calcium 8.4 mg/dL (8.5-10.1) L 10/03/18 05:50 Total Bilirubin 0.8 mg/dL (0.2-1) 10/03/18 05:50 AST 27 U/L (15-37) 10/03/18 05:50 ALT 18 U/L (13-61) 10/03/18 05:50 Alkaline Phosphatase 98 U/L (45-117) 10/03/18 05:50 Total Protein 7.3 g/dl (6.4-8.2) 10/03/18 05:50 Albumin 3.8 g/dl (3.4-5.0) 10/03/18 05:50 Urine Color [place]ck[place] 10/02/18 16:00 Urine Appearance Clear 10/02/18 16:00 Urine pH 6.0 (5.0-8.0) 10/02/18 16:00 Ur Specific [place] 1.019 (1.010-1.035) 10/02/18 16:00 Urine Protein Negative (NEGATIVE) 10/02/18 16:00 Urine Glucose (UA) Negative (NEGATIVE) 10/02/18 16:00 Urine Ketones Negative (NEGATIVE) 10/02/18 16:00 Urine Blood Negative (NEGATIVE) 10/02/18 16:00 Urine Nitrite Negative (NEGATIVE) 10/02/18 16:00 Urine Bilirubin Negative (<2.0 mg/dL) 10/02/18 16:00 Urine Urobilinogen 2.0 mg/dL (0.2-1.0) 10/02/18 16:00 Ur Leukocyte Esterase Negative (NEGATIVE) 10/02/18 16:00 RPR Titer Nonreactive (NONREACTIVE) 10/03/18 05:50 lab noted - Treatment Hospital Course: Detox Protocol Followed, Detoxed Safely, Responded well, Discharged Condition Good, Rehab Referral Accepted Patient has Accepted a Rehab Referral to: [facility] - Medication Discharge Medications: Ambulatory Orders Pantoprazole Sodium [Protonix -] 20 mg PO DAILY #30 tablet.ec 11/05/17 Albuterol Sulfate Inhaler - [Ventolin HFA Inhaler -] 2 puff IH Q4H PRN #1 inhaler 04/14/18 Quetiapine Fumarate [Seroquel -] 400 mg PO HS 07/11/18 - Diagnosis (1) Substance induced mood disorder Status: Suspected (2) Alcohol dependence with uncomplicated withdrawal Status: Acute (3) Asthma Status: Chronic Qualifiers: Asthma severity: mild Asthma persistence: intermittent Asthma complication type: with status asthmaticus Qualified Code(s): J45.22 - Mild intermittent asthma with status asthmaticus (4) GERD (gastroesophageal reflux disease) Status: Chronic Qualifiers: Esophagitis presence: without esophagitis Qualified Code(s): K21.9 - Gastro -esophageal reflux disease without esophagitis (5) HIV (human immunodeficiency virus infection) Status: Chronic Qualifiers: HIV symptom status: unspecified Qualified Code(s): B20 - Human immunodeficiency virus [HIV] disease (6) Nicotine dependence Status: Chronic Qualifiers: Nicotine product type: cigarettes Substance use status: in withdrawal Qualified Code(s): F17.213 - Nicotine dependence, cigarettes, with withdrawal (7) Use of cane as ambulatory aid Status: Chronic - AMA Did Patient Leave Against Medical Advice: No
[2018-10-05 10:12] VITALS: BP 126/80; PULSE 90; TEMP 96.8
[2018-10-05] MEDS: NICOTINE 21 MG/24 HOURS TOPICAL PATCH TD SCH (10:30)
[2018-10-05] MEDS: PRENATAL VITAMINS W/ FOLIC ACID TABLET (FP) PO SCH (10:31)
[2018-10-05] MEDS ORDERED: chlordiazePOXIDE HCL 10 MG CAPSULE PO SCH (11:00)
== END 2018-10-05 10:40 | disposition home or self-care (01) | DRG 774 ==
LOC: YASAS 08:32 → Y3N 09:46
PROVIDERS: ADMIT Surgery; ATTEND Surgery
PROC: HZ2ZZZZ Detoxification Services for Substance Abuse Treatment (ICD-10-PCS; principal; 2018-10-02)
DX: F10.230 Alcohol dependence with withdrawal, uncomplicated (principal); F14.20 Cocaine dependence, uncomplicated; F12.20 Cannabis dependence, uncomplicated; F17.210 Nicotine dependence, cigarettes, uncomplicated; F19.24 Other psychoactive substance dependence with psychoactive substance-induced mood disorder; F31.9 Bipolar disorder, unspecified; Z21 Asymptomatic human immunodeficiency virus [HIV] infection status; E86.0 Dehydration; J45.20 Mild intermittent asthma, uncomplicated; G47.00 Insomnia, unspecified; K21.9 Gastro-esophageal reflux disease without esophagitis; R26.89 Other abnormalities of gait and mobility; Z99.89 Dependence on other enabling machines and devices; Z91.19 Patient's noncompliance with other medical treatment and regimen; Z59.0 Homelessness
CPT/HCPCS: 36415; 80053; 81003; 85027; 86593

== ENCOUNTER 2018-12-04 16:51 | Inpatient (IN) | payer OTHER ==
[2018-12-04 17:17] VITALS: BMI 23.6
--- NOTE | 2018-12-04 17:54 | HP ---
CIWA Score Nausea/Vomitin-Mild Nausea/No Vomiting Muscle Tremors: 2 Anxiety: 2 Agitation: 2 Paroxysmal Sweats: 3 Orientation: 0-Oriented Tacttile Disturbances: 0-None Auditory Disturbances: 0-None Visual Disturbances: 0-None Headache: 2-Mild CIWA-Ar Total Score: 12 - Admission Criteria OASAS Guidelines: Admission for Medically Managed Detox: Requires at least one of the followin. CIWA greater than 12 2. Seizures within the past 24 hours 3. Delirium tremens within the past 24 hours 4. Hallucinations within the past 24 hours 5. Acute intervention needed for co occurring medical disorder 6. Acute intervention needed for co occurring psychiatric disorder 7. Severe withdrawal that cannot be handled at a lower level of care (continued vomiting, continued diarrhea, abnormal vital signs) requiring intravenous medication and/or fluids 8. Patient presents the following: CIWA greater than 12 Admission Criteria Met: Admission criteria met Admission ROS [facility] Chief Complaint: alcohol detox, using MJ, Shital and benzo in those substances 53 yo with PTSD, GERD, asthma on meds, HIV undetectable per pt and on no meds. PCP Jack Gandhi. Was here about 6 weeks ago, pt states he relapsed b/c stress in his life. Pt states he is using too much drugs and is binging and feels like he needs to break this binge before it gets out of hand. Pt is homeless. alcohol: 3-4 pints of damaris/day, no h/o seizures, DT's cocaine- $150/day MJ: 3-4 nickel bags Allergies/Adverse Reactions: Allergies Allergy/AdvReac Type Severity Reaction Status Date / Time No Known Allergies Allergy Verified 12/04/18 17:10 - Ebola screening Have you traveled outside of the country in the last 21 days: No (N) Have you had contact with anyone from an Ebola affected area: No Do you have a fever: No Patient History - Patient Medical History Hx Anemia: No Hx Asthma: Yes (MDI) Hx Chronic Obstructive Pulmonary Disease (COPD): No Hx Cancer: No Hx Cardiac Disorders: No Hx Congestive Heart Failure: No Hx Hypertension: No Hx Hypercholesterolemia: No Hx Pacemaker: No HX Cerebrovascular Accident: No Hx Seizures: No Hx Dementia: No Hx Diabetes: No Hx Gastrointestinal Disorders: Yes (acid reflux) Hx Liver Disease: No Hx Genitourinary Disorders: No Hx Sexually Transmitted Disorders: No Hx Renal Disease (ESRD): No Hx Thyroid Disease: No Hx Human Immunodeficiency Virus (HIV): Yes (since 1982/undetectable. ) Hx Hepatitis C: No (negative) Hx Depression: Yes (SEROQUEL IN THE PAST.) Hx Suicide Attempt: No (DENIES S/I) Hx Bipolar Disorder: Yes Hx Schizophrenia: No - Patient Surgical History Past Surgical History: Yes Hx Neurologic Surgery: No Hx Cataract Extraction: No Hx Cardiac Surgery: No Hx Lung Surgery: No Hx Breast Surgery: No Hx Breast Biopsy: No Hx Abdominal Surgery: No Hx Appendectomy: No Hx Cholecystectomy: No Hx Genitourinary Surgery: No Hx Section: No Hx Orthopedic Surgery: Yes (total knee replacement left in 2004) Anesthesia Reaction: No - PPD History Date: 08/13/18 Results: 0 mm - Smoking Cessation Smoking history: Current every day smoker Have you smoked in the past 12 months: Yes Aproximately how many cigarettes per day: 20 Cigars Per Day: 0 Hx Chewing Tobacco Use: No Initiated information on smoking cessation: Yes 'Breaking Loose' booklet given: 12/04/18 - Substance & Tx. History Hx Alcohol Use: Yes Hx Substance Use: Yes Substance Use Type: None, Alcohol, Cocaine, Marijuana - Substances abused Alcohol Substance route: Oral Frequency: Daily Amount used: 4-5 PINTS OF RUAL Age of first use: 1 Date of last use: 12/04/18 Crack Substance route: Smoking Frequency: 3-6 times per week Amount used: 60 DOLLARS Age of first use: 33 Date of last use: 12/04/18 Marijuana/Hashish Substance route: Smoking Frequency: Daily Amount used: 3 ARIEL BAGS Age of first use: 7 Date of last use: 12/03/18 Family Disease History - Family Disease History Family Disease History: Diabetes: Mother (alcohol, ), Other: Father ( alcohol,), Mother Admission Physical Exam BHS - Vital Signs Vital Signs: Vital Signs - 24 hr 12/04/18 17:12 Temperature 98.2 F Pulse Rate 92 H Respiratory 20 Rate Blood Pressure 102/72 - Physical General Appearance: Yes: Within Normal Limits, Disheveled HEENTM: Yes: Within Normal Limits, Hearing grossly Normal, Normal Voice Respiratory: Yes: Within Normal Limits, Lungs Clear Neck: Yes: Within Normal Limits Cardiology: Yes: Within Normal Limits, Regular Rhythm, Regular Rate Abdominal: Yes: Within Normal Limits Genitourinary: Yes: Within Normal Limits Back: Yes: Within Normal Limits Musculoskeletal: Yes: Within Normal Limits, full range of Motion, Gait Steady Extremities: Yes: Within Normal Limits Neurological: Yes: Within Normal Limits Integumentary: Yes: Within Normal Limits, Normal Color Lymphatic: Yes: Within Normal Limits - Diagnostic (1) Alcohol dependence with uncomplicated withdrawal Current Visit: No Status: Acute (2) Chronic 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 Current Visit: No Status: Chronic (3) Cocaine dependence, uncomplicated Current Visit: No Status: Chronic (4) HIV (human immunodeficiency virus infection) Current Visit: No Status: Chronic Qualifiers: HIV symptom status: unspecified Qualified Code(s): B20 - Human immunodeficiency virus [HIV] disease Comment: not taking any medication, pt states its undetecable (5) Nicotine dependence Current Visit: No Status: Chronic Qualifiers: Nicotine product type: cigarettes Substance use status: in withdrawal Qualified Code(s): F17.213 - Nicotine dependence, cigarettes, with withdrawal Inpatient Rehab Admission - Rehab Decision to Admit Inpatient rehab admission?: No
[2018-12-04] MEDS ORDERED: BISMUTH SUBSALICYLATE 524 MG/30 ML UD PO PRN (17:57)
[2018-12-04] MEDS ORDERED: METHOCARBAMOL 500 MG TABLET PO PRN (17:57)
[2018-12-04] MEDS ORDERED: hydrOXYzine PAMOATE 25 MG CAPSULE (FP) PO PRN (17:57)
[2018-12-04] MEDS ORDERED: MELATONIN 5 MG TABLETS PO PRN (17:57)
[2018-12-04] MEDS ORDERED: MENTHOL/PHENOL 1 EACH UD MM PRN (17:57)
[2018-12-04] MEDS ORDERED: MAGNESIUM CITRATE 300 ML BOTTLE PO PRN (17:57)
[2018-12-04] MEDS ORDERED: MAGNESIUM HYDROX 2400MG/30ML ORAL SUSPENSION 30 ML CUP PO PRN (17:57)
[2018-12-04] MEDS ORDERED: IBUPROFEN 400 MG TABLET (FP) PO PRN (17:57)
[2018-12-04] MEDS ORDERED: ACETAMINOPHEN 325 MG TABLET (FP) PO PRN ×2 (17:57)
[2018-12-04] MEDS ORDERED: MAG HYDROX/AL HYDROX/SIMETH 30 ML UNIT-DOSE CUP PO PRN (17:57)
[2018-12-04] MEDS ORDERED: QUEtiapine FUMARATE 50 MG TABLET PO PRN (17:57)
[2018-12-04] MEDS ORDERED: chlordiazePOXIDE HCL 10 MG CAPSULE PO PRN (17:58)
[2018-12-04] MEDS ORDERED: chlordiazePOXIDE HCL 25 MG CAPSULE PO ONE (19:15)
[2018-12-04] MEDS: chlordiazePOXIDE HCL 25 MG CAPSULE PO SCH (22:25)
[2018-12-04] MEDS: THIAMINE HCL 100 MG TABLET (FP) PO SCH (22:25)
[2018-12-05] MEDS: chlordiazePOXIDE HCL 25 MG CAPSULE PO SCH ×2 (05:39→14:20)
[2018-12-05] MEDS: PRENATAL VITAMINS W/ FOLIC ACID TABLET (FP) PO SCH (10:06)
[2018-12-05] MEDS: NICOTINE 14 MG/24 HOURS TOPICAL PATCH TD SCH (10:07)
[2018-12-05 10:25] LABS: HEMATOCRIT 43.7 % (35.4-49); HEMOGLOBIN 14.6 GM/dL (11.7-16.9); MCH 29.3 pg (25.7-33.7); MCHC 33.4 g/dl (32.0-35.9); MEAN CELL VOLUME 87.8 fl (80-96); MEAN PLT VOLUME 7.6 fl (7.5-11.1); PLATELET COUNT 260 K/MM3 (134-434); RBC 4.98 M/mm3 (4.00-5.60); RDW 15.5 % (11.9-15.9); WHITE BLOOD COUNT 3.7 K/mm3 (4.0-10.0)
[2018-12-05 10:26] LABS: ALBUMIN 3.1 g/dl (3.4-5.0); ALK PHOS 97 U/L (45-117); ANION GAP 7 MMOL/L (8-16); BILIRUBIN,TOTAL 0.6 mg/dL (0.2-1); BLOOD UREA NITROGEN 7 mg/dL (7-18); CALCIUM 8.1 mg/dL (8.5-10.1); CHLORIDE 103 mmol/L (98-107); CO2 29 mmol/L (21-32); CREATININE 0.8 mg/dL (0.55-1.3); GLUCOSE,RANDOM 73 mg/dL (74-106); SGOT/AST 20 U/L (15-37); SGPT/ALT 15 U/L (13-61); SODIUM 138 mmol/L (136-145); TOT PROT 6.1 g/dl (6.4-8.2)
--- NOTE | 2018-12-05 10:28 | PN ---
[facility] CIWA - CIWA Score Nausea/Vomitin-Mild Nausea/No Vomiting Muscle Tremors: 3 Anxiety: 1-Mildly Anxious Agitation: 2 Paroxysmal Sweats: 1-Minimal Palms Moist Orientation: 1-Uncertain about Date Tacttile Disturbances: 0-None Auditory Disturbances: 0-None Visual Disturbances: 0-None Headache: 1-Very Mild CIWA-Ar Total Score: 10 S Progress Note (SOAP) Subjective: headaches tired resting on bed trouble sleep last night Objective: 12/05/18 10:27 Vital Signs Temperature 97.6 F 12/05/18 09:11 Pulse Rate 81 12/05/18 09:11 Respiratory Rate 18 12/05/18 09:11 Blood Pressure 100/61 12/05/18 09:11 O2 Sat by Pulse Oximetry (%) Laboratory Last Values Sodium 138 mmol/L (136-145) 12/05/18 07:00 Potassium 4.0 mmol/L (3.5-5.1) 12/05/18 07:00 Chloride 103 mmol/L (98-107) 12/05/18 07:00 Carbon Dioxide 29 mmol/L (21-32) 12/05/18 07:00 Anion Gap 7 MMOL/L (8-16) L 12/05/18 07:00 BUN 7 mg/dL (7-18) 12/05/18 07:00 Creatinine 0.8 mg/dL (0.55-1.3) 12/05/18 07:00 Creat Clearance w eGFR 100.36 (>60) 12/05/18 07:00 Random Glucose 73 mg/dL (74-106) L 12/05/18 07:00 Calcium 8.1 mg/dL (8.5-10.1) L 12/05/18 07:00 Total Bilirubin 0.6 mg/dL (0.2-1) 12/05/18 07:00 AST 20 U/L (15-37) 12/05/18 07:00 ALT 15 U/L (13-61) 12/05/18 07:00 Alkaline Phosphatase 97 U/L (45-117) 12/05/18 07:00 Total Protein 6.1 g/dl (6.4-8.2) L 12/05/18 07:00 Albumin 3.1 g/dl (3.4-5.0) L 05/07/19 07:00 lab noted Assessment: 12/05/18 10:28 withdrawal sx Plan: continue detox
[2018-12-05 12:28] LABS: PH,URINE 7.5 (5.0-8.0); URINE APPEARANCE CLEAR; URINE BILIRUBIN NEGATIVE (NEGATIVE); URINE COLOR YELLOW; URINE GLUCOSE (UA) NEGATIVE (NEGATIVE); URINE KETONE NEGATIVE (NEGATIVE); URINE LEUK ESTERASE NEGATIVE (NEGATIVE); URINE NITRITE NEGATIVE (NEGATIVE); URINE PROTEIN NEGATIVE (NEGATIVE); URINE UROBILINOGEN 0.2 mg/dL (0.2-1.0)
[2018-12-05] MEDS: chlordiazePOXIDE 5 MG CAPSULE PO SCH (22:00)
[2018-12-05] MEDS: THIAMINE HCL 100 MG TABLET (FP) PO SCH (22:21)
[2018-12-06] MEDS ORDERED: chlordiazePOXIDE HCL 10 MG CAPSULE PO PRN (05:00)
[2018-12-06] MEDS: chlordiazePOXIDE 5 MG CAPSULE PO SCH ×2 (06:31→13:14)
--- NOTE | 2018-12-06 09:27 | DS ---
[facility] Detox Discharge Summary Admission Date: 12/04/18 Discharge Date: 12/06/18 - History Present History: Alcohol Dependence Additional Comments: 53 years old male admitted on 12/04/18 for alcohol withdrawal stabilization feeling better to day preferring to begin alcohol rehab today after[facility] Pertinent Past History: bring in medication list and lab report to aftercare appointment - Physical Exam Results Vital Signs: Vital Signs Temperature 97.6 F 12/06/18 06:10 Pulse Rate 76 12/06/18 06:10 Respiratory Rate 18 12/06/18 06:10 Blood Pressure 106/70 12/06/18 06:10 O2 Sat by Pulse Oximetry (%) Pertinent Admission Physical Exam Findings: alcohol withdrawal sx Laboratory Last Values WBC 3.7 K/mm3 (4.0-10.0) L 12/05/18 07:00 RBC 4.98 M/mm3 (4.00-5.60) 12/05/18 07:00 Hgb 14.6 GM/dL (11.7-16.9) 12/05/18 07:00 Hct 43.7 % (35.4-49) 12/05/18 07:00 MCV 87.8 fl (80-96) 12/05/18 07:00 MCH 29.3 pg (25.7-33.7) 12/05/18 07:00 MCHC 33.4 g/dl (32.0-35.9) 12/05/18 07:00 RDW 15.5 % (11.9-15.9) 12/05/18 07:00 Plt Count 260 K/MM3 (134-434) 12/05/18 07:00 MPV 7.6 fl (7.5-11.1) 12/05/18 07:00 Sodium 138 mmol/L (136-145) 12/05/18 07:00 Potassium 4.0 mmol/L (3.5-5.1) 12/05/18 07:00 Chloride 103 mmol/L (98-107) 12/05/18 07:00 Carbon Dioxide 29 mmol/L (21-32) 12/05/18 07:00 Anion Gap 7 MMOL/L (8-16) L 12/05/18 07:00 BUN 7 mg/dL (7-18) 12/05/18 07:00 Creatinine 0.8 mg/dL (0.55-1.3) 12/05/18 07:00 Creat Clearance w eGFR 100.36 (>60) 12/05/18 07:00 Random Glucose 73 mg/dL (74-106) L 12/05/18 07:00 Calcium 8.1 mg/dL (8.5-10.1) L 12/05/18 07:00 Total Bilirubin 0.6 mg/dL (0.2-1) 12/05/18 07:00 AST 20 U/L (15-37) 12/05/18 07:00 ALT 15 U/L (13-61) 12/05/18 07:00 Alkaline Phosphatase 97 U/L (45-117) 12/05/18 07:00 Total Protein 6.1 g/dl (6.4-8.2) L 12/05/18 07:00 Albumin 3.1 g/dl (3.4-5.0) L 12/05/18 07:00 Urine Color Yellow 12/05/18 10:10 Urine Appearance Clear 12/05/18 10:10 Urine pH 7.5 (5.0-8.0) D 12/05/18 10:10 Ur Specific [place] 1.007 (1.010-1.035) L 12/05/18 10:10 Urine Protein Negative (NEGATIVE) 12/05/18 10:10 Urine Glucose (UA) Negative (NEGATIVE) 12/05/18 10:10 Urine Ketones Negative (NEGATIVE) 12/05/18 10:10 Urine Blood Negative (NEGATIVE) 12/05/18 10:10 Urine Nitrite Negative (NEGATIVE) 12/05/18 10:10 Urine Bilirubin Negative (NEGATIVE) 12/05/18 10:10 Urine Urobilinogen 0.2 mg/dL (0.2-1.0) 12/05/18 10:10 Ur Leukocyte Esterase Negative (NEGATIVE) 12/05/18 10:10 RPR Titer Nonreactive (NONREACTIVE) 12/05/18 07:00 lab noted - Treatment Hospital Course: Detox Protocol Followed, Detoxed Safely, Responded well, Discharged Condition Good, Rehab Referral Accepted Patient has Accepted a [facility] Referral [facility]: [facility] - Medication Discharge Medications: Ambulatory Orders Pantoprazole Sodium [Protonix -] 20 mg PO DAILY #30 tablet.ec 11/05/17 Albuterol Sulfate Inhaler - [Ventolin HFA Inhaler -] 2 puff IH Q4H PRN #1 inhaler 04/14/18 Quetiapine Fumarate [Seroquel -] 400 mg PO HS 07/11/18 - Diagnosis (1) Alcohol dependence with uncomplicated withdrawal Current Visit: Yes Status: Acute (2) Substance induced mood disorder Current Visit: Yes Status: Suspected (3) Asthma Current Visit: Yes Status: Chronic Qualifiers: Asthma severity: mild Asthma persistence: intermittent Asthma complication type: with status asthmaticus Qualified Code(s): J45.22 - Mild intermittent asthma with status asthmaticus (4) GERD (gastroesophageal reflux disease) Current Visit: Yes Status: Chronic Qualifiers: Esophagitis presence: without esophagitis Qualified Code(s): K21.9 - Gastro -esophageal reflux disease without esophagitis (5) HIV (human immunodeficiency virus infection) Current Visit: Yes Status: Chronic Qualifiers: HIV symptom status: unspecified Qualified Code(s): B20 - Human immunodeficiency virus [HIV] disease (6) Nicotine dependence Current Visit: Yes Status: Acute Qualifiers: Nicotine product type: cigarettes Substance use status: in withdrawal Qualified Code(s): F17.213 - Nicotine dependence, cigarettes, with withdrawal (7) Use of cane as ambulatory aid Current Visit: Yes Status: Chronic (8) Substance induced mood disorder Current Visit: Yes Status: Suspected - AMA Did Patient Leave Against Medical Advice: No
[2018-12-06] MEDS: NICOTINE 14 MG/24 HOURS TOPICAL PATCH TD SCH (09:47)
[2018-12-06] MEDS: PRENATAL VITAMINS W/ FOLIC ACID TABLET (FP) PO SCH (09:48)
[2018-12-06 17:28] VITALS: BP 113/71; PULSE 76; TEMP 97
[2018-12-06] MEDS ORDERED: chlordiazePOXIDE HCL 10 MG CAPSULE PO SCH (21:00)
== END 2018-12-06 18:06 | disposition other institution (70) | DRG 774 ==
LOC: YASAS 16:51 → Y3N 18:50
PROVIDERS: ADMIT Surgery; ATTEND Surgery
PROC: HZ2ZZZZ Detoxification Services for Substance Abuse Treatment (ICD-10-PCS; principal; 2018-12-04)
DX: F10.230 Alcohol dependence with withdrawal, uncomplicated (principal); F14.20 Cocaine dependence, uncomplicated; F17.213 Nicotine dependence, cigarettes, with withdrawal; F19.24 Other psychoactive substance dependence with psychoactive substance-induced mood disorder; J45.22 Mild intermittent asthma with status asthmaticus; K21.9 Gastro-esophageal reflux disease without esophagitis; Z21 Asymptomatic human immunodeficiency virus [HIV] infection status; M25.562 Pain in left knee; G89.29 Other chronic pain; Z96.652 Presence of left artificial knee joint; R26.2 Difficulty in walking, not elsewhere classified; Z99.89 Dependence on other enabling machines and devices
CPT/HCPCS: 36415; 80053; 81003; 85027; 86593

== ENCOUNTER 2018-12-06 18:10 | Inpatient (IN) | payer OTHER | END 2018-12-13 09:30 | disposition home or self-care (01) | LOC: YASAS 18:10 → Y3W 18:11 ==

== ENCOUNTER 2019-01-04 09:19 | Inpatient (IN) | payer OTHER ==
--- NOTE | 2019-01-04 10:31 | HP ---
"CIWA Score Nausea/Vomitin-No Nausea/No Vomiting Muscle Tremors: 1-None Visible, but [place] Anxiety: 2 Agitation: 1-Slight > Activity Paroxysmal Sweats: 1-Minimal Palms Moist Orientation: 0-Oriented Tacttile Disturbances: 2-Mild Itch/Numbness/Burn Auditory Disturbances: 2-Mild Harshness/Frighten Visual Disturbances: 2-Mild Sensitivity Headache: 0-None Present CIWA-Ar Total Score: 11 - Admission Criteria OASAS Guidelines: Admission for Medically Managed Detox: Requires at least one of the followin. CIWA greater than 12 2. Seizures within the past 24 hours 3. Delirium tremens within the past 24 hours 4. Hallucinations within the past 24 hours 5. Acute intervention needed for co occurring medical disorder 6. Acute intervention needed for co occurring psychiatric disorder 7. Severe withdrawal that cannot be handled at a lower level of care (continued vomiting, continued diarrhea, abnormal vital signs) requiring intravenous medication and/or fluids 8. Admission ROS S - HPI Allergies/Adverse Reactions: Allergies Allergy/AdvReac Type Severity Reaction Status Date / Time No Known Allergies Allergy Verified 01/04/19 09:40 History of Present Illness: 53 yo male requesting detox from etoh use, reports 1 x 6-pk 1/2 day and 3- 4 pints /day since d/c from rehab 12/13/18 . Denies seizures / blackouts , + tremors , starts drinking in the mornings , latest use last night current symptoms as above. Denies current SI / HI . PMHx :OA , PTSD, GERD, asthma , HIV undetectable per pt and on no meds. PCP Jack Gandhi. SHX : homeless. cocaine- $150/day tobacco ; 1.5 ppd This report was requested by: Rachel Gaming | Reference #: [id number] Others' Prescriptions Patient Name: Guido Kathleen Date: 1965 Address: [address] [place] [address] Sex: Male Rx Written Rx Dispensed Drug Quantity Days Supply Prescriber Name 09/05/2018 09/09/2018 chlordiazepoxide 10 mg capsule 21 7 Jenny Blackwell () Exam Limitations: Clinical Condition - Ebola screening Have you traveled outside of the country in the last 21 days: No (N) Have you had contact with anyone from an Ebola affected area: No Do you have a fever: No - Review of Systems Constitutional: See HPI EENT: reports: See HPI, Other ( edentulous) Respiratory: reports: No Symptoms reported Cardiac: reports: No Symptoms Reported GI: reports: No Symptoms Reported : reports: No Symptoms Reported Musculoskeletal: reports: See HPI, Joint Pain (caleb knees chronic OA) Integumentary: reports: Dryness Neuro: reports: No Symptoms reported Endocrine: reports: No Symptoms Reported Psychiatric: reports: Orientated x3, Anxious Patient History - Patient Medical History Hx Anemia: No Hx Asthma: Yes Hx Chronic Obstructive Pulmonary Disease (COPD): No Hx Cancer: No Hx Cardiac Disorders: No Hx Congestive Heart Failure: No Hx Hypertension: No Hx Hypercholesterolemia: No Hx Pacemaker: No HX Cerebrovascular Accident: No Hx Seizures: No Hx Dementia: No Hx Diabetes: No Hx Gastrointestinal Disorders: No Hx Liver Disease: No Hx Genitourinary Disorders: No Hx Sexually Transmitted Disorders: No Hx Renal Disease (ESRD): No Hx Thyroid Disease: No Hx Human Immunodeficiency Virus (HIV): Yes (since 1982/. ) Hx Hepatitis C: No (negative) Hx Depression: No Hx Suicide Attempt: No Hx Bipolar Disorder: Yes Hx Schizophrenia: No - Patient Surgical History Past Surgical History: Yes Hx Neurologic Surgery: No Hx Cataract Extraction: No Hx Cardiac Surgery: No Hx Lung Surgery: No Hx Breast Surgery: No Hx Breast Biopsy: No Hx Abdominal Surgery: No Hx Appendectomy: No Hx Cholecystectomy: No Hx Genitourinary Surgery: No Hx Section: No Hx Orthopedic Surgery: Yes (total knee replacement left in 2004) Anesthesia Reaction: No - PPD History Date: 08/13/18 Results: 0MM - Smoking Cessation Smoking history: Current every day smoker Have you smoked in the past 12 months: Yes Aproximately how many cigarettes per day: 20 Cigars Per Day: 0 Hx Chewing Tobacco Use: No Initiated information on smoking cessation: No - Substances abused Alcohol Substance route: Oral Frequency: Daily Amount used: 4 PINTS vodka Age of first use: 3 Date of last use: 01/03/19 Crack Substance route: Smoking Frequency: 3-6 times per week Amount used: 60 DOLLARS Age of first use: 10 Date of last use: 01/03/19 Marijuana/Hashish Substance route: Smoking Frequency: Daily Amount used: 30 dollars Age of first use: 7 Date of last use: 01/04/19 Family Disease History - Family Disease History Family Disease History: Diabetes: Mother (alcohol, ), Other: Father ( alcohol,), Mother Admission Physical Exam BHS - Vital Signs Vital Signs: Vital Signs - 24 hr 01/04/19 09:36 Temperature 97.1 F L Pulse Rate 76 Respiratory 18 Rate Blood Pressure 95/64 - Physical General Appearance: Yes: No Apparent Distress HEENTM: Yes: EOMI, Hearing grossly Normal, Normocephalic, Other (edentulous) Respiratory: Yes: Lungs Clear, Normal Breath Sounds, No Respiratory Distress, No Accessory Muscle Use Neck: Yes: No masses,lesions,Nodules, Trachea in good position Cardiology: Yes: Regular Rhythm, Regular Rate, S1, S2 Abdominal: Yes: Non Tender, Soft Back: Yes: Normal Inspection Musculoskeletal: Yes: Gait Steady Extremities: Yes: Non-Tender Neurological: Yes: Fully Oriented, Alert, Motor Strength 5/5 Integumentary: Yes: Warm - Diagnostic (1) Alcohol dependence with uncomplicated withdrawal Current Visit: Yes Status: Acute (2) Cocaine dependence Current Visit: Yes Status: Chronic Qualifiers: Substance use status: uncomplicated Qualified Code(s): F14.20 - Cocaine dependence, uncomplicated (3) Nicotine dependence Current Visit: Yes Status: Chronic Qualifiers: Nicotine product type: cigarettes Breathalyzer - Breathalyzer Breathalyzer: 0 Urine Drug Screen - Test Device Lot number: [id number] Expiration date: 09/28/20 - Control Is test valid?: Yes - Results Drug screen NEGATIVE: No Urine drug screen results: FELIZ-Cocaine, BZO-Benzodiazepines Inpatient Rehab Admission - Rehab Decision to Admit Inpatient rehab admission?: No"
[2019-01-04] MEDS ORDERED: ALBUTEROL SO4 0.083% IH SOL 2.5 MG/3 ML VIAL.NEB. NEB PRN (10:47)
[2019-01-04] MEDS ORDERED: ALBUTEROL SO4 8 GM HFA INHALER IH PRN (10:47)
[2019-01-04] MEDS ORDERED: BISMUTH SUBSALICYLATE 262 MG/15 ML BTL PO PRN (10:48)
[2019-01-04] MEDS ORDERED: ACETAMINOPHEN 325 MG TABLET (FP) PO PRN ×2 (10:48)
[2019-01-04] MEDS ORDERED: MAGNESIUM HYDROX 2400MG/30ML ORAL SUSPENSION 30 ML CUP PO PRN (10:48)
[2019-01-04] MEDS ORDERED: MAG HYDROX/AL HYDROX/SIMETH 30 ML UNIT-DOSE CUP PO PRN (10:48)
[2019-01-04] MEDS ORDERED: hydrOXYzine PAMOATE 25 MG CAPSULE (FP) PO PRN (10:48)
[2019-01-04] MEDS ORDERED: MELATONIN 5 MG TABLETS PO PRN (10:48)
[2019-01-04] MEDS ORDERED: MAGNESIUM CITRATE 300 ML BOTTLE PO PRN (10:48)
[2019-01-04] MEDS ORDERED: IBUPROFEN 400 MG TABLET (FP) PO PRN (10:48)
[2019-01-04] MEDS ORDERED: MENTHOL/PHENOL 1 EACH UD MM PRN (10:48)
[2019-01-04] MEDS ORDERED: NICOTINE POLACRILEX 2 MG GUM BUC PRN (10:48)
[2019-01-04] MEDS ORDERED: diazePAM 5 MG TABLET PO PRN (10:48)
[2019-01-04] MEDS: diazePAM 5 MG TABLET PO SCH ×2 (14:25→23:06)
[2019-01-04] MEDS: THIAMINE HCL 100 MG TABLET (FP) PO SCH (23:07)
[2019-01-05] MEDS: diazePAM 5 MG TABLET PO SCH ×3 (05:43→22:26)
[2019-01-05] MEDS ORDERED: PANTOPRAZOLE 20 MG TABLET (FP) PO SCH (10:00)
[2019-01-05] MEDS ORDERED: PRENATAL VITAMINS W/ FOLIC ACID TABLET (FP) PO SCH (10:00)
--- NOTE | 2019-01-05 11:00 | PN ---
S CIWA - CIWA Score Nausea/Vomitin-No Nausea/No Vomiting Muscle Tremors: 2 Anxiety: 1-Mildly Anxious Agitation: 1-Slight > Activity Paroxysmal Sweats: No Perspiration Orientation: 0-Oriented Tacttile Disturbances: 0-None Auditory Disturbances: 0-None Visual Disturbances: 0-None Headache: 0-None Present CIWA-Ar Total Score: 4 BHS Progress Note (SOAP) Subjective: sweats Objective: 01/05/19 13:38 Vital Signs Temperature 98.2 F 01/05/19 09:20 Pulse Rate 74 01/05/19 09:20 Respiratory Rate 18 01/05/19 09:20 Blood Pressure 108/61 01/05/19 09:20 O2 Sat by Pulse Oximetry (%) labs pending aaox3 ambulating no acute distress Assessment: 01/05/19 13:38 withdrawal sx Plan: continue detox increase fluids d/c in am
[2019-01-05] MEDS: THIAMINE HCL 100 MG TABLET (FP) PO SCH (22:26)
[2019-01-06] MEDS ORDERED: diazePAM 5 MG TABLET PO ONE (06:00)
[2019-01-06 06:51] VITALS: BP 105/60; PULSE 71; TEMP 97.9
--- NOTE | 2019-01-06 09:43 | DS ---
[facility] Detox Discharge Summary Admission Date: 01/04/19 Discharge Date: 01/06/19 - History Present History: Alcohol Dependence - Physical Exam Results Vital Signs: Vital Signs Temperature 97.9 F 01/06/19 07:17 Pulse Rate 71 01/06/19 07:17 Respiratory Rate 18 01/06/19 07:17 Blood Pressure 105/60 01/06/19 07:17 O2 Sat by Pulse Oximetry (%) - Treatment Hospital Course: Detox Protocol Followed, Detoxed Safely, Responded well, Discharged Condition Good, Rehab Referral Accepted - Medication Discharge Medications: Ambulatory Orders Pantoprazole Sodium [Protonix -] 20 mg PO DAILY #30 tablet.ec 11/05/17 Albuterol Sulfate Inhaler - [Ventolin HFA Inhaler -] 2 puff IH Q4H PRN #1 inhaler 04/14/18 Quetiapine Fumarate [Seroquel -] 400 mg PO HS 07/11/18 - Diagnosis (1) Alcohol dependence with uncomplicated withdrawal Status: Chronic (2) Bipolar disorder Status: Acute (3) Substance-induced sleep disorder Status: Acute (4) Asthma Status: Chronic Qualifiers: Asthma severity: mild Asthma persistence: intermittent Asthma complication type: with status asthmaticus Qualified Code(s): J45.22 - Mild intermittent asthma with status asthmaticus (5) Bipolar II disorder Status: Chronic (6) Bipolar disorder Status: Chronic (7) Cannabis dependence Status: Chronic (8) Chronic 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 Status: Chronic (9) Chronic low back pain Status: Chronic Qualifiers: Back pain laterality: unspecified Sciatica presence: unspecified whether sciatica present Qualified Code(s): M54.5 - Low back pain; G89.29 - Other chronic pain (10) Cocaine dependence, uncomplicated Status: Chronic (11) GERD (gastroesophageal reflux disease) Status: Chronic Qualifiers: Esophagitis presence: without esophagitis Qualified Code(s): K21.9 - Gastro -esophageal reflux disease without esophagitis (12) HIV (human immunodeficiency virus infection) Status: Chronic Qualifiers: HIV symptom status: unspecified Qualified Code(s): B20 - Human immunodeficiency virus [HIV] disease (13) History of bipolar disorder Status: Chronic (14) History of dental problems Status: Chronic (15) Insomnia Status: Chronic Qualifiers: (16) Mood disorder Status: Chronic (17) Nicotine dependence Status: Chronic Qualifiers: Nicotine product type: cigarettes Substance use status: uncomplicated Qualified Code(s): F17.210 - Nicotine dependence, cigarettes, uncomplicated (18) Non-compliance Status: Chronic (19) PTSD (post-traumatic stress disorder) Status: Chronic (20) Use of cane as ambulatory aid Status: Chronic (21) Substance induced mood disorder Status: Suspected (22) Substance induced mood disorder Status: Suspected - AMA Did Patient Leave Against Medical Advice: No (pt declined aftercare)
== END 2019-01-06 09:10 | disposition home or self-care (01) | DRG 774 ==
LOC: YASAS 09:19 → Y6N 11:22
PROVIDERS: ADMIT Surgery; ATTEND Surgery
PROC: HZ2ZZZZ Detoxification Services for Substance Abuse Treatment (ICD-10-PCS; principal; 2019-01-04)
DX: F10.230 Alcohol dependence with withdrawal, uncomplicated (principal); F13.20 Sedative, hypnotic or anxiolytic dependence, uncomplicated; F14.20 Cocaine dependence, uncomplicated; F12.20 Cannabis dependence, uncomplicated; F17.210 Nicotine dependence, cigarettes, uncomplicated; F19.282 Other psychoactive substance dependence with psychoactive substance-induced sleep disorder; F31.81 Bipolar II disorder; F31.9 Bipolar disorder, unspecified; F43.10 Post-traumatic stress disorder, unspecified; Z21 Asymptomatic human immunodeficiency virus [HIV] infection status; J45.22 Mild intermittent asthma with status asthmaticus; K21.9 Gastro-esophageal reflux disease without esophagitis; G47.00 Insomnia, unspecified; M54.5 Low back pain; G89.29 Other chronic pain; M25.562 Pain in left knee; Z96.652 Presence of left artificial knee joint; Z99.89 Dependence on other enabling machines and devices

== ENCOUNTER 2019-01-11 08:28 | Inpatient (IN) | payer OTHER ==
[2019-01-11 09:33] VITALS: BMI 21.5
[2019-01-11] MEDS ORDERED: guaiFENesin 200 MG/10 ML 10 ML UNIT-DOSE CUPS PO PRN (11:15)
[2019-01-11] MEDS ORDERED: MAGNESIUM CITRATE 300 ML BOTTLE PO PRN (11:15)
[2019-01-11] MEDS ORDERED: MAGNESIUM HYDROX 2400MG/30ML ORAL SUSPENSION 30 ML CUP PO PRN (11:15)
[2019-01-11] MEDS ORDERED: MAG HYDROX/AL HYDROX/SIMETH 30 ML UNIT-DOSE CUP PO PRN (11:15)
[2019-01-11] MEDS ORDERED: IBUPROFEN 400 MG TABLET (FP) PO PRN (11:15)
[2019-01-11] MEDS ORDERED: P-EPHED 60MG/TRIPROLIDI 2.5MG TABLET PO PRN (11:15)
[2019-01-11] MEDS ORDERED: LOPERAMIDE HCL 2 MG CAPSULE PO PRN (11:15)
[2019-01-11] MEDS ORDERED: NICOTINE POLACRILEX 2 MG GUM BUC PRN (11:15)
[2019-01-11] MEDS ORDERED: ACETAMINOPHEN 325 MG TABLET (FP) PO PRN (11:15)
[2019-01-11] MEDS ORDERED: hydrOXYzine PAMOATE 50 MG CAPSULE (FP) PO PRN (11:15)
[2019-01-11] MEDS ORDERED: MENTHOL/PHENOL 1 EACH UD MM PRN (11:15)
[2019-01-11] MEDS ORDERED: ALBUTEROL SO4 8 GM HFA INHALER IH PRN (11:19)
--- NOTE | 2019-01-11 11:22 | HP ---
[facility] Rehab Assess/Revision - Admission History Admitted to Rehab from: [facility] Date of Admission to Rehab: 01/11/19 - Vital signs Vital Signs: Vital Signs Period Temp Pulse Resp BP Sys/Uribe Pulse Ox Last 24 Hr 97.3 F 68 16 118/78 - Findings Detox History & Physical reviewed: Yes Concur with findings: Yes Comments/Additional Findings: for rehab as protocol Inpatient Rehab Admission - Rehab Decision to Admit Inpatient rehab admission?: Yes - Initial Determination Are CD services needed?: Yes Free of communicable disease: Yes Not in need of hospitalization: Yes - Rehab Admission Criteria Previous failed treatment: Yes Poor recovery environment: Yes Comorbidities: Yes Lacks judgement: No Patient is meeting Inpatient Rehab admission criteria:: Yes
[2019-01-11] MEDS: NICOTINE 21 MG/24 HOURS TOPICAL PATCH TD SCH (13:39)
[2019-01-11] MEDS: THIAMINE HCL 100 MG TABLET (FP) PO SCH (21:29)
[2019-01-11] MEDS: MELATONIN 5 MG TABLETS PO PRN (21:29)
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
[2019-01-12] MEDS: PANTOPRAZOLE 20 MG TABLET (FP) PO SCH (10:05)
[2019-01-12] MEDS: PRENATAL VITAMINS W/ FOLIC ACID TABLET (FP) PO SCH (10:05)
[2019-01-12] MEDS: NICOTINE 21 MG/24 HOURS TOPICAL PATCH TD SCH (10:05)
[2019-01-12] MEDS: THIAMINE HCL 100 MG TABLET (FP) PO SCH (21:22)
[2019-01-12] MEDS: QUEtiapine FUMARATE 200 MG TABLET PO SCH (21:23)
[2019-01-13] MEDS: PRENATAL VITAMINS W/ FOLIC ACID TABLET (FP) PO SCH (11:00)
[2019-01-13] MEDS: PANTOPRAZOLE 20 MG TABLET (FP) PO SCH (11:00)
[2019-01-13] MEDS: NICOTINE 21 MG/24 HOURS TOPICAL PATCH TD SCH (11:00)
[2019-01-13] MEDS: QUEtiapine FUMARATE 200 MG TABLET PO SCH (21:24)
[2019-01-13] MEDS: THIAMINE HCL 100 MG TABLET (FP) PO SCH (21:24)
[2019-01-14] MEDS: PANTOPRAZOLE 20 MG TABLET (FP) PO SCH (10:14)
[2019-01-14] MEDS: PRENATAL VITAMINS W/ FOLIC ACID TABLET (FP) PO SCH (10:14)
[2019-01-14] MEDS: NICOTINE 21 MG/24 HOURS TOPICAL PATCH TD SCH (10:15)
[2019-01-14] MEDS: THIAMINE HCL 100 MG TABLET (FP) PO SCH (21:29)
[2019-01-14] MEDS: QUEtiapine FUMARATE 200 MG TABLET PO SCH (21:29)
[2019-01-15] MEDS: PRENATAL VITAMINS W/ FOLIC ACID TABLET (FP) PO SCH (10:33)
[2019-01-15] MEDS: PANTOPRAZOLE 20 MG TABLET (FP) PO SCH (10:33)
[2019-01-15] MEDS: NICOTINE 21 MG/24 HOURS TOPICAL PATCH TD SCH (10:33)
[2019-01-15] MEDS: THIAMINE HCL 100 MG TABLET (FP) PO SCH (21:13)
[2019-01-15] MEDS: QUEtiapine FUMARATE 200 MG TABLET PO SCH (21:13)
[2019-01-16] MEDS: NICOTINE 21 MG/24 HOURS TOPICAL PATCH TD SCH (10:09)
[2019-01-16] MEDS: PRENATAL VITAMINS W/ FOLIC ACID TABLET (FP) PO SCH (10:09)
[2019-01-16] MEDS: PANTOPRAZOLE 20 MG TABLET (FP) PO SCH (10:09)
[2019-01-16] MEDS: QUEtiapine FUMARATE 200 MG TABLET PO SCH (21:28)
[2019-01-16] MEDS: MELATONIN 5 MG TABLETS PO PRN (21:28)
[2019-01-16] MEDS: THIAMINE HCL 100 MG TABLET (FP) PO SCH (21:28)
[2019-01-17] MEDS: PANTOPRAZOLE 20 MG TABLET (FP) PO SCH (10:04)
[2019-01-17] MEDS: PRENATAL VITAMINS W/ FOLIC ACID TABLET (FP) PO SCH (10:05)
[2019-01-17] MEDS: NICOTINE 21 MG/24 HOURS TOPICAL PATCH TD SCH (10:05)
[2019-01-17] MEDS: MELATONIN 5 MG TABLETS PO PRN (21:14)
[2019-01-17] MEDS: QUEtiapine FUMARATE 200 MG TABLET PO SCH (21:14)
[2019-01-17] MEDS: THIAMINE HCL 100 MG TABLET (FP) PO SCH (21:14)
[2019-01-18] MEDS: PANTOPRAZOLE 20 MG TABLET (FP) PO SCH (10:06)
[2019-01-18] MEDS: NICOTINE 21 MG/24 HOURS TOPICAL PATCH TD SCH (10:06)
[2019-01-18] MEDS: PRENATAL VITAMINS W/ FOLIC ACID TABLET (FP) PO SCH (10:06)
--- NOTE | 2019-01-18 18:00 | PN ---
[facility] Progress Note Note: Discharge Vital Signs Temperature 97.7 F 01/18/19 07:01 Pulse Rate 72 01/18/19 07:01 Respiratory Rate 113 H 01/18/19 07:01 Blood Pressure 109/68 01/17/19 06:41 O2 Sat by Pulse Oximetry (%) Patient requested early discharge. Patient stable. Patient to follow up with primary care physician. Diagnostic (1) Alcohol dependence Current Visit: Yes Status: Acute (2) Cocaine dependence Current Visit: Yes Status: Chronic Qualifiers: Substance use status: uncomplicated Qualified Code(s): F14.20 - Cocaine dependence, uncomplicated (3) Nicotine dependence Current Visit: Yes Status: Chronic Qualifiers: Nicotine product type: cigarettes
[2019-01-18 22:54] VITALS: BP 136/82; PULSE 76; TEMP 98.3
== END 2019-01-18 18:30 | disposition home or self-care (01) | DRG 772 ==
LOC: YASAS 08:28 → Y5N 10:52
PROVIDERS: ADMIT Neuromusculoskeletal Medicine & OMM; ATTEND Neuromusculoskeletal Medicine & OMM
PROC: HZ42ZZZ Group Counseling for Substance Abuse Treatment, Cognitive-Behavioral (ICD-10-PCS; principal; 2019-01-11)
DX: F10.20 Alcohol dependence, uncomplicated (principal); F14.20 Cocaine dependence, uncomplicated; F12.20 Cannabis dependence, uncomplicated; F17.210 Nicotine dependence, cigarettes, uncomplicated; F43.10 Post-traumatic stress disorder, unspecified; F31.9 Bipolar disorder, unspecified; F19.282 Other psychoactive substance dependence with psychoactive substance-induced sleep disorder; Z21 Asymptomatic human immunodeficiency virus [HIV] infection status; J45.909 Unspecified asthma, uncomplicated; K21.9 Gastro-esophageal reflux disease without esophagitis; M17.0 Bilateral primary osteoarthritis of knee; M54.5 Low back pain; G89.29 Other chronic pain; Z96.653 Presence of artificial knee joint, bilateral

== ENCOUNTER 2019-03-02 08:54 | Inpatient (IN) | payer OTHER ==
[2019-03-02 09:26] VITALS: BMI 21.3
--- NOTE | 2019-03-02 10:56 | HP ---
CIWA Score Nausea/Vomitin Muscle Tremors: 2 Anxiety: 3 Agitation: 3 Paroxysmal Sweats: 1-Minimal Palms Moist Orientation: 0-Oriented Tacttile Disturbances: 1-Very Mild Itch/Numbness Auditory Disturbances: 0-None Visual Disturbances: 0-None Headache: 2-Mild CIWA-Ar Total Score: 14 - Admission Criteria OASAS Guidelines: Admission for Medically Managed Detox: Requires at least one of the followin. CIWA greater than 12 2. Seizures within the past 24 hours 3. Delirium tremens within the past 24 hours 4. Hallucinations within the past 24 hours 5. Acute intervention needed for co occurring medical disorder 6. Acute intervention needed for co occurring psychiatric disorder 7. Severe withdrawal that cannot be handled at a lower level of care (continued vomiting, continued diarrhea, abnormal vital signs) requiring intravenous medication and/or fluids 8. Admission ROS S - [facility] Chief Complaint: I need help to stop drinking alcohol,cocaine and marijua Allergies/Adverse Reactions: Allergies Allergy/AdvReac Type Severity Reaction Status Date / Time No Known Allergies Allergy Verified 03/02/19 09:16 History of Present Illness: this 54 years old male with alcohol dependence,also crak and marijuana dependence,seeking detox,multiple admissions in detox and rehab but keep relapsing last detox 01/04/10 to 01/06/19 [facility] rehab 01/11/19 to 01/18/19 gerd denied seizure,denied syncope nicotine dependence 1 pack/day,does not want nicotine replacement anxiety,depression,insomnia longest sobriety 1 year also has asthma hiv since 1982 no med s/p total knee replacement in 2004 ,ambulation with cane - Ebola screening Have you traveled outside of the country in the last 21 days: No Have you had contact with anyone from an Ebola affected area: No - Review of Systems Constitutional: Loss of Appetite, Malaise, Night Sweats, Changes in sleep, Weakness, Unintentional Wgt. Loss EENT: reports: Nose Congestion Respiratory: reports: No Symptoms reported, Other (asthma) Cardiac: reports: No Symptoms Reported GI: reports: Nausea, Poor Appetite, Indigestion, Abdominal cramping : reports: No Symptoms Reported Musculoskeletal: reports: Back Pain, Muscle Pain Integumentary: reports: Dryness Neuro: reports: Headache, Tremors Endocrine: reports: No Symptoms Reported Hematology: reports: No Symptoms Reported Psychiatric: reports: No Sypmtoms Reported, Judgement Intact, Mood/Affect Appropiate, Orientated x3, Anxious, Depressed, other (insomnia) Patient History - Patient Medical History Hx Anemia: No Hx Asthma: Yes (Pt is on MDI.) Hx Chronic Obstructive Pulmonary Disease (COPD): No Hx Cancer: No Hx Cardiac Disorders: No Hx Congestive Heart Failure: No Hx Hypertension: No Hx Hypercholesterolemia: No Hx Pacemaker: No HX Cerebrovascular Accident: No Hx Seizures: No Hx Dementia: No Hx Diabetes: No Hx Gastrointestinal Disorders: No Hx Liver Disease: No Hx Genitourinary Disorders: No Hx Sexually Transmitted Disorders: No Hx Renal Disease (ESRD): No Hx Thyroid Disease: No Hx Human Immunodeficiency Virus (HIV): Yes (since 1982/undetectable. ) Hx Hepatitis C: No (negative) Hx Depression: Yes Hx Suicide Attempt: No Hx Bipolar Disorder: Yes Hx Schizophrenia: No Other Medical History: no suicidal,no homicidal - Patient Surgical History Past Surgical History: Yes Hx Neurologic Surgery: No Hx Cataract Extraction: No Hx Cardiac Surgery: No Hx Lung Surgery: No Hx Breast Surgery: No Hx Breast Biopsy: No Hx Abdominal Surgery: No Hx Appendectomy: No Hx Cholecystectomy: No Hx Genitourinary Surgery: No Hx Section: No Hx Orthopedic Surgery: Yes (total knee replacement left in 2004) Anesthesia Reaction: No - PPD History Previous Implant?: Yes Documented Results: Negative w/proof Implanted On Prior R Admission?: Yes Date: 08/13/18 Results: 0 MM PPD to be Administered?: No - Smoking Cessation Smoking history: Current every day smoker Have you smoked in the past 12 months: Yes Aproximately how many cigarettes per day: 20 Cigars Per Day: 0 Hx Chewing Tobacco Use: No Initiated information on smoking cessation: Yes 'Breaking Loose' booklet given: 03/02/19 - Substance & Tx. History Hx Alcohol Use: Yes Hx Substance Use: Yes Substance Use Type: Alcohol, Cocaine, Marijuana Hx Substance Use Treatment: Yes ([facility] 01/04/19 to 01/06/19,rehab 01/11/19 to ) - Substances abused Alcohol Substance route: Oral Frequency: Daily Amount used: 3 PINTS vodka Age of first use: 3 Date of last use: 03/01/19 Crack Substance route: Smoking Frequency: 3-6 times per week Amount used: 60 DOLLARS Age of first use: 10 Date of last use: 02/28/19 Marijuana/Hashish Substance route: Smoking Frequency: 3-6 times per week Amount used: 4 emily bags Age of first use: 7 Date of last use: 02/23/19 Family Disease History - Family Disease History Family Disease History: Diabetes: Mother (alcohol, ), Other: Father ( alcohol,), Mother Admission Physical Exam S - Vital Signs Vital Signs: Vital Signs - 24 hr 03/02/19 09:16 Temperature 97.4 F L Pulse Rate 76 Respiratory 16 Rate Blood Pressure 119/80 - Physical General Appearance: Yes: Moderate Distress, Tremorous, Irritable, Sweating, Anxious HEENTM: Yes: Normal ENT Inspection, [place], Pharynx Normal Respiratory: Yes: Lungs Clear, Normal Breath Sounds, No Respiratory Distress Neck: Yes: Within Normal Limits, Supple, Trachea in good position Breast: Yes: Within Normal Limits Cardiology: Yes: Within Normal Limits, Regular Rhythm, Regular Rate, S1, S2 Abdominal: Yes: Within Normal Limits, Normal Bowel Sounds, Non Tender, Flat, Soft Genitourinary: Yes: Within Normal Limits Back: Yes: Muscle Spasm Musculoskeletal: Yes: full range of Motion, Back pain, Muscle Pain Extremities: Yes: Tremors, Other (left totl knee repacement in 2004 ambulation with cane) 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 intact, Fully Oriented, Alert, Motor Strength 5/5 Integumentary: Yes: Dry Lymphatic: Yes: Within Normal Limits - Diagnostic (1) Alcohol dependence with uncomplicated withdrawal Current Visit: Yes Status: Acute (2) Bipolar disorder Current Visit: No Status: Acute (3) Cannabis dependence Current Visit: Yes Status: Acute (4) Cocaine dependence Current Visit: No Status: Acute (5) Asthma Current Visit: No Status: Chronic Qualifiers: Asthma severity: mild Asthma persistence: intermittent Asthma complication type: with status asthmaticus Qualified Code(s): J45.22 - Mild intermittent asthma with status asthmaticus Comment: mild copd (6) GERD (gastroesophageal reflux disease) Current Visit: No Status: Chronic Qualifiers: Esophagitis presence: without esophagitis Qualified Code(s): K21.9 - Gastro -esophageal reflux disease without esophagitis (7) HIV (human immunodeficiency virus infection) Current Visit: No Status: Chronic Qualifiers: HIV symptom status: unspecified Qualified Code(s): B20 - Human immunodeficiency virus [HIV] disease Comment: not taking any medication, pt states its undetecable (8) Nicotine dependence Current Visit: No Status: Chronic Qualifiers: Nicotine product type: cigarettes Substance use status: uncomplicated Qualified Code(s): F17.210 - Nicotine dependence, cigarettes, uncomplicated (9) Use of cane as ambulatory aid Current Visit: No Status: Chronic (10) Weight loss Current Visit: Yes Status: Acute Cleared for Admission S - Detox or Rehab [facility] Level of Care: Medically Managed Detox Regimen/Protocol: Librium Breathalyzer - Breathalyzer Breathalyzer: 0 Urine Drug Screen - Test Device Lot number: [id number] Expiration date: 11/28/20 - Control Is test valid?: Yes - Results Drug screen NEGATIVE: No Urine drug screen results: FELIZ-Cocaine Inpatient Rehab Admission - Rehab Decision to Admit Inpatient rehab admission?: No
[2019-03-02] MEDS ORDERED: ACETAMINOPHEN 325 MG TABLET (FP) PO PRN ×2 (11:08)
[2019-03-02] MEDS ORDERED: MAG HYDROX/AL HYDROX/SIMETH 30 ML UNIT-DOSE CUP PO PRN (11:08)
[2019-03-02] MEDS ORDERED: hydrOXYzine HCL 25 MG TABLET (FP) PO PRN (11:08)
[2019-03-02] MEDS ORDERED: IBUPROFEN 400 MG TABLET (FP) PO PRN (11:08)
[2019-03-02] MEDS ORDERED: MAGNESIUM HYDROX 2400MG/30ML ORAL SUSPENSION 30 ML CUP PO PRN (11:08)
[2019-03-02] MEDS ORDERED: MENTHOL/PHENOL 1 EACH UD MM PRN (11:08)
[2019-03-02] MEDS ORDERED: BISMUTH SUBSALICYLATE 262 MG/15 ML BTL PO PRN (11:08)
[2019-03-02] MEDS ORDERED: METHOCARBAMOL 500 MG TABLET PO PRN (11:08)
[2019-03-02] MEDS ORDERED: MELATONIN 5 MG TABLETS PO PRN (11:08)
[2019-03-02] MEDS ORDERED: chlordiazePOXIDE HCL 25 MG CAPSULE PO PRN (11:08)
[2019-03-02] MEDS ORDERED: MAGNESIUM CITRATE 300 ML BOTTLE PO PRN (11:08)
[2019-03-02] MEDS ORDERED: ALBUTEROL SO4 8 GM HFA INHALER IH PRN (11:13)
[2019-03-02 14:35] LABS: HEMATOCRIT 45.7 % (35.4-49); HEMOGLOBIN 15.8 GM/dL (11.7-16.9); MCHC 34.5 g/dl (32.0-35.9); MEAN CELL VOLUME 87.1 fl (80-96); MEAN PLT VOLUME 7.5 fl (7.5-11.1); PLATELET COUNT 301 K/MM3 (134-434); RBC 5.25 M/mm3 (4.00-5.60); RDW 14.7 % (11.9-15.9); WHITE BLOOD COUNT 4.7 K/mm3 (4.0-10.0)
[2019-03-02 14:44] LABS: ALBUMIN 4.1 g/dl (3.4-5.0); BLOOD UREA NITROGEN 9.4 mg/dL (7-18); CALCIUM 9.2 mg/dL (8.5-10.1); CREATININE 0.9 mg/dL (0.55-1.3); POTASSIUM 4.1 mmol/L (3.5-5.1); TOT PROT 7.7 g/dl (6.4-8.2)
[2019-03-02] MEDS: chlordiazePOXIDE HCL 25 MG CAPSULE PO SCH ×2 (16:57→22:03)
--- NOTE | 2019-03-02 17:30 | CONSULT ---
[facility] Psychiatric Consult - Data Date of interview: 03/02/19 Admission source: [facility] Identifying data: Patient is a 54 year old single male, , without children, domiciled, and is currently unemployed. This is one of multiple admissions for patient. Patient admitted to for alcohol and cocaine dependence. Substance Abuse History: Smoking Cessation. Smoking history: Current every day smoker. Have you smoked in the past 12 months: Yes. Aproximately how many cigarettes per day: 20. Cigars Per Day: 0. Hx Chewing Tobacco Use: No. Initiated information on smoking cessation: Yes. 'Breaking Loose' booklet given : 03/02/19. - Substance & Tx. History. Hx Alcohol Use: Yes. Hx Substance Use : Yes. Substance Use Type: Alcohol, Cocaine, Marijuana. Hx Substance Use Treatment: Yes ([facility] 01/04/19 to 01/06/19,rehab 01/11/19 to 01/18/19). - Substances abused. Alcohol. Substance route: Oral. Frequency: Daily. Amount used: 3 PINTS vodka. Age of first use: 3. Date of last use: 03/01/19. Crack. Substance route: Smoking. Frequency: 3-6 times per week. Amount used: 60 DOLLARS. Age of first use: 10. Date of last use: 02/28/19. Marijuana/Hashish. Substance route: Smoking. Frequency: 3-6 times per week. Amount used: 4 emily bags. Age of first use: 7. Date of last use: 02/23/19 Medical History: Asthma, total knee replacement left in 2004, Psychiatric History: Patient denies h/o psychiatric hospitalization and suicide attempt. States he is currently provided with outpatient psychiatric care at the [facility] and is taking seroquel 200mg HS (reports taking seroquel two days ago). As per external records patient received a prescription of 300mg on 01/29/19. 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 Patient is unreliable and his current report of psychiatric history does not resemble what he's reported to previous psychiatrist. As per previous notes patient has an extensive history of psychiatric hospitalizations at [facility], [facility] , [facility], [facility]. Diagnosis of Bipolar disorder. At present, patient reports stable mood. Patient denies auditory/ visual hallucinations, suicidal/homicidal ideation. Physical/Sexual Abuse/Trauma History: denies. Mental Status Exam - Mental Status Exam Alert and Oriented to: Time, Place, Person Cognitive Function: Good Patient Appearance: Well Groomed Mood: Withdrawn Affect: Mood Congruent Patient Behavior: Fatigued Speech Pattern: Clear Voice Loudness: Moderately Soft/Quiet Thought Process: Goal Oriented Thought Disorder: Not Present Hallucinations: Denies Suicidal Ideation: Denies Homicidal Ideation: Denies Insight/Judgement: Poor Sleep: Poorly Appetite: Fair Muscle strength/Tone: Normal Gait/Station: Normal Psychiatric Findings - Problem List ([place] 1, 2,3) (1) Cannabis dependence Current Visit: Yes Status: Acute (2) Alcohol dependence with uncomplicated withdrawal Current Visit: Yes Status: Acute (3) Substance induced mood disorder Current Visit: Yes Status: Acute (4) Bipolar disorder Current Visit: Yes Status: Chronic - Initial Treatment Plan Initial Treatment Plan: Psychoeducation provided. Rehab in progress. Will order Seroquel 200mg HS. Benefits and side effects discussed. Verbal consent given.
[2019-03-02] MEDS: RANITIDINE HCL 150 MG TABLET (FP) PO SCH (22:03)
[2019-03-02] MEDS: THIAMINE HCL 100 MG TABLET (FP) PO SCH (22:03)
[2019-03-02] MEDS: QUEtiapine FUMARATE 200 MG TABLET PO SCH (22:03)
[2019-03-03] MEDS: chlordiazePOXIDE HCL 25 MG CAPSULE PO SCH ×4 (05:34→22:13)
[2019-03-03] MEDS: PRENATAL VITAMINS W/ FOLIC ACID TABLET (FP) PO SCH (10:26)
[2019-03-03] MEDS: RANITIDINE HCL 150 MG TABLET (FP) PO SCH ×2 (10:26→22:13)
--- NOTE | 2019-03-03 14:26 | PN ---
S CIWA - CIWA Score Nausea/Vomitin (Stomach Cramping,) Muscle Tremors: 3 Anxiety: 4-Mod. Anxious/Guarded Agitation: 2 Paroxysmal Sweats: No Perspiration Orientation: 2-Disoriented Date<2 days Tacttile Disturbances: 0-None Auditory Disturbances: 0-None Visual Disturbances: 2-Mild Sensitivity Headache: 0-None Present CIWA-Ar Total Score: 15 BHS Progress Note (SOAP) Subjective: Anxious, Tremors, Stomach cramping. Objective: PATIENT A & O X 2 (UNCERTAIN ABOUT CURRENT DAY / DATE). PATIENT OBSERVED AMBULATING ON UNIT UNASSISTED. IN NO ACUTE DISTRESS. 03/03/19 14:26 Vital Signs Temperature 98.2 F 03/03/19 13:54 Pulse Rate 85 03/03/19 13:54 Respiratory Rate 18 03/03/19 13:54 Blood Pressure 97/67 03/03/19 13:54 O2 Sat by Pulse Oximetry (%) Laboratory Tests 03/02/19 03/02/19 03/02/19 11:40 11:40 11:40 WBC 4.7 RBC 5.25 Hgb 15.8 Hct 45.7 MCV 87.1 MCH 30.0 MCHC 34.5 RDW 14.7 Plt Count 301 MPV 7.5 Sodium 136 Potassium 4.1 Chloride 100 Carbon Dioxide 28 Anion Gap 8 BUN 9.4 Creatinine 0.9 Est GFR (CKD-EPI)AfAm 110.27 Est GFR (CKD-EPI)NonAf 95.14 Random Glucose 96 Calcium 9.2 Total Bilirubin 1.0 AST 31 ALT 25 Alkaline Phosphatase 86 Total Protein 7.7 Albumin 4.1 RPR Titer Nonreactive LABS NOTED. Assessment: 03/03/19 14:27 WITHDRAWAL SYMPTOMS. Plan: CONTINUE DETOX. INCREASE DAILY PO WATER INTAKE.
[2019-03-03] MEDS: QUEtiapine FUMARATE 200 MG TABLET PO SCH (22:13)
[2019-03-03] MEDS: THIAMINE HCL 100 MG TABLET (FP) PO SCH (22:13)
[2019-03-04] MEDS: chlordiazePOXIDE HCL 25 MG CAPSULE PO SCH ×3 (05:40→17:06)
[2019-03-04] MEDS: RANITIDINE HCL 150 MG TABLET (FP) PO SCH ×2 (10:24→22:00)
[2019-03-04] MEDS: PRENATAL VITAMINS W/ FOLIC ACID TABLET (FP) PO SCH (10:24)
--- NOTE | 2019-03-04 12:58 | PN ---
[facility] CIWA - CIWA Score Nausea/Vomitin-Mild Nausea/No Vomiting Muscle Tremors: 3 Anxiety: 4-Mod. Anxious/Guarded Agitation: 2 Paroxysmal Sweats: 1-Minimal Palms Moist Orientation: 0-Oriented Tacttile Disturbances: 0-None Auditory Disturbances: 0-None Visual Disturbances: 0-None Headache: 0-None Present CIWA-Ar Total Score: 11 S Progress Note (SOAP) Subjective: 54 years old male admitted on 03/02/19 for alcohol withdrawal sx management ambulating with cane doing ok with librium detox regimen tremor otherwis feeling ok Objective: 03/04/19 12:59 Vital Signs Temperature 97.5 F L 03/04/19 09:38 Pulse Rate 93 H 03/04/19 09:38 Respiratory Rate 18 03/04/19 09:38 Blood Pressure 121/87 03/04/19 09:38 O2 Sat by Pulse Oximetry (%) Laboratory Last Values WBC 4.7 K/mm3 (4.0-10.0) 03/02/19 11:40 RBC 5.25 M/mm3 (4.00-5.60) 03/02/19 11:40 Hgb 15.8 GM/dL (11.7-16.9) 03/02/19 11:40 Hct 45.7 % (35.4-49) 03/02/19 11:40 MCV 87.1 fl (80-96) 03/02/19 11:40 MCH 30.0 pg (25.7-33.7) 03/02/19 11:40 MCHC 34.5 g/dl (32.0-35.9) 03/02/19 11:40 RDW 14.7 % (11.9-15.9) 03/02/19 11:40 Plt Count 301 K/MM3 (134-434) 03/02/19 11:40 MPV 7.5 fl (7.5-11.1) 03/02/19 11:40 Sodium 136 mmol/L (136-145) 03/02/19 11:40 Potassium 4.1 mmol/L (3.5-5.1) 03/02/19 11:40 Chloride 100 mmol/L (98-107) 03/02/19 11:40 Carbon Dioxide 28 mmol/L (21-32) 03/02/19 11:40 Anion Gap 8 MMOL/L (8-16) 03/02/19 11:40 BUN 9.4 mg/dL (7-18) 03/02/19 11:40 Creatinine 0.9 mg/dL (0.55-1.3) 03/02/19 11:40 Est GFR (CKD-EPI)AfAm 110.27 03/02/19 11:40 Est GFR (CKD-EPI)NonAf 95.14 03/02/19 11:40 Random Glucose 96 mg/dL (74-106) 03/02/19 11:40 Calcium 9.2 mg/dL (8.5-10.1) 03/02/19 11:40 Total Bilirubin 1.0 mg/dL (0.2-1) 03/02/19 11:40 AST 31 U/L (15-37) 03/02/19 11:40 ALT 25 U/L (13-61) 03/02/19 11:40 Alkaline Phosphatase 86 U/L (45-117) 03/02/19 11:40 Total Protein 7.7 g/dl (6.4-8.2) 03/02/19 11:40 Albumin 4.1 g/dl (3.4-5.0) 03/02/19 11:40 RPR Titer Nonreactive (NONREACTIVE) 03/02/19 11:40 alb noted Assessment: 03/04/19 13:00 alcohol withdrawal sx Plan: continue aloohol detox
[2019-03-04] MEDS: QUEtiapine FUMARATE 200 MG TABLET PO SCH (22:00)
[2019-03-04] MEDS: THIAMINE HCL 100 MG TABLET (FP) PO SCH (22:00)
[2019-03-04] MEDS ORDERED: chlordiazePOXIDE 5 MG CAPSULE PO ONE (23:00)
[2019-03-05] MEDS ORDERED: chlordiazePOXIDE HCL 10 MG CAPSULE PO PRN
[2019-03-05] MEDS: chlordiazePOXIDE HCL 10 MG CAPSULE PO SCH ×4 (06:32→22:04)
[2019-03-05] MEDS: RANITIDINE HCL 150 MG TABLET (FP) PO SCH ×2 (10:11→22:04)
[2019-03-05] MEDS: PRENATAL VITAMINS W/ FOLIC ACID TABLET (FP) PO SCH (10:11)
--- NOTE | 2019-03-05 11:27 | PN ---
[facility] CIWA - CIWA Score Nausea/Vomitin-Mild Nausea/No Vomiting Muscle Tremors: 3 Anxiety: 2 Agitation: 2 Paroxysmal Sweats: 1-Minimal Palms Moist Orientation: 0-Oriented Tacttile Disturbances: 0-None Auditory Disturbances: 0-None Visual Disturbances: 0-None Headache: 0-None Present CIWA-Ar Total Score: 9 S Progress Note (SOAP) Subjective: doing well today tremor sweat otherwise feeling ok ambulating on hallway social with peers Objective: 03/05/19 11:28 Vital Signs Temperature 97.4 F L 03/05/19 09:43 Pulse Rate 91 H 03/05/19 09:43 Respiratory Rate 18 03/05/19 09:43 Blood Pressure 107/70 03/05/19 09:43 O2 Sat by Pulse Oximetry (%) Laboratory Last Values WBC 4.7 K/mm3 (4.0-10.0) 03/02/19 11:40 RBC 5.25 M/mm3 (4.00-5.60) 03/02/19 11:40 Hgb 15.8 GM/dL (11.7-16.9) 03/02/19 11:40 Hct 45.7 % (35.4-49) 03/02/19 11:40 MCV 87.1 fl (80-96) 03/02/19 11:40 MCH 30.0 pg (25.7-33.7) 03/02/19 11:40 MCHC 34.5 g/dl (32.0-35.9) 03/02/19 11:40 RDW 14.7 % (11.9-15.9) 03/02/19 11:40 Plt Count 301 K/MM3 (134-434) 03/02/19 11:40 MPV 7.5 fl (7.5-11.1) 03/02/19 11:40 Sodium 136 mmol/L (136-145) 03/02/19 11:40 Potassium 4.1 mmol/L (3.5-5.1) 03/02/19 11:40 Chloride 100 mmol/L (98-107) 03/02/19 11:40 Carbon Dioxide 28 mmol/L (21-32) 03/02/19 11:40 Anion Gap 8 MMOL/L (8-16) 03/02/19 11:40 BUN 9.4 mg/dL (7-18) 03/02/19 11:40 Creatinine 0.9 mg/dL (0.55-1.3) 03/02/19 11:40 Est GFR (CKD-EPI)AfAm 110.27 03/02/19 11:40 Est GFR (CKD-EPI)NonAf 95.14 03/02/19 11:40 Random Glucose 96 mg/dL (74-106) 03/02/19 11:40 Calcium 9.2 mg/dL (8.5-10.1) 03/02/19 11:40 Total Bilirubin 1.0 mg/dL (0.2-1) 03/02/19 11:40 AST 31 U/L (15-37) 03/02/19 11:40 ALT 25 U/L (13-61) 03/02/19 11:40 Alkaline Phosphatase 86 U/L (45-117) 03/02/19 11:40 Total Protein 7.7 g/dl (6.4-8.2) 03/02/19 11:40 Albumin 4.1 g/dl (3.4-5.0) 03/02/19 11:40 RPR Titer Nonreactive (NONREACTIVE) 03/02/19 11:40 lab noted anxious Assessment: 03/05/19 11:28 alcohol withdrawal sx Plan: continue alcohol detox
[2019-03-05] MEDS: THIAMINE HCL 100 MG TABLET (FP) PO SCH (22:04)
[2019-03-05] MEDS: QUEtiapine FUMARATE 200 MG TABLET PO SCH (22:05)
[2019-03-06] MEDS: chlordiazePOXIDE HCL 10 MG CAPSULE PO SCH ×2 (07:36→17:53)
[2019-03-06] MEDS: PRENATAL VITAMINS W/ FOLIC ACID TABLET (FP) PO SCH (10:39)
[2019-03-06] MEDS: RANITIDINE HCL 150 MG TABLET (FP) PO SCH ×2 (10:39→22:02)
--- NOTE | 2019-03-06 10:53 | PN ---
S CIWA - CIWA Score Nausea/Vomitin-No Nausea/No Vomiting Muscle Tremors: 1-None Visible, but [place] Anxiety: 2 Agitation: 1-Slight > Activity Paroxysmal Sweats: No Perspiration Orientation: 0-Oriented Tacttile Disturbances: 0-None Auditory Disturbances: 0-None Visual Disturbances: 0-None Headache: 0-None Present CIWA-Ar Total Score: 4 BHS Progress Note (SOAP) Subjective: doing well with librium detox regimen less tremor mild sweat but anxious about availability of in patient rehab Objective: 03/06/19 10:54 Vital Signs Temperature 98.2 F 03/06/19 09:23 Pulse Rate 111 H 03/06/19 09:23 Respiratory Rate 18 03/06/19 09:23 Blood Pressure 129/84 03/06/19 09:23 O2 Sat by Pulse Oximetry (%) Laboratory Last Values WBC 4.7 K/mm3 (4.0-10.0) 03/02/19 11:40 RBC 5.25 M/mm3 (4.00-5.60) 03/02/19 11:40 Hgb 15.8 GM/dL (11.7-16.9) 03/02/19 11:40 Hct 45.7 % (35.4-49) 03/02/19 11:40 MCV 87.1 fl (80-96) 03/02/19 11:40 MCH 30.0 pg (25.7-33.7) 03/02/19 11:40 MCHC 34.5 g/dl (32.0-35.9) 03/02/19 11:40 RDW 14.7 % (11.9-15.9) 03/02/19 11:40 Plt Count 301 K/MM3 (134-434) 03/02/19 11:40 MPV 7.5 fl (7.5-11.1) 03/02/19 11:40 Sodium 136 mmol/L (136-145) 03/02/19 11:40 Potassium 4.1 mmol/L (3.5-5.1) 03/02/19 11:40 Chloride 100 mmol/L (98-107) 03/02/19 11:40 Carbon Dioxide 28 mmol/L (21-32) 03/02/19 11:40 Anion Gap 8 MMOL/L (8-16) 03/02/19 11:40 BUN 9.4 mg/dL (7-18) 03/02/19 11:40 Creatinine 0.9 mg/dL (0.55-1.3) 03/02/19 11:40 Est GFR (CKD-EPI)AfAm 110.27 03/02/19 11:40 Est GFR (CKD-EPI)NonAf 95.14 03/02/19 11:40 Random Glucose 96 mg/dL (74-106) 03/02/19 11:40 Calcium 9.2 mg/dL (8.5-10.1) 03/02/19 11:40 Total Bilirubin 1.0 mg/dL (0.2-1) 03/02/19 11:40 AST 31 U/L (15-37) 03/02/19 11:40 ALT 25 U/L (13-61) 03/02/19 11:40 Alkaline Phosphatase 86 U/L (45-117) 03/02/19 11:40 Total Protein 7.7 g/dl (6.4-8.2) 03/02/19 11:40 Albumin 4.1 g/dl (3.4-5.0) 03/02/19 11:40 RPR Titer Nonreactive (NONREACTIVE) 03/02/19 11:40 lab noted Assessment: 03/06/19 10:54 mild alcohol withdrawal sx 03/06/19 10:54 Plan: continue alcohol detox
[2019-03-06] MEDS: guaiFENesin 600 MG TABLET.ER (FP) PO SCH ×2 (13:51→22:02)
[2019-03-06 17:02] LABS: EPI CELLS 0.7 /HPF (0-5/HPF); HYALINE CASTS 1 /lpf (0-8); URINE APPEARANCE CLEAR; URINE BACTERIA 1.4 /hpf (NEGATIVE); URINE BILIRUBIN NEGATIVE (NEGATIVE); URINE COLOR YELLOW; URINE GLUCOSE (UA) NEGATIVE (NEGATIVE); URINE KETONE NEGATIVE (NEGATIVE); URINE LEUK ESTERASE TRACE (NEGATIVE); URINE NITRITE NEGATIVE (NEGATIVE); URINE PROTEIN NEGATIVE (NEGATIVE); URINE RBC 2 /hpf (0-4); URINE UROBILINOGEN 0.2 mg/dL (0.2-1.0); URINE WBC 3 /hpf (0-5)
[2019-03-06] MEDS: QUEtiapine FUMARATE 200 MG TABLET PO SCH (22:02)
[2019-03-06] MEDS: THIAMINE HCL 100 MG TABLET (FP) PO SCH (22:02)
[2019-03-07] MEDS ORDERED: chlordiazePOXIDE HCL 10 MG CAPSULE PO ONE (05:00)
[2019-03-07 07:09] VITALS: TEMP 98.5
[2019-03-07] MEDS: RANITIDINE HCL 150 MG TABLET (FP) PO SCH (09:12)
[2019-03-07] MEDS: guaiFENesin 600 MG TABLET.ER (FP) PO SCH (09:12)
[2019-03-07] MEDS: PRENATAL VITAMINS W/ FOLIC ACID TABLET (FP) PO SCH (09:13)
[2019-03-07 09:37] VITALS: BP 125/85; PULSE 120
--- NOTE | 2019-03-07 14:20 | DS ---
[facility] Detox Discharge Summary Admission Date: 03/02/19 Discharge Date: 03/07/19 - History Present History: Alcohol Dependence Additional Comments: 54 years old male admitted on 03/02/19 for acute alcohol withdrawal sx management doing well with librium detox regimen no complication throughout the detox stay alert oriented x 3 - Physical Exam Results Vital Signs: Vital Signs Temperature 98.5 F 03/07/19 09:36 Pulse Rate 120 H 03/07/19 09:36 Respiratory Rate 18 03/07/19 09:36 Blood Pressure 125/85 03/07/19 09:36 O2 Sat by Pulse Oximetry (%) Pertinent Admission Physical Exam Findings: alcohol withdrawal sx Laboratory Last Values WBC 4.7 K/mm3 (4.0-10.0) 03/02/19 11:40 RBC 5.25 M/mm3 (4.00-5.60) 03/02/19 11:40 Hgb 15.8 GM/dL (11.7-16.9) 03/02/19 11:40 Hct 45.7 % (35.4-49) 03/02/19 11:40 MCV 87.1 fl (80-96) 03/02/19 11:40 MCH 30.0 pg (25.7-33.7) 03/02/19 11:40 MCHC 34.5 g/dl (32.0-35.9) 03/02/19 11:40 RDW 14.7 % (11.9-15.9) 03/02/19 11:40 Plt Count 301 K/MM3 (134-434) 03/02/19 11:40 MPV 7.5 fl (7.5-11.1) 03/02/19 11:40 Sodium 136 mmol/L (136-145) 03/02/19 11:40 Potassium 4.1 mmol/L (3.5-5.1) 03/02/19 11:40 Chloride 100 mmol/L (98-107) 03/02/19 11:40 Carbon Dioxide 28 mmol/L (21-32) 03/02/19 11:40 Anion Gap 8 MMOL/L (8-16) 03/02/19 11:40 BUN 9.4 mg/dL (7-18) 03/02/19 11:40 Creatinine 0.9 mg/dL (0.55-1.3) 03/02/19 11:40 Est GFR (CKD-EPI)AfAm 110.27 03/02/19 11:40 Est GFR (CKD-EPI)NonAf 95.14 03/02/19 11:40 Random Glucose 96 mg/dL (74-106) 03/02/19 11:40 Calcium 9.2 mg/dL (8.5-10.1) 03/02/19 11:40 Total Bilirubin 1.0 mg/dL (0.2-1) 03/02/19 11:40 AST 31 U/L (15-37) 03/02/19 11:40 ALT 25 U/L (13-61) 03/02/19 11:40 Alkaline Phosphatase 86 U/L (45-117) 03/02/19 11:40 Total Protein 7.7 g/dl (6.4-8.2) 03/02/19 11:40 Albumin 4.1 g/dl (3.4-5.0) 03/02/19 11:40 Urine Color Yellow 03/05/19 13:38 Urine Appearance Clear 03/05/19 13:38 Urine pH 8.0 (5.0-8.0) 03/05/19 13:38 Ur Specific [place] 1.012 (1.010-1.035) 03/05/19 13:38 Urine Protein Negative (NEGATIVE) 03/05/19 13:38 Urine Glucose (UA) Negative (NEGATIVE) 03/05/19 13:38 Urine Ketones Negative (NEGATIVE) 03/05/19 13:38 Urine Blood Negative (NEGATIVE) 03/05/19 13:38 Urine Nitrite Negative (NEGATIVE) 03/05/19 13:38 Urine Bilirubin Negative (NEGATIVE) 03/05/19 13:38 Urine Urobilinogen 0.2 mg/dL (0.2-1.0) 03/05/19 13:38 Ur Leukocyte Esterase Trace (NEGATIVE) 03/05/19 13:38 Urine WBC (Auto) 3 /hpf (0-5) 03/05/19 13:38 Urine RBC (Auto) 2 /hpf (0-4) 03/05/19 13:38 Urine Casts (Auto) 1 /lpf (0-8) 03/05/19 13:38 U Epithel Cells (Auto) 0.7 /HPF (0-5/HPF) 03/05/19 13:38 Urine Bacteria (Auto) 1.4 /hpf (NEGATIVE) 03/05/19 13:38 RPR Titer Nonreactive (NONREACTIVE) 03/02/19 11:40 lab noted - Treatment Hospital Course: Detox Protocol Followed, Detoxed Safely, Responded well, Discharged Condition Good, Rehab Referral Accepted Patient has Accepted [facility] - Medication Discharge Medications: Ambulatory Orders Quetiapine Fumarate [Seroquel -] 200 mg PO HS 07/11/18 Albuterol Sulfate Inhaler - [Ventolin HFA Inhaler -] 2 puff IH Q4H PRN 03/02/19 Ranitidine [Zantac -] 150 mg PO BID 03/02/19 - Diagnosis (1) Alcohol dependence with uncomplicated withdrawal Status: Acute (2) Substance induced mood disorder Status: Suspected (3) Weight loss Status: Acute (4) Asthma Status: Chronic Qualifiers: Asthma severity: mild Asthma persistence: intermittent Asthma complication type: with status asthmaticus Qualified Code(s): J45.22 - Mild intermittent asthma with status asthmaticus (5) Bipolar II disorder Status: Suspected (6) GERD (gastroesophageal reflux disease) Status: Chronic Qualifiers: Esophagitis presence: without esophagitis Qualified Code(s): K21.9 - Gastro -esophageal reflux disease without esophagitis (7) HIV (human immunodeficiency virus infection) Status: Chronic Qualifiers: HIV symptom status: asymptomatic Qualified Code(s): Z21 - Asymptomatic human immunodeficiency virus [HIV] infection status (8) Nicotine dependence Status: Acute Qualifiers: Nicotine product type: cigarettes Substance use status: in withdrawal Qualified Code(s): F17.213 - Nicotine dependence, cigarettes, with withdrawal (9) Use of cane as ambulatory aid Status: Chronic - AMA Did Patient Leave Against Medical Advice: No
== END 2019-03-07 12:17 | disposition other institution (70) | DRG 774 ==
LOC: YASAS 08:54 → Y3N 11:25
PROVIDERS: ADMIT Surgery; ATTEND Surgery
PROC: HZ2ZZZZ Detoxification Services for Substance Abuse Treatment (ICD-10-PCS; principal; 2019-03-02)
DX: F10.230 Alcohol dependence with withdrawal, uncomplicated (principal); F14.20 Cocaine dependence, uncomplicated; F12.20 Cannabis dependence, uncomplicated; F17.213 Nicotine dependence, cigarettes, with withdrawal; F19.24 Other psychoactive substance dependence with psychoactive substance-induced mood disorder; F31.81 Bipolar II disorder; Z21 Asymptomatic human immunodeficiency virus [HIV] infection status; J45.22 Mild intermittent asthma with status asthmaticus; K21.9 Gastro-esophageal reflux disease without esophagitis; R63.4 Abnormal weight loss; Z68.21 Body mass index [BMI] 21.0-21.9, adult; R26.89 Other abnormalities of gait and mobility; Z99.89 Dependence on other enabling machines and devices; Z59.0 Homelessness
CPT/HCPCS: 36415; 80053; 81003; 85027; 86593

== ENCOUNTER 2019-03-07 12:38 | Inpatient (IN) | payer OTHER | END 2019-03-13 11:20 | disposition home or self-care (01) | LOC: YASAS 12:38 → Y3W 12:39 ==

== ENCOUNTER 2019-05-10 12:50 | Inpatient (IN) | payer OTHER ==
[2019-05-10 16:59] VITALS: BMI 22.8
--- NOTE | 2019-05-10 17:29 | HP ---
CIWA Score Nausea/Vomitin-Mild Nausea/No Vomiting Muscle Tremors: 3 Anxiety: 3 Agitation: 1-Slight > Activity Paroxysmal Sweats: 2 Orientation: 0-Oriented Tacttile Disturbances: 2-Mild Itch/Numbness/Burn Auditory Disturbances: 0-None Visual Disturbances: 0-None Headache: 1-Very Mild CIWA-Ar Total Score: 13 - Admission Criteria OASAS Guidelines: Admission for Medically Managed Detox: Requires at least one of the followin. CIWA greater than 12 2. Seizures within the past 24 hours 3. Delirium tremens within the past 24 hours 4. Hallucinations within the past 24 hours 5. Acute intervention needed for co occurring medical disorder 6. Acute intervention needed for co occurring psychiatric disorder 7. Severe withdrawal that cannot be handled at a lower level of care (continued vomiting, continued diarrhea, abnormal vital signs) requiring intravenous medication and/or fluids 8. Admitting History and Physical - Smoking History Smoking history: Current every day smoker Have you smoked in the past 12 months: Yes Aproximately how many cigarettes per day: 20 - Alcohol/Substance Use Hx Alcohol Use: Yes Admission [facility] Chief Complaint: "detox alcohol" Allergies/Adverse Reactions: Allergies Allergy/AdvReac Type Severity Reaction Status Date / Time No Known Allergies Allergy Verified 05/10/19 16:41 History of Present Illness: 54 year old male with a history of HIV (untreated), asthma, anxiety, depression , and alcohol dependence with multiple prior detox/rehab admissions presents for alcohol detox. Last here in March. 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 Loss EENT: reports: Blurred Vision, Double Vision, Eye Pain, Nose Congestion Respiratory: reports: Cough, Shortness of Breath Cardiac: reports: Lightheadedness GI: reports: Diarrhea, Nausea, Poor Appetite : reports: No Symptoms Reported Musculoskeletal: reports: Back Pain, Joint Pain Integumentary: reports: No Symptoms Reported Neuro: reports: Headache, Numbness, Tremors Endocrine: reports: No Symptoms Reported Hematology: reports: No Symptoms Reported Psychiatric: reports: Judgement Intact, Mood/Affect Appropiate, Orientated x3, Depressed Patient History - Patient Medical History Hx Anemia: No Hx Asthma: Yes (Pt is on MDI.) Hx Chronic Obstructive Pulmonary Disease (COPD): No Hx Cancer: No Hx Cardiac Disorders: No Hx Congestive Heart Failure: No Hx Hypertension: No Hx Hypercholesterolemia: No Hx Pacemaker: No HX Cerebrovascular Accident: No Hx Seizures: No Hx Dementia: No Hx Diabetes: No Hx Gastrointestinal Disorders: Yes (GERD) Hx Liver Disease: No Hx Genitourinary Disorders: No Hx Sexually Transmitted Disorders: No Hx Renal Disease (ESRD): No Hx Thyroid Disease: No Hx Human Immunodeficiency Virus (HIV): Yes (since 1982/undetectable. ) Hx Hepatitis C: No (negative) Hx Depression: Yes Hx Suicide Attempt: No Hx Bipolar Disorder: Yes Hx Schizophrenia: No - Patient Surgical History Past Surgical History: Yes Hx Neurologic Surgery: No Hx Cataract Extraction: No Hx Cardiac Surgery: No Hx Lung Surgery: No Hx Breast Surgery: No Hx Breast Biopsy: No Hx Abdominal Surgery: No Hx Appendectomy: No Hx Cholecystectomy: No Hx Genitourinary Surgery: No Hx Section: No Hx Orthopedic Surgery: Yes (total knee replacement left in 2004) Anesthesia Reaction: No - PPD History Date: 08/13/18 Results: 0 mm - Smoking Cessation Smoking history: Current every day smoker Have you smoked in the past 12 months: Yes Aproximately how many cigarettes per day: 20 Cigars Per Day: 0 Hx Chewing Tobacco Use: No Initiated information on smoking cessation: Yes 'Breaking Loose' booklet given: 05/10/19 - Substances abused Alcohol Substance route: Oral Frequency: Daily Amount used: 3 PINTS vodka Age of first use: 3 Date of last use: 05/10/19 Crack Substance route: Smoking Frequency: 3-6 times per week Amount used: 60 DOLLARS Age of first use: 10 Date of last use: 05/09/19 Marijuana/Hashish Substance route: Smoking Frequency: 3-6 times per week Amount used: 4 emily bags Age of first use: 7 Date of last use: 05/09/19 Admission Physical Exam [facility] - Vital Signs Vital Signs: Vital Signs - 24 hr 05/10/19 16:55 Temperature 97.6 F Pulse Rate 89 Respiratory 16 Rate Blood Pressure 124/74 - Physical General Appearance: Yes: Within Normal Limits HEENTM: Yes: Within Normal Limits, EOMI, Normocephalic, Normal Voice, Pharynx Normal Respiratory: Yes: Within Normal Limits, Lungs Clear, Normal Breath Sounds Neck: Yes: Within Normal Limits Cardiology: Yes: Within Normal Limits, Regular Rhythm, Regular Rate Abdominal: Yes: Normal Bowel Sounds, Non Tender, Flat, Soft Genitourinary: Yes: Within Normal Limits Musculoskeletal: Yes: full range of Motion, Gait Steady Extremities: Yes: Within Normal Limits Neurological: Yes: governor assembler hydraulic II-XII NML intact, Fully Oriented, Alert, Motor Strength 5/5, Normal Mood/Affect, Normal Response Integumentary: Yes: Normal Color, Dry, Warm Lymphatic: Yes: Within Normal Limits Breathalyzer - Breathalyzer Breathalyzer: 0 Urine Drug Screen - Test Device Lot number: [id number] Expiration date: 12/29/20 - Control Is test valid?: Yes - Results Drug screen NEGATIVE: Yes Urine drug screen results: MET-Methamphetamine, BZO-Benzodiazepines Inpatient Rehab Admission - Rehab Decision to Admit Inpatient rehab admission?: No
[2019-05-10] MEDS ORDERED: MAGNESIUM HYDROX 2400MG/30ML ORAL SUSPENSION 30 ML CUP PO PRN (17:41)
[2019-05-10] MEDS ORDERED: BISMUTH SUBSALICYLATE 524 MG/30 ML UD PO PRN (17:41)
[2019-05-10] MEDS ORDERED: ACETAMINOPHEN 325 MG TABLET (FP) PO PRN ×2 (17:41)
[2019-05-10] MEDS ORDERED: hydrOXYzine PAMOATE 25 MG CAPSULE (FP) PO PRN (17:41)
[2019-05-10] MEDS ORDERED: MELATONIN 5 MG TABLETS PO PRN (17:41)
[2019-05-10] MEDS ORDERED: MAG HYDROX/AL HYDROX/SIMETH 30 ML UNIT-DOSE CUP PO PRN (17:41)
[2019-05-10] MEDS ORDERED: MAGNESIUM CITRATE 300 ML BOTTLE PO PRN (17:41)
[2019-05-10] MEDS ORDERED: IBUPROFEN 400 MG TABLET (FP) PO PRN (17:41)
[2019-05-10] MEDS ORDERED: MENTHOL/PHENOL 1 EACH UD MM PRN (17:41)
--- NOTE | 2019-05-10 17:47 | PN ---
Teaching Attending Note Name of Resident: Aakash Lloyd ATTENDING PHYSICIAN STATEMENT I saw and evaluated the patient. I reviewed the resident's note and discussed the case with the resident. I agree with the resident's findings and plan as documented. SUBJECTIVE: 53 yo male requesting detox from etoh use, reports 1 x 6-pk 1/2 day and 3-4 pints /day since d/c from rehab March 2019 . . Denies seizures / blackouts , + tremors , starts drinking in the mornings , latest use last night , current symptoms as above. Denies current SI / HI . PMHx :OA , PTSD, GERD, asthma , HIV undetectable per pt and on no meds. PCP Jack Gandhi. , tkr 2004 left SHX : homeless. cocaine- $ 50-60 $ x 3 x/ week tobacco ; 1.5 ppd OBJECTIVE: wnwd CIWA -12 Vital Signs - 24 hr 05/10/19 16:55 Temperature 97.6 F Pulse Rate 89 Respiratory 16 Rate Blood Pressure 124/74 ASSESSMENT AND PLAN: Alcohol dependence - Librium detox
[2019-05-10] MEDS: METHOCARBAMOL 500 MG TABLET PO PRN (19:00)
[2019-05-10] MEDS: chlordiazePOXIDE HCL 10 MG CAPSULE PO PRN (19:00)
[2019-05-10] MEDS: THIAMINE HCL 100 MG TABLET (FP) PO SCH (21:12)
[2019-05-10] MEDS: chlordiazePOXIDE HCL 25 MG CAPSULE PO SCH (21:12)
[2019-05-11] MEDS: chlordiazePOXIDE HCL 25 MG CAPSULE PO SCH ×3 (05:46→22:17)
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
[2019-05-11] MEDS: PRENATAL VITAMINS W/ FOLIC ACID TABLET (FP) PO SCH (09:48)
[2019-05-11 10:12] LABS: HEMATOCRIT 46.1 % (35.4-49); HEMOGLOBIN 15.4 GM/dL (11.7-16.9); MCH 29.8 pg (25.7-33.7); MCHC 33.3 g/dl (32.0-35.9); MEAN CELL VOLUME 89.5 fl (80-96); MEAN PLT VOLUME 7.6 fl (7.5-11.1); PLATELET COUNT 307 K/MM3 (134-434); RBC 5.16 M/mm3 (4.00-5.60); RDW 14.8 % (11.9-15.9); WHITE BLOOD COUNT 4.3 K/mm3 (4.0-10.0)
[2019-05-11 10:26] LABS: ALBUMIN 3.4 g/dl (3.4-5.0); BILIRUBIN,TOTAL 0.8 mg/dL (0.2-1); CALCIUM 8.5 mg/dL (8.5-10.1); CREATININE 0.8 mg/dL (0.55-1.3); POTASSIUM 4.2 mmol/L (3.5-5.1); TOT PROT 6.8 g/dl (6.4-8.2)
--- NOTE | 2019-05-11 13:03 | PN ---
S CIWA - CIWA Score Nausea/Vomitin-No Nausea/No Vomiting Muscle Tremors: 2 Anxiety: 2 Agitation: 3 Paroxysmal Sweats: 2 Orientation: 0-Oriented Tacttile Disturbances: 0-None Auditory Disturbances: 0-None Visual Disturbances: 0-None Headache: 0-None Present CIWA-Ar Total Score: 9 S Progress Note (SOAP) Subjective: sweats interrupted sleep tired Objective: 05/11/19 13:07 Vital Signs Temperature 97.9 F 05/11/19 09:37 Pulse Rate 96 H 05/11/19 09:37 Respiratory Rate 18 05/11/19 09:37 Blood Pressure 103/60 05/11/19 09:37 O2 Sat by Pulse Oximetry (%) Laboratory Tests 05/11/19 05/11/19 08:00 08:00 WBC 4.3 RBC 5.16 Hgb 15.4 Hct 46.1 MCV 89.5 MCH 29.8 MCHC 33.3 RDW 14.8 Plt Count 307 MPV 7.6 Sodium 136 Potassium 4.2 Chloride 101 Carbon Dioxide 29 Anion Gap 6 L BUN 11.0 Creatinine 0.8 Est GFR (CKD-EPI)AfAm 115.74 Est GFR (CKD-EPI)NonAf 99.86 Random Glucose 110 H Calcium 8.5 Total Bilirubin 0.8 AST 29 ALT 29 Alkaline Phosphatase 109 Total Protein 6.8 Albumin 3.4 labs noted aaox3 ambulating no acute distress Assessment: 05/11/19 13:07 withdrawals Plan: continue detox increase fluids
[2019-05-11] MEDS: THIAMINE HCL 100 MG TABLET (FP) PO SCH (22:17)
[2019-05-11] MEDS: QUEtiapine FUMARATE 200 MG TABLET PO SCH (22:17)
[2019-05-12] MEDS: chlordiazePOXIDE HCL 10 MG CAPSULE PO SCH ×3 (06:08→23:05)
[2019-05-12] MEDS: PRENATAL VITAMINS W/ FOLIC ACID TABLET (FP) PO SCH (11:17)
[2019-05-12] MEDS: METHOCARBAMOL 500 MG TABLET PO PRN (11:17)
--- NOTE | 2019-05-12 13:05 | PN ---
S CIWA - CIWA Score Nausea/Vomitin-No Nausea/No Vomiting Muscle Tremors: 2 Anxiety: 1-Mildly Anxious Agitation: 2 Paroxysmal Sweats: 2 Orientation: 0-Oriented Tacttile Disturbances: 0-None Auditory Disturbances: 0-None Visual Disturbances: 0-None Headache: 0-None Present CIWA-Ar Total Score: 7 BHS Progress Note (SOAP) Subjective: sweats last night agitation i need a cane Objective: 05/12/19 13:05 Vital Signs Temperature 97.7 F 05/12/19 09:21 Pulse Rate 80 05/12/19 09:21 Respiratory Rate 16 05/12/19 09:21 Blood Pressure 124/85 05/12/19 09:21 O2 Sat by Pulse Oximetry (%) Laboratory Tests 05/11/19 05/11/19 05/11/19 08:00 08:00 08:00 WBC 4.3 RBC 5.16 Hgb 15.4 Hct 46.1 MCV 89.5 MCH 29.8 MCHC 33.3 RDW 14.8 Plt Count 307 MPV 7.6 Sodium 136 Potassium 4.2 Chloride 101 Carbon Dioxide 29 Anion Gap 6 L BUN 11.0 Creatinine 0.8 Est GFR (CKD-EPI)AfAm 115.74 Est GFR (CKD-EPI)NonAf 99.86 Random Glucose 110 H Calcium 8.5 Total Bilirubin 0.8 AST 29 ALT 29 Alkaline Phosphatase 109 Total Protein 6.8 Albumin 3.4 RPR Titer Nonreactive labs noted aaox3 ambulating no acute distress Assessment: 05/12/19 13:05 withdrawal sx Plan: continue detox cane ordered
[2019-05-12] MEDS: THIAMINE HCL 100 MG TABLET (FP) PO SCH (23:06)
[2019-05-12] MEDS: QUEtiapine FUMARATE 200 MG TABLET PO SCH (23:06)
[2019-05-13] MEDS ORDERED: chlordiazePOXIDE HCL 10 MG CAPSULE PO ONE (05:00)
[2019-05-13] MEDS: chlordiazePOXIDE HCL 10 MG CAPSULE PO PRN (06:25)
[2019-05-13 09:27] VITALS: BP 126/74; PULSE 88; TEMP 97.9
[2019-05-13] MEDS: PRENATAL VITAMINS W/ FOLIC ACID TABLET (FP) PO SCH (11:34)
--- NOTE | 2019-05-13 18:01 | DS ---
[facility] Detox Discharge Summary Admission Date: 05/10/19 Discharge Date: 05/13/19 - History Present History: Alcohol Dependence, Cannabis Dependence, Cocaine Dependence Additional Comments: Patient successfully completed detox and discharged safely. Instructed to follow up with PCP within 1 week. Pertinent Past History: Asthma HIV Nicotine dependence - Physical Exam Results Vital Signs: Vital Signs Temperature 97.9 F 05/13/19 09:26 Pulse Rate 88 05/13/19 09:26 Respiratory Rate 18 05/13/19 09:26 Blood Pressure 126/74 05/13/19 09:26 O2 Sat by Pulse Oximetry (%) Pertinent Admission Physical Exam Findings: Withdrawal sxs Laboratory Tests 05/11/19 05/11/19 05/11/19 08:00 08:00 08:00 WBC 4.3 RBC 5.16 Hgb 15.4 Hct 46.1 MCV 89.5 MCH 29.8 MCHC 33.3 RDW 14.8 Plt Count 307 MPV 7.6 Sodium 136 Potassium 4.2 Chloride 101 Carbon Dioxide 29 Anion Gap 6 L BUN 11.0 Creatinine 0.8 Est GFR (CKD-EPI)AfAm 115.74 Est GFR (CKD-EPI)NonAf 99.86 Random Glucose 110 H Calcium 8.5 Total Bilirubin 0.8 AST 29 ALT 29 Alkaline Phosphatase 109 Total Protein 6.8 Albumin 3.4 RPR Titer Nonreactive Labs reviewed - Treatment Hospital Course: Detox Protocol Followed, Detoxed Safely, Responded well, Discharged Condition Good - Medication Discharge Medications: Ambulatory Orders Quetiapine Fumarate [Seroquel -] 200 mg PO HS 07/11/18 Albuterol Sulfate Inhaler - [Ventolin HFA Inhaler -] 2 puff IH Q4H PRN 03/02/19 Ranitidine [Zantac -] 150 mg PO BID 03/02/19 Ascorbic Acid/Ascorbate Sodium [Vitamin C 500 mg Wafer] 500 mg PO DAILY Gabapentin 300 mg PO TID 05/10/19 Tizanidine HCl 4 mg PO TID 05/10/19 - Diagnosis (1) Alcohol dependence with uncomplicated withdrawal Status: Acute (2) Cannabis dependence Status: Chronic (3) Cocaine dependence Status: Chronic (4) Asthma Status: Chronic Qualifiers: Asthma severity: mild Asthma persistence: intermittent Asthma complication type: with status asthmaticus Qualified Code(s): J45.22 - Mild intermittent asthma with status asthmaticus (5) Bipolar disorder Status: Chronic (6) GERD (gastroesophageal reflux disease) Status: Chronic Qualifiers: Esophagitis presence: without esophagitis Qualified Code(s): K21.9 - Gastro -esophageal reflux disease without esophagitis (7) HIV (human immunodeficiency virus infection) Status: Chronic Qualifiers: HIV symptom status: asymptomatic Qualified Code(s): Z21 - Asymptomatic human immunodeficiency virus [HIV] infection status (8) Nicotine dependence Status: Chronic Qualifiers: Nicotine product type: cigarettes Substance use status: in withdrawal Qualified Code(s): F17.213 - Nicotine dependence, cigarettes, with withdrawal - AMA Did Patient Leave Against Medical Advice: No (Instructed to follow up with PCP within 1 week)
== END 2019-05-13 10:53 | disposition home or self-care (01) | DRG 774 ==
LOC: YASAS 12:50 → Y6N 18:07
PROVIDERS: ADMIT Allergy & Immunology; ATTEND Allergy & Immunology
PROC: HZ2ZZZZ Detoxification Services for Substance Abuse Treatment (ICD-10-PCS; principal; 2019-05-10)
DX: F10.230 Alcohol dependence with withdrawal, uncomplicated (principal); F14.20 Cocaine dependence, uncomplicated; F12.20 Cannabis dependence, uncomplicated; F17.210 Nicotine dependence, cigarettes, uncomplicated; F19.282 Other psychoactive substance dependence with psychoactive substance-induced sleep disorder; F31.9 Bipolar disorder, unspecified; F43.10 Post-traumatic stress disorder, unspecified; Z21 Asymptomatic human immunodeficiency virus [HIV] infection status; J45.22 Mild intermittent asthma with status asthmaticus; K21.9 Gastro-esophageal reflux disease without esophagitis; M54.5 Low back pain; Z96.652 Presence of left artificial knee joint; G89.29 Other chronic pain; Z59.0 Homelessness
CPT/HCPCS: 36415; 80053; 85027; 86593

== ENCOUNTER 2019-05-17 12:48 | Inpatient (IN) | payer OTHER ==
[2019-05-17 15:09] VITALS: BMI 22.4
--- NOTE | 2019-05-17 15:32 | HP ---
CIWA Score - Admission Criteria [facility]ASAS Guidelines: Admission for Medically Managed Detox: Requires at least one of the followin. CIWA greater than 12 2. Seizures within the past 24 hours 3. Delirium tremens within the past 24 hours 4. Hallucinations within the past 24 hours 5. Acute intervention needed for co occurring medical disorder 6. Acute intervention needed for co occurring psychiatric disorder 7. Severe withdrawal that cannot be handled at a lower level of care (continued vomiting, continued diarrhea, abnormal vital signs) requiring intravenous medication and/or fluids 8. Admitting History and Physical - Smoking History Smoking history: Current every day smoker Have you smoked in the past 12 months: Yes Aproximately how many cigarettes per day: 20 - Alcohol/Substance Use Hx Alcohol Use: Yes Admission ROS [facility] Chief Complaint: Guido Kathleen is a 54 year old male presenting for 54 year old male presenting for alcohol detox. Allergies/Adverse Reactions: Allergies Allergy/AdvReac Type Severity Reaction Status Date / Time No Known Allergies Allergy Verified 05/17/19 15:01 History of Present Illness: Guido Kathleen is a 54 year old male with multiple prior detox/rehab admissions presents for alcohol rehab. Completed detox on 05/13/19. Stated has not been drinking in over 1 week. Stated has not used cocaine in over 1 week. Alcohol: 3-4 pints of vodka per day, 6 pack of beer; never had a seizure from withdrawing, many years (since 1 years old) Cocaine: $50-60 3x a week, smokes. Last use was 1 week prior, before entering detox. Marijuana: 5 bags per day Cigarettes: 1 pack per day, 7 years old Medical History: HIV (untreated), asthma Psychiatric History: anxiety, depression Surgical History: total L knee replacement in 2004, walks with cane Social:, homeless currently. 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 Will be admitted for alcohol and cocaine rehab. Exam Limitations: No Limitations - Ebola screening Have you traveled outside of the country in the last 21 days: No Have you had contact with anyone from an Ebola affected area: No Do you have a fever: No - Review of Systems Constitutional: Chills EENT: reports: No Symptoms Reported Respiratory: reports: No Symptoms reported Cardiac: reports: No Symptoms Reported GI: reports: No Symptoms Reported : reports: No Symptoms Reported Musculoskeletal: reports: Back Pain Integumentary: reports: Other (dry skin) Neuro: reports: No Symptoms reported Endocrine: reports: No Symptoms Reported Hematology: reports: No Symptoms Reported Psychiatric: reports: Judgement Intact, Mood/Affect Appropiate, Orientated x3 Patient History - Patient Medical History Hx Anemia: No Hx Asthma: Yes Hx Chronic Obstructive Pulmonary Disease (COPD): No Hx Cancer: No Hx Cardiac Disorders: No Hx Congestive Heart Failure: No Hx Hypertension: No Hx Hypercholesterolemia: No Hx Pacemaker: No HX Cerebrovascular Accident: No Hx Seizures: No Hx Dementia: No Hx Diabetes: No Hx Gastrointestinal Disorders: No Hx Liver Disease: No Hx Genitourinary Disorders: No Hx Sexually Transmitted Disorders: No Hx Renal Disease (ESRD): No Hx Thyroid Disease: No Hx Human Immunodeficiency Virus (HIV): Yes (since 1982/undetectable. ) Hx Hepatitis C: No (negative) Hx Depression: Yes Hx Suicide Attempt: No Hx Bipolar Disorder: Yes Hx Schizophrenia: No - Patient Surgical History Past Surgical History: Yes Hx Neurologic Surgery: No Hx Cataract Extraction: No Hx Cardiac Surgery: No Hx Lung Surgery: No Hx Breast Surgery: No Hx Breast Biopsy: No Hx Abdominal Surgery: No Hx Appendectomy: No Hx Cholecystectomy: No Hx Genitourinary Surgery: No Hx Section: No Hx Orthopedic Surgery: Yes (total knee replacement left in 2004) Anesthesia Reaction: No - PPD History Previous Implant?: Yes Date: 08/13/18 Results: 0 mm PPD to be Administered?: No - Smoking Cessation Smoking history: Current every day smoker Have you smoked in the past 12 months: Yes Aproximately how many cigarettes per day: 20 Cigars Per Day: 0 Hx Chewing Tobacco Use: No Initiated information on smoking cessation: Yes 'Breaking Loose' booklet given: 05/17/19 - Substances abused Alcohol Substance route: Oral Frequency: Daily Amount used: 3 PINTS vodka Age of first use: 3 Date of last use: 05/10/19 Crack Substance route: Smoking Frequency: 3-6 times per week Amount used: 60 DOLLARS Age of first use: 10 Date of last use: 05/09/19 Marijuana/Hashish Substance route: Smoking Frequency: 1-2 times per week Amount used: $20 Age of first use: 7 Date of last use: 05/09/19 Admission Physical Exam BHS - Vital Signs Vital Signs: Vital Signs - 24 hr 05/17/19 15:01 Pulse Rate 82 Respiratory 18 Rate Blood Pressure 127/76 - Physical General Appearance: Yes: No Apparent Distress, Appropriately Dressed, Thin HEENTM: Yes: EOMI, Normocephalic, Normal Voice, DOMINGO, Pharynx Normal, Other ( missing many teeth) Respiratory: Yes: Chest Non-Tender, Lungs Clear, Normal Breath Sounds, No Respiratory Distress, No Accessory Muscle Use Neck: Yes: No masses,lesions,Nodules, Trachea in good position Breast: Yes: Breast Exam Deferred Cardiology: Yes: Regular Rhythm, Regular Rate, S1, S2 Abdominal: Yes: Normal Bowel Sounds, Non Tender, Flat, Soft Genitourinary: Yes: Within Normal Limits Back: Yes: Normal Inspection Musculoskeletal: Yes: full range of Motion Extremities: Yes: Normal Capillary Refill, Normal Inspection, Normal Range of Motion, Non-Tender Neurological: Yes: yield analyst II-XII NML intact, Fully Oriented, Alert, Motor Strength 5/5 Integumentary: Yes: Normal Color, Dry, Warm, Other (old scars noted on lower extremities) - Diagnostic (1) Alcohol dependence Current Visit: No Status: Acute (2) Bipolar disorder Current Visit: No Status: Acute (3) Asthma Current Visit: No Status: Chronic Qualifiers: Asthma severity: mild Asthma persistence: intermittent Asthma complication type: with status asthmaticus Qualified Code(s): J45.22 - Mild intermittent asthma with status asthmaticus Comment: mild copd (4) Bipolar disorder Current Visit: No Status: Chronic (5) Chronic low back pain Current Visit: No Status: Chronic Qualifiers: Back pain laterality: unspecified Sciatica presence: unspecified whether sciatica present Qualified Code(s): M54.5 - Low back pain; G89.29 - Other chronic pain (6) Cocaine dependence Current Visit: No Status: Chronic (7) GERD (gastroesophageal reflux disease) Current Visit: No Status: Chronic Qualifiers: Esophagitis presence: without esophagitis Qualified Code(s): K21.9 - Gastro -esophageal reflux disease without esophagitis (8) HIV (human immunodeficiency virus infection) Current Visit: No Status: Chronic Qualifiers: HIV symptom status: asymptomatic Qualified Code(s): Z21 - Asymptomatic human immunodeficiency virus [HIV] infection status Comment: not taking any medication, pt states its undetecable (9) History of dental problems Current Visit: No Status: Chronic (10) Nicotine dependence Current Visit: No Status: Chronic Qualifiers: Nicotine product type: cigarettes Substance use status: in withdrawal Qualified Code(s): F17.213 - Nicotine dependence, cigarettes, with withdrawal (11) PTSD (post-traumatic stress disorder) Current Visit: No Status: Chronic (12) Use of cane as ambulatory aid Current Visit: No Status: Chronic (13) Substance induced mood disorder Current Visit: No Status: Suspected Breathalyzer - Breathalyzer Breathalyzer: 0 Urine Drug Screen - Test Device Lot number: [id number] Expiration date: 12/29/20 - Control Is test valid?: Yes - Results Drug screen NEGATIVE: No Urine drug screen results: FELIZ-Cocaine, BZO-Benzodiazepines Inpatient Rehab Admission - Rehab Decision to Admit Inpatient rehab admission?: Yes - Initial Determination Are CD services needed?: Yes Free of communicable disease: Yes Not in need of hospitalization: Yes - Rehab Admission Criteria Previous failed treatment: Yes Poor recovery environment: Yes Comorbidities: Yes Lacks judgement: Yes Patient is meeting Inpatient Rehab admission criteria:: Yes (patient succesfully completed detox on 05/13 and is now admited for rehab.)
[2019-05-17] MEDS ORDERED: LOPERAMIDE HCL 2 MG CAPSULE PO PRN (16:23)
[2019-05-17] MEDS ORDERED: MAGNESIUM HYDROX 2400MG/30ML ORAL SUSPENSION 30 ML CUP PO PRN (16:23)
[2019-05-17] MEDS ORDERED: MAG HYDROX/AL HYDROX/SIMETH 30 ML UNIT-DOSE CUP PO PRN (16:23)
[2019-05-17] MEDS ORDERED: MAGNESIUM CITRATE 300 ML BOTTLE PO PRN (16:23)
[2019-05-17] MEDS ORDERED: IBUPROFEN 400 MG TABLET (FP) PO PRN (16:23)
[2019-05-17] MEDS ORDERED: guaiFENesin 200 MG/10 ML 10 ML UNIT-DOSE CUPS PO PRN (16:23)
[2019-05-17] MEDS ORDERED: P-EPHED 60MG/TRIPROLIDI 2.5MG TABLET PO PRN (16:23)
[2019-05-17] MEDS ORDERED: MENTHOL/PHENOL 1 EACH UD MM PRN (16:23)
[2019-05-17] MEDS ORDERED: ACETAMINOPHEN 325 MG TABLET (FP) PO PRN (16:23)
[2019-05-17] MEDS ORDERED: ALBUTEROL SO4 2.5/IPRATROPIUM 0.5 INH SOL 3 ML VIAL.NEB. NEB PRN (16:25)
--- NOTE | 2019-05-17 16:27 | PN ---
Teaching Attending Note Name of Resident: Aakash Arnett ATTENDING PHYSICIAN STATEMENT I saw and evaluated the patient. I reviewed the resident's note and discussed the case with the resident. I agree with the resident's findings and plan as documented. SUBJECTIVE: 53 yo male requesting rehab , completed detox from etoh use, no bed available and returned today , denies use since d/c , denies complaints except for GERD . Denies current SI / HI . PMHx :OA , PTSD, GERD, asthma , HIV undetectable per pt and on no meds. PCP Jack Gandhi. , tkr 2004 left SHX : homeless. cocaine- $ 50-60 $ x 3 x/ week tobacco ; 1.5 ppd OBJECTIVE: wnwd NAD Vital Signs - 24 hr 05/17/19 15:01 Pulse Rate 82 Respiratory 18 Rate Blood Pressure 127/76 ASSESSMENT AND PLAN: Alcohol dependence / Cocaine use / Nicotine dependence - rehab
[2019-05-17] MEDS: MELATONIN 5 MG TABLETS PO PRN (21:17)
[2019-05-17] MEDS: THIAMINE HCL 100 MG TABLET (FP) PO SCH (21:17)
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
[2019-05-18] MEDS: PRENATAL VITAMINS W/ FOLIC ACID TABLET (FP) PO SCH (10:27)
[2019-05-18] MEDS: PANTOPRAZOLE 20 MG TABLET (FP) PO SCH (10:27)
[2019-05-18] MEDS: MELATONIN 5 MG TABLETS PO PRN (21:43)
[2019-05-18] MEDS: QUEtiapine FUMARATE 200 MG TABLET PO SCH (21:43)
[2019-05-18] MEDS: THIAMINE HCL 100 MG TABLET (FP) PO SCH (21:43)
[2019-05-19] MEDS: PANTOPRAZOLE 20 MG TABLET (FP) PO SCH (11:25)
[2019-05-19] MEDS: PRENATAL VITAMINS W/ FOLIC ACID TABLET (FP) PO SCH (11:25)
[2019-05-19] MEDS: QUEtiapine FUMARATE 200 MG TABLET PO SCH (21:09)
[2019-05-19] MEDS: MELATONIN 5 MG TABLETS PO PRN (21:09)
[2019-05-19] MEDS: THIAMINE HCL 100 MG TABLET (FP) PO SCH (21:09)
[2019-05-20] MEDS: PANTOPRAZOLE 20 MG TABLET (FP) PO SCH (10:03)
[2019-05-20] MEDS: PRENATAL VITAMINS W/ FOLIC ACID TABLET (FP) PO SCH (10:03)
[2019-05-20] MEDS: THIAMINE HCL 100 MG TABLET (FP) PO SCH (21:36)
[2019-05-20] MEDS: QUEtiapine FUMARATE 200 MG TABLET PO SCH (21:36)
[2019-05-20] MEDS: MELATONIN 5 MG TABLETS PO PRN (21:36)
[2019-05-21] MEDS: PRENATAL VITAMINS W/ FOLIC ACID TABLET (FP) PO SCH (09:50)
[2019-05-21] MEDS: PANTOPRAZOLE 20 MG TABLET (FP) PO SCH (09:50)
[2019-05-21] MEDS: THIAMINE HCL 100 MG TABLET (FP) PO SCH (21:40)
[2019-05-21] MEDS: QUEtiapine FUMARATE 200 MG TABLET PO SCH (21:40)
[2019-05-21] MEDS: MELATONIN 5 MG TABLETS PO PRN (21:40)
[2019-05-22] MEDS: PRENATAL VITAMINS W/ FOLIC ACID TABLET (FP) PO SCH (10:08)
[2019-05-22] MEDS: PANTOPRAZOLE 20 MG TABLET (FP) PO SCH (10:08)
[2019-05-22] MEDS ORDERED: ALBUTEROL SO4 2.5/IPRATROPIUM 0.5 INH SOL 3 ML VIAL.NEB. NEB PRN (16:25)
[2019-05-22] MEDS: THIAMINE HCL 100 MG TABLET (FP) PO SCH (21:08)
[2019-05-22] MEDS: QUEtiapine FUMARATE 200 MG TABLET PO SCH (21:08)
[2019-05-23 07:01] VITALS: BP 116/71; PULSE 77; TEMP 98.1
[2019-05-23] MEDS: PANTOPRAZOLE 20 MG TABLET (FP) PO SCH (10:23)
[2019-05-23] MEDS: PRENATAL VITAMINS W/ FOLIC ACID TABLET (FP) PO SCH (10:23)
--- NOTE | 2019-05-23 11:10 | DS ---
[facility] Rehab Discharge Summary - [facility] Rehab Discharge Summary Admission Date: 05/17/19 Discharge Date: 05/24/19 - History Present History: Alcohol dependence, Cannabis dependence, Cocaine dependence Pertinent Past History: Guido Kathleen is a 54 year old male with multiple prior detox/rehab admissions presents for alcohol rehab. Alcohol: 3-4 pints of vodka per day, 6 pack of beer; never had a seizure from withdrawing, many years (since 1 years old) Cocaine: $50-60 3x a week, smokes. Last use was 1 week prior, before entering detox. Marijuana: 5 bags per day Cigarettes: 1 pack per day, 7 years old Medical History: HIV (untreated), asthma Psychiatric History: anxiety, depression Surgical History: total L knee replacement in 2004, walks with cane Social:, homeless currently. 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 - Discharge Physical Exam Vital Signs: Vital Signs Temperature 98.1 F 05/23/19 07:01 Pulse Rate 77 05/23/19 07:01 Respiratory Rate 18 05/23/19 07:01 Blood Pressure 116/71 05/23/19 07:01 O2 Sat by Pulse Oximetry (%) Pertinent Admission Physical Exam Findings: - Physical General Appearance: No Apparent Distress, HEENTM: Normocephalic, DOMINGO, Pharynx Normal, Other (missing many teeth) Respiratory: Lungs Clear, Neck: supple, Trachea in good position Cardiology: S1, S2 Abdominal: +Bowel Sounds, Non Tender, Flat, Soft Musculoskeletal: full range of Motion Neurological: rock star II-XII NML intact, FMotor Strength 5/5 Integumentary: Color consistent throughout trunk and extremities Dry, Warm, Other (old scars noted on lower extremities) - Treatment Discharge Condition: Outpatient referral accepted (medically stable for discharge. Will return to [facility] for aftercare.) Hospital Course: Patient attended groups, had 1:1 with counselor. Was seen by psychiatry. Was adherent to treatment plan and medication regimen. - Medication Discharge Medications: Ambulatory Orders Quetiapine Fumarate [Seroquel -] 200 mg PO HS 07/11/18 Albuterol Sulfate Inhaler - [Ventolin HFA Inhaler -] 2 puff IH Q4H PRN 03/02/19 Ranitidine [Zantac -] 150 mg PO BID 03/02/19 Ascorbic Acid/Ascorbate Sodium [Vitamin C 500 mg Wafer] 500 mg PO DAILY Gabapentin 300 mg PO TID 05/10/19 Tizanidine HCl 4 mg PO TID 05/10/19 - Discharge Instructions Diet, activity, other medical instructions: Diet: as tolerated Activity: as tolerated Other medical instructions: as tolerated - Diagnosis (1) Alcohol dependence Status: Chronic Qualifiers: Substance use status: uncomplicated Qualified Code(s): F10.20 - Alcohol dependence, uncomplicated (2) Cannabis dependence Status: Acute (3) Cocaine dependence Status: Acute Qualifiers: Substance use status: uncomplicated Qualified Code(s): F14.20 - Cocaine dependence, uncomplicated - Follow-up Referral Minutes to complete discharge: 20 - AMA Did Patient Leave Against Medical Advice: No Additional Comments: Patient does not need any medication prescriptions transmitted to the pharmacy.
== END 2019-05-23 11:38 | disposition home or self-care (01) | DRG 772 ==
LOC: YASAS 12:48 → Y3W 16:37
PROVIDERS: ADMIT Neuromusculoskeletal Medicine & OMM; ATTEND Neuromusculoskeletal Medicine & OMM
PROC: HZ42ZZZ Group Counseling for Substance Abuse Treatment, Cognitive-Behavioral (ICD-10-PCS; principal; 2019-05-17)
DX: F10.20 Alcohol dependence, uncomplicated (principal); F14.20 Cocaine dependence, uncomplicated; F12.20 Cannabis dependence, uncomplicated; F17.210 Nicotine dependence, cigarettes, uncomplicated; F41.9 Anxiety disorder, unspecified; F31.9 Bipolar disorder, unspecified; F19.282 Other psychoactive substance dependence with psychoactive substance-induced sleep disorder; F43.10 Post-traumatic stress disorder, unspecified; Z21 Asymptomatic human immunodeficiency virus [HIV] infection status; J45.909 Unspecified asthma, uncomplicated; K21.9 Gastro-esophageal reflux disease without esophagitis; M17.0 Bilateral primary osteoarthritis of knee; Z96.643 Presence of artificial hip joint, bilateral; Z59.0 Homelessness; Z62.810 Personal history of physical and sexual abuse in childhood

== ENCOUNTER 2019-07-19 15:07 | Inpatient (IN) | payer OTHER ==
[~2019-07-19 15:07] MED LIST: diazePAM 5 MG TABLET PO SCH
[2019-07-19 16:13] VITALS: BMI 22.4
--- NOTE | 2019-07-19 17:56 | HP ---
CIWA Score Nausea/Vomitin-Mild Nausea/No Vomiting Muscle Tremors: 1-None Visible, but [place] Anxiety: 4-Mod. Anxious/Guarded Agitation: 4-Moderately Restless Paroxysmal Sweats: No Perspiration Orientation: 0-Oriented Tacttile Disturbances: 1-Very Mild Itch/Numbness Auditory Disturbances: 0-None Visual Disturbances: 0-None Headache: 0-None Present CIWA-Ar Total Score: 11 - Admission Criteria OASAS Guidelines: Admission for Medically Managed Detox: Requires at least one of the followin. CIWA greater than 12 2. Seizures within the past 24 hours 3. Delirium tremens within the past 24 hours 4. Hallucinations within the past 24 hours 5. Acute intervention needed for co occurring medical disorder 6. Acute intervention needed for co occurring psychiatric disorder 7. Severe withdrawal that cannot be handled at a lower level of care (continued vomiting, continued diarrhea, abnormal vital signs) requiring intravenous medication and/or fluids 8. Admitting History and Physical - Primary Care Physician PCP: Mari Albarran - Admission Chief Complaint: alcohol and crack detox History of Present Illness: Mr. Kathleen is a 54 yo man with pmhx of HIV (not on medication, but reports he is undetectable), asthma (has rescue inhaler), acid reflux who presents today for detox from alcohol, crack, and weed. Pt reports he drinks 1L or 4-5 24oz beers daily and he reports he smokes crack 4-5x/ wk. Pt reports he finished rehab 2- 3mo ago. He reports shortly after leaving his mother passed and resumed drinking and using crack. Pt denies ever having seizures from alcohol, denies blacking out. Reports he last drank at 7am (two 24oz beers) and last used $60 dollars of crack 2d ago. - Past Medical History Pulmonary: Yes: Asthma Gastrointestinal: Yes: GERD Infectious Disease: Yes: HIV - Smoking History Smoking history: Current every day smoker Have you smoked in the past 12 months: Yes Aproximately how many cigarettes per day: 20 - Alcohol/Substance Use Hx Alcohol Use: Yes Admission ROS [facility] Allergies/Adverse Reactions: Allergies Allergy/AdvReac Type Severity Reaction Status Date / Time No Known Allergies Allergy Verified 07/19/19 15:57 - Ebola screening Have you traveled outside of the country in the last 21 days: No (N) Have you had contact with anyone from an Ebola affected area: No Do you have a fever: No - Review of Systems Constitutional: No Symptoms Reported EENT: denies: Blurred Vision, Eye Pain, Hearing Loss, Throat Pain Respiratory: denies: Cough, Shortness of Breath Cardiac: denies: Chest Pain, Lightheadedness, Palpitations, Syncope GI: denies: Constipated, Diarrhea, Nausea, Vomiting : denies: Burning Musculoskeletal: reports: Back Pain, Joint Pain Integumentary: denies: Pruritus, Rash Neuro: reports: Numbness, Tingling. denies: Headache Endocrine: denies: Unexplained Weight Gain, Unexplained Weight Loss Hematology: denies: Anemia, Blood Clots, Easy Bleeding Psychiatric: reports: Depressed Other Systems: Reviewed and Negative Patient History - Patient Medical History Hx Anemia: No Hx Asthma: Yes Hx Chronic Obstructive Pulmonary Disease (COPD): No Hx Cancer: No Hx Cardiac Disorders: No Hx Congestive Heart Failure: No Hx Hypertension: No Hx Hypercholesterolemia: No Hx Pacemaker: No HX Cerebrovascular Accident: No Hx Seizures: No Hx Dementia: No Hx Diabetes: No Hx Gastrointestinal Disorders: No Hx Liver Disease: No Hx Genitourinary Disorders: No Hx Sexually Transmitted Disorders: No Hx Renal Disease (ESRD): No Hx Thyroid Disease: No Hx Human Immunodeficiency Virus (HIV): Yes (since 1982/undetectable. ) Hx Hepatitis C: No (negative) Hx Depression: Yes Hx Suicide Attempt: No Hx Bipolar Disorder: Yes Hx Schizophrenia: No - Patient Surgical History Past Surgical History: Yes Hx Neurologic Surgery: No Hx Cataract Extraction: No Hx Cardiac Surgery: No Hx Lung Surgery: No Hx Breast Surgery: No Hx Breast Biopsy: No Hx Abdominal Surgery: No Hx Appendectomy: No Hx Cholecystectomy: No Hx Genitourinary Surgery: No Hx Section: No Hx Orthopedic Surgery: Yes (total knee replacement left in 2004) Anesthesia Reaction: No - PPD History Date: 08/13/18 Results: 0 mm - Smoking Cessation Smoking history: Current every day smoker Have you smoked in the past 12 months: Yes Aproximately how many cigarettes per day: 20 Cigars Per Day: 0 Hx Chewing Tobacco Use: No Initiated information on smoking cessation: Yes 'Breaking Loose' booklet given: 07/20/19 - Substances abused Alcohol Substance route: Oral Frequency: Daily Amount used: 1 liter vodka Age of first use: 3 Date of last use: 07/19/19 Crack Substance route: Smoking Frequency: 3-6 times per week Amount used: $60 Age of first use: 10 Date of last use: 07/17/19 Marijuana/Hashish Substance route: Smoking Frequency: 1-2 times per week Amount used: $20 Age of first use: 7 Date of last use: 07/18/19 Admission Physical Exam BHS - Vital Signs Vital Signs: Vital Signs - 24 hr 07/19/19 15:57 Temperature 98.0 F Pulse Rate 75 Respiratory 20 Rate Blood Pressure 121/79 - Physical General Appearance: Yes: Within Normal Limits, No Apparent Distress, Nourished, Appropriately Dressed HEENTM: Yes: EOMI, Hearing grossly Normal, Normocephalic, DOMINGO, Thrush, Other ( poor dentition) Respiratory: Yes: Within Normal Limits, Lungs Clear, Normal Breath Sounds, No Respiratory Distress, No Accessory Muscle Use Neck: Yes: Within Normal Limits, Trachea in good position Cardiology: Yes: Within Normal Limits, Regular Rhythm, Regular Rate, S1, S2 Abdominal: Yes: Within Normal Limits, Normal Bowel Sounds, Non Tender, Flat, Soft Back: Yes: Within Normal Limits, Normal Inspection. No: CVA Tenderness Musculoskeletal: Yes: Within Normal Limits, full range of Motion, Gait Steady Extremities: Yes: Within Normal Limits, Normal Capillary Refill, Normal Inspection, Normal Range of Motion Neurological: Yes: Within Normal Limits, supervisor burling and joining II-XII NML intact, Fully Oriented, Alert, Motor Strength 5/5 Integumentary: Yes: Within Normal Limits, Normal Color, Dry Lymphatic: Yes: Within Normal Limits Breathalyzer - Breathalyzer Breathalyzer: 0 Urine Drug Screen - Test Device Lot number: [id number] Expiration date: 02/27/21 - Control Is test valid?: Yes - Results Drug screen NEGATIVE: Yes Urine drug screen results: FELIZ-Cocaine, BZO-Benzodiazepines Inpatient Rehab Admission - Rehab Decision to Admit Inpatient rehab admission?: No
[2019-07-19] MEDS ORDERED: MAG HYDROX/AL HYDROX/SIMETH 30 ML UNIT-DOSE CUP PO PRN (18:47)
[2019-07-19] MEDS ORDERED: MAGNESIUM HYDROX 2400MG/30ML ORAL SUSPENSION 30 ML CUP PO PRN (18:47)
[2019-07-19] MEDS ORDERED: MENTHOL/PHENOL 1 EACH UD MM PRN (18:47)
[2019-07-19] MEDS ORDERED: BISMUTH SUBSALICYLATE 524 MG/30 ML UD PO PRN (18:47)
[2019-07-19] MEDS ORDERED: ACETAMINOPHEN 325 MG TABLET (FP) PO PRN ×2 (18:47)
[2019-07-19] MEDS ORDERED: MELATONIN 5 MG TABLETS PO PRN (18:47)
[2019-07-19] MEDS ORDERED: MAGNESIUM CITRATE 300 ML BOTTLE PO PRN (18:47)
[2019-07-19] MEDS ORDERED: METHOCARBAMOL 500 MG TABLET PO PRN (18:47)
[2019-07-19] MEDS ORDERED: hydrOXYzine PAMOATE 25 MG CAPSULE (FP) PO PRN (18:47)
--- NOTE | 2019-07-19 18:57 | PN ---
Teaching Attending Note Name of Resident: Bertha Zimmerman ATTENDING PHYSICIAN STATEMENT I saw and evaluated the patient. I reviewed the resident's note and discussed the case with the resident. I agree with the resident's findings and plan as documented. SUBJECTIVE: 53 yo male requesting detox from etoh use, reports 5 x 24 oz cans /day , relapsed after previous rehab states due to family stressors. Denies seizures / blackouts , + tremors , starts drinking in the mornings , latest use this morning , current symptoms as above. Denies current SI / HI . PMHx : OA , PTSD, GERD, asthma , HIV undetectable per pt and not no meds. PCP jinny Nguyễn 2004 left SHX : homeless. cocaine- $ 50-60 $ x 3 x/ week tobacco ; 1.5 ppd OBJECTIVE: wnwd Vital Signs - 24 hr 07/19/19 15:57 Temperature 98.0 F Pulse Rate 75 Respiratory 20 Rate Blood Pressure 121/79 ASSESSMENT AND PLAN: AUD - Valium detox.
[2019-07-19] MEDS: diazePAM 5 MG TABLET PO PRN (19:17)
[2019-07-19] MEDS: THIAMINE HCL 100 MG TABLET (FP) PO SCH (22:20)
[2019-07-19] MEDS: diazePAM 5 MG TABLET PO SCH (22:20)
[2019-07-20] MEDS: diazePAM 5 MG TABLET PO SCH (05:30)
[2019-07-20 10:38] LABS: ALBUMIN 3.2 g/dl (3.4-5.0); BILIRUBIN,TOTAL 0.5 mg/dL (0.2-1); CALCIUM 8.5 mg/dL (8.5-10.1); CREATININE 0.8 mg/dL (0.55-1.3); HEMATOCRIT 43.5 % (35.4-49); HEMOGLOBIN 14.4 GM/dL (11.7-16.9); MCHC 33.2 g/dl (32.0-35.9); MEAN CELL VOLUME 87.3 fl (80-96); MEAN PLT VOLUME 7.5 fl (7.5-11.1); PLATELET COUNT 293 K/MM3 (134-434); POTASSIUM 4.1 mmol/L (3.5-5.1); RBC 4.98 M/mm3 (4.00-5.60); RDW 15.3 % (11.9-15.9); TOT PROT 6.4 g/dl (6.4-8.2); WHITE BLOOD COUNT 3.6 K/mm3 (4.0-10.0)
[2019-07-20] MEDS: PRENATAL VITAMINS W/ FOLIC ACID TABLET (FP) PO SCH (10:45)
[2019-07-20] MEDS: diazePAM 5 MG TABLET PO PRN (10:47)
[2019-07-20] MEDS: IBUPROFEN 400 MG TABLET (FP) PO PRN (10:49)
[2019-07-20] MEDS ORDERED: ALBUTEROL SO4 8 GM HFA INHALER IH PRN (10:58)
[2019-07-20] MEDS ORDERED: chlordiazePOXIDE HCL 10 MG CAPSULE PO PRN (10:59)
--- NOTE | 2019-07-20 12:03 | PN ---
S CIWA - CIWA Score Nausea/Vomitin-No Nausea/No Vomiting Muscle Tremors: 3 Anxiety: 2 Agitation: 3 Paroxysmal Sweats: 3 Orientation: 0-Oriented Tacttile Disturbances: 0-None Auditory Disturbances: 0-None Visual Disturbances: 0-None Headache: 1-Very Mild CIWA-Ar Total Score: 12 BHS Progress Note (SOAP) Subjective: shakes sweats body aches poor appetite interrupted sleep agitation the valium is not helping with my withdrawals. i prefer librium Objective: 07/20/19 11:39 Vital Signs Temperature 98.2 F 07/20/19 09:41 Pulse Rate 76 07/20/19 09:41 Respiratory Rate 18 07/20/19 09:41 Blood Pressure 129/71 07/20/19 09:41 O2 Sat by Pulse Oximetry (%) Laboratory Tests 07/20/19 07/20/19 08:00 08:00 WBC 3.6 L RBC 4.98 Hgb 14.4 Hct 43.5 MCV 87.3 MCH 29.0 MCHC 33.2 RDW 15.3 Plt Count 293 MPV 7.5 Sodium 139 Potassium 4.1 Chloride 104 Carbon Dioxide 30 Anion Gap 6 L BUN 12.0 Creatinine 0.8 Est GFR (CKD-EPI)AfAm 115.74 Est GFR (CKD-EPI)NonAf 99.86 Random Glucose 97 Calcium 8.5 Total Bilirubin 0.5 AST 21 ALT 19 Alkaline Phosphatase 86 Total Protein 6.4 Albumin 3.2 L aaox3 ambulating no acute distress Assessment: 07/20/19 12:03 withdrawals Plan: continue detox increase fluids ensure bid
[2019-07-20] MEDS ORDERED: PANTOPRAZOLE 40 MG TABLET (FP) PO ONE (12:30)
[2019-07-20] MEDS: GABAPENTIN 300 MG CAPSULE (FP) PO SCH ×2 (13:01→22:11)
[2019-07-20] MEDS: chlordiazePOXIDE HCL 25 MG CAPSULE PO SCH ×3 (13:03→22:13)
[2019-07-20] MEDS: THIAMINE HCL 100 MG TABLET (FP) PO SCH (22:11)
[2019-07-21] MEDS ORDERED: diazePAM 5 MG TABLET PO ONE (06:00)
[2019-07-21] MEDS ORDERED: diazePAM 5 MG TABLET PO SCH (06:00)
[2019-07-21] MEDS: chlordiazePOXIDE 5 MG CAPSULE PO SCH ×3 (06:44→21:52)
[2019-07-21] MEDS: GABAPENTIN 300 MG CAPSULE (FP) PO SCH ×3 (06:44→23:52)
[2019-07-21] MEDS: PANTOPRAZOLE 40 MG TABLET (FP) PO SCH (10:13)
[2019-07-21] MEDS: PRENATAL VITAMINS W/ FOLIC ACID TABLET (FP) PO SCH (10:13)
[2019-07-21] MEDS: IBUPROFEN 400 MG TABLET (FP) PO PRN (10:14)
--- NOTE | 2019-07-21 14:14 | PN ---
[facility] CIWA - CIWA Score Nausea/Vomitin-Mild Nausea/No Vomiting Muscle Tremors: 2 Anxiety: 1-Mildly Anxious Agitation: 0-Normal Activity Paroxysmal Sweats: No Perspiration Orientation: 0-Oriented Tacttile Disturbances: 0-None Auditory Disturbances: 0-None Visual Disturbances: 0-None Headache: 1-Very Mild CIWA-Ar Total Score: 5 BHS Progress Note (SOAP) Subjective: pt states he is feeling fine except for arthritis pain-wants to go to rehab after detox O: Vital Signs - 24 hr 07/20/19 07/21/19 07/21/19 20:59 00:30 03:30 Temperature 99.3 F Pulse Rate 82 Respiratory 18 18 18 Rate Blood Pressure 119/66 07/21/19 07/21/19 07:54 09:53 Temperature 98.1 F 98.1 F Pulse Rate 83 87 Respiratory 18 16 Rate Blood Pressure 108/69 121/69 Laboratory Tests 07/20/19 07/20/19 07/20/19 08:00 08:00 08:00 WBC 3.6 L RBC 4.98 Hgb 14.4 Hct 43.5 MCV 87.3 MCH 29.0 MCHC 33.2 RDW 15.3 Plt Count 293 MPV 7.5 Sodium 139 Potassium 4.1 Chloride 104 Carbon Dioxide 30 Anion Gap 6 L BUN 12.0 Creatinine 0.8 Est GFR (CKD-EPI)AfAm 115.74 Est GFR (CKD-EPI)NonAf 99.86 Random Glucose 97 Calcium 8.5 Total Bilirubin 0.5 AST 21 ALT 19 Alkaline Phosphatase 86 Total Protein 6.4 Albumin 3.2 L RPR Titer Nonreactive a/p: continue alcohol detox protocol. prn meds for pain
[2019-07-21] MEDS: THIAMINE HCL 100 MG TABLET (FP) PO SCH (22:53)
[2019-07-22] MEDS ORDERED: diazePAM 5 MG TABLET PO SCH (06:00)
[2019-07-22] MEDS ORDERED: diazePAM 5 MG TABLET PO ONE (06:00)
[2019-07-22] MEDS: GABAPENTIN 300 MG CAPSULE (FP) PO SCH ×3 (06:04→22:41)
[2019-07-22] MEDS: chlordiazePOXIDE HCL 10 MG CAPSULE PO SCH ×3 (06:04→22:41)
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
[2019-07-22] MEDS: PANTOPRAZOLE 40 MG TABLET (FP) PO SCH (10:16)
[2019-07-22] MEDS: PRENATAL VITAMINS W/ FOLIC ACID TABLET (FP) PO SCH (10:16)
[2019-07-22] MEDS: IBUPROFEN 400 MG TABLET (FP) PO PRN (10:18)
--- NOTE | 2019-07-22 12:33 | PN ---
[facility] CIWA - CIWA Score Nausea/Vomitin-No Nausea/No Vomiting Muscle Tremors: None Anxiety: 2 Agitation: 0-Normal Activity Paroxysmal Sweats: 1-Minimal Palms Moist Orientation: 0-Oriented Tacttile Disturbances: 0-None Auditory Disturbances: 0-None Visual Disturbances: 0-None Headache: 0-None Present CIWA-Ar Total Score: 3 BHS Progress Note (SOAP) Subjective: c/o mild withdrawal symptoms. Objective: 07/22/19 12:32 Vital Signs 07/22/19 07/22/19 06:21 10:10 Temperature 97.9 F 98 F Pulse Rate 81 75 Respiratory 18 16 Rate Blood Pressure 99/57 L 114/68 Laboratory Last Values WBC 3.6 K/mm3 (4.0-10.0) L 07/20/19 08:00 RBC 4.98 M/mm3 (4.00-5.60) 07/20/19 08:00 Hgb 14.4 GM/dL (11.7-16.9) 07/20/19 08:00 Hct 43.5 % (35.4-49) 07/20/19 08:00 MCV 87.3 fl (80-96) 07/20/19 08:00 MCH 29.0 pg (25.7-33.7) 07/20/19 08:00 MCHC 33.2 g/dl (32.0-35.9) 07/20/19 08:00 RDW 15.3 % (11.9-15.9) 07/20/19 08:00 Plt Count 293 K/MM3 (134-434) 07/20/19 08:00 MPV 7.5 fl (7.5-11.1) 07/20/19 08:00 Sodium 139 mmol/L (136-145) 07/20/19 08:00 Potassium 4.1 mmol/L (3.5-5.1) 07/20/19 08:00 Chloride 104 mmol/L (98-107) 07/20/19 08:00 Carbon Dioxide 30 mmol/L (21-32) 07/20/19 08:00 Anion Gap 6 MMOL/L (8-16) L 07/20/19 08:00 BUN 12.0 mg/dL (7-18) 07/20/19 08:00 Creatinine 0.8 mg/dL (0.55-1.3) 07/20/19 08:00 Est GFR (CKD-EPI)AfAm 115.74 07/20/19 08:00 Est GFR (CKD-EPI)NonAf 99.86 07/20/19 08:00 Random Glucose 97 mg/dL (74-106) 07/20/19 08:00 Calcium 8.5 mg/dL (8.5-10.1) 07/20/19 08:00 Total Bilirubin 0.5 mg/dL (0.2-1) 07/20/19 08:00 AST 21 U/L (15-37) 07/20/19 08:00 ALT 19 U/L (13-61) 07/20/19 08:00 Alkaline Phosphatase 86 U/L (45-117) 07/20/19 08:00 Total Protein 6.4 g/dl (6.4-8.2) 07/20/19 08:00 Albumin 3.2 g/dl (3.4-5.0) L 07/20/19 08:00 RPR Titer Nonreactive (NONREACTIVE) 07/20/19 08:00 Labs noted. Assessment: 07/22/19 12:32 AOX3, in no acute respiratory distress. Full ROM, ambulating in the unit. Mild Withdrawal symptoms. For d/c tomorrow. Plan: continue detox. D/C in AM.
[2019-07-22] MEDS ORDERED: QUEtiapine FUMARATE 200 MG TABLET PO SCH (22:00)
[2019-07-22] MEDS: THIAMINE HCL 100 MG TABLET (FP) PO SCH (22:41)
[2019-07-23] MEDS ORDERED: chlordiazePOXIDE HCL 10 MG CAPSULE PO ONE (05:00)
[2019-07-23] MEDS ORDERED: diazePAM 5 MG TABLET PO ONE (06:00)
[2019-07-23] MEDS: GABAPENTIN 300 MG CAPSULE (FP) PO SCH (06:08)
[2019-07-23 07:04] VITALS: BP 119/69; PULSE 88; TEMP 98.1
--- NOTE | 2019-07-23 09:13 | DS ---
[facility] Detox Discharge Summary Admission Date: 07/19/19 Discharge Date: 07/23/19 - History Present History: Alcohol Dependence, Cocaine Dependence - Physical Exam Results Vital Signs: Vital Signs Temperature 98.1 F 07/23/19 05:25 Pulse Rate 88 07/23/19 05:25 Respiratory Rate 18 07/23/19 05:25 Blood Pressure 119/69 07/23/19 05:25 O2 Sat by Pulse Oximetry (%) Pertinent Admission Physical Exam Findings: Vital Signs Temperature 98.1 F 07/23/19 05:25 Pulse Rate 88 07/23/19 05:25 Respiratory Rate 18 07/23/19 05:25 Blood Pressure 119/69 07/23/19 05:25 O2 Sat by Pulse Oximetry (%) Laboratory Tests 07/20/19 07/20/19 07/20/19 08:00 08:00 08:00 WBC 3.6 L RBC 4.98 Hgb 14.4 Hct 43.5 MCV 87.3 MCH 29.0 MCHC 33.2 RDW 15.3 Plt Count 293 MPV 7.5 Sodium 139 Potassium 4.1 Chloride 104 Carbon Dioxide 30 Anion Gap 6 L BUN 12.0 Creatinine 0.8 Est GFR (CKD-EPI)AfAm 115.74 Est GFR (CKD-EPI)NonAf 99.86 Random Glucose 97 Calcium 8.5 Total Bilirubin 0.5 AST 21 ALT 19 Alkaline Phosphatase 86 Total Protein 6.4 Albumin 3.2 L RPR Titer Nonreactive aaox3 ambulating no acute distress - Treatment Hospital Course: Detox Protocol Followed, Detoxed Safely, Responded well, Discharged Condition Good, Rehab Referral Accepted Patient has Accepted a Rehab Referral to: pt referred to [facility] - Medication Discharge Medications: Ambulatory Orders Quetiapine Fumarate [Seroquel -] 200 mg PO HS 07/11/18 Albuterol Sulfate Inhaler - [Ventolin HFA Inhaler -] 2 puff IH Q4H PRN 03/02/19 Ranitidine [Zantac -] 150 mg PO BID 03/02/19 Ascorbic Acid/Ascorbate Sodium [Vitamin C 500 mg Wafer] 500 mg PO DAILY Gabapentin 300 mg PO TID 05/10/19 Tizanidine HCl 4 mg PO TID 05/10/19 - Diagnosis (1) Cocaine dependence Current Visit: Yes Status: Chronic Qualifiers: Substance use status: uncomplicated Qualified Code(s): F14.20 - Cocaine dependence, uncomplicated (2) Substance-induced sleep disorder Current Visit: Yes Status: Acute (3) Mood disorder Current Visit: Yes Status: Chronic (4) Alcohol dependence with uncomplicated withdrawal Current Visit: Yes Status: Chronic (5) Bipolar disorder Current Visit: No Status: Acute (6) Cannabis dependence Current Visit: No Status: Acute (7) Asthma Current Visit: Yes Status: Chronic Qualifiers: Asthma severity: mild Asthma persistence: intermittent Asthma complication type: with status asthmaticus Qualified Code(s): J45.22 - Mild intermittent asthma with status asthmaticus (8) Bipolar disorder Current Visit: No Status: Chronic (9) Chronic 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 Current Visit: No Status: Chronic (10) Chronic low back pain Current Visit: No Status: Chronic Qualifiers: Back pain laterality: unspecified Sciatica presence: unspecified whether sciatica present Qualified Code(s): M54.5 - Low back pain; G89.29 - Other chronic pain (11) Cocaine dependence, uncomplicated Current Visit: No Status: Chronic (12) GERD (gastroesophageal reflux disease) Current Visit: No Status: Chronic Qualifiers: Esophagitis presence: without esophagitis Qualified Code(s): K21.9 - Gastro -esophageal reflux disease without esophagitis (13) HIV (human immunodeficiency virus infection) Current Visit: No Status: Chronic Qualifiers: HIV symptom status: asymptomatic Qualified Code(s): Z21 - Asymptomatic human immunodeficiency virus [HIV] infection status (14) History of bipolar disorder Current Visit: No Status: Chronic (15) History of dental problems Current Visit: No Status: Chronic (16) Insomnia Current Visit: No Status: Chronic Qualifiers: (17) Mood disorder Current Visit: No Status: Chronic (18) Nicotine dependence Current Visit: No Status: Chronic Qualifiers: Nicotine product type: cigarettes Substance use status: in withdrawal Qualified Code(s): F17.213 - Nicotine dependence, cigarettes, with withdrawal (19) Non-compliance Current Visit: No Status: Chronic (20) PTSD (post-traumatic stress disorder) Current Visit: No Status: Chronic (21) Use of cane as ambulatory aid Current Visit: No Status: Chronic (22) Bipolar II disorder Current Visit: No Status: Suspected (23) Substance induced mood disorder Current Visit: No Status: Suspected (24) Substance induced mood disorder Current Visit: No Status: Suspected (25) Substance induced mood disorder Current Visit: No Status: Suspected - AMA Did Patient Leave Against Medical Advice: No
[2019-07-23] MEDS: PANTOPRAZOLE 40 MG TABLET (FP) PO SCH (09:48)
[2019-07-23] MEDS: PRENATAL VITAMINS W/ FOLIC ACID TABLET (FP) PO SCH (09:48)
== END 2019-07-23 11:17 | disposition other institution (70) | DRG 774 ==
LOC: YASAS 15:07 → Y6N 18:26
PROVIDERS: ADMIT Allergy & Immunology; ATTEND Allergy & Immunology
PROC: HZ2ZZZZ Detoxification Services for Substance Abuse Treatment (ICD-10-PCS; principal; 2019-07-19)
DX: F10.230 Alcohol dependence with withdrawal, uncomplicated (principal); F14.20 Cocaine dependence, uncomplicated; F12.20 Cannabis dependence, uncomplicated; F17.213 Nicotine dependence, cigarettes, with withdrawal; F19.24 Other psychoactive substance dependence with psychoactive substance-induced mood disorder; F19.282 Other psychoactive substance dependence with psychoactive substance-induced sleep disorder; F39 Unspecified mood [affective] disorder; F31.81 Bipolar II disorder; F43.10 Post-traumatic stress disorder, unspecified; G47.00 Insomnia, unspecified; J45.22 Mild intermittent asthma with status asthmaticus; M25.562 Pain in left knee; M54.5 Low back pain; G89.29 Other chronic pain; K21.9 Gastro-esophageal reflux disease without esophagitis; Z21 Asymptomatic human immunodeficiency virus [HIV] infection status; M17.0 Bilateral primary osteoarthritis of knee; R26.2 Difficulty in walking, not elsewhere classified; Z99.89 Dependence on other enabling machines and devices; Z62.810 Personal history of physical and sexual abuse in childhood; Z96.653 Presence of artificial knee joint, bilateral; Z91.19 Patient's noncompliance with other medical treatment and regimen; Z59.0 Homelessness
CPT/HCPCS: 36415; 80053; 85027; 86593

== ENCOUNTER 2019-07-23 11:41 | Inpatient (IN) | payer OTHER ==
[2019-07-23] MEDS ORDERED: MAGNESIUM CITRATE 300 ML BOTTLE PO PRN (12:58)
[2019-07-23] MEDS ORDERED: NICOTINE POLACRILEX 4 MG GUM BUC PRN (12:58)
[2019-07-23] MEDS ORDERED: ACETAMINOPHEN 325 MG TABLET (FP) PO PRN (12:58)
[2019-07-23] MEDS ORDERED: MENTHOL/PHENOL 1 EACH UD MM PRN (12:58)
[2019-07-23] MEDS ORDERED: LOPERAMIDE HCL 2 MG CAPSULE PO PRN (12:58)
[2019-07-23] MEDS ORDERED: hydrOXYzine PAMOATE 25 MG CAPSULE (FP) PO PRN (12:58)
[2019-07-23] MEDS ORDERED: guaiFENesin 200 MG/10 ML 10 ML UNIT-DOSE CUPS PO PRN (12:58)
[2019-07-23] MEDS ORDERED: MAG HYDROX/AL HYDROX/SIMETH 30 ML UNIT-DOSE CUP PO PRN (12:58)
[2019-07-23] MEDS ORDERED: MAGNESIUM HYDROX 2400MG/30ML ORAL SUSPENSION 30 ML CUP PO PRN (12:58)
[2019-07-23] MEDS ORDERED: P-EPHED 60MG/TRIPROLIDI 2.5MG TABLET PO PRN (12:58)
[2019-07-23] MEDS ORDERED: ALBUTEROL SO4 8 GM HFA INHALER IH PRN (13:00)
--- NOTE | 2019-07-23 14:59 | PN ---
[facility] Progress Note Note: patient known to this facility. Last 4 admissions reviewed, patient safety maintained during each admission. PMHx: Mr. Kathleen is a 54 yo man with pmhx of HIV (not on medication, but reports he is undetectable), asthma (has rescue inhaler), acid reflux who presents today with alcohol, crack, and weed use disorder. Pt reports he drinks 1L or 4-5 24oz beers daily and he reports he smokes crack 4-5x/ wk. Pt reports he finished rehab 2-3mo ago. He reports shortly after leaving his mother passed and resumed drinking and using crack. Vital Signs Period Temp Pulse Resp BP Sys/Uribe Pulse Ox Last 24 Hr 97.5 F 94 18 120/68 General: No apparent distress MSK: full ROM Neuro: CN 2-12 intact A/P: Continue substance use treatmen Maintain safety.
[2019-07-23] MEDS: GABAPENTIN 300 MG CAPSULE (FP) PO SCH ×2 (15:40→21:43)
[2019-07-23] MEDS: THIAMINE HCL 100 MG TABLET (FP) PO SCH (21:43)
[2019-07-24] MEDS: IBUPROFEN 400 MG TABLET (FP) PO PRN ×3 (04:26→21:29)
[2019-07-24] MEDS: GABAPENTIN 300 MG CAPSULE (FP) PO SCH ×3 (05:57→21:28)
[2019-07-24] MEDS: PRENATAL VITAMINS W/ FOLIC ACID TABLET (FP) PO SCH (09:48)
[2019-07-24] MEDS: PANTOPRAZOLE 40 MG TABLET (FP) PO SCH (09:48)
[2019-07-24] MEDS: NICOTINE 7 MG/24 HOURS TOPICAL PATCH TD SCH (09:52)
[2019-07-24] MEDS: MELATONIN 5 MG TABLETS PO PRN (21:28)
[2019-07-24] MEDS: THIAMINE HCL 100 MG TABLET (FP) PO SCH (21:28)
[2019-07-25] MEDS: GABAPENTIN 300 MG CAPSULE (FP) PO SCH ×3 (05:58→21:27)
[2019-07-25] MEDS: PANTOPRAZOLE 40 MG TABLET (FP) PO SCH (09:52)
[2019-07-25] MEDS: PRENATAL VITAMINS W/ FOLIC ACID TABLET (FP) PO SCH (09:52)
[2019-07-25] MEDS: IBUPROFEN 400 MG TABLET (FP) PO PRN ×2 (09:53→21:27)
[2019-07-25] MEDS: NICOTINE 7 MG/24 HOURS TOPICAL PATCH TD SCH (09:55)
[2019-07-25] MEDS: THIAMINE HCL 100 MG TABLET (FP) PO SCH (21:27)
[2019-07-25] MEDS: MELATONIN 5 MG TABLETS PO PRN (21:27)
[2019-07-26] MEDS: GABAPENTIN 300 MG CAPSULE (FP) PO SCH (06:27)
[2019-07-26 06:52] VITALS: BP 123/82; PULSE 76; TEMP 97.9
[2019-07-26] MEDS: NICOTINE 7 MG/24 HOURS TOPICAL PATCH TD SCH (09:05)
[2019-07-26] MEDS: PANTOPRAZOLE 40 MG TABLET (FP) PO SCH (09:05)
[2019-07-26] MEDS: PRENATAL VITAMINS W/ FOLIC ACID TABLET (FP) PO SCH (09:05)
[2019-07-26] MEDS: IBUPROFEN 400 MG TABLET (FP) PO PRN (09:06)
--- NOTE | 2019-07-26 09:52 | DS ---
[facility] Rehab Discharge Summary - [facility] Rehab Discharge Summary Admission Date: 07/23/19 Discharge Date: 07/26/19 - History Present History: Alcohol dependence, Cannabis dependence, Cocaine dependence Pertinent Past History: Mr. Kathleen is a 54 yo man with pmhx of HIV (not on medication, but reports he is undetectable), asthma (has rescue inhaler), acid reflux who presents today for detox from alcohol, crack, and weed. Pt reports he drinks 1L or 4-5 24oz beers daily and he reports he smokes crack 4-5x/ wk. Pt reports he finished rehab 2- 3mo ago. He reports shortly after leaving his mother passed and resumed drinking and using crack. Pt denies ever having seizures from alcohol, denies blacking out. Reports he last drank at 7am (two 24oz beers) and last used $60 dollars of crack 2d ago. - Discharge Physical Exam Vital Signs: Vital Signs Temperature 97.9 F 07/26/19 06:51 Pulse Rate 76 07/26/19 06:51 Respiratory Rate 18 07/26/19 06:51 Blood Pressure 123/82 07/26/19 06:51 O2 Sat by Pulse Oximetry (%) Pertinent Admission Physical Exam Findings: General Appearance: No Apparent Distress, HEENTM: Normocephalic, poor dentition Respiratory: Lungs Clear, Neck: Supple, Trachea in good position Cardiology: S1, S2 Abdominal: +Bowel Sounds, Non Tender, Flat, Soft Back: CVA Tenderness Musculoskeletal: full range of Motion, Gait Steady Neurological: accounts payable specialist II-XII NML intact, - Treatment Discharge Condition: Outpatient referral accepted (medically stable for discharge.Patient will return to [facility] for medical care and [facility] for [facility] and [facility] for substance use treatment) Hospital Course: Patient completed detox, was transferred to rehab. He attended groups, had 1:1 with his counselor, was seen by psychiatric service. He had no acute and urgent medical issues while in rehab. - Medication Discharge Medications: Ambulatory Orders Quetiapine Fumarate [Seroquel -] 200 mg PO HS 07/11/18 Ranitidine [Zantac -] 150 mg PO BID 03/02/19 Tizanidine HCl 4 mg PO TID 05/10/19 Albuterol Sulfate Inhaler - [Ventolin HFA Inhaler -] 2 puff IH Q4H PRN #1 inhaler 12/26/19 Ascorbic Acid/Ascorbate Sodium [Vitamin C 500 mg Wafer] 500 mg PO DAILY #14 wafer 07/26/19 Gabapentin 300 mg PO TID #30 capsule 07/26/19 - Medication-Assisted Treatment (MAT) Medication-Assisted Treatment (MAT): No - Discharge Instructions Diet, activity, other medical instructions: Diet: as tolerated Activity: as tolerated Other medical instructions: Please keep all your aftercare appointments. - Diagnosis (1) Cannabis dependence Current Visit: No Status: Chronic (2) Alcohol dependence with uncomplicated withdrawal Current Visit: No Status: Chronic (3) Cocaine dependence Current Visit: No Status: Chronic Qualifiers: Substance use status: uncomplicated Qualified Code(s): F14.20 - Cocaine dependence, uncomplicated - Follow-up Referral Minutes to complete discharge: 20 - AMA Did Patient Leave Against Medical Advice: No
== END 2019-07-26 10:20 | disposition home or self-care (01) | DRG 772 ==
LOC: YASAS 11:41 → Y3W 11:42
PROVIDERS: ADMIT Neuromusculoskeletal Medicine & OMM; ATTEND Neuromusculoskeletal Medicine & OMM
PROC: HZ42ZZZ Group Counseling for Substance Abuse Treatment, Cognitive-Behavioral (ICD-10-PCS; principal; 2019-07-23)
DX: F10.20 Alcohol dependence, uncomplicated (principal); F14.20 Cocaine dependence, uncomplicated; F12.20 Cannabis dependence, uncomplicated; Z21 Asymptomatic human immunodeficiency virus [HIV] infection status; J45.909 Unspecified asthma, uncomplicated; K21.9 Gastro-esophageal reflux disease without esophagitis; Z59.0 Homelessness

== ENCOUNTER 2019-08-20 16:10 | Inpatient (IN) | payer OTHER ==
[2019-08-20 17:06] VITALS: BMI 22.9
[2019-08-20] MEDS ORDERED: ALBUTEROL SO4 HFA INHALER IH PRN (18:33)
--- NOTE | 2019-08-20 18:33 | HP ---
CIWA Score Nausea/Vomitin-No Nausea/No Vomiting Muscle Tremors: 2 Anxiety: 2 Agitation: 2 Paroxysmal Sweats: No Perspiration Orientation: 0-Oriented Tacttile Disturbances: 0-None Auditory Disturbances: 0-None Visual Disturbances: 0-None Headache: 0-None Present CIWA-Ar Total Score: 6 - Admission Criteria OASAS Guidelines: Admission for Medically Managed Detox: Requires at least one of the followin. CIWA greater than 12 2. Seizures within the past 24 hours 3. Delirium tremens within the past 24 hours 4. Hallucinations within the past 24 hours 5. Acute intervention needed for co occurring medical disorder 6. Acute intervention needed for co occurring psychiatric disorder 7. Severe withdrawal that cannot be handled at a lower level of care (continued vomiting, continued diarrhea, abnormal vital signs) requiring intravenous medication and/or fluids 8. Admitting History and Physical - Past Medical History Pulmonary: Yes: Asthma Gastrointestinal: Yes: GERD Infectious Disease: Yes: HIV - Smoking History Smoking history: Current every day smoker Have you smoked in the past 12 months: Yes Aproximately how many cigarettes per day: 20 - Alcohol/Substance Use Hx Alcohol Use: Yes Admission [facility] Allergies/Adverse Reactions: Allergies Allergy/AdvReac Type Severity Reaction Status Date / Time No Known Allergies Allergy Verified 08/20/19 17:00 History of Present Illness: 53 yo male requesting detox from etoh use, reports relapse at [facility], latest use today 4 x 40 oz beer . Denies seizures / blackouts , + tremors , starts drinking in the mornings Denies current SI / HI . PMHx :OA , PTSD, GERD, asthma , HIV undetectable per pt , no meds. PCP Jack Gandhi. SHX : homeless. cocaine- $150/day tobacco ; 1.5 ppd Exam Limitations: Clinical Condition, Intoxication - Ebola screening Have you traveled outside of the country in the last 21 days: No (N) Have you had contact with anyone from an Ebola affected area: No Do you have a fever: No - Review of Systems Constitutional: Loss of Appetite EENT: reports: No Symptoms Reported Respiratory: reports: No Symptoms reported Cardiac: reports: No Symptoms Reported GI: reports: Poor Appetite : reports: No Symptoms Reported Musculoskeletal: reports: No Symptoms Reported Integumentary: reports: No Symptoms Reported Neuro: reports: No Symptoms reported Endocrine: reports: No Symptoms Reported Psychiatric: reports: Orientated x3, Agitated, Anxious Patient History - Patient Medical History Hx Anemia: No Hx Asthma: Yes Hx Chronic Obstructive Pulmonary Disease (COPD): No Hx Cancer: No Hx Cardiac Disorders: No Hx Congestive Heart Failure: No Hx Hypertension: No Hx Hypercholesterolemia: No Hx Pacemaker: No HX Cerebrovascular Accident: No Hx Seizures: No Hx Dementia: No Hx Diabetes: No Hx Gastrointestinal Disorders: No Hx Liver Disease: No Hx Genitourinary Disorders: No Hx Sexually Transmitted Disorders: No Hx Renal Disease (ESRD): No Hx Thyroid Disease: No Hx Human Immunodeficiency Virus (HIV): Yes (since 1982/. ) Hx Hepatitis C: No (negative) Hx Depression: No Hx Suicide Attempt: No Hx Bipolar Disorder: Yes Hx Schizophrenia: No - Patient Surgical History Past Surgical History: Yes Hx Neurologic Surgery: No Hx Cataract Extraction: No Hx Cardiac Surgery: No Hx Lung Surgery: No Hx Breast Surgery: No Hx Breast Biopsy: No Hx Abdominal Surgery: No Hx Appendectomy: No Hx Cholecystectomy: No Hx Genitourinary Surgery: No Hx Section: No Hx Orthopedic Surgery: Yes (total knee replacement left in 2004) Anesthesia Reaction: No - PPD History Date: 08/13/18 Results: 0 MM - Smoking Cessation Smoking history: Current every day smoker Have you smoked in the past 12 months: Yes Aproximately how many cigarettes per day: 20 Cigars Per Day: 0 Hx Chewing Tobacco Use: No Initiated information on smoking cessation: No - Substances abused Alcohol Substance route: Oral Frequency: Daily Amount used: 4 PINTS VODKA, 2 6- PACK BEER Age of first use: 7 Date of last use: 08/20/19 Crack Substance route: Smoking Frequency: 3-6 times per week Amount used: $60 Age of first use: 13 Date of last use: 08/19/19 Marijuana/Hashish Substance route: Smoking Frequency: 3-6 times per week Amount used: $25 Age of first use: 15 Date of last use: 08/17/19 Admission Physical Exam BHS - Vital Signs Vital Signs: Vital Signs - 24 hr 08/20/19 16:46 Temperature 97.2 F L Pulse Rate 90 Respiratory 18 Rate Blood Pressure 112/73 - Physical General Appearance: Yes: Mild Distress, Intoxicated, Anxious HEENTM: Yes: EOMI, Normocephalic, Muffled/Hoarse Voice, Other (poor dentition , many missing teeth) Respiratory: Yes: Chest Non-Tender, Lungs Clear, Normal Breath Sounds, No Respiratory Distress, No Accessory Muscle Use Neck: Yes: No masses,lesions,Nodules, Trachea in good position Cardiology: Yes: Regular Rhythm, Regular Rate, S1, S2 Abdominal: Yes: Normal Bowel Sounds, Soft Musculoskeletal: Yes: Gait Steady Extremities: Yes: Normal Range of Motion, Non-Tender, Tremors Neurological: Yes: Fully Oriented, Alert, Motor Strength 5/5, Normal Mood/Affect Integumentary: Yes: Warm - Diagnostic (1) Alcohol dependence with uncomplicated withdrawal Current Visit: Yes Status: Chronic (2) Cocaine dependence Current Visit: Yes Status: Chronic Qualifiers: Substance use status: uncomplicated Qualified Code(s): F14.20 - Cocaine dependence, uncomplicated (3) Nicotine dependence Current Visit: Yes Status: Chronic Qualifiers: Nicotine product type: cigarettes Breathalyzer - Breathalyzer Breathalyzer: 0.007 Urine Drug Screen - Test Device Lot number: [id number] Expiration date: 02/28/21 - Control Is test valid?: Yes - Results Drug screen NEGATIVE: No Urine drug screen results: FELIZ-Cocaine, BZO-Benzodiazepines Inpatient Rehab Admission - Rehab Decision to Admit Inpatient rehab admission?: No
[2019-08-20] MEDS ORDERED: hydrOXYzine PAMOATE 25 MG CAPSULE (FP) PO PRN (18:34)
[2019-08-20] MEDS ORDERED: MENTHOL/PHENOL 1 EACH UD MM PRN (18:34)
[2019-08-20] MEDS ORDERED: MAGNESIUM HYDROX 2400MG/30ML ORAL SUSPENSION 30 ML CUP PO PRN (18:34)
[2019-08-20] MEDS ORDERED: ACETAMINOPHEN 325 MG TABLET (FP) PO PRN ×2 (18:34)
[2019-08-20] MEDS ORDERED: BISMUTH SUBSALICYLATE 524 MG/30 ML UD PO PRN (18:34)
[2019-08-20] MEDS ORDERED: MAG HYDROX/AL HYDROX/SIMETH 30 ML UNIT-DOSE CUP PO PRN (18:34)
[2019-08-20] MEDS ORDERED: MAGNESIUM CITRATE 300 ML BOTTLE PO PRN (18:34)
[2019-08-20] MEDS ORDERED: IBUPROFEN 400 MG TABLET (FP) PO PRN (18:34)
[2019-08-20] MEDS ORDERED: METHOCARBAMOL 500 MG TABLET PO PRN (18:34)
[2019-08-20] MEDS ORDERED: MELATONIN 5 MG TABLETS PO PRN (18:34)
[2019-08-20] MEDS ORDERED: diazePAM 5 MG TABLET PO PRN (18:57)
[2019-08-20] MEDS: diazePAM 5 MG TABLET PO SCH (22:27)
[2019-08-20] MEDS: THIAMINE HCL 100 MG TABLET (FP) PO SCH (22:27)
[2019-08-21] MEDS: diazePAM 5 MG TABLET PO SCH ×3 (07:38→22:12)
[2019-08-21] MEDS: PRENATAL VITAMINS W/ FOLIC ACID TABLET (FP) PO SCH (10:40)
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
--- NOTE | 2019-08-21 11:18 | PN ---
S CIWA - CIWA Score Nausea/Vomitin-Mild Nausea/No Vomiting Muscle Tremors: 4-Moderate,w/Arms Extend Anxiety: 3 Agitation: 0-Normal Activity Paroxysmal Sweats: 2 Orientation: 0-Oriented Tacttile Disturbances: 0-None Auditory Disturbances: 0-None Visual Disturbances: 1-Very Mild Sensitivity Headache: 1-Very Mild CIWA-Ar Total Score: 12 BHS Progress Note (SOAP) Subjective: 54 years old male admitted on 08/20/19 for alcohol withdrawal sx management treating with valium detox regimen feeling ok today reports long history of arthritis of the knees requests cane as ambulation aid patient ambulating from bed to bathroom slow steady gait Objective: 08/21/19 11:18 Vital Signs Temperature 97 F L 08/21/19 09:01 Pulse Rate 90 08/21/19 09:01 Respiratory Rate 18 08/21/19 09:01 Blood Pressure 98/65 08/21/19 09:01 O2 Sat by Pulse Oximetry (%) 08/21/19 11:19 lab 07/2019 no need for repeat admission lab Assessment: 08/21/19 11:19 alcohol withdrawal arthritis of the knees Plan: valium regimen cane requested
[2019-08-21] MEDS: QUEtiapine FUMARATE 50 MG TABLET PO SCH (22:12)
[2019-08-21] MEDS: THIAMINE HCL 100 MG TABLET (FP) PO SCH (22:13)
[2019-08-22] MEDS: diazePAM 5 MG TABLET PO SCH ×2 (04:53→19:34)
[2019-08-22] MEDS ORDERED: diazePAM 5 MG TABLET PO ONE (06:00)
[2019-08-22] MEDS: PRENATAL VITAMINS W/ FOLIC ACID TABLET (FP) PO SCH (09:47)
--- NOTE | 2019-08-22 11:22 | PN ---
S CIWA - CIWA Score Nausea/Vomitin-No Nausea/No Vomiting Muscle Tremors: 2 Anxiety: 2 Agitation: 0-Normal Activity Paroxysmal Sweats: 2 Orientation: 0-Oriented Tacttile Disturbances: 0-None Auditory Disturbances: 0-None Visual Disturbances: 1-Very Mild Sensitivity Headache: 1-Very Mild CIWA-Ar Total Score: 8 BHS Progress Note (SOAP) Subjective: 54 years old male admitted on 08/20/19 for alcohol withdrawal sx management treating with valium detox regiment ate breakfast feeling better today less tremor ambulating with cane steady gait Objective: 08/22/19 11:22 Vital Signs Temperature 96.3 F L 08/22/19 09:31 Pulse Rate 92 H 08/22/19 09:31 Respiratory Rate 18 08/22/19 09:31 Blood Pressure 132/83 08/22/19 09:31 O2 Sat by Pulse Oximetry (%) lab see 07/2019 report Assessment: 08/22/19 11:22 alcohol withdrawal Plan: valium regimen
[2019-08-22] MEDS: QUEtiapine FUMARATE 50 MG TABLET PO SCH (22:04)
[2019-08-22] MEDS: THIAMINE HCL 100 MG TABLET (FP) PO SCH (22:05)
[2019-08-23] MEDS ORDERED: diazePAM 5 MG TABLET PO ONE (06:00)
[2019-08-23 07:11] VITALS: BP 134/83; PULSE 90; TEMP 98.2
--- NOTE | 2019-08-23 12:54 | DS ---
[facility] Detox Discharge Summary Admission Date: 08/20/19 Discharge Date: 08/23/19 - History Present History: Alcohol Dependence Additional Comments: 54 years old male admitted on 08/20/19 for alcohol withdrawal sx management treated with valium detox regiment patient has completed the valium regiment and tolerated well alert oriented x 3 respiratory clear lungs bilaterally on auscultation skin warm and dry abdomen soft flat no rebound tenderness - Physical Exam Results Vital Signs: Vital Signs Temperature 98.2 F 08/23/19 07:10 Pulse Rate 90 08/23/19 07:10 Respiratory Rate 18 08/23/19 07:10 Blood Pressure 134/83 08/23/19 07:10 O2 Sat by Pulse Oximetry (%) Pertinent Admission Physical Exam Findings: alcohol withdrawal lab see 07/2019 report - Treatment Hospital Course: Detox Protocol Followed, Detoxed Safely, Responded well, Discharged Condition Good, Rehab Referral Accepted Patient has Accepted a Rehab Referral to: [facility] - Medication Discharge Medications: Ambulatory Orders Quetiapine Fumarate [Seroquel -] 200 mg PO HS 07/11/18 Ranitidine [Zantac -] 150 mg PO BID 03/02/19 Tizanidine HCl 4 mg PO TID 05/10/19 Ascorbic Acid/Ascorbate Sodium [Vitamin C 500 mg Wafer] 500 mg PO DAILY #14 wafer 07/26/19 Gabapentin 300 mg PO TID #30 capsule 07/26/19 Albuterol Sulfate Inhaler - [Ventolin HFA Inhaler -] 2 puff IH Q4H PRN #1 inhaler 08/23/19 - Diagnosis (1) Alcohol dependence with uncomplicated withdrawal Status: Acute (2) Asthma Status: Chronic Qualifiers: Asthma severity: mild Asthma persistence: intermittent Asthma complication type: with status asthmaticus Qualified Code(s): J45.22 - Mild intermittent asthma with status asthmaticus (3) GERD (gastroesophageal reflux disease) Status: Chronic Qualifiers: Esophagitis presence: without esophagitis Qualified Code(s): K21.9 - Gastro -esophageal reflux disease without esophagitis (4) HIV (human immunodeficiency virus infection) Status: Chronic Qualifiers: HIV symptom status: asymptomatic Qualified Code(s): Z21 - Asymptomatic human immunodeficiency virus [HIV] infection status (5) Nicotine dependence Status: Acute Qualifiers: Nicotine product type: cigarettes Substance use status: in withdrawal Qualified Code(s): F17.213 - Nicotine dependence, cigarettes, with withdrawal (6) Use of cane as ambulatory aid Status: Chronic (7) Substance induced mood disorder Status: Suspected - AMA Did Patient Leave Against Medical Advice: No CIWA Score - CIWA Score Nausea/Vomitin-No Nausea/No Vomiting Muscle Tremors: 1-None Visible, but [place] Anxiety: 1-Mildly Anxious Agitation: 0-Normal Activity Paroxysmal Sweats: 1-Minimal Palms Moist Orientation: 0-Oriented Tacttile Disturbances: 0-None Auditory Disturbances: 0-None Visual Disturbances: 0-None Headache: 0-None Present CIWA-Ar Total Score: 3
== END 2019-08-23 08:45 | disposition home or self-care (01) | DRG 774 ==
LOC: YASAS 16:10 → Y3N 18:36
PROVIDERS: ADMIT Allergy & Immunology; ATTEND Allergy & Immunology
PROC: HZ2ZZZZ Detoxification Services for Substance Abuse Treatment (ICD-10-PCS; principal; 2019-08-20)
DX: F10.230 Alcohol dependence with withdrawal, uncomplicated (principal); F14.20 Cocaine dependence, uncomplicated; F12.20 Cannabis dependence, uncomplicated; F17.213 Nicotine dependence, cigarettes, with withdrawal; F31.9 Bipolar disorder, unspecified; F19.24 Other psychoactive substance dependence with psychoactive substance-induced mood disorder; F43.10 Post-traumatic stress disorder, unspecified; F39 Unspecified mood [affective] disorder; J45.22 Mild intermittent asthma with status asthmaticus; K21.9 Gastro-esophageal reflux disease without esophagitis; M17.0 Bilateral primary osteoarthritis of knee; Z99.89 Dependence on other enabling machines and devices; Z59.0 Homelessness

== ENCOUNTER 2019-09-27 16:55 | Inpatient (IN) | payer OTHER ==
--- NOTE | 2019-09-27 18:14 | BHS.RME ---
Physical/Psych/Mental Status - Behavior General Behavior: Increased activity (restlessness, agitation) - Cooperativeness Cooperativeness: Cooperative - Thinking Thought Processes: Circumstantial - Physical Health Problems Is patient presently having any pain?: Yes (chronic pain knees, back ) Does patient presently have any injuries (include location): No Does patient currently have a fever: No CIWA Nausea/Vomitin-No Nausea/No Vomiting Muscle Tremors: None Anxiety: 2 Agitation: 2 Paroxysmal Sweats: No Perspiration Orientation: 0-Oriented Tacttile Disturbances: 2-Mild Itch/Numbness/Burn Auditory Disturbances: 0-None Visual Disturbances: 0-None Headache: 2-Mild CIWA-Ar Total Score: 8
--- NOTE | 2019-09-27 18:20 | HP ---
CIWA Score Nausea/Vomitin-No Nausea/No Vomiting Muscle Tremors: None Anxiety: 2 Agitation: 2 Paroxysmal Sweats: No Perspiration Orientation: 0-Oriented Tacttile Disturbances: 2-Mild Itch/Numbness/Burn Auditory Disturbances: 0-None Visual Disturbances: 0-None Headache: 2-Mild CIWA-Ar Total Score: 8 - Admission Criteria OASAS Guidelines: Admission for Medically Managed Detox: Requires at least one of the followin. CIWA greater than 12 2. Seizures within the past 24 hours 3. Delirium tremens within the past 24 hours 4. Hallucinations within the past 24 hours 5. Acute intervention needed for co occurring medical disorder 6. Acute intervention needed for co occurring psychiatric disorder 7. Severe withdrawal that cannot be handled at a lower level of care (continued vomiting, continued diarrhea, abnormal vital signs) requiring intravenous medication and/or fluids 8. Admitting History and Physical - Past Medical History Pulmonary: Yes: Asthma Gastrointestinal: Yes: GERD Infectious Disease: Yes: HIV - Smoking History Smoking history: Current every day smoker Have you smoked in the past 12 months: Yes Aproximately how many cigarettes per day: 20 - Alcohol/Substance Use Hx Alcohol Use: Yes Admission ROS [facility] - HPI Allergies/Adverse Reactions: Allergies Allergy/AdvReac Type Severity Reaction Status Date / Time No Known Allergies Allergy Verified 09/27/19 18:40 History of Present Illness: 53 yo male requesting detox from etoh use, latest use today 4-5 x 24 oz beer every 2-3 days . Denies seizures / blackouts , + tremors , starts drinking in the mornings Denies current SI / HI . PMHx :OA , PTSD, GERD, asthma , HIV undetectable per pt , not on meds. PCP Jack Gandhi. SHX : homeless. cocaine- $150/ not daily tobacco ; 1.5 ppd Exam Limitations: Clinical Condition - Review of Systems Constitutional: No Symptoms Reported EENT: reports: Other (misisng teeth) Respiratory: reports: No Symptoms reported Cardiac: reports: No Symptoms Reported GI: reports: No Symptoms Reported : reports: No Symptoms Reported Musculoskeletal: reports: See HPI, Back Pain, Joint Pain Integumentary: reports: Dryness Neuro: reports: See HPI Endocrine: reports: No Symptoms Reported Psychiatric: reports: Orientated x3, Agitated, Anxious Patient History - Patient Medical History Hx Anemia: No Hx Asthma: Yes Hx Chronic Obstructive Pulmonary Disease (COPD): No Hx Cancer: No Hx Cardiac Disorders: No Hx Congestive Heart Failure: No Hx Hypertension: No Hx Hypercholesterolemia: No Hx Pacemaker: No HX Cerebrovascular Accident: No Hx Seizures: No Hx Dementia: No Hx Diabetes: No Hx Gastrointestinal Disorders: No Hx Liver Disease: No Hx Genitourinary Disorders: No Hx Sexually Transmitted Disorders: No Hx Renal Disease (ESRD): No Hx Thyroid Disease: No Hx Human Immunodeficiency Virus (HIV): Yes (since . ) Hx Hepatitis C: No (negative) Hx Depression: No Hx Suicide Attempt: No Hx Bipolar Disorder: Yes Hx Schizophrenia: No - Patient Surgical History Past Surgical History: Yes Hx Neurologic Surgery: No Hx Cataract Extraction: No Hx Cardiac Surgery: No Hx Lung Surgery: No Hx Breast Surgery: No Hx Breast Biopsy: No Hx Abdominal Surgery: No Hx Appendectomy: No Hx Cholecystectomy: No Hx Genitourinary Surgery: No Hx Section: No Hx Orthopedic Surgery: Yes (total knee replacement left in 2004) Anesthesia Reaction: No - PPD History Date: 08/13/18 Results: 0 MM - Smoking Cessation Smoking history: Current every day smoker Have you smoked in the past 12 months: Yes Aproximately how many cigarettes per day: 20 Cigars Per Day: 0 Hx Chewing Tobacco Use: No Initiated information on smoking cessation: Yes 'Breaking Loose' booklet given: 09/27/19 - Substances abused Alcohol Substance route: Oral Frequency: Daily Amount used: 5- 24oz beers, 1 pint of vodka Age of first use: 7 Date of last use: 09/27/19 Crack Substance route: Smoking Frequency: 3-6 times per week Amount used: $60 Age of first use: 13 Date of last use: 09/25/19 Admission Physical Exam S - Physical General Appearance: Yes: Mild Distress, Moderate Distress, Irritable, Anxious HEENTM: Yes: EOMI, Normocephalic, Normal Voice, Other (poor dentition, many misisng teeth) Respiratory: Yes: Chest Non-Tender, Lungs Clear, Normal Breath Sounds, No Respiratory Distress, No Accessory Muscle Use Neck: Yes: No masses,lesions,Nodules, Trachea in good position Cardiology: Yes: Regular Rhythm, Regular Rate, S1, S2, Tachycardia Abdominal: Yes: Non Tender, Soft Back: Yes: Normal Inspection Musculoskeletal: Yes: Other (unsteady gait , ambulating w/ walker) Extremities: Yes: Other (stiffness caleb knees) Neurological: Yes: Fully Oriented, Alert, Motor Strength 5/5, Depressed Affect Integumentary: Yes: Warm - Diagnostic (1) Alcohol dependence with uncomplicated withdrawal Current Visit: Yes Status: Chronic (2) Nicotine dependence Current Visit: Yes Status: Chronic Qualifiers: Nicotine product type: cigarettes (3) Cocaine dependence Current Visit: Yes Status: Chronic Qualifiers: Substance use status: uncomplicated Qualified Code(s): F14.20 - Cocaine dependence, uncomplicated Breathalyzer - Breathalyzer Breathalyzer: 0 Urine Drug Screen - Test Device Lot number: [id number] Expiration date: 06/30/21 - Control Is test valid?: Yes - Results Drug screen NEGATIVE: No Urine drug screen results: FELIZ-Cocaine, BZO-Benzodiazepines Inpatient Rehab Admission - Rehab Decision to Admit Inpatient rehab admission?: No
[2019-09-27] MEDS ORDERED: ALBUTEROL SO4 HFA INHALER IH PRN (18:28)
[2019-09-27 18:57] VITALS: BMI 21.4
[2019-09-27] MEDS ORDERED: MAGNESIUM HYDROX 2400MG/30ML ORAL SUSPENSION 30 ML CUP PO PRN (19:14)
[2019-09-27] MEDS ORDERED: MAGNESIUM CITRATE 300 ML BOTTLE PO PRN (19:14)
[2019-09-27] MEDS ORDERED: LIDOCAINE TP PRN (19:14)
[2019-09-27] MEDS ORDERED: IBUPROFEN 400 MG TABLET (FP) PO PRN (19:14)
[2019-09-27] MEDS ORDERED: BISMUTH SUBSALICYLATE 524 MG/30 ML UD PO PRN (19:14)
[2019-09-27] MEDS ORDERED: MENTHOL/PHENOL 1 EACH UD MM PRN (19:14)
[2019-09-27] MEDS ORDERED: MAG HYDROX/AL HYDROX/SIMETH 30 ML UNIT-DOSE CUP PO PRN (19:14)
[2019-09-27] MEDS ORDERED: ACETAMINOPHEN 325 MG TABLET (FP) PO PRN ×2 (19:14)
[2019-09-27] MEDS ORDERED: PATIENT'S OWN MEDICATION (NON-FORMULARY) (Ascorbate Calcium [Vitamin C] 500 MG) PO SCH (19:15)
[2019-09-27] MEDS ORDERED: diazePAM 5 MG TABLET PO PRN (19:18)
[2019-09-27] MEDS: PANTOPRAZOLE 40 MG TABLET PO SCH (19:46)
[2019-09-27] MEDS ORDERED: PATIENT'S OWN MEDICATION (NON-FORMULARY) (Pravastatin Sodium [Pravastatin Sodium] 20 MG) PO SCH (22:00)
[2019-09-27] MEDS: MELATONIN 5 MG TABLETS PO PRN (22:26)
[2019-09-27] MEDS: GABAPENTIN 300 MG CAPSULE PO SCH (22:26)
[2019-09-27] MEDS: diazePAM 5 MG TABLET PO SCH (22:26)
[2019-09-27] MEDS: ATORVASTATIN CA 10 MG TABLET (FP) PO SCH (22:26)
[2019-09-27] MEDS: THIAMINE HCL 100 MG TABLET (FP) PO SCH (22:26)
[2019-09-27] MEDS: MOMETASONE FUROATE 220 MCG/IH INHALER IH SCH (23:06)
[2019-09-28] MEDS: diazePAM 5 MG TABLET PO SCH (05:48)
[2019-09-28] MEDS: GABAPENTIN 300 MG CAPSULE PO SCH ×3 (05:48→22:03)
[2019-09-28] MEDS ORDERED: PATIENT'S OWN MEDICATION (NON-FORMULARY) (Calcium Carbonate [Calcium] 600 MG) PO SCH (10:00)
[2019-09-28] MEDS: PANTOPRAZOLE 40 MG TABLET PO SCH (10:06)
[2019-09-28] MEDS: PRENATAL VITAMINS W/ FOLIC ACID TABLET (FP) PO SCH (10:06)
[2019-09-28] MEDS: TAMSULOSIN HCL 0.4 MG CAP PO SCH (10:07)
[2019-09-28] MEDS: ASCORBIC ACID 500 MG TABLET (FP) PO SCH (10:27)
[2019-09-28] MEDS: CALCIUM (OYSTER SHELL) 500 MG TABLET (FP) PO SCH (10:27)
[2019-09-28 11:23] LABS: HEMOGLOBIN 13.8 GM/dL (11.7-16.9); MCH 29.6 pg (25.7-33.7); MCHC 33.8 g/dl (32.0-35.9); MEAN CELL VOLUME 87.8 fl (80-96); MEAN PLT VOLUME 7.4 fl (7.5-11.1); PLATELET COUNT 316 K/MM3 (134-434); RBC 4.67 M/mm3 (4.00-5.60); RDW 15.6 % (11.9-15.9); WHITE BLOOD COUNT 5.5 K/mm3 (4.0-10.0)
[2019-09-28 11:37] LABS: BLOOD UREA NITROGEN 8.4 mg/dL (7-18); CALCIUM 7.8 mg/dL (8.5-10.1); POTASSIUM 3.7 mmol/L (3.5-5.1)
[2019-09-28 12:04] LABS: BILIRUBIN,TOTAL 0.3 mg/dL (0.2-1); CREATININE 0.8 mg/dL (0.55-1.3); TOT PROT 6.2 g/dl (6.4-8.2)
--- NOTE | 2019-09-28 12:41 | PN ---
S CIWA - CIWA Score Nausea/Vomitin-No Nausea/No Vomiting Muscle Tremors: None Anxiety: 1-Mildly Anxious Agitation: 1-Slight > Activity Paroxysmal Sweats: 1-Minimal Palms Moist Orientation: 0-Oriented Tacttile Disturbances: 0-None Auditory Disturbances: 0-None Visual Disturbances: 0-None Headache: 0-None Present CIWA-Ar Total Score: 3 BHS Progress Note (SOAP) Subjective: Asking for a cane rather than the walker that he is using for chronic arthritis Asking for Librium detox and not Ativan Objective: 09/28/19 12:39 Laboratory Tests 09/28/19 09/28/19 09/28/19 08:00 08:00 08:00 WBC 5.5 RBC 4.67 Hgb 13.8 Hct 41.0 MCV 87.8 MCH 29.6 MCHC 33.8 RDW 15.6 Plt Count 316 MPV 7.4 L Sodium 140 Potassium 3.7 Chloride 105 Carbon Dioxide 29 Anion Gap 6 L BUN 8.4 Creatinine 0.8 Est GFR (CKD-EPI)AfAm 115.74 Est GFR (CKD-EPI)NonAf 99.86 Random Glucose 122 H Calcium 7.8 L Total Bilirubin 0.3 AST 20 ALT 16 Alkaline Phosphatase 120 H Total Protein 6.2 L Albumin 3.0 L RPR Titer Nonreactive Vital Signs Temperature 96.9 F L 09/28/19 08:30 Pulse Rate 82 09/28/19 08:30 Respiratory Rate 18 09/28/19 08:30 Blood Pressure 101/68 09/28/19 08:30 O2 Sat by Pulse Oximetry (%) PE Gnl: WDWN, mildly anxious Mental status: awake, alert, nl language function Motor: moves limbs wll Gait: steady with walker Assessment: 09/28/19 12:39 1. alcohol use disorder 2. chronic gait impairment due to arthritis Plan: 1. will discontinue Ativan protocol and start Librium protocol 2. cane as requested by pt 3. topical Lidoderm changed to 5% cream per rec of pharmacy
[2019-09-28] MEDS: LIDOCAINE HCL 5% TOP OINTMENT 50 GM TUBE TP SCH ×2 (13:29→22:03)
[2019-09-28] MEDS: chlordiazePOXIDE 5 MG CAPSULE PO SCH ×2 (13:29→22:03)
[2019-09-28] MEDS: ATORVASTATIN CA 10 MG TABLET (FP) PO SCH (22:03)
[2019-09-28] MEDS: THIAMINE HCL 100 MG TABLET (FP) PO SCH (22:03)
[2019-09-28] MEDS: MOMETASONE FUROATE 220 MCG/IH INHALER IH SCH (22:03)
[2019-09-28] MEDS: MELATONIN 5 MG TABLETS PO PRN (22:04)
[2019-09-28] MEDS: hydrOXYzine PAMOATE 25 MG CAPSULE (FP) PO PRN (22:05)
[2019-09-28] MEDS ORDERED: METHOCARBAMOL 500 MG TABLET PO PRN (22:31)
[2019-09-29] MEDS ORDERED: diazePAM 5 MG TABLET PO SCH (06:00)
[2019-09-29] MEDS: chlordiazePOXIDE HCL 10 MG CAPSULE PO SCH ×3 (06:36→22:19)
[2019-09-29] MEDS: GABAPENTIN 300 MG CAPSULE PO SCH ×3 (06:36→22:20)
--- NOTE | 2019-09-29 10:31 | PN ---
[facility] CIWA - CIWA Score Nausea/Vomitin-No Nausea/No Vomiting Muscle Tremors: None Anxiety: 1-Mildly Anxious Agitation: 0-Normal Activity Paroxysmal Sweats: 1-Minimal Palms Moist Orientation: 0-Oriented Tacttile Disturbances: 0-None Auditory Disturbances: 0-None Visual Disturbances: 0-None Headache: 0-None Present CIWA-Ar Total Score: 2 BHS Progress Note (SOAP) Subjective: c/o mild withdrawal symptoms. Objective: 09/29/19 10:29 Vital Signs 09/29/19 09/29/19 09/29/19 03:30 06:58 08:39 Temperature 97.5 F L 97.8 F Pulse Rate 81 87 Respiratory 18 16 18 Rate Blood Pressure 119/71 115/79 Laboratory Last Values WBC 5.5 K/mm3 (4.0-10.0) 09/28/19 08:00 RBC 4.67 M/mm3 (4.00-5.60) 09/28/19 08:00 Hgb 13.8 GM/dL (11.7-16.9) 09/28/19 08:00 Hct 41.0 % (35.4-49) 09/28/19 08:00 MCV 87.8 fl (80-96) 09/28/19 08:00 MCH 29.6 pg (25.7-33.7) 09/28/19 08:00 MCHC 33.8 g/dl (32.0-35.9) 09/28/19 08:00 RDW 15.6 % (11.9-15.9) 09/28/19 08:00 Plt Count 316 K/MM3 (134-434) 09/28/19 08:00 MPV 7.4 fl (7.5-11.1) L 09/28/19 08:00 Sodium 140 mmol/L (136-145) 09/28/19 08:00 Potassium 3.7 mmol/L (3.5-5.1) 09/28/19 08:00 Chloride 105 mmol/L (98-107) 09/28/19 08:00 Carbon Dioxide 29 mmol/L (21-32) 09/28/19 08:00 Anion Gap 6 MMOL/L (8-16) L 09/28/19 08:00 BUN 8.4 mg/dL (7-18) 09/28/19 08:00 Creatinine 0.8 mg/dL (0.55-1.3) 09/28/19 08:00 Est GFR (CKD-EPI)AfAm 115.74 09/28/19 08:00 Est GFR (CKD-EPI)NonAf 99.86 09/28/19 08:00 Random Glucose 122 mg/dL (74-106) H 09/28/19 08:00 Calcium 7.8 mg/dL (8.5-10.1) L 09/28/19 08:00 Total Bilirubin 0.3 mg/dL (0.2-1) 09/28/19 08:00 AST 20 U/L (15-37) 09/28/19 08:00 ALT 16 U/L (13-61) 09/28/19 08:00 Alkaline Phosphatase 120 U/L (45-117) H 09/28/19 08:00 Total Protein 6.2 g/dl (6.4-8.2) L 09/28/19 08:00 Albumin 3.0 g/dl (3.4-5.0) L 09/28/19 08:00 RPR Titer Nonreactive (NONREACTIVE) 09/28/19 08:00 Labs noted. Assessment: 09/29/19 10:30 AOX3, in no respiratory distress. Full ROM, ambulating in the unit. Mild Withdrawal symptoms. For d/c tomorrow. Plan: Continue detox. D/C in AM.
[2019-09-29] MEDS: PRENATAL VITAMINS W/ FOLIC ACID TABLET (FP) PO SCH (10:46)
[2019-09-29] MEDS: PANTOPRAZOLE 40 MG TABLET PO SCH (10:46)
[2019-09-29] MEDS: TAMSULOSIN HCL 0.4 MG CAP PO SCH (10:46)
[2019-09-29] MEDS: CALCIUM (OYSTER SHELL) 500 MG TABLET (FP) PO SCH (10:47)
[2019-09-29] MEDS: ASCORBIC ACID 500 MG TABLET (FP) PO SCH (10:48)
[2019-09-29] MEDS: LIDOCAINE HCL 5% TOP OINTMENT 50 GM TUBE TP SCH ×2 (10:48→22:20)
[2019-09-29] MEDS: MOMETASONE FUROATE 220 MCG/IH INHALER IH SCH (22:19)
[2019-09-29] MEDS: THIAMINE HCL 100 MG TABLET (FP) PO SCH (22:20)
[2019-09-29] MEDS: MELATONIN 5 MG TABLETS PO PRN (22:20)
[2019-09-29] MEDS: ATORVASTATIN CA 10 MG TABLET (FP) PO SCH (22:20)
[2019-09-29] MEDS: hydrOXYzine PAMOATE 25 MG CAPSULE (FP) PO PRN (22:21)
[2019-09-30] MEDS ORDERED: diazePAM 5 MG TABLET PO ONE (06:00)
[2019-09-30] MEDS: GABAPENTIN 300 MG CAPSULE PO SCH (06:05)
[2019-09-30] MEDS: chlordiazePOXIDE HCL 10 MG CAPSULE PO SCH (06:05)
[2019-09-30 06:34] VITALS: BP 94/65; PULSE 76; TEMP 97.4
--- NOTE | 2019-09-30 10:40 | DS ---
[facility] Detox Discharge Summary Admission Date: 09/27/19 Discharge Date: 09/30/19 - History Present History: Alcohol Dependence Additional Comments: 54 years old male admitted on 09/27/19 for alcohol withdrawal sx management treated with valium detox regiment requested librium regiment "not ativan" Mr Kathleen had completed the librium regiment and was tolerated well alert oriented x 3 respiratory clear lungs bilaterally on auscultation abdomen soft no rebound tenderness skin warm and dry Pertinent Past History: time for discharge 33 minutes - Physical Exam Results Vital Signs: Vital Signs Temperature 97.4 F L 09/30/19 06:01 Pulse Rate 76 09/30/19 06:01 Respiratory Rate 18 09/30/19 06:01 Blood Pressure 94/65 09/30/19 06:01 O2 Sat by Pulse Oximetry (%) Pertinent Admission Physical Exam Findings: alcohol withdrawal Vital Signs Temperature 97.4 F L 09/30/19 06:01 Pulse Rate 76 09/30/19 06:01 Respiratory Rate 18 09/30/19 06:01 Blood Pressure 94/65 09/30/19 06:01 O2 Sat by Pulse Oximetry (%) Laboratory Last Values WBC 5.5 K/mm3 (4.0-10.0) 09/28/19 08:00 RBC 4.67 M/mm3 (4.00-5.60) 09/28/19 08:00 Hgb 13.8 GM/dL (11.7-16.9) 09/28/19 08:00 Hct 41.0 % (35.4-49) 09/28/19 08:00 MCV 87.8 fl (80-96) 09/28/19 08:00 MCH 29.6 pg (25.7-33.7) 09/28/19 08:00 MCHC 33.8 g/dl (32.0-35.9) 09/28/19 08:00 RDW 15.6 % (11.9-15.9) 09/28/19 08:00 Plt Count 316 K/MM3 (134-434) 09/28/19 08:00 MPV 7.4 fl (7.5-11.1) L 09/28/19 08:00 Sodium 140 mmol/L (136-145) 09/28/19 08:00 Potassium 3.7 mmol/L (3.5-5.1) 09/28/19 08:00 Chloride 105 mmol/L (98-107) 09/28/19 08:00 Carbon Dioxide 29 mmol/L (21-32) 09/28/19 08:00 Anion Gap 6 MMOL/L (8-16) L 09/28/19 08:00 BUN 8.4 mg/dL (7-18) 09/28/19 08:00 Creatinine 0.8 mg/dL (0.55-1.3) 09/28/19 08:00 Est GFR (CKD-EPI)AfAm 115.74 09/28/19 08:00 Est GFR (CKD-EPI)NonAf 99.86 09/28/19 08:00 Random Glucose 122 mg/dL (74-106) H 09/28/19 08:00 Calcium 7.8 mg/dL (8.5-10.1) L 09/28/19 08:00 Total Bilirubin 0.3 mg/dL (0.2-1) 09/28/19 08:00 AST 20 U/L (15-37) 09/28/19 08:00 ALT 16 U/L (13-61) 09/28/19 08:00 Alkaline Phosphatase 120 U/L (45-117) H 09/28/19 08:00 Total Protein 6.2 g/dl (6.4-8.2) L 09/28/19 08:00 Albumin 3.0 g/dl (3.4-5.0) L 09/28/19 08:00 RPR Titer Nonreactive (NONREACTIVE) 09/28/19 08:00 lab noted low Ca++ encourage Ca++ supplement over the counter discuss no concentrated sugar intake - Treatment Hospital Course: Detox Protocol Followed, Detoxed Safely, Responded well, Discharged Condition Good, Rehab Referral Accepted Patient has Accepted a Rehab Referral to: [facility] chemical dependent rehab - Medication Discharge Medications: Ambulatory Orders Ascorbate Calcium [Vitamin C] 500 mg PO DAILY 09/27/19 Calcium Carbonate [Calcium] 600 mg PO DAILY 09/27/19 Ergocalciferol (Vitamin D2) [Vitamin D2] 50,000 unit PO WEEKLY 09/27/19 Fluticasone Propionate [Flovent Hfa] 110 mcg IH BID 09/27/19 Folic Acid 1 mg PO DAILY 09/27/19 Gabapentin 300 mg PO TID 09/27/19 Lidocaine 28.3 gm TP Q4H PRN 09/27/19 Multivitamin [One-Daily Multi-Vitamin] 1 each PO DAILY 09/27/19 Pantoprazole Sodium 40 mg PO DAILY 09/27/19 Pravastatin Sodium 20 mg PO DAILY 09/27/19 Tamsulosin HCl 0.4 mg PO DAILY 09/27/19 Thiamine HCl [Vitamin B1 -] 100 mg PO DAILY 09/27/19 Tizanidine HCl 4 mg PO DAILY 09/27/19 - Diagnosis (1) Nicotine dependence Current Visit: Yes Status: Acute Qualifiers: Nicotine product type: cigarettes Substance use status: in withdrawal Qualified Code(s): F17.213 - Nicotine dependence, cigarettes, with withdrawal (2) GERD (gastroesophageal reflux disease) Current Visit: Yes Status: Chronic Qualifiers: Esophagitis presence: without esophagitis Qualified Code(s): K21.9 - Gastro -esophageal reflux disease without esophagitis (3) Asthma Current Visit: Yes Status: Chronic Qualifiers: Asthma severity: mild Asthma persistence: intermittent Asthma complication type: with status asthmaticus Qualified Code(s): J45.22 - Mild intermittent asthma with status asthmaticus (4) Alcohol dependence with uncomplicated withdrawal Current Visit: Yes Status: Acute (5) HIV (human immunodeficiency virus infection) Current Visit: Yes Status: Chronic Qualifiers: HIV symptom status: asymptomatic Qualified Code(s): Z21 - Asymptomatic human immunodeficiency virus [HIV] infection status (6) Use of cane as ambulatory aid Current Visit: Yes Status: Chronic (7) Substance induced mood disorder Current Visit: Yes Status: Suspected - AMA Did Patient Leave Against Medical Advice: No CIWA Score - CIWA Score Nausea/Vomitin-No Nausea/No Vomiting Muscle Tremors: None Anxiety: 1-Mildly Anxious Agitation: 0-Normal Activity Paroxysmal Sweats: No Perspiration Orientation: 0-Oriented Tacttile Disturbances: 0-None Auditory Disturbances: 0-None Visual Disturbances: 0-None Headache: 0-None Present CIWA-Ar Total Score: 1
== END 2019-09-30 08:55 | disposition home or self-care (01) | DRG 774 ==
LOC: YASAS 16:55 → Y3N 19:17
PROVIDERS: ADMIT Allergy & Immunology; ATTEND Allergy & Immunology
PROC: HZ2ZZZZ Detoxification Services for Substance Abuse Treatment (ICD-10-PCS; principal; 2019-09-27)
DX: F10.230 Alcohol dependence with withdrawal, uncomplicated (principal); F14.20 Cocaine dependence, uncomplicated; F17.213 Nicotine dependence, cigarettes, with withdrawal; F19.24 Other psychoactive substance dependence with psychoactive substance-induced mood disorder; F31.9 Bipolar disorder, unspecified; F43.10 Post-traumatic stress disorder, unspecified; Z21 Asymptomatic human immunodeficiency virus [HIV] infection status; J45.22 Mild intermittent asthma with status asthmaticus; E83.51 Hypocalcemia; K21.9 Gastro-esophageal reflux disease without esophagitis; M12.9 Arthropathy, unspecified; Z96.652 Presence of left artificial knee joint; R26.89 Other abnormalities of gait and mobility; Z99.89 Dependence on other enabling machines and devices; Z59.0 Homelessness
CPT/HCPCS: 36415; 80053; 85027; 86593

== ENCOUNTER 2020-02-25 13:07 | Inpatient (IN) | payer OTHER ==
--- NOTE | 2020-02-25 13:56 | BHS.RME ---
Substance Use & Tx History - Substance Use History Alcohol Substance amount: 6- 24 oz beers Frequency of use: Daily Substance route: Oral Date of Last Use: 02/25/20 (7am) Cocaine-Crack Substance amount: $70 Frequency of use: Daily Substance route: Smoking Date of Last Use: 02/24/20 Marijuana/Hashish Substance amount: $30 Frequency of use: Daily Substance route: Smoking Date of Last Use: 02/24/20 Nicotine Substance amount: 1/2 pack Frequency of use: Daily Substance route: Smoking Date of Last Use: 02/25/20 Physical/Psych/Mental Status - Behavior General Behavior: Increased activity (restlessness, agitation) Eye Contact: Normal - Cooperativeness Cooperativeness: Cooperative - Thinking Thought Processes: Tight, Logical, Goal Directed - Physical Health Problems Is patient presently having any pain?: No Does patient presently have any injuries (include location): No Does patient currently have a fever: No Is patient : No CIWA Nausea/Vomitin Muscle Tremors: 3 Anxiety: 3 Agitation: 2 Paroxysmal Sweats: 4-Forehead w/Sweat Beads Orientation: 1-Uncertain about Date Tacttile Disturbances: 2-Mild Itch/Numbness/Burn Auditory Disturbances: 0-None Visual Disturbances: 0-None Headache: 1-Very Mild CIWA-Ar Total Score: 18
[2020-02-25 14:50] VITALS: BMI 23.1
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
[2020-02-25] MEDS ORDERED: MAGNESIUM CITRATE 300 ML BOTTLE PO PRN (15:10)
[2020-02-25] MEDS ORDERED: MENTHOL/PHENOL 1 EACH UD MM PRN (15:10)
[2020-02-25] MEDS ORDERED: NICOTINE POLACRILEX 2 MG GUM BUC PRN (15:10)
[2020-02-25] MEDS ORDERED: ACETAMINOPHEN 325 MG TABLET (FP) PO PRN ×2 (15:10)
[2020-02-25] MEDS ORDERED: chlordiazePOXIDE HCL 25 MG CAPSULE PO PRN (15:10)
[2020-02-25] MEDS ORDERED: ONDANSETRON *ODT* 4 MG TABLET SL PRN (15:10)
[2020-02-25] MEDS ORDERED: BISMUTH SUBSALICYLATE 262 MG/15 ML BTL PO PRN (15:10)
[2020-02-25] MEDS ORDERED: MAG HYDROX/AL HYDROX/SIMETH 30 ML UNIT-DOSE CUP PO PRN (15:10)
[2020-02-25] MEDS ORDERED: MAGNESIUM HYDROX 2400MG/30ML ORAL SUSPENSION 30 ML CUP PO PRN (15:10)
[2020-02-25] MEDS ORDERED: TUBERCULIN PPD 5 TU/0.1ML VIAL ID ONE (15:47)
[2020-02-25] MEDS: NICOTINE 14 MG/24 HOURS TOPICAL PATCH TD SCH (16:03)
[2020-02-25] MEDS: chlordiazePOXIDE HCL 25 MG CAPSULE PO SCH ×2 (18:26→22:28)
[2020-02-25] MEDS: hydrOXYzine PAMOATE 25 MG CAPSULE (FP) PO SCH ×2 (18:26→22:28)
[2020-02-25] MEDS: THIAMINE HCL 100 MG TABLET (FP) PO SCH (22:28)
[2020-02-25] MEDS: MELATONIN 5 MG TABLETS PO SCH (22:28)
[2020-02-26] MEDS: hydrOXYzine PAMOATE 25 MG CAPSULE (FP) PO SCH ×5 (06:08→22:08)
[2020-02-26] MEDS: chlordiazePOXIDE HCL 25 MG CAPSULE PO SCH ×4 (06:08→22:08)
[2020-02-26 09:55] LABS: HEMATOCRIT 41.4 % (35.4-49); HEMOGLOBIN 13.5 GM/dL (11.7-16.9); MCH 29.1 pg (25.7-33.7); MCHC 32.7 g/dl (32.0-35.9); MEAN CELL VOLUME 89.1 fl (80-96); MEAN PLT VOLUME 7.6 fl (7.5-11.1); PLATELET COUNT 306 K/MM3 (134-434); RBC 4.64 M/mm3 (4.00-5.60); RDW 15.5 % (11.9-15.9); WHITE BLOOD COUNT 4.1 K/mm3 (4.0-10.0)
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
[2020-02-26] MEDS: PRENATAL VITAMINS W/ FOLIC ACID TABLET (FP) PO SCH (10:02)
[2020-02-26] MEDS: NICOTINE 14 MG/24 HOURS TOPICAL PATCH TD SCH (10:02)
[2020-02-26 10:14] LABS: BILIRUBIN,TOTAL 0.4 mg/dL (0.2-1); CALCIUM 8.6 mg/dL (8.5-10.1); CREATININE 0.7 mg/dL (0.55-1.3); POTASSIUM 3.7 mmol/L (3.5-5.1); TOT PROT 6.1 g/dl (6.4-8.2)
--- NOTE | 2020-02-26 12:24 | PN ---
[facility] CIWA - CIWA Score Nausea/Vomitin-No Nausea/No Vomiting Muscle Tremors: 1-None Visible, but [place] Anxiety: 4-Mod. Anxious/Guarded Agitation: 4-Moderately Restless Paroxysmal Sweats: 1-Minimal Palms Moist Orientation: 0-Oriented Tacttile Disturbances: 0-None Auditory Disturbances: 0-None Visual Disturbances: 0-None Headache: 0-None Present CIWA-Ar Total Score: 10 BHS Progress Note (SOAP) Subjective: Pt is a 55 y/o male admitted to detox for alcohol withdrawal sx. c/o anxiety irritability fatigue Objective: 02/26/20 12:19 Vital Signs - 24 hr 02/25/20 02/25/20 02/25/20 14:46 15:24 15:55 Temperature 98.0 F 97.1 F L Pulse Rate 73 57 L Respiratory 18 16 Rate Blood Pressure 120/85 95/62 O2 Sat by Pulse 100 97 Oximetry (%) 02/25/20 02/25/20 02/25/20 17:10 18:25 20:25 Temperature 97 F L Pulse Rate 59 L 72 Respiratory 18 Rate Blood Pressure 99/64 115/71 O2 Sat by Pulse 97 Oximetry (%) 02/25/20 02/26/20 02/26/20 20:50 05:34 09:53 Temperature 97.7 F 96.9 F L 97.1 F L Pulse Rate 75 57 L 70 Respiratory 18 18 16 Rate Blood Pressure 112/75 102/67 97/57 L O2 Sat by Pulse 97 97 96 Oximetry (%) Laboratory Tests 02/26/20 02/26/20 02/26/20 08:00 08:00 08:00 WBC 4.1 RBC 4.64 Hgb 13.5 Hct 41.4 MCV 89.1 MCH 29.1 MCHC 32.7 RDW 15.5 Plt Count 306 MPV 7.6 Sodium 140 Potassium 3.7 Chloride 105 Carbon Dioxide 30 Anion Gap 6 L BUN 7.0 Creatinine 0.7 Est GFR (CKD-EPI)AfAm 121.41 Est GFR (CKD-EPI)NonAf 104.76 Random Glucose 119 H Calcium 8.6 Total Bilirubin 0.4 AST 19 ALT 23 Alkaline Phosphatase 106 Total Protein 6.1 L Albumin 3.0 L Syphilis Serology Reactive A* RPR Titer 02/26/20 08:00 WBC RBC Hgb Hct MCV MCH MCHC RDW Plt Count MPV Sodium Potassium Chloride Carbon Dioxide Anion Gap BUN Creatinine Est GFR (CKD-EPI)AfAm Est GFR (CKD-EPI)NonAf Random Glucose Calcium Total Bilirubin AST ALT Alkaline Phosphatase Total Protein Albumin Syphilis Serology RPR Titer Reactive 1:1 H D labs noted covid-19 pending RPR 1:1-pt was nonreactive in August and September, as well as previous admissions here. To follow up with pt. Alert o x 3 nad oob ambulating with steady gait Assessment: 02/26/20 12:23 w/s Plan: cont detox increase po fluids maintain safety
[2020-02-26] MEDS: QUEtiapine FUMARATE 200 MG TABLET PO SCH (22:08)
[2020-02-26] MEDS: THIAMINE HCL 100 MG TABLET (FP) PO SCH (22:08)
[2020-02-26] MEDS: MELATONIN 5 MG TABLETS PO SCH (22:10)
[2020-02-27] MEDS: chlordiazePOXIDE HCL 25 MG CAPSULE PO SCH ×4 (06:07→22:40)
[2020-02-27] MEDS: hydrOXYzine PAMOATE 25 MG CAPSULE (FP) PO SCH ×5 (06:07→22:39)
[2020-02-27] MEDS: PRENATAL VITAMINS W/ FOLIC ACID TABLET (FP) PO SCH (10:17)
[2020-02-27] MEDS: NICOTINE 14 MG/24 HOURS TOPICAL PATCH TD SCH (10:17)
--- NOTE | 2020-02-27 10:26 | PN ---
S CIWA - CIWA Score Nausea/Vomitin-No Nausea/No Vomiting Muscle Tremors: 1-None Visible, but [place] Anxiety: 4-Mod. Anxious/Guarded Agitation: 3 Paroxysmal Sweats: No Perspiration Orientation: 0-Oriented Tacttile Disturbances: 0-None Auditory Disturbances: 0-None Visual Disturbances: 0-None Headache: 0-None Present CIWA-Ar Total Score: 8 BHS Progress Note (SOAP) Subjective: c/o Lower back pain intermittent sleep Objective: 02/27/20 10:31 Vital Signs - 24 hr 02/26/20 02/26/20 02/26/20 14:17 16:48 20:31 Temperature 97.7 F 97.1 F L 97.3 F L Pulse Rate 76 87 83 Respiratory 16 18 18 Rate Blood Pressure 103/62 104/73 99/80 O2 Sat by Pulse 95 95 Oximetry (%) 02/27/20 05:32 Temperature 97.7 F Pulse Rate 84 Respiratory 18 Rate Blood Pressure 113/73 O2 Sat by Pulse 95 Oximetry (%) Laboratory Tests 02/25/20 02/26/20 02/26/20 15:05 08:00 08:00 WBC 4.1 RBC 4.64 Hgb 13.5 Hct 41.4 MCV 89.1 MCH 29.1 MCHC 32.7 RDW 15.5 Plt Count 306 MPV 7.6 Sodium Potassium Chloride Carbon Dioxide Anion Gap BUN Creatinine Est GFR (CKD-EPI)AfAm Est GFR (CKD-EPI)NonAf Random Glucose Calcium Total Bilirubin AST ALT Alkaline Phosphatase Total Protein Albumin Syphilis Serology Reactive A* RPR Titer COVID-19 ([facility]) Not detected 02/26/20 02/26/20 08:00 08:00 WBC RBC Hgb Hct MCV MCH MCHC RDW Plt Count MPV Sodium 140 Potassium 3.7 Chloride 105 Carbon Dioxide 30 Anion Gap 6 L BUN 7.0 Creatinine 0.7 Est GFR (CKD-EPI)AfAm 121.41 Est GFR (CKD-EPI)NonAf 104.76 Random Glucose 119 H Calcium 8.6 Total Bilirubin 0.4 AST 19 ALT 23 Alkaline Phosphatase 106 Total Protein 6.1 L Albumin 3.0 L Syphilis Serology RPR Titer Reactive 1:1 H D COVID-19 ([facility]) Re: Syphilis, pt denies ever being treated or haven told he has syphilis. Pt has been nonreactive at previous admissions, last two visits in August and September were nonreactive until now. Called [facility] and spoke to Tyler Khanna but no results registered on patient possibly not a [place] Resident. Mr Khanna called [facility] and confirmed that patient is registered as Reactive but does not need treatment at this time. Assessment: 02/27/20 10:35 withdrawal sx Plan: continue detox increase po fluids maintain safety
[2020-02-27] MEDS: LIDOCAINE 5% TOPICAL PATCH TP SCH (10:41)
[2020-02-27 14:56] LABS: PH,URINE 7.5 (5.0-8.0); URINE APPEARANCE CLEAR; URINE BILIRUBIN NEGATIVE (NEGATIVE); URINE COLOR YELLOW; URINE GLUCOSE (UA) NEGATIVE (NEGATIVE); URINE KETONE NEGATIVE (NEGATIVE); URINE LEUK ESTERASE NEGATIVE (NEGATIVE); URINE NITRITE NEGATIVE (NEGATIVE); URINE PROTEIN NEGATIVE (NEGATIVE); URINE UROBILINOGEN 0.2 mg/dL (0.2-1.0)
[2020-02-27] MEDS: THIAMINE HCL 100 MG TABLET (FP) PO SCH (22:39)
[2020-02-27] MEDS: MELATONIN 5 MG TABLETS PO SCH (22:39)
[2020-02-27] MEDS: LIDOCAINE PATCH REMOVAL MC SCH (22:40)
[2020-02-27] MEDS: QUEtiapine FUMARATE 200 MG TABLET PO SCH (22:40)
[2020-02-27] MEDS: METHOCARBAMOL 500 MG TABLET PO PRN (22:40)
[2020-02-28] MEDS ORDERED: chlordiazePOXIDE HCL 10 MG CAPSULE PO PRN
[2020-02-28] MEDS: hydrOXYzine PAMOATE 25 MG CAPSULE (FP) PO SCH ×5 (06:08→22:09)
[2020-02-28] MEDS: chlordiazePOXIDE HCL 10 MG CAPSULE PO SCH ×4 (06:08→22:08)
[2020-02-28] MEDS: LIDOCAINE 5% TOPICAL PATCH TP SCH (10:13)
[2020-02-28] MEDS: NICOTINE 14 MG/24 HOURS TOPICAL PATCH TD SCH (10:13)
[2020-02-28] MEDS: PRENATAL VITAMINS W/ FOLIC ACID TABLET (FP) PO SCH (10:14)
--- NOTE | 2020-02-28 11:40 | PN ---
S CIWA - CIWA Score Nausea/Vomitin-No Nausea/No Vomiting Muscle Tremors: 1-None Visible, but [place]uddy Anxiety: 3 Agitation: 0-Normal Activity Paroxysmal Sweats: 1-Minimal Palms Moist Orientation: 0-Oriented Tacttile Disturbances: 0-None Auditory Disturbances: 0-None Visual Disturbances: 0-None Headache: 0-None Present CIWA-Ar Total Score: 5 B[facility] Progress Note (SOAP) Subjective: c/o anxiety back pain-Lidocaine not helping Objective: 02/28/20 11:41 Vital Signs - 24 hr 02/27/20 02/27/20 02/27/20 13:08 17:33 20:56 Temperature 97.3 F L 97.7 F 98.0 F Pulse Rate 85 86 89 Respiratory 16 18 18 Rate Blood Pressure 108/60 103/63 116/73 O2 Sat by Pulse 95 97 Oximetry (%) 02/28/20 02/28/20 06:52 09:14 Temperature 97.8 F 97.5 F L Pulse Rate 86 90 Respiratory 18 16 Rate Blood Pressure 112/70 106/66 O2 Sat by Pulse 97 96 Oximetry (%) Laboratory Tests 02/25/20 02/26/20 02/26/20 15:05 08:00 08:00 WBC 4.1 RBC 4.64 Hgb 13.5 Hct 41.4 MCV 89.1 MCH 29.1 MCHC 32.7 RDW 15.5 Plt Count 306 MPV 7.6 Sodium Potassium Chloride Carbon Dioxide Anion Gap BUN Creatinine Est GFR (CKD-EPI)AfAm Est GFR (CKD-EPI)NonAf Random Glucose Calcium Total Bilirubin AST ALT Alkaline Phosphatase Total Protein Albumin Urine Color Urine Appearance Urine pH Ur Specific [place] Urine Protein Urine Glucose (UA) Urine Ketones Urine Blood Urine Nitrite Urine Bilirubin Urine Urobilinogen Ur Leukocyte Esterase Syphilis Serology Reactive A* RPR Titer COVID-19 ([facility]) Not detected 02/26/20 02/26/20 02/27/20 08:00 08:00 12:00 WBC RBC Hgb Hct MCV MCH MCHC RDW Plt Count MPV Sodium 140 Potassium 3.7 Chloride 105 Carbon Dioxide 30 Anion Gap 6 L BUN 7.0 Creatinine 0.7 Est GFR (CKD-EPI)AfAm 121.41 Est GFR (CKD-EPI)NonAf 104.76 Random Glucose 119 H Calcium 8.6 Total Bilirubin 0.4 AST 19 ALT 23 Alkaline Phosphatase 106 Total Protein 6.1 L Albumin 3.0 L Urine Color Yellow Urine Appearance Clear Urine pH 7.5 Ur Specific [place] 1.010 Urine Protein Negative Urine Glucose (UA) Negative Urine Ketones Negative Urine Blood Negative Urine Nitrite Negative Urine Bilirubin Negative Urine Urobilinogen 0.2 Ur Leukocyte Esterase Negative Syphilis Serology RPR Titer Reactive 1:1 H D COVID-19 ([facility]) Assessment: 02/28/20 11:41 sl withdrawal sx Plan: cont detox increase po fluids maintain safety
[2020-02-28] MEDS: METHOCARBAMOL 500 MG TABLET PO PRN (20:14)
[2020-02-28] MEDS: MELATONIN 5 MG TABLETS PO SCH (22:09)
[2020-02-28] MEDS: THIAMINE HCL 100 MG TABLET (FP) PO SCH (22:09)
[2020-02-28] MEDS: QUEtiapine FUMARATE 200 MG TABLET PO SCH (22:09)
[2020-02-28] MEDS: LIDOCAINE PATCH REMOVAL MC SCH (22:10)
[2020-02-29] MEDS: chlordiazePOXIDE HCL 10 MG CAPSULE PO SCH ×2 (05:51→17:57)
[2020-02-29] MEDS: hydrOXYzine PAMOATE 25 MG CAPSULE (FP) PO SCH ×5 (05:51→22:00)
[2020-02-29] MEDS: LIDOCAINE 5% TOPICAL PATCH TP SCH (10:13)
[2020-02-29] MEDS: NICOTINE 14 MG/24 HOURS TOPICAL PATCH TD SCH (10:13)
[2020-02-29] MEDS: IBUPROFEN 400 MG TABLET (FP) PO PRN ×2 (10:14→22:02)
[2020-02-29] MEDS: PRENATAL VITAMINS W/ FOLIC ACID TABLET (FP) PO SCH (10:16)
--- NOTE | 2020-02-29 10:18 | PN ---
S CIWA - CIWA Score Nausea/Vomitin-No Nausea/No Vomiting Muscle Tremors: 2 Anxiety: 4-Mod. Anxious/Guarded Agitation: 3 Paroxysmal Sweats: No Perspiration Orientation: 0-Oriented Tacttile Disturbances: 0-None Auditory Disturbances: 0-None Visual Disturbances: 0-None Headache: 0-None Present CIWA-Ar Total Score: 9 BHS Progress Note (SOAP) Subjective: Anxiety Irritability back pain-Lidocaine patch not effective. Objective: 02/29/20 10:16 Vital Signs - 24 hr 02/28/20 02/28/20 02/29/20 13:14 20:45 06:00 Temperature 98.6 F 97.8 F 98.0 F Pulse Rate 91 H 91 H 73 Respiratory 18 18 18 Rate Blood Pressure 122/71 114/75 103/68 O2 Sat by Pulse 95 97 97 Oximetry (%) 02/29/20 08:30 Temperature 97.7 F Pulse Rate 94 H Respiratory 18 Rate Blood Pressure 112/74 O2 Sat by Pulse 97 Oximetry (%) Laboratory Tests 02/25/20 02/26/20 02/26/20 15:05 08:00 08:00 WBC 4.1 RBC 4.64 Hgb 13.5 Hct 41.4 MCV 89.1 MCH 29.1 MCHC 32.7 RDW 15.5 Plt Count 306 MPV 7.6 Sodium Potassium Chloride Carbon Dioxide Anion Gap BUN Creatinine Est GFR (CKD-EPI)AfAm Est GFR (CKD-EPI)NonAf Random Glucose Calcium Total Bilirubin AST ALT Alkaline Phosphatase Total Protein Albumin Urine Color Urine Appearance Urine pH Ur Specific [place] Urine Protein Urine Glucose (UA) Urine Ketones Urine Blood Urine Nitrite Urine Bilirubin Urine Urobilinogen Ur Leukocyte Esterase Syphilis Serology Reactive A* RPR Titer COVID-19 ([facility]) Not detected 02/26/20 02/26/20 02/27/20 08:00 08:00 12:00 WBC RBC Hgb Hct MCV MCH MCHC RDW Plt Count MPV Sodium 140 Potassium 3.7 Chloride 105 Carbon Dioxide 30 Anion Gap 6 L BUN 7.0 Creatinine 0.7 Est GFR (CKD-EPI)AfAm 121.41 Est GFR (CKD-EPI)NonAf 104.76 Random Glucose 119 H Calcium 8.6 Total Bilirubin 0.4 AST 19 ALT 23 Alkaline Phosphatase 106 Total Protein 6.1 L Albumin 3.0 L Urine Color Yellow Urine Appearance Clear Urine pH 7.5 Ur Specific [place] 1.010 Urine Protein Negative Urine Glucose (UA) Negative Urine Ketones Negative Urine Blood Negative Urine Nitrite Negative Urine Bilirubin Negative Urine Urobilinogen 0.2 Ur Leukocyte Esterase Negative Syphilis Serology RPR Titer Reactive 1:1 H D COVID-19 ([facility]) Assessment: 02/29/20 10:17 withdrawal sx chronic back pain Plan: cont detox increase po fluids maintain safety d/c Lidocaine patch Jerry-Deewy ointment TP apply to affected area BID
[2020-02-29] MEDS: METHYL SALICYLATE/MENTHOL OINT 30 GM TUBE TP SCH ×2 (11:46→22:00)
--- NOTE | 2020-02-29 13:33 | PN ---
Psychiatric Progress Note Vital Signs: Vital Signs Period Temp Pulse Resp BP Sys/Uribe Pulse Ox Last 24 Hr 97.7 F-98.0 F 73-94 18-18 103-114/68-75 97-97 Date of Session: 02/29/20 Chief Complaint:: "I'm having family issues." HPI: Patient admitted to for alcohol, cocaine, marijuana, and nicotine dependence. ROS: Patient is ambulatory, alert +oriented X3. Current Medications: Active Medications Generic Name Dose Route Start Last Admin Trade Name Freq PRN Reason Stop Dose Admin Acetaminophen 650 mg 02/25/20 15:10 Tylenol - PO Q6H PRN PAIN LEVEL 4 - 6 Acetaminophen 650 mg 02/25/20 15:10 Tylenol - PO Q6H PRN FEVER Al Hydroxide/Mg Hydroxide 30 ml 02/25/20 15:10 02/28/20 20:12 Mylanta Oral Suspension - PO 30 ml Q6H PRN Administration DYSPEPSIA Bismuth Subsalicylate 30 ml 02/25/20 15:10 Pepto-Bismol Liquid - PO Q1H PRN DIARRHEA Chlordiazepoxide HCl 10 mg 02/29/20 05:00 02/29/20 05:51 Librium - PO 02/29/20 17:01 10 mg Q12H PER Administration Chlordiazepoxide HCl 10 mg 03/01/20 05:00 Librium - PO 03/01/20 05:01 ONCE@0500 ONE Eucalyptus/Menthol/Phenol/Sorbitol 1 each 02/25/20 15:10 Cepastat Lozenge - MM 03/02/20 15:11 Q4H PRN SORE THROAT Hydroxyzine Pamoate 25 mg 02/25/20 18:00 02/29/20 10:16 Vistaril - PO 03/02/20 15:11 25 mg Q4HWA PER Administration Ibuprofen 400 mg 02/25/20 15:10 02/29/20 10:14 Motrin - PO 400 mg Q6H PRN Administration PAIN LEVEL 1 - 3 Magnesium Citrate 300 ml 02/25/20 15:10 Citroma - PO Q48H PRN CONSTIPATION Magnesium Hydroxide 30 ml 02/25/20 15:10 Milk Of Magnesia - PO PRN PRN CONSTIPATION Melatonin 5 mg 02/25/20 22:00 02/28/20 22:09 Melatonin PO 5 mg HS PER Administration Methocarbamol 500 mg 02/25/20 15:10 02/28/20 20:14 Robaxin - PO 03/02/20 15:11 500 mg Q6H PRN Administration MUSCLE SPASMS Methyl Salicylate 1 applic 02/29/20 10:15 02/29/20 11:46 Jerry-Dewey - TP 1 applic BID PER Administration Miscellaneous 1 each 02/27/20 22:00 02/28/20 22:10 Lidoderm Patch Removal MC Not Given DAILY@2200 PER Nicotine 14 mg 02/25/20 15:15 02/29/20 10:13 Nicoderm Patch - TD Not Given DAILY PER Nicotine Polacrilex 2 mg 02/25/20 15:10 Nicorette Gum - BUC Q2H PRN NICOTINE REPLACEMENT RX Ondansetron HCl 4 mg 02/25/20 15:10 Zofran Odt - SL 03/02/20 15:13 Q8H PRN Nausea/Vomiting Multivit/Folic Acid/Iron 1 tab 02/26/20 10:00 02/29/20 10:16 Vitamins (Sjr) - PO Not Given DAILY PER Quetiapine Fumarate 200 mg 02/26/20 22:00 02/28/20 22:09 Seroquel - PO 200 mg HS PER Administration Thiamine HCl 100 mg 02/25/20 22:00 02/28/20 22:09 Vitamin B1 - PO 100 mg HS PER Administration Medication(s) Change(s): No. Current Side Effect: No Lab tests ordered: No Lab tests reviewed: Yes Provider note:: Patient requesting to see psychiatry to discuss his issues within his family. Stated to contract writer that he is having issues with his brothers and sister and wanted to express his emotions and thoughts to one of the psychiatric providers. In addition, Mr. Kathleen stated that his mother in November of 2019 which has caused more tension within his family. Patient able to express himself appropriately. Patient given positive reassurance. Patient satisifed and receptive to feedback. Total face to face time:: 25 Mental Status Exam - Mental Status Exam Alert and Oriented to: Time, Place, Person Cognitive Function: Good Patient Appearance: Well Groomed Mood: Hopeful Affect: Appropriate Patient Behavior: Appropriate, Cooperative Speech Pattern: Appropriate Voice Loudness: Normal Thought Process: Goal Oriented Thought Disorder: Not Present Hallucinations: Denies Suicidal Ideation: Denies Homicidal Ideation: Denies Insight/Judgement: Poor Sleep: Fair Appetite: Fair Muscle strength/Tone: Normal Gait/Station: Normal Psychiatric Treatment Plan - Problem List (1) Alcohol dependence with uncomplicated withdrawal Current Visit: Yes (2) Cocaine dependence Current Visit: Yes Qualifiers: Substance use status: uncomplicated Qualified Code(s): F14.20 - Cocaine dependence, uncomplicated (3) Nicotine dependence Current Visit: Yes Qualifiers: Nicotine product type: cigarettes Substance use status: in withdrawal Qualified Code(s): F17.213 - Nicotine dependence, cigarettes, with withdrawal (4) Substance-induced sleep disorder Current Visit: Yes (5) Mood disorder Current Visit: Yes (6) PTSD (post-traumatic stress disorder) Current Visit: Yes
[2020-02-29] MEDS: QUEtiapine FUMARATE 200 MG TABLET PO SCH (22:00)
[2020-02-29] MEDS: THIAMINE HCL 100 MG TABLET (FP) PO SCH (22:00)
[2020-02-29] MEDS: MELATONIN 5 MG TABLETS PO SCH (22:01)
[2020-02-29] MEDS: LIDOCAINE PATCH REMOVAL MC SCH (22:01)
[2020-03-01] MEDS ORDERED: chlordiazePOXIDE HCL 10 MG CAPSULE PO ONE (05:00)
[2020-03-01] MEDS: hydrOXYzine PAMOATE 25 MG CAPSULE (FP) PO SCH (06:36)
[2020-03-01 09:27] VITALS: BP 124/77; PULSE 99; TEMP 97.3
--- NOTE | 2020-03-01 14:54 | DS ---
[facility] Detox Discharge Summary Admission Date: 02/25/20 Discharge Date: 03/01/20 - History Present History: Alcohol Dependence, Cannabis Dependence, Cocaine Dependence Additional Comments: Patient returning home. Patient referred to '[facility] ([place], [place]) for aftercare. 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 - Physical Exam Results Vital Signs: Vital Signs Temperature 97.3 F L 03/01/20 09:27 Pulse Rate 99 H 03/01/20 09:27 Respiratory Rate 18 03/01/20 09:27 Blood Pressure 124/77 03/01/20 09:27 O2 Sat by Pulse Oximetry (%) 96 03/01/20 09:27 Pertinent Admission Physical Exam Findings: WITHDRAWAL SYMPTOMS. Laboratory Tests 02/25/20 02/26/20 02/26/20 15:05 08:00 08:00 WBC 4.1 RBC 4.64 Hgb 13.5 Hct 41.4 MCV 89.1 MCH 29.1 MCHC 32.7 RDW 15.5 Plt Count 306 MPV 7.6 Sodium Potassium Chloride Carbon Dioxide Anion Gap BUN Creatinine Est GFR (CKD-EPI)AfAm Est GFR (CKD-EPI)NonAf Random Glucose Calcium Total Bilirubin AST ALT Alkaline Phosphatase Total Protein Albumin Urine Color Urine Appearance Urine pH Ur Specific [place] Urine Protein Urine Glucose (UA) Urine Ketones Urine Blood Urine Nitrite Urine Bilirubin Urine Urobilinogen Ur Leukocyte Esterase Syphilis Serology Reactive A* RPR Titer COVID-19 ([facility]) Not detected 02/26/20 02/26/20 02/27/20 08:00 08:00 12:00 WBC RBC Hgb Hct MCV MCH MCHC RDW Plt Count MPV Sodium 140 Potassium 3.7 Chloride 105 Carbon Dioxide 30 Anion Gap 6 L BUN 7.0 Creatinine 0.7 Est GFR (CKD-EPI)AfAm 121.41 Est GFR (CKD-EPI)NonAf 104.76 Random Glucose 119 H Calcium 8.6 Total Bilirubin 0.4 AST 19 ALT 23 Alkaline Phosphatase 106 Total Protein 6.1 L Albumin 3.0 L Urine Color Yellow Urine Appearance Clear Urine pH 7.5 Ur Specific [place] 1.010 Urine Protein Negative Urine Glucose (UA) Negative Urine Ketones Negative Urine Blood Negative Urine Nitrite Negative Urine Bilirubin Negative Urine Urobilinogen 0.2 Ur Leukocyte Esterase Negative Syphilis Serology RPR Titer Reactive 1:1 H D COVID-19 ([facility]) Lab Result noted. - Treatment Hospital Course: Detox Protocol Followed, Detoxed Safely, Responded well, Discharged Condition Good Patient has Accepted a Rehab Referral to: Pt referred to [facility] ([place] for aftercare. - Medication Discharge Medications: Ambulatory Orders NK [No Known Home Medication] 02/25/20 - Diagnosis (1) Alcohol dependence with uncomplicated withdrawal Status: Acute (2) Nicotine dependence Status: Acute Qualifiers: Nicotine product type: cigarettes Substance use status: in withdrawal Qualified Code(s): F17.213 - Nicotine dependence, cigarettes, with withdrawal (3) Arthritis Status: Chronic (4) Asthma Status: Chronic Qualifiers: Asthma severity: mild Asthma persistence: intermittent Asthma complication type: with status asthmaticus Qualified Code(s): J45.22 - Mild intermittent asthma with status asthmaticus (5) Cannabis dependence Status: Chronic (6) Chronic 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 Status: Chronic (7) Chronic low back pain Status: Chronic Qualifiers: Back pain laterality: unspecified Sciatica presence: unspecified whether sciatica present Qualified Code(s): M54.5 - Low back pain; G89.29 - Other chronic pain (8) Cocaine dependence, uncomplicated Status: Chronic (9) GERD (gastroesophageal reflux disease) Status: Chronic Qualifiers: Esophagitis presence: without esophagitis Qualified Code(s): K21.9 - Gastro-esophageal reflux disease without esophagitis (10) HIV (human immunodeficiency virus infection) Status: Chronic Qualifiers: HIV symptom status: asymptomatic Qualified Code(s): Z21 - Asymptomatic human immunodeficiency virus [HIV] infection status (11) Substance-induced sleep disorder Status: Acute (12) Mood disorder Status: Chronic (13) PTSD (post-traumatic stress disorder) Status: Chronic - AMA Did Patient Leave Against Medical Advice: No
== END 2020-03-01 10:11 | disposition home or self-care (01) | DRG 774 ==
LOC: YASAS 13:07 → Y5N DETOX 14:56
PROVIDERS: ADMIT Allergy & Immunology; ATTEND Allergy & Immunology
PROC: HZ2ZZZZ Detoxification Services for Substance Abuse Treatment (ICD-10-PCS; principal; 2020-02-25)
DX: F10.230 Alcohol dependence with withdrawal, uncomplicated (principal); F14.20 Cocaine dependence, uncomplicated; F12.20 Cannabis dependence, uncomplicated; F17.213 Nicotine dependence, cigarettes, with withdrawal; F19.282 Other psychoactive substance dependence with psychoactive substance-induced sleep disorder; F39 Unspecified mood [affective] disorder; F43.10 Post-traumatic stress disorder, unspecified; Z21 Asymptomatic human immunodeficiency virus [HIV] infection status; K21.9 Gastro-esophageal reflux disease without esophagitis; M19.90 Unspecified osteoarthritis, unspecified site; J45.22 Mild intermittent asthma with status asthmaticus; M25.562 Pain in left knee; M54.5 Low back pain; G89.29 Other chronic pain; Z96.652 Presence of left artificial knee joint; Z62.810 Personal history of physical and sexual abuse in childhood
CPT/HCPCS: 36415; 80053; 81003; 85027; 86593; 86780; U0003

== ENCOUNTER 2020-09-29 12:12 | Inpatient (IN) | payer OTHER ==
[2020-09-29 13:09] VITALS: BMI 22.1
[2020-09-29] MEDS ORDERED: chlordiazePOXIDE HCL 25 MG CAPSULE PO PRN (13:55)
[2020-09-29] MEDS ORDERED: MAGNESIUM HYDROX 2400MG/30ML ORAL SUSPENSION 30 ML CUP PO PRN (13:55)
[2020-09-29] MEDS ORDERED: BISMUTH SUBSALICYLATE 262 MG/15 ML BTL PO PRN (13:55)
[2020-09-29] MEDS ORDERED: IBUPROFEN 400 MG TABLET (FP) PO PRN (13:55)
[2020-09-29] MEDS ORDERED: METHOCARBAMOL 500 MG TABLET PO PRN (13:55)
[2020-09-29] MEDS ORDERED: NICOTINE POLACRILEX 2 MG GUM BUC PRN (13:55)
[2020-09-29] MEDS ORDERED: MAG HYDROX/AL HYDROX/SIMETH 30 ML UNIT-DOSE CUP PO PRN (13:55)
[2020-09-29] MEDS ORDERED: ONDANSETRON *ODT* 4 MG TABLET SL PRN (13:55)
[2020-09-29] MEDS ORDERED: ACETAMINOPHEN 325 MG TABLET (FP) PO PRN ×2 (13:55)
[2020-09-29] MEDS ORDERED: MENTHOL/PHENOL 1 EACH UD MM PRN (13:55)
[2020-09-29] MEDS ORDERED: MAGNESIUM CITRATE 300 ML BOTTLE PO PRN (13:55)
[2020-09-29] MEDS ORDERED: ALBUTEROL SO4 HFA INHALER IH PRN (13:57)
[2020-09-29] MEDS: hydrOXYzine PAMOATE 25 MG CAPSULE (FP) PO SCH ×3 (14:59→22:59)
[2020-09-29] MEDS: PRENATAL VITAMINS W/ FOLIC ACID TABLET (FP) PO SCH (14:59)
[2020-09-29] MEDS: chlordiazePOXIDE HCL 25 MG CAPSULE PO SCH ×2 (17:48→22:59)
[2020-09-29] MEDS: THIAMINE HCL 100 MG TABLET (FP) PO SCH (22:59)
[2020-09-29] MEDS: MELATONIN 5 MG TABLETS PO SCH (22:59)
[2020-09-30] MEDS: chlordiazePOXIDE HCL 25 MG CAPSULE PO SCH ×4 (05:55→22:06)
[2020-09-30] MEDS: hydrOXYzine PAMOATE 25 MG CAPSULE (FP) PO SCH ×5 (05:56→22:06)
[2020-09-30 10:39] LABS: POTASSIUM 3.8 mmol/L (3.5-5.1)
[2020-09-30] MEDS: PRENATAL VITAMINS W/ FOLIC ACID TABLET (FP) PO SCH (10:40)
[2020-09-30 10:43] LABS: HEMATOCRIT 43.8 % (35.4-49); HEMOGLOBIN 14.9 GM/dL (11.7-16.9); MCH 30.3 pg (25.7-33.7); MEAN CELL VOLUME 89.3 fl (80-96); MEAN PLT VOLUME 7.8 fl (7.5-11.1); PLATELET COUNT 266 K/MM3 (134-434); RDW 14.5 % (11.9-15.9); WHITE BLOOD COUNT 3.6 K/mm3 (4.0-10.0)
[2020-09-30 10:48] LABS: ALBUMIN 3.5 g/dl (3.4-5.0); BLOOD UREA NITROGEN 4.7 mg/dL (7-18); CALCIUM 8.5 mg/dL (8.5-10.1)
[2020-09-30] MEDS: NICOTINE 21 MG/24 HOURS TOPICAL PATCH TD SCH (10:48)
[2020-09-30 10:52] LABS: CREATININE 0.9 mg/dL (0.55-1.3)
[2020-09-30 10:53] LABS: BILIRUBIN,TOTAL 0.9 mg/dL (0.2-1); TOT PROT 6.8 g/dl (6.4-8.2)
[2020-09-30] MEDS: MELATONIN 5 MG TABLETS PO SCH (22:06)
[2020-09-30] MEDS: THIAMINE HCL 100 MG TABLET (FP) PO SCH (22:06)
[2020-10-01] MEDS: hydrOXYzine PAMOATE 25 MG CAPSULE (FP) PO SCH ×3 (07:04→13:42)
[2020-10-01] MEDS: chlordiazePOXIDE HCL 25 MG CAPSULE PO SCH ×2 (07:04→10:36)
[2020-10-01 07:42] VITALS: TEMP 97.3
[2020-10-01] MEDS: PRENATAL VITAMINS W/ FOLIC ACID TABLET (FP) PO SCH (10:36)
[2020-10-01] MEDS: NICOTINE 21 MG/24 HOURS TOPICAL PATCH TD SCH (10:37)
[2020-10-01 14:29] VITALS: BP 113/75; PULSE 88
[2020-10-02] MEDS ORDERED: chlordiazePOXIDE HCL 10 MG CAPSULE PO PRN
[2020-10-02] MEDS ORDERED: chlordiazePOXIDE HCL 10 MG CAPSULE PO SCH (05:00)
[2020-10-03] MEDS ORDERED: chlordiazePOXIDE HCL 10 MG CAPSULE PO SCH (05:00)
[2020-10-04] MEDS ORDERED: chlordiazePOXIDE HCL 10 MG CAPSULE PO ONE (05:00)
== END 2020-10-01 15:40 | disposition left against medical advice (07) | DRG 770 ==
LOC: YASAS 12:12 → Y3N 13:44
PROVIDERS: ADMIT Allergy & Immunology; ATTEND Allergy & Immunology
PROC: HZ2ZZZZ Detoxification Services for Substance Abuse Treatment (ICD-10-PCS; principal; 2020-09-29)
DX: F10.230 Alcohol dependence with withdrawal, uncomplicated (principal); F14.10 Cocaine abuse, uncomplicated; F12.20 Cannabis dependence, uncomplicated; F17.210 Nicotine dependence, cigarettes, uncomplicated; F31.9 Bipolar disorder, unspecified; F19.282 Other psychoactive substance dependence with psychoactive substance-induced sleep disorder; Z21 Asymptomatic human immunodeficiency virus [HIV] infection status; A53.0 Latent syphilis, unspecified as early or late; G47.00 Insomnia, unspecified; J45.909 Unspecified asthma, uncomplicated; K21.9 Gastro-esophageal reflux disease without esophagitis; M54.5 Low back pain; G89.29 Other chronic pain; Z86.19 Personal history of other infectious and parasitic diseases; Z99.89 Dependence on other enabling machines and devices
CPT/HCPCS: 36415; 80053; 85027; 86593; 86780; C9803; U0003

== ENCOUNTER 2021-12-26 14:30 | Inpatient (IN) | payer OTHER ==
[2021-12-26] MEDS ORDERED: NICOTINE POLACRILEX 2 MG GUM BUC PRN (15:39)
[2021-12-26] MEDS ORDERED: DICYCLOMINE HCL 10 MG CAPSULE PO PRN (15:39)
[2021-12-26] MEDS ORDERED: ACETAMINOPHEN 325 MG TABLET (FP) PO PRN ×2 (15:39)
[2021-12-26] MEDS ORDERED: MAGNESIUM CITRATE 300 ML BOTTLE PO PRN (15:39)
[2021-12-26] MEDS ORDERED: ONDANSETRON *ODT* 4 MG TABLET SL PRN (15:39)
[2021-12-26] MEDS ORDERED: LOPERAMIDE HCL 2 MG CAPSULE PO PRN (15:39)
[2021-12-26] MEDS ORDERED: guaiFENesin 200 MG/10 ML 10 ML UNIT-DOSE CUPS PO PRN (15:39)
[2021-12-26] MEDS ORDERED: ALBUTEROL SO4 HFA INHALER IH PRN (15:39)
[2021-12-26] MEDS ORDERED: BENZOCAINE/MENTHOL (CHLORASEPTIC ) LOZENGE MM PRN (15:39)
[2021-12-26] MEDS ORDERED: BISMUTH SUBSALICYLATE 524 MG/30 ML PO PRN (15:39)
[2021-12-26] MEDS ORDERED: MAGNESIUM HYDROX 2400MG/30ML ORAL SUSPENSION 30 ML CUP PO PRN (15:39)
[2021-12-26] MEDS ORDERED: MAG HYDROX/AL HYDROX/SIMETH 30 ML UNIT-DOSE CUP PO PRN (15:39)
[2021-12-26] MEDS ORDERED: METHOCARBAMOL 500 MG TABLET PO PRN (15:39)
[2021-12-26 17:20] VITALS: BMI 20.9
[2021-12-26] MEDS: THIAMINE HCL 100 MG TABLET (FP) PO SCH (22:27)
[2021-12-26] MEDS: MELATONIN 5 MG TABLETS PO PRN (22:27)
[2021-12-27] MEDS: PRENATAL VITAMINS W/ FOLIC ACID TABLET (FP) PO SCH (10:49)
[2021-12-27] MEDS: hydrOXYzine PAMOATE 25 MG CAPSULE (FP) PO PRN (10:50)
[2021-12-27 11:13] LABS: HEMOGLOBIN 13.1 GM/dL (11.7-16.9); MCHC 33.7 g/dl (32.0-35.9); MEAN PLT VOLUME 7.3 fl (7.5-11.1); PLATELET COUNT 250 10^3/uL (134-434); RBC 4.38 M/mm3 (4.00-5.60); RDW 14.9 % (11.9-15.9); WHITE BLOOD COUNT 4.7 K/mm3 (4.0-10.0)
[2021-12-27 11:14] LABS: ALBUMIN 2.9 g/dl (3.4-5.0); BLOOD UREA NITROGEN 8.8 mg/dL (7-18); CALCIUM 8.1 mg/dL (8.5-10.1)
[2021-12-27 11:17] LABS: CREATININE 0.7 mg/dL (0.55-1.3)
[2021-12-27 11:19] LABS: BILIRUBIN,TOTAL 0.5 mg/dL (0.2-1); TOT PROT 5.9 g/dl (6.4-8.2)
[2021-12-27] MEDS: THIAMINE HCL 100 MG TABLET (FP) PO SCH (22:13)
[2021-12-27] MEDS: MELATONIN 5 MG TABLETS PO PRN (22:13)
[2021-12-28] MEDS ORDERED: chlordiazePOXIDE HCL 25 MG CAPSULE PO PRN (10:09)
[2021-12-28] MEDS: IBUPROFEN 400 MG TABLET (FP) PO PRN ×2 (10:15→22:09)
[2021-12-28] MEDS: PRENATAL VITAMINS W/ FOLIC ACID TABLET (FP) PO SCH (10:16)
[2021-12-28] MEDS: chlordiazePOXIDE HCL 25 MG CAPSULE PO SCH ×3 (12:19→22:06)
[2021-12-28] MEDS: THIAMINE HCL 100 MG TABLET (FP) PO SCH (22:06)
[2021-12-28] MEDS: MELATONIN 5 MG TABLETS PO PRN (22:07)
[2021-12-29] MEDS: chlordiazePOXIDE HCL 25 MG CAPSULE PO SCH ×4 (05:10→22:19)
[2021-12-29] MEDS: PRENATAL VITAMINS W/ FOLIC ACID TABLET (FP) PO SCH (10:22)
[2021-12-29] MEDS: IBUPROFEN 400 MG TABLET (FP) PO PRN (10:25)
[2021-12-29] MEDS: VITAMINS A AND D TOPICAL OINTMENT 60 GM TUBE TP SCH ×2 (12:30→17:14)
[2021-12-29] MEDS: hydrOXYzine PAMOATE 25 MG CAPSULE (FP) PO PRN ×2 (17:15→22:19)
[2021-12-29] MEDS ORDERED: QUEtiapine FUMARATE 200 MG TABLET PO SCH (22:00)
[2021-12-29] MEDS: MELATONIN 5 MG TABLETS PO PRN (22:19)
[2021-12-29] MEDS: THIAMINE HCL 100 MG TABLET (FP) PO SCH (22:19)
[2021-12-30] MEDS: chlordiazePOXIDE HCL 25 MG CAPSULE PO SCH ×2 (06:39→10:08)
[2021-12-30] MEDS: VITAMINS A AND D TOPICAL OINTMENT 60 GM TUBE TP SCH ×3 (08:26→11:28)
[2021-12-30] MEDS: PRENATAL VITAMINS W/ FOLIC ACID TABLET (FP) PO SCH (10:07)
[2021-12-30 12:47] VITALS: BP 112/73; PULSE 81; TEMP 97.5
[2021-12-31] MEDS ORDERED: chlordiazePOXIDE HCL 10 MG CAPSULE PO PRN
[2021-12-31] MEDS ORDERED: chlordiazePOXIDE HCL 10 MG CAPSULE PO SCH (05:00)
[2022-01-01] MEDS ORDERED: chlordiazePOXIDE HCL 10 MG CAPSULE PO SCH (05:00)
[2022-01-02] MEDS ORDERED: chlordiazePOXIDE HCL 10 MG CAPSULE PO ONE (05:00)
== END 2021-12-30 14:34 | disposition left against medical advice (07) | DRG 770 ==
LOC: YASAS 14:30 → Y3N 16:48 → UNDOADMIN 16:48
PROVIDERS: ADMIT Allergy & Immunology; ATTEND Surgery
PROC: HZ2ZZZZ Detoxification Services for Substance Abuse Treatment (ICD-10-PCS; principal; 2021-12-26)
DX: F10.230 Alcohol dependence with withdrawal, uncomplicated (principal); F14.20 Cocaine dependence, uncomplicated; F12.20 Cannabis dependence, uncomplicated; F17.210 Nicotine dependence, cigarettes, uncomplicated; F31.9 Bipolar disorder, unspecified; F19.24 Other psychoactive substance dependence with psychoactive substance-induced mood disorder; F43.10 Post-traumatic stress disorder, unspecified; J45.909 Unspecified asthma, uncomplicated; K21.9 Gastro-esophageal reflux disease without esophagitis; Z62.810 Personal history of physical and sexual abuse in childhood; G89.28 Other chronic postprocedural pain; Z96.653 Presence of artificial knee joint, bilateral; Z99.89 Dependence on other enabling machines and devices; Z86.19 Personal history of other infectious and parasitic diseases; Z91.19 Patient's noncompliance with other medical treatment and regimen
CPT/HCPCS: 36415; 80053; 82947; 83036; 85027; 86593; 86780; C9803-CS; U0003; U0005

== ENCOUNTER 2022-10-18 13:30 | Inpatient (IN) | payer OTHER ==
[2022-10-18 14:34] VITALS: BMI 21.4
[2022-10-18] MEDS ORDERED: NICOTINE 10 MG CARTRIDGE (INHALER) IH PRN ×2 (17:11→17:21)
[2022-10-18] MEDS ORDERED: BENZOCAINE/MENTHOL (CHLORASEPTIC ) LOZENGE MM PRN (17:11)
[2022-10-18] MEDS ORDERED: POLYETHYLENE GLYCOL (HEALTHYLAX) 3350 17 GM PACKET PO PRN ×2 (17:11→17:21)
[2022-10-18] MEDS ORDERED: LOPERAMIDE HCL 2 MG CAPSULE PO PRN ×2 (17:11→17:21)
[2022-10-18] MEDS ORDERED: IBUPROFEN 400 MG TABLET (FP) PO PRN ×2 (17:11→17:21)
[2022-10-18] MEDS ORDERED: IBUPROFEN 600 MG TABLET (FP) PO PRN ×2 (17:11→17:21)
[2022-10-18] MEDS ORDERED: BENZONATATE 200 MG CAPSULE PO PRN ×2 (17:11→17:21)
[2022-10-18] MEDS ORDERED: NALOXONE HCL 0.4 MG/ML VIAL IVPUSH PRN (17:11)
[2022-10-18] MEDS ORDERED: guaiFENesin 600 MG TABLET.ER (FP) PO PRN ×2 (17:11→17:21)
[2022-10-18] MEDS ORDERED: NALOXONE HCL (KLOXXADO) 8 MG SPRAY NS PRN ×2 (17:11→17:21)
[2022-10-18] MEDS ORDERED: MAG HYDROX/AL HYDROX/SIMETH 30 ML UNIT-DOSE CUP PO PRN ×2 (17:11→17:21)
[2022-10-18] MEDS ORDERED: MAGNESIUM HYDROX 2400MG/30ML ORAL SUSPENSION 30 ML CUP PO PRN ×2 (17:11→17:21)
[2022-10-18] MEDS ORDERED: hydrOXYzine PAMOATE 25 MG CAPSULE (FP) PO PRN (17:11)
[2022-10-18] MEDS ORDERED: ACETAMINOPHEN 325 MG TABLET (FP) PO PRN (17:11)
[2022-10-18] MEDS ORDERED: METHOCARBAMOL 500 MG TABLET PO PRN (17:11)
[2022-10-18] MEDS ORDERED: DICYCLOMINE HCL 10 MG CAPSULE PO PRN (17:21)
[2022-10-18] MEDS ORDERED: NALOXONE HCL 0.4 MG/ML VIAL IM PRN (17:21)
[2022-10-18] MEDS ORDERED: BISMUTH SUBSALICYLATE 524 MG/30 ML PO PRN (17:21)
[2022-10-18] MEDS ORDERED: ONDANSETRON *ODT* 4 MG TABLET SL PRN (17:21)
[2022-10-18] MEDS ORDERED: ALBUTEROL SO4 HFA INHALER IH PRN (17:34)
[2022-10-18] MEDS ORDERED: MELATONIN 5 MG TABLETS PO SCH (22:00)
[2022-10-18] MEDS ORDERED: THIAMINE HCL 100 MG TABLET (FP) PO SCH (22:00)
[2022-10-18] MEDS: MELATONIN 5 MG TABLETS PO SCH (22:36)
[2022-10-18] MEDS: THIAMINE HCL 100 MG TABLET (FP) PO SCH (22:36)
[2022-10-19] MEDS ORDERED: chlordiazePOXIDE HCL 25 MG CAPSULE PO PRN (09:01)
[2022-10-19] MEDS ORDERED: PRENATAL VITAMINS W/ FOLIC ACID TABLET (FP) PO SCH (10:00)
[2022-10-19] MEDS: chlordiazePOXIDE HCL 25 MG CAPSULE PO SCH ×3 (10:17→22:37)
[2022-10-19] MEDS: PRENATAL VITAMINS W/ FOLIC ACID TABLET (FP) PO SCH (10:17)
[2022-10-19] MEDS: METHOCARBAMOL 500 MG TABLET PO PRN (10:21)
[2022-10-19 12:32] LABS: HEMOGLOBIN 12.3 GM/dL (11.7-16.9); MCH 29.4 pg (25.7-33.7); MCHC 34.2 g/dl (32.0-35.9); MEAN CELL VOLUME 85.9 fl (80-96); MEAN PLT VOLUME 7.2 fl (7.5-11.1); PLATELET COUNT 322 10^3/uL (134-434); RBC 4.19 M/mm3 (4.00-5.60); RDW 14.9 % (11.9-15.9); WHITE BLOOD COUNT 6.9 K/mm3 (4.0-10.0)
[2022-10-19 12:36] LABS: ALBUMIN 3.1 g/dl (3.4-5.0)
[2022-10-19 12:37] LABS: BLOOD UREA NITROGEN 8.5 mg/dL (7-18); CALCIUM 8.3 mg/dL (8.5-10.1)
[2022-10-19 12:40] LABS: CREATININE 1.1 mg/dL (0.55-1.3)
[2022-10-19 12:42] LABS: BILIRUBIN,TOTAL 0.4 mg/dL (0.2-1); TOT PROT 6.6 g/dl (6.4-8.2)
[2022-10-19] MEDS: MELATONIN 5 MG TABLETS PO SCH (22:37)
[2022-10-19] MEDS: THIAMINE HCL 100 MG TABLET (FP) PO SCH (22:38)
[2022-10-20] MEDS: chlordiazePOXIDE HCL 25 MG CAPSULE PO SCH ×4 (05:26→22:26)
[2022-10-20] MEDS: BENZOCAINE/MENTHOL (CHLORASEPTIC ) LOZENGE MM PRN ×2 (05:28→18:29)
[2022-10-20] MEDS: PRENATAL VITAMINS W/ FOLIC ACID TABLET (FP) PO SCH (10:09)
[2022-10-20] MEDS: ACETAMINOPHEN 325 MG TABLET (FP) PO PRN (10:11)
[2022-10-20] MEDS: THIAMINE HCL 100 MG TABLET (FP) PO SCH (22:26)
[2022-10-20] MEDS: MELATONIN 5 MG TABLETS PO SCH (22:26)
[2022-10-20] MEDS: QUEtiapine FUMARATE 200 MG TABLET PO SCH (22:26)
[2022-10-21] MEDS: chlordiazePOXIDE HCL 25 MG CAPSULE PO SCH ×4 (06:04→22:31)
[2022-10-21] MEDS: PRENATAL VITAMINS W/ FOLIC ACID TABLET (FP) PO SCH (10:19)
[2022-10-21] MEDS: QUEtiapine FUMARATE 200 MG TABLET PO SCH (22:31)
[2022-10-21] MEDS: MELATONIN 5 MG TABLETS PO SCH (22:31)
[2022-10-21] MEDS: THIAMINE HCL 100 MG TABLET (FP) PO SCH (22:31)
[2022-10-21] MEDS: METHOCARBAMOL 500 MG TABLET PO PRN (22:33)
[2022-10-21] MEDS: hydrOXYzine PAMOATE 25 MG CAPSULE (FP) PO PRN (22:33)
[2022-10-22] MEDS ORDERED: chlordiazePOXIDE HCL 10 MG CAPSULE PO PRN
[2022-10-22] MEDS: chlordiazePOXIDE HCL 10 MG CAPSULE PO SCH ×4 (05:19→22:29)
[2022-10-22] MEDS: PRENATAL VITAMINS W/ FOLIC ACID TABLET (FP) PO SCH (10:43)
[2022-10-22] MEDS: MELATONIN 5 MG TABLETS PO SCH (22:28)
[2022-10-22] MEDS: QUEtiapine FUMARATE 200 MG TABLET PO SCH (22:28)
[2022-10-22] MEDS: THIAMINE HCL 100 MG TABLET (FP) PO SCH (22:28)
[2022-10-22] MEDS: ACETAMINOPHEN 325 MG TABLET (FP) PO PRN (22:30)
[2022-10-23] MEDS: chlordiazePOXIDE HCL 10 MG CAPSULE PO SCH ×2 (06:07→17:38)
[2022-10-23] MEDS: PRENATAL VITAMINS W/ FOLIC ACID TABLET (FP) PO SCH (10:49)
[2022-10-23] MEDS: ACETAMINOPHEN 325 MG TABLET (FP) PO PRN ×2 (10:50→17:41)
[2022-10-23] MEDS: QUEtiapine FUMARATE 200 MG TABLET PO SCH (22:42)
[2022-10-23] MEDS: MELATONIN 5 MG TABLETS PO SCH (22:42)
[2022-10-23] MEDS: hydrOXYzine PAMOATE 25 MG CAPSULE (FP) PO PRN (22:43)
[2022-10-23] MEDS: METHOCARBAMOL 500 MG TABLET PO PRN (22:43)
[2022-10-23] MEDS: THIAMINE HCL 100 MG TABLET (FP) PO SCH (22:44)
[2022-10-24] MEDS ORDERED: chlordiazePOXIDE HCL 10 MG CAPSULE PO ONE (05:00)
[2022-10-24] MEDS: PRENATAL VITAMINS W/ FOLIC ACID TABLET (FP) PO SCH (09:25)
[2022-10-24 10:32] VITALS: BP 142/93; PULSE 96; RESP 18; TEMP 97.5
== END 2022-10-24 10:39 | disposition other institution (70) | DRG 774 ==
LOC: YASAS 13:30 → Y3N 17:05
PROVIDERS: ADMIT Allergy & Immunology; ATTEND Surgery
PROC: HZ2ZZZZ Detoxification Services for Substance Abuse Treatment (ICD-10-PCS; principal; 2022-10-18)
DX: F10.230 Alcohol dependence with withdrawal, uncomplicated (principal); F14.20 Cocaine dependence, uncomplicated; F17.210 Nicotine dependence, cigarettes, uncomplicated; F19.24 Other psychoactive substance dependence with psychoactive substance-induced mood disorder; F31.9 Bipolar disorder, unspecified; F43.10 Post-traumatic stress disorder, unspecified; Z21 Asymptomatic human immunodeficiency virus [HIV] infection status; J45.20 Mild intermittent asthma, uncomplicated; M54.50 Low back pain, unspecified; G89.29 Other chronic pain; R73.9 Hyperglycemia, unspecified; R76.8 Other specified abnormal immunological findings in serum; Z96.653 Presence of artificial knee joint, bilateral; Z86.19 Personal history of other infectious and parasitic diseases; Z28.310 Unvaccinated for COVID-19; Z28.9 Immunization not carried out for unspecified reason; Z99.89 Dependence on other enabling machines and devices
CPT/HCPCS: 36415; 80053; 83036; 85027; 86593; 86780; C9803-CS; U0003; U0005

== ENCOUNTER 2022-12-21 11:33 | Inpatient (IN) | payer OTHER ==
[2022-12-21 12:24] VITALS: BMI 22.4
[2022-12-21] MEDS ORDERED: BISMUTH SUBSALICYLATE 524 MG/30 ML PO PRN (12:55)
[2022-12-21] MEDS ORDERED: NICOTINE 10 MG CARTRIDGE (INHALER) IH PRN (12:55)
[2022-12-21] MEDS ORDERED: MAGNESIUM HYDROX 2400MG/30ML ORAL SUSPENSION 30 ML CUP PO PRN (12:55)
[2022-12-21] MEDS ORDERED: ONDANSETRON *ODT* 4 MG TABLET SL PRN (12:55)
[2022-12-21] MEDS ORDERED: LOPERAMIDE HCL 2 MG CAPSULE PO PRN (12:55)
[2022-12-21] MEDS ORDERED: IBUPROFEN 400 MG TABLET (FP) PO PRN (12:55)
[2022-12-21] MEDS ORDERED: NALOXONE HCL 0.4 MG/ML VIAL IM PRN (12:55)
[2022-12-21] MEDS ORDERED: POLYETHYLENE GLYCOL (HEALTHYLAX) 3350 17 GM PACKET PO PRN (12:55)
[2022-12-21] MEDS ORDERED: NALOXONE HCL (KLOXXADO) 8 MG SPRAY NS PRN (12:55)
[2022-12-21] MEDS ORDERED: MAG HYDROX/AL HYDROX/SIMETH 30 ML UNIT-DOSE CUP PO PRN (12:55)
[2022-12-21] MEDS ORDERED: BENZOCAINE/MENTHOL (CHLORASEPTIC ) LOZENGE MM PRN (12:55)
[2022-12-21] MEDS ORDERED: ACETAMINOPHEN 325 MG TABLET (FP) PO PRN (12:55)
[2022-12-21] MEDS ORDERED: DICYCLOMINE HCL 10 MG CAPSULE PO PRN (12:55)
[2022-12-21] MEDS ORDERED: guaiFENesin 600 MG TABLET.ER (FP) PO PRN (12:55)
[2022-12-21] MEDS ORDERED: BENZONATATE 200 MG CAPSULE PO PRN (12:55)
[2022-12-21] MEDS ORDERED: ALBUTEROL SO4 HFA INHALER IH PRN (12:58)
[2022-12-21] MEDS: GABAPENTIN 300 MG CAPSULE PO SCH ×2 (14:21→22:48)
[2022-12-21] MEDS ORDERED: MELATONIN 5 MG TABLETS PO SCH (22:00)
[2022-12-21] MEDS: hydrOXYzine PAMOATE 25 MG CAPSULE (FP) PO PRN (22:48)
[2022-12-21] MEDS: METHOCARBAMOL 500 MG TABLET PO PRN (22:48)
[2022-12-21] MEDS: THIAMINE HCL 100 MG TABLET (FP) PO SCH (22:48)
[2022-12-22] MEDS: GABAPENTIN 300 MG CAPSULE PO SCH ×3 (05:40→22:53)
[2022-12-22] MEDS: NICOTINE 21 MG/24 HOURS TOPICAL PATCH TD SCH (10:32)
[2022-12-22] MEDS: PRENATAL VITAMINS W/ FOLIC ACID TABLET (FP) PO SCH (10:34)
[2022-12-22] MEDS: IBUPROFEN 600 MG TABLET (FP) PO PRN (10:34)
[2022-12-22] MEDS: METHOCARBAMOL 500 MG TABLET PO PRN ×2 (10:34→22:53)
[2022-12-22] MEDS ORDERED: chlordiazePOXIDE HCL 25 MG CAPSULE PO PRN (11:31)
[2022-12-22 12:27] LABS: HEMATOCRIT 36.6 % (35.4-49); HEMOGLOBIN 12.2 GM/dL (11.7-16.9); MCH 27.9 pg (25.7-33.7); MCHC 33.3 g/dl (32.0-35.9); MEAN CELL VOLUME 83.8 fl (80-96); MEAN PLT VOLUME 7.1 fl (7.5-11.1); PLATELET COUNT 398 10^3/uL (134-434); RBC 4.37 M/mm3 (4.00-5.60); RDW 14.3 % (11.9-15.9); WHITE BLOOD COUNT 6.6 K/mm3 (4.0-10.0)
[2022-12-22 13:17] LABS: POTASSIUM 3.9 mmol/L (3.5-5.1)
[2022-12-22 13:26] LABS: CALCIUM 8.4 mg/dL (8.5-10.1)
[2022-12-22 13:27] LABS: BLOOD UREA NITROGEN 7.1 mg/dL (7-18)
[2022-12-22 13:30] LABS: CREATININE 0.7 mg/dL (0.55-1.3)
[2022-12-22 13:31] LABS: BILIRUBIN,TOTAL 0.2 mg/dL (0.2-1)
[2022-12-22 13:32] LABS: TOT PROT 6.6 g/dl (6.4-8.2)
[2022-12-22] MEDS: chlordiazePOXIDE HCL 25 MG CAPSULE PO SCH ×2 (17:08→22:53)
[2022-12-22 19:20] LABS: HIV INTERPRETATION PRESUMPTIVE POSITIVE (NEGATIVE)
[2022-12-22] MEDS: THIAMINE HCL 100 MG TABLET (FP) PO SCH ×2 (22:53→23:02)
[2022-12-22] MEDS: hydrOXYzine PAMOATE 25 MG CAPSULE (FP) PO PRN (22:53)
[2022-12-23] MEDS: chlordiazePOXIDE HCL 25 MG CAPSULE PO SCH ×4 (05:47→22:38)
[2022-12-23] MEDS: GABAPENTIN 300 MG CAPSULE PO SCH ×3 (05:48→22:39)
[2022-12-23] MEDS: IBUPROFEN 600 MG TABLET (FP) PO PRN (05:48)
[2022-12-23] MEDS: PRENATAL VITAMINS W/ FOLIC ACID TABLET (FP) PO SCH (10:06)
[2022-12-23] MEDS: NICOTINE 21 MG/24 HOURS TOPICAL PATCH TD SCH (10:06)
[2022-12-23] MEDS: hydrOXYzine PAMOATE 25 MG CAPSULE (FP) PO PRN (10:08)
[2022-12-23] MEDS: THIAMINE HCL 100 MG TABLET (FP) PO SCH (22:38)
[2022-12-23] MEDS ORDERED: QUEtiapine FUMARATE 100 MG TABLET (FP) PO ONE (23:15)
[2022-12-24] MEDS: GABAPENTIN 300 MG CAPSULE PO SCH (05:38)
[2022-12-24] MEDS: chlordiazePOXIDE HCL 25 MG CAPSULE PO SCH ×2 (05:38→10:11)
[2022-12-24 09:28] VITALS: BP 133/86; PULSE 101; RESP 20; TEMP 97.3
[2022-12-24] MEDS: NICOTINE 21 MG/24 HOURS TOPICAL PATCH TD SCH (10:11)
[2022-12-24] MEDS: PRENATAL VITAMINS W/ FOLIC ACID TABLET (FP) PO SCH (10:11)
[2022-12-24] MEDS ORDERED: QUEtiapine FUMARATE 100 MG TABLET (FP) PO SCH (22:00)
[2022-12-25] MEDS ORDERED: chlordiazePOXIDE HCL 10 MG CAPSULE PO PRN
[2022-12-25] MEDS ORDERED: chlordiazePOXIDE HCL 10 MG CAPSULE PO SCH (05:00)
[2022-12-26] MEDS ORDERED: chlordiazePOXIDE HCL 10 MG CAPSULE PO SCH (05:00)
[2022-12-27] MEDS ORDERED: chlordiazePOXIDE HCL 10 MG CAPSULE PO ONE (05:00)
== END 2022-12-24 10:00 | disposition home or self-care (01) | DRG 774 ==
LOC: YASAS 11:33 → Y6N 13:02
PROVIDERS: ADMIT Allergy & Immunology; ATTEND Surgery
PROC: HZ2ZZZZ Detoxification Services for Substance Abuse Treatment (ICD-10-PCS; principal; 2022-12-21)
DX: F10.230 Alcohol dependence with withdrawal, uncomplicated (principal); F14.20 Cocaine dependence, uncomplicated; F17.210 Nicotine dependence, cigarettes, uncomplicated; F31.9 Bipolar disorder, unspecified; F19.282 Other psychoactive substance dependence with psychoactive substance-induced sleep disorder; Z21 Asymptomatic human immunodeficiency virus [HIV] infection status; G62.9 Polyneuropathy, unspecified; K21.9 Gastro-esophageal reflux disease without esophagitis; M54.50 Low back pain, unspecified; G89.29 Other chronic pain; Z96.653 Presence of artificial knee joint, bilateral; Z99.89 Dependence on other enabling machines and devices; Z86.19 Personal history of other infectious and parasitic diseases; Z28.310 Unvaccinated for COVID-19; Z28.9 Immunization not carried out for unspecified reason
CPT/HCPCS: 36415; 80053; 82140; 85027; 86593; 86780; 87389; 87811; C9803-CS; U0003; U0005

== ENCOUNTER 2023-04-15 12:54 | Inpatient (IN) | payer OTHER ==
[2023-04-15 13:50] VITALS: BMI 21.7
[2023-04-15] MEDS ORDERED: P-EPHED 60MG/TRIPROLIDI 2.5MG TABLET PO PRN (16:37)
[2023-04-15] MEDS ORDERED: ACETAMINOPHEN 325 MG TABLET (FP) PO PRN (16:37)
[2023-04-15] MEDS ORDERED: guaiFENesin 600 MG TABLET.ER (FP) PO PRN (16:37)
[2023-04-15] MEDS ORDERED: DICYCLOMINE HCL 10 MG CAPSULE PO PRN (16:37)
[2023-04-15] MEDS ORDERED: BENZONATATE 200 MG CAPSULE PO PRN (16:37)
[2023-04-15] MEDS ORDERED: POLYETHYLENE GLYCOL (HEALTHYLAX) 3350 17 GM PACKET PO PRN (16:37)
[2023-04-15] MEDS ORDERED: IBUPROFEN 600 MG TABLET (FP) PO PRN (16:37)
[2023-04-15] MEDS ORDERED: BENZOCAINE/MENTHOL (CHLORASEPTIC ) LOZENGE MM PRN (16:37)
[2023-04-15] MEDS ORDERED: IBUPROFEN 400 MG TABLET (FP) PO PRN (16:37)
[2023-04-15] MEDS ORDERED: BISMUTH SUBSALICYLATE 524 MG/30 ML PO PRN (16:37)
[2023-04-15] MEDS ORDERED: LOPERAMIDE HCL 2 MG CAPSULE PO PRN (16:37)
[2023-04-15] MEDS ORDERED: ONDANSETRON *ODT* 4 MG TABLET SL PRN (16:37)
[2023-04-15] MEDS ORDERED: MAGNESIUM HYDROX 2400MG/30ML ORAL SUSPENSION 30 ML CUP PO PRN (16:37)
[2023-04-15] MEDS ORDERED: MAG HYDROX/AL HYDROX/SIMETH 30 ML UNIT-DOSE CUP PO PRN (16:37)
[2023-04-16] MEDS: MELATONIN 5 MG TABLETS PO SCH ×2 (00:06→21:40)
[2023-04-16] MEDS: METHYL SALICYLATE/MENTHOL OINT 30 GM TUBE TP SCH ×3 (00:06→21:40)
[2023-04-16] MEDS: THIAMINE HCL 100 MG TABLET (FP) PO SCH ×2 (00:06→21:40)
[2023-04-16] MEDS: PRENATAL VITAMINS W/ FOLIC ACID TABLET (FP) PO SCH (12:33)
[2023-04-17] MEDS ORDERED: ALBUTEROL SO4 HFA INHALER IH PRN (10:05)
[2023-04-17] MEDS: PRENATAL VITAMINS W/ FOLIC ACID TABLET (FP) PO SCH (10:40)
[2023-04-17] MEDS: METHYL SALICYLATE/MENTHOL OINT 30 GM TUBE TP SCH ×2 (10:40→22:51)
[2023-04-17] MEDS: hydrOXYzine PAMOATE 25 MG CAPSULE (FP) PO PRN (10:47)
[2023-04-17] MEDS: METHOCARBAMOL 500 MG TABLET PO PRN (10:47)
[2023-04-17 11:51] LABS: BASO % 1.1 % (0-2.0); EOS % 9.6 % (0-4.5); HEMATOCRIT 41.2 % (35.4-49); LYMPH % 38.9 % (8-40); MCH 29.5 pg (25.7-33.7); MCHC 34.1 g/dl (32.0-35.9); MEAN CELL VOLUME 86.5 fl (80-96); MEAN PLT VOLUME 7.6 fl (7.5-11.1); MONO % 8.9 % (3.8-10.2); NEUT % 41.5 % (42.8-82.8); PLATELET COUNT 247 10^3/uL (134-434); RBC 4.76 M/mm3 (4.00-5.60); RDW 15.4 % (11.9-15.9); WHITE BLOOD COUNT 5.9 K/mm3 (4.0-10.0)
[2023-04-17 11:56] LABS: POTASSIUM 4.4 mmol/L (3.5-5.1)
[2023-04-17 12:06] LABS: ALBUMIN 3.2 g/dl (3.4-5.0)
[2023-04-17 12:09] LABS: CREATININE 0.8 mg/dL (0.55-1.3)
[2023-04-17 12:10] LABS: BILIRUBIN,TOTAL 0.2 mg/dL (0.2-1); TOT PROT 6.5 g/dl (6.4-8.2)
[2023-04-17] MEDS: MELATONIN 5 MG TABLETS PO SCH (22:51)
[2023-04-17] MEDS: THIAMINE HCL 100 MG TABLET (FP) PO SCH (22:51)
[2023-04-18] MEDS: METHYL SALICYLATE/MENTHOL OINT 30 GM TUBE TP SCH ×2 (10:50→21:52)
[2023-04-18] MEDS: PRENATAL VITAMINS W/ FOLIC ACID TABLET (FP) PO SCH (10:50)
[2023-04-18] MEDS: hydrOXYzine PAMOATE 25 MG CAPSULE (FP) PO PRN (17:40)
[2023-04-18] MEDS: METHOCARBAMOL 500 MG TABLET PO PRN (17:41)
[2023-04-18] MEDS: MELATONIN 5 MG TABLETS PO SCH (21:51)
[2023-04-18] MEDS: THIAMINE HCL 100 MG TABLET (FP) PO SCH (21:51)
[2023-04-19 07:35] VITALS: RESP 16
[2023-04-19 09:50] VITALS: BP 139/83; PULSE 78; TEMP 96.8
[2023-04-19] MEDS: METHYL SALICYLATE/MENTHOL OINT 30 GM TUBE TP SCH (10:21)
[2023-04-19] MEDS: METHOCARBAMOL 500 MG TABLET PO PRN (10:21)
[2023-04-19] MEDS: hydrOXYzine PAMOATE 25 MG CAPSULE (FP) PO PRN (10:21)
[2023-04-19] MEDS: PRENATAL VITAMINS W/ FOLIC ACID TABLET (FP) PO SCH (10:21)
== END 2023-04-19 12:32 | disposition home or self-care (01) | DRG 774 ==
LOC: YASAS 12:54 → Y6N 17:04
PROVIDERS: ADMIT Allergy & Immunology; ATTEND Surgery
PROC: HZ2ZZZZ Detoxification Services for Substance Abuse Treatment (ICD-10-PCS; principal; 2023-04-15)
DX: F10.20 Alcohol dependence, uncomplicated (principal); F14.20 Cocaine dependence, uncomplicated; F17.210 Nicotine dependence, cigarettes, uncomplicated; U07.1 COVID-19; Z21 Asymptomatic human immunodeficiency virus [HIV] infection status; J45.20 Mild intermittent asthma, uncomplicated; M17.0 Bilateral primary osteoarthritis of knee; M54.50 Low back pain, unspecified; G89.29 Other chronic pain; R76.8 Other specified abnormal immunological findings in serum; Z86.19 Personal history of other infectious and parasitic diseases; Z28.310 Unvaccinated for COVID-19; Z28.9 Immunization not carried out for unspecified reason
CPT/HCPCS: 36415; 80053; 85025; 86593; 86780; 87635

== ENCOUNTER 2024-03-14 11:54 | Inpatient (IN) | payer OTHER ==
[2024-03-14 13:00] VITALS: BMI 22.1
[2024-03-14] MEDS ORDERED: MAGNESIUM HYDROX 2400MG/30ML ORAL SUSPENSION 30 ML CUP PO PRN (16:30)
[2024-03-14] MEDS ORDERED: ACETAMINOPHEN 325 MG TABLET (FP) PO PRN (16:30)
[2024-03-14] MEDS ORDERED: BENZONATATE 200 MG CAPSULE PO PRN (16:30)
[2024-03-14] MEDS ORDERED: NICOTINE POLACRILEX 2 MG LOZENGE BC PRN (16:30)
[2024-03-14] MEDS ORDERED: MAG HYDROX/AL HYDROX/SIMETH 30 ML UNIT-DOSE CUP PO PRN (16:30)
[2024-03-14] MEDS ORDERED: guaiFENesin 600 MG TABLET.ER (FP) PO PRN (16:30)
[2024-03-14] MEDS ORDERED: POLYETHYLENE GLYCOL (HEALTHYLAX) 3350 17 GM PACKET PO PRN (16:30)
[2024-03-14] MEDS ORDERED: LOPERAMIDE HCL 2 MG CAPSULE PO PRN (16:30)
[2024-03-14] MEDS ORDERED: IBUPROFEN 400 MG TABLET (FP) PO PRN (16:30)
[2024-03-14] MEDS ORDERED: BENZOCAINE/MENTHOL (CHLORASEPTIC ) LOZENGE MM PRN (16:30)
[2024-03-14] MEDS ORDERED: NICOTINE POLACRILEX 2 MG GUM BUC PRN (16:30)
[2024-03-14] MEDS ORDERED: ALBUTEROL SO4 HFA INHALER IH PRN (16:31)
[2024-03-14] MEDS: THIAMINE 100 MG TABLET PO SCH (21:49)
[2024-03-14] MEDS: MELATONIN 5 MG TABLETS PO SCH (21:49)
[2024-03-14] MEDS: hydrOXYzine PAMOATE 25 MG CAPSULE (FP) PO PRN (21:49)
[2024-03-14 22:15] LABS: EPI CELLS 14 /uL (0-25.1); HYALINE CASTS 2 /uL (0-3.1); PH,URINE 5.5 (5.0-8.0); URINE APPEARANCE CLEAR; URINE BACTERIA 12 /uL (0-1359); URINE BILIRUBIN NEGATIVE (NEGATIVE); URINE COLOR YELLOW; URINE GLUCOSE (UA) NEGATIVE (NEGATIVE); URINE KETONE NEGATIVE (NEGATIVE); URINE LEUK ESTERASE TRACE (NEGATIVE); URINE NITRITE NEGATIVE (NEGATIVE); URINE PROTEIN NEGATIVE (NEGATIVE); URINE RBC 20 /uL (0-23.9); URINE WBC 71 /uL (0-25.8)
[2024-03-15] MEDS: PRENATAL VITAMINS W/ FOLIC ACID TABLET (FP) PO SCH (09:46)
[2024-03-15 11:35] LABS: HEMATOCRIT 42.3 % (35.4-49); HEMOGLOBIN 14.4 GM/dL (11.7-16.9); MCH 29.7 pg (25.7-33.7); MCHC 34.1 g/dl (32.0-35.9); MEAN CELL VOLUME 87.3 fl (80-96); MEAN PLT VOLUME 7.6 fl (7.5-11.1); PLATELET COUNT 299 10^3/uL (134-434); RBC 4.84 M/mm3 (4.00-5.60); RDW 14.6 % (11.9-15.9); WHITE BLOOD COUNT 5.3 K/mm3 (4.0-10.0)
[2024-03-15 11:36] LABS: CHLORIDE 105 mmol/L (98-107); POTASSIUM 4.1 mmol/L (3.5-5.1); SODIUM 138 mmol/L (136-145)
[2024-03-15 11:43] LABS: ALBUMIN 3.6 g/dl (3.4-5.0); ANION GAP 5 mmol/L (4-13); CALCIUM 8.8 mg/dL (8.5-10.1); CO2 28 mmol/L (21-32)
[2024-03-15 11:44] LABS: BLOOD UREA NITROGEN 7.5 mg/dL (7-18); GLUCOSE,RANDOM 57 mg/dL (74-106)
[2024-03-15 11:47] LABS: CREATININE 0.8 mg/dL (0.55-1.3); SGPT/ALT 18 U/L (13-61)
[2024-03-15 11:49] LABS: BILIRUBIN,TOTAL 0.6 mg/dL (0.2-1); SGOT/AST 25 U/L (15-37); TOT PROT 7.1 g/dl (6.4-8.2)
[2024-03-15 11:50] LABS: ALK PHOS 110 U/L (45-117)
[2024-03-16] MEDS: QUEtiapine FUMARATE 200 MG TABLET PO SCH (21:05)
[2024-03-17] MEDS: METHOCARBAMOL 500 MG TABLET PO PRN (09:48)
[2024-03-19] MEDS: IBUPROFEN 600 MG TABLET (FP) PO PRN (09:43)
[2024-03-20 06:39] VITALS: RESP 16; TEMP 97.7
[2024-03-21 06:25] VITALS: BP 109/70; PULSE 73
== END 2024-03-21 14:06 | disposition left against medical advice (07) | DRG 770 ==
LOC: YASAS 11:54 → Y3NR 17:22 → Y3W 03-16 11:42
PROVIDERS: ADMIT Allergy & Immunology; ATTEND Psychiatry & Neurology Pain Medicine
PROC: HZ42ZZZ Group Counseling for Substance Abuse Treatment, Cognitive-Behavioral (ICD-10-PCS; principal; 2024-03-14)
DX: F10.20 Alcohol dependence, uncomplicated (principal); F14.20 Cocaine dependence, uncomplicated; F17.210 Nicotine dependence, cigarettes, uncomplicated; F19.982 Other psychoactive substance use, unspecified with psychoactive substance-induced sleep disorder; F31.9 Bipolar disorder, unspecified; F43.10 Post-traumatic stress disorder, unspecified; J45.20 Mild intermittent asthma, uncomplicated; Z21 Asymptomatic human immunodeficiency virus [HIV] infection status; M54.59 Other low back pain; G89.29 Other chronic pain; M19.90 Unspecified osteoarthritis, unspecified site; K21.9 Gastro-esophageal reflux disease without esophagitis; Z96.652 Presence of left artificial knee joint; Z86.19 Personal history of other infectious and parasitic diseases; Z56.0 Unemployment, unspecified; Z59.02 Unsheltered homelessness
CPT/HCPCS: 36415; 80053; 80305; 80307; 81003; 85027; 86593; 86780; 87811

== ENCOUNTER 2025-03-27 14:44 | Inpatient (IN) | payer OTHER ==
[2025-03-27 16:03] VITALS: BMI 25.1
[2025-03-27] MEDS ORDERED: LOPERAMIDE HCL 2 MG CAPSULE PO PRN (16:09)
[2025-03-27] MEDS ORDERED: MAGNESIUM HYDROX 2400MG/30ML ORAL SUSPENSION 30 ML CUP PO PRN (16:09)
[2025-03-27] MEDS ORDERED: DICYCLOMINE HCL 10 MG CAPSULE PO PRN (16:09)
[2025-03-27] MEDS ORDERED: NALOXONE (NARCAN) HCL 4 MG/0.1 ML SPRAY NS PRN (16:09)
[2025-03-27] MEDS ORDERED: BENZONATATE 200 MG CAPSULE PO PRN (16:09)
[2025-03-27] MEDS ORDERED: BISMUTH SUBSALICYLATE 524 MG/30 ML PO PRN (16:09)
[2025-03-27] MEDS ORDERED: MAG HYDROX/AL HYDROX/SIMETH 30 ML UNIT-DOSE CUP PO PRN (16:09)
[2025-03-27] MEDS ORDERED: NICOTINE POLACRILEX 2 MG GUM BUC PRN (16:09)
[2025-03-27] MEDS ORDERED: NICOTINE POLACRILEX 2 MG LOZENGE BC PRN (16:09)
[2025-03-27] MEDS ORDERED: guaiFENesin 600 MG TABLET.ER (FP) PO PRN (16:09)
[2025-03-27] MEDS ORDERED: BENZOCAINE/MENTHOL (CHLORASEPTIC ) LOZENGE MM PRN (16:09)
[2025-03-27] MEDS ORDERED: POLYETHYLENE GLYCOL (HEALTHYLAX) 3350 17 GM PACKET PO PRN (16:09)
[2025-03-27] MEDS ORDERED: ONDANSETRON *ODT* 4 MG TABLET SL PRN (16:09)
[2025-03-27] MEDS ORDERED: hydrOXYzine PAMOATE 25 MG CAPSULE (FP) PO PRN (16:09)
[2025-03-27] MEDS ORDERED: IBUPROFEN 400 MG TABLET (FP) PO PRN (16:09)
[2025-03-27] MEDS ORDERED: ALBUTEROL SO4 HFA INHALER IH PRN (19:39)
[2025-03-27] MEDS: THIAMINE 100 MG TABLET PO SCH (22:36)
[2025-03-27] MEDS: MELATONIN 5 MG TABLETS PO SCH (22:36)
[2025-03-28] MEDS: PRENATAL VITAMINS W/ FOLIC ACID TABLET (FP) PO SCH (10:30)
[2025-03-28] MEDS: BICTEGRAV/EMTRICIT/TENOFOV (BIKTARVY) 50-200-25 MG TABLET PO SCH (10:32)
[2025-03-28] MEDS: IBUPROFEN 600 MG TABLET (FP) PO PRN (10:35)
[2025-03-28 11:11] LABS: MCHC 32.4 g/dl (32.3-36.5); MEAN CELL VOLUME 84.8 fl (79.0-92.2); MEAN PLT VOLUME 9.0 fl (9.4-12.4); RDW 14.9 % (12.2-16.4)
[2025-03-28 11:38] LABS: GLUCOSE,RANDOM 104 mg/dL (74-106)
[2025-03-28 11:39] LABS: TOT PROT 6.6 g/dl (6.4-8.2)
[2025-03-28 11:40] LABS: CO2 29 mmol/L (21-32)
[2025-03-28 11:41] LABS: ALK PHOS 111 U/L (40-150)
[2025-03-28 11:44] LABS: CREATININE 0.75 mg/dL (0.55-1.3); SGOT/AST 18 U/L (5-34); SGPT/ALT 7 U/L (0-55)
[2025-03-28 13:52] LABS: SYPHILIS W/ RPR CONF REACTIVE (NONREACTIVE)
[2025-03-28 15:55] LABS: RPR REFLEX REACTIVE 1:1 (NONREACTIVE)
[2025-03-28] MEDS: QUEtiapine FUMARATE 100 MG TABLET (FP) PO SCH (22:41)
[2025-03-31] MEDS: METHOCARBAMOL 500 MG TABLET PO PRN (22:33)
[2025-04-01] MEDS: ACETAMINOPHEN 325 MG TABLET (FP) PO PRN (10:04)
[2025-04-01 13:14] VITALS: PULSE 87
[2025-04-02 05:51] VITALS: BP 130/83; RESP 17; TEMP 97.5
== END 2025-04-02 10:00 | disposition home or self-care (01) | DRG 774 ==
LOC: YASAS 14:44 → Y3N 16:45
PROVIDERS: ADMIT Neuromusculoskeletal Medicine & OMM; ATTEND Neuromusculoskeletal Medicine & OMM
PROC: HZ2ZZZZ Detoxification Services for Substance Abuse Treatment (ICD-10-PCS; principal; 2025-03-27)
DX: F10.230 Alcohol dependence with withdrawal, uncomplicated (principal); F14.20 Cocaine dependence, uncomplicated; F17.210 Nicotine dependence, cigarettes, uncomplicated; F31.9 Bipolar disorder, unspecified; F43.10 Post-traumatic stress disorder, unspecified; Z21 Asymptomatic human immunodeficiency virus [HIV] infection status; J45.20 Mild intermittent asthma, uncomplicated; K21.9 Gastro-esophageal reflux disease without esophagitis; M54.50 Low back pain, unspecified; G89.29 Other chronic pain; Z62.810 Personal history of physical and sexual abuse in childhood; Z63.8 Other specified problems related to primary support group; Z59.00 Homelessness unspecified
CPT/HCPCS: 36415; 80053; 80307; 85027; 86593; 86780; 93005; 93010